=== PATIENT | male | born 1955 | race Caucasian/White ===

== ENCOUNTER 2017-07-12 10:39 | Day surgery (SDC) | payer MEDICARE, SELFPAY ==
[2015-09-13 11:13] VITALS: BMI 36.2
--- NOTE | 2017-07-12 | GASB_PTH ---
PATIENT: BUSTER CORDERO LOC: EN U#:[id number] AGE/SX: 61/M ROOM: RE07/12/[address]: Dr. Natalia Chin MD : 1955 BED: DIS: 07/12/2017 SPEC #: [id number] RECD: 07/12/17 13:44 STATUS: RAYMON RE #: [id number] YOLANDA: 07/12/17 00:[address]: Natalia Chin DEPT: SURGICAL PATHOLOGY RECD BY: Josue Sotomayor ENTERED: 07/12/17 13:44 SP TYPE: Gastric Bx OTHR DR: Dr. Tk Fofana MD Tissues: A - Gastric mucous membrane B - Gastric mucous membrane Procedures: Special Stain Group II Surgery Specimen Level IV Alcian Blue/PAS (control) HEADER OPERATION: EGD PRE-OP DIAGNOSIS: Heme-positive stools TISSUE SUBMITTED: A ? Antral biopsy, B ? GE junction biopsy 2 cm proximal MICROSCOPIC DIAGNOSIS A. Antral biopsy: Mild gastritis. See microscopic description and comment. B. 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 Mild chronic inflammation. See comment. SJ:mariya 07/13/17 COMMENT A. The results of immunohistochemistry for Helicobacter pylori will be reported separately ([id number]). B. Alcian blue/PAS stain with matched control is used in the evaluation of the specimen. No evidence of dysplasia. MICROSCOPIC DESCRIPTION Slides are reviewed. A. The specimen shows fragments of gastric mucosa with chronic inflammatory cell infiltrates in the lamina propria consisting of lymphocytes and plasma cells, consistent with mild chronic gastritis. GROSS DESCRIPTION A - Received in fixative is one container labeled with the patient's name and designated antral biopsy. The specimen consists of one irregular fragment of light kaminski soft tissue that measures 0.4 x 0.4 x 0.1 cm. The specimen is totally submitted in one cassette. B - Received in fixative is one container labeled with the patient's name and designated 2 cm proximal to GE junction. The specimen consists of one irregular fragment of light kaminski soft tissue that measures 0.3 x 0.3 x 0.1 cm. The specimen is totally submitted in one cassette. / RANJIT:mariya 07/12/17 TC:3 CPT: 22119 x2, 99083
--- NOTE | 2017-07-12 | IMM_PTH ---
PATIENT: BUSTER CORDERO LOC: EN U#:[id number] AGE/SX: 61/M ROOM: RE07/12/[address]: Dr. Natalia Chin MD : 1955 BED: DIS: 07/12/2017 SPEC #: [id number] RECD: 07/13/17 13:34 STATUS: RAYMON REQ #: [id number] YOLANDA: 07/12/17 00:[address]: Natalia Chin DEPT: IMMUNOHISTOCHEMISTRY RECD BY: Kana Gamez ENTERED: 07/13/17 13:35 SP TYPE: IMMUNO OTHR DR: Dr. Tk Fofana MD Tissues: Gastric mucous membrane Procedures: H Pylori (initial) PHYSICIAN & INSTITUTION [place] [id number] SPECIMEN INFORMATION: Tissue Source: A. Antral biopsy Clinical Info: Heme-positive stools Specimen Number: [id number] CPT code: 08093 METHODOLOGY: Deparaffinized sections of prefer/formalin-fixed tissue or PAP/DQ stained slides are incubated with monoclonal/polyclonal antibodies/oligonucleotide probes. Localization is made via biotin free immunoperoxidase method. Appropriate controls are performed and reacted as expected. Results on target cell population are indicated in the following table: RESULTS: ANTIBODY / CLONE RESULT H Pylori (polyclonal) negative These tests were developed and their performance characteristics determined by [facility]. They may not have been cleared or approved by the U.S. Food and Drug Administration. The FDA has determined that such clearance or approval is not necessary. INTERPRETATION: A. Antral biopsy: Negative for Helicobacter pylori organisms. SJ:magan 07/13/17
[2017-07-12 11:13] VITALS: BP 131/93; PULSE 101; RESP 18; TEMP 37; O2SAT 97; BMI 36.3
[2017-07-12 11:40] LABS: Bedside Glucose 235 mg/dL (70-110)
[2017-07-12 12:38] VITALS: BP 131/93; BP 94/68; PULSE 115; RESP 16; TEMP 36.2; O2SAT 94
[2017-07-12 12:45] VITALS: BP 131/93; BP 96/72; PULSE 120; RESP 16; O2SAT 96
[2017-07-12 12:50] VITALS: BP 107/73; BP 131/93; PULSE 105; RESP 16; O2SAT 96
[2017-07-12 12:55] VITALS: BP 111/88; BP 131/93; PULSE 108; RESP 16; TEMP 36.3; O2SAT 96
[2017-07-12 13:18] VITALS: BP 131/93
--- NOTE | 2017-07-12 16:37 | PCM.OPRPT ---
Report of Operation Date of Procedure: 07/12/17 Pre-Operative Diagnosis: heme positive stools Post-Operative Diagnosis: mild antritis, mild esophagitis, normal colon but incomplete colon cleansing preparation Surgery/Procedure Performed:: esophagogastroduodenoscopies with biopsies, colonoscopy Description of Surgical Findings:: mild antritis - no ulcers or masses seen, salmon mucosal creeping at GE junction to 2 cm proximally, no lesions seen in colon - however polyps < 2 cm may be missed due to poor colon cleansing preparation Type of Anesthesia:: MAC Anesthesiologist: Nannette Jorge Specimen's removed: mucosal biopsies of antrum and GE juction 2 cm proximally Estimated Blood Loss (mL): minimal Fluids Replaced: 400 ml RL Description of Procedure: After informed consent was given, the patient was brought to the endoscopy suite and placed in the upright sitting position. Appropriate time out protocol was followed. Appropriate cardiac, blood pressure, and pulse oximetry monitoring was placed. After stable vital signs were noted, the patient was given intravenous conscious sedation. The posterior pharynx was sprayed with lidocaine spray times two and a bite block was placed. The patient was then placed in the left lateral decubitis position. The upper endoscope was lubricated and inserted into the patients mouth and then carefully placed into the patients throat. The patient was asked to swallow and the endoscope was then easily advanced into the patients esophagus. The endoscope was further advanced down into the patients stomach, then past the pylorus, then past the duodenal bulb and then to the second portion of the duodenum. There were no lesions noted in the duodenum. The endoscope was then retracted back into the stomach. A retroflex view of the stomach revealed no evidence of any masses. No ulcers, no strictures, no suspicious lesions were noted. The endoscope was retracted into the esophagus, where any insufflated gas in the stomach was aspirated out. The gastroesophageal junction appeared to have salmon colored mucosa creeping at least 2 cm proximal to GE junction, biopsies using cold grasper forceps were taken at this location to rule out Barretts. The remainder of the esophagus was normal. The upper endoscope was removed intact. The next procedure, the colonoscopy was done next. The colonoscope was lubricated and carefully inserted into the patients anus. It was then advanced into the rectum, then into the sigmoid colon, then into the left descending colon, past the splenic flexure, into the transverse colon, past the hepatic flexure, then down into the right descending colon and into the cecum. The cecum was identified by: transillumination, confluence of the tenae coli, identification of the ileocecal valve and appendiceal orifice, and external pressure with indentation. At this point, the colonoscope was slowly retracted back and the entire colonic mucosa was examined. There was no evidence of extrinsic compression and no inflammatory changes were noted. Of note, polyps < 2 cm may be missed due to poor colon cleansing preparation. No intraluminal obstructing lesions, no strictures, and no ulcers were noted. Retroflex view in the rectum revealed no lesions in the rectal vault. The colonoscope was removed intact. Patient tolerated procedure well. - Complications none noted
--- NOTE | 2017-07-12 16:40 | OP.PCM_ITS ---
Report of Operation Date of Procedure: 07/12/17 Pre-Operative Diagnosis: heme positive stools Post-Operative Diagnosis: mild antritis, mild esophagitis, normal colon but incomplete colon cleansing preparation Surgery/Procedure Performed:: esophagogastroduodenoscopies with biopsies, colonoscopy Description of Surgical Findings:: mild antritis - no ulcers or masses seen, salmon mucosal creeping at GE junction to 2 cm proximally, no lesions seen in colon - however polyps < 2 cm may be missed due to poor colon cleansing preparation Type of Anesthesia:: MAC Anesthesiologist: Nannette Jorge Specimen's removed: mucosal biopsies of antrum and GE juction 2 cm proximally Estimated Blood Loss (mL): minimal Fluids Replaced: 400 ml RL Description of Procedure: After informed consent was given, the patient was brought to the endoscopy suite and placed in the upright sitting position. Appropriate time out protocol was followed. Appropriate cardiac, blood pressure, and pulse oximetry monitoring was placed. After stable vital signs were noted, the patient was given intravenous conscious sedation. The posterior pharynx was sprayed with lidocaine spray times two and a bite block was placed. The patient was then placed in the left lateral decubitis position. The upper endoscope was lubricated and inserted into the patient?s mouth and then carefully placed into the patient?s throat. The patient was asked to swallow and the endoscope was then easily advanced into the patient?s esophagus. The endoscope was further advanced down into the patient?s stomach, then past the pylorus, then past the duodenal bulb and then to the second portion of the duodenum. There were no lesions noted in the duodenum. The endoscope was then retracted back into the stomach. A retroflex view of the stomach revealed no evidence of any masses. No ulcers, no strictures, no suspicious lesions were noted. The endoscope was retracted into the esophagus, where any insufflated gas in the stomach was aspirated out. The gastroesophageal junction appeared to have salmon colored mucosa creeping at least 2 cm proximal to GE junction, biopsies using cold grasper forceps were taken at this location to rule out Barretts. The remainder of the esophagus was normal. The upper endoscope was removed intact. The next procedure, the colonoscopy was done next. The colonoscope was lubricated and carefully inserted into the patient?s anus. It was then advanced into the rectum, then into the sigmoid colon, then into the left descending colon, past the splenic flexure, into the transverse colon, past the hepatic flexure, then down into the right descending colon and into the cecum. The cecum was identified by: transillumination, confluence of the tenae coli, identification of the ileocecal valve and appendiceal orifice, and external pressure with indentation. At this point, the colonoscope was slowly retracted back and the entire colonic mucosa was examined. There was no evidence of extrinsic compression and no inflammatory changes were noted. Of note, polyps < 2 cm may be missed due to poor colon cleansing preparation. No intraluminal obstructing lesions, no strictures, and no ulcers were noted. Retroflex view in the rectum revealed no lesions in the rectal vault. The colonoscope was removed intact. Patient tolerated procedure well. - Complications none noted
== END 2017-07-12 13:19 | disposition home or self-care (01) ==
LOC: EN 10:40 → AC 10:42
PROVIDERS: Family Provider Family Medicine; PCP Family Medicine; Visit Provider Surgery
PROC: 0DJD8ZZ Inspection of Lower Intestinal Tract, Via Natural or Artificial Opening Endoscopic (ICD-10-PCS; CPT 45378; principal; 2017-07-12 11:55)
DX: Z12.11 Encounter for screening for malignant neoplasm of colon (principal); K29.70 Gastritis, unspecified, without bleeding; K22.70 Barrett's esophagus without dysplasia; K20.9 Esophagitis, unspecified; I11.0 Hypertensive heart disease with heart failure; I50.32 Chronic diastolic (congestive) heart failure; I48.91 Unspecified atrial fibrillation; D50.9 Iron deficiency anemia, unspecified; E11.21 Type 2 diabetes mellitus with diabetic nephropathy; E11.65 Type 2 diabetes mellitus with hyperglycemia; E78.2 Mixed hyperlipidemia; G47.10 Hypersomnia, unspecified; F32.9 Major depressive disorder, single episode, unspecified; F41.9 Anxiety disorder, unspecified; E66.01 Morbid (severe) obesity due to excess calories; Z68.36 Body mass index [BMI] 36.0-36.9, adult; F17.210 Nicotine dependence, cigarettes, uncomplicated; Z79.01 Long term (current) use of anticoagulants; Z79.891 Long term (current) use of opiate analgesic; Z79.899 Other long term (current) drug therapy
CPT/HCPCS: 43239; G0121; 82962; 88305; 88313; 88342; J7120

== ENCOUNTER 2017-09-30 12:06 | Emergency (ER) | payer MEDICARE, SELFPAY ==
[2015-09-13 11:13] VITALS: BMI 36.2
[2017-09-30 12:06] VITALS: BP 141/82; PULSE 95; RESP 16; TEMP 36.7; O2SAT 98; BMI 36.1
--- NOTE | 2017-09-30 12:38 | RAD_ITS ---
STUDY: X-RAY - LEFT HAND, ATTENTION INDEX FINGER REASON FOR EXAM: Male, 61 years old. Laceration overlying the tip of the index finger. TECHNIQUE: 3 view(s) of the finger were obtained. COMPARISON: None. FINDINGS: Normal metacarpal head. Normal metacarpophalangeal joint. Normal proximal phalanx. Normal middle phalanx. Normal distal phalanx. Normal proximal interphalangeal joint. Normal distal interphalangeal joint. Soft tissue laceration overlying the distal phalanx. RAD/Finger(s) Min 2 Views IMPRESSION: Soft tissue injury. No fracture is seen. Electronically Signed: Hakan Mendosa MD at 13:26 EDT Tel [phone], Service support ,
--- NOTE | 2017-09-30 12:41 | ED.DCSUM_ITS ---
- ER Visit Summary Date of Service: 09/30/17 Chief Complaint: Left index finger laceration History of Present Illness: The patient is a 61 M who cut his left index finger on a table saw around 830 last evening. Patient went to urgent care this morning and then was sent to the emergency room. Describes a throbbing and aching sensation. He is left-hand dominant. He is unsure of his last tetanus update. Past history is reviewed and does include history of atrial fibrillation for which he is on Xarelto. Physical Examination: Vital signs unremarkable. Patient sitting upright in bed no acute distress. Left upper extremity examination significant for a 2 x 3 cm irregular area of skin avulsion on the pad of the left index finger. He has full range of motion with good cap refill distally. Test Results: Left index finger x-rays reveal soft tissue injury with no evidence of fracture. Emergency Department Course and Treatment: Tetanus update is provided. He is given doses of Bactrim and Keflex. Digital block is performed with 2 cc of 1% lidocaine. Wound is soaked, cleansed, and dressed. He will be given Bactrim and Keflex at home. Treatment Plan: [] Disposition: Discharge Impression: Skin avulsion left index finger This note was generated with [employer] dictation software. It may contain incorrect words, spelling, and punctuation that were not noted in review of the chart prior to signing ED Disposition - Plan for ED Patient: Chief Complaint: Laceration Referrals: Tk Fofana MD [Primary Care Provider] -
[2017-09-30] MEDS: Cephalexin 250 MG Capsule 500 MG PO (13:16)
[2017-09-30] MEDS: Smz/Tmp Ds Tablet 1 TABLET PO (13:16)
[2017-09-30] MEDS: Diphth,Pertuss(Acell),Tet Vac 0.5 ML Vial IM (13:17)
--- NOTE | 2017-09-30 14:10 | ED.DEP ---
ED Disposition - Plan for ED Patient: Disposition: Home or Assisted Living Chief Complaint: Laceration Instructions: ED Avulsion Dermal, ED Wound Care Prescriptions: Cephalexin [Keflex] 500 mg PO Q6 #40 capsule Smz/Tmp Ds [Bactrim Ds] 1 tablet PO BID #20 tablet Referrals: Tk Fofana MD [Primary Care Provider] - 1-2 Weeks
[2017-09-30 14:32] VITALS: RESP 16
--- NOTE | 2017-09-30 14:32 | ED.RN ---
REVIEWED D/C INSTRUCTIONS, FOLLOW UP CARE, PRESCRIPTIONS, AND S/S THAT WOULD WARRANT A RETURN TO THE ED WITH PT. PT VERBALIZED AN UNDERSTANDING AND DENIES FURTHER QUESTIONS FOR THIS RN. PT SKIN P/W/D, RESP EVEN AND UNLABORED, PT A&O X 3, NO DISTRESS NOTED. PT AMBULATED OUT OF ED, GAIT STEADY.
== END 2017-09-30 14:33 | disposition home or self-care (01) ==
PROVIDERS: Emergency Provider Emergency Medicine; Family Provider Family Medicine; PCP Family Medicine
DX: S61.201A Unspecified open wound of left index finger without damage to nail, initial encounter (principal); W29.8XXA Contact with other powered hand tools and household machinery, initial encounter; Y93.9 Activity, unspecified; Y92.9 Unspecified place or not applicable; Y99.9 Unspecified external cause status; Z23 Encounter for immunization; I48.91 Unspecified atrial fibrillation; E11.9 Type 2 diabetes mellitus without complications; I10 Essential (primary) hypertension; Z72.0 Tobacco use; Z79.01 Long term (current) use of anticoagulants; Z79.84 Long term (current) use of oral hypoglycemic drugs; Z79.899 Other long term (current) drug therapy
CPT/HCPCS: 73140; 90715; 99284

== ENCOUNTER 2018-08-18 13:52 | Inpatient (IN) | payer MEDICARE, SELFPAY ==
[2015-09-13 11:13] VITALS: BMI 36.2
[2018-08-18] VITALS (32 sets, daily range): BP systolic 120–148; BP diastolic 79–107; PULSE 33–169; RESP 13–184; TEMP 37.6–40.9; O2SAT 90–100; BMI 34.6; BMI 34.3
--- NOTE | 2018-08-18 14:03 | CT_ITS ---
STUDY: CT BRAIN WITHOUT CONTRAST REASON FOR EXAM: Male, 62 years old. Weakness. Confusion. RADIATION DOSAGE (If Supplied By Facility): CTDIvol = ( 60.81 ) mGy, DLP = ( 1044.28 ) mGycm TECHNIQUE: Transaxial CT imaging of the brain was performed without administration of intravenous contrast material. Individualized dose optimization techniques were used for this CT. COMPARISON: No relevant priors. FINDINGS: Normal soft tissue structures. Normal calvarium. Normal size ventricles and extra-axial spaces for the patient's age. Focal area of decreased attenuation in the carney radiata of the left frontoparietal lobe suggestive of old ischemic insult. Normal basal ganglia and thalami. Normal brainstem. Normal cerebellum. There is no intracranial hemorrhage. There are no findings of an acute ischemic infarction. Callosal thickening of the left maxillary sinus. 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 Electronically Signed: Hakan Mendosa, at 15:00 EDT , Service support ,
--- NOTE | 2018-08-18 14:03 | EKG12_ITS ---
Test Reason : NEURO STROKE SYMPT Blood Pressure : / mmHG Vent. Rate : 126 BPM Atrial Rate : 300 BPM P-R Int : 000 ms QRS Dur : 106 ms QT Int : 334 ms P-R-T Axes : 000 064 058 degrees QTc Int : 483 ms Atrial fibrillation with rapid ventricular response Abnormal ECG Confirmed by JORGE HANEY, MARGARITA ([id number]), editorial assistant SIXTO LICEA ([id number]) on 08/22/2018 11:30:56 AM Referred By: Coco Saini Confirmed By:GARRETT PATEL MD
--- NOTE | 2018-08-18 14:03 | RAD_ITS ---
STUDY: X-RAY CHEST REASON FOR EXAM: Male, 62 years old. Chest pain. TECHNIQUE: Single AP portable view of the chest. COMPARISON: Comparison is made with prior study October 19, 2016. FINDINGS: EKG electrodes are seen. Stable diffuse interstitial increased markings suggestive of mild CHF. This most likely is superimposed on chronic interstitial scarring. Blunting of the left costophrenic angle. There is moderate cardiac enlargement. Normal mediastinum and cathy. Normal visualized pulmonary arteries. There is atherosclerotic calcification of the aortic arch with tortuosity. There are degenerative changes of the visualized thoracic spine. Normal visualized ribs, clavicles, and shoulders. There is no demonstrated abnormality of the visualized soft tissue structures of the upper abdomen. RAD/Chest 1 View (Portable) IMPRESSION: Stable increased interstitial markings bilaterally suggestive of mild CHF superimposed on scarring. Electronically Signed: Hakan Mendosa, at 14:42 EDT , Service support ,
--- NOTE | 2018-08-18 14:20 | EKG12_ITS ---
Test Reason : RAPID RESPONSE Blood Pressure : / mmHG Vent. Rate : 151 BPM Atrial Rate : 187 BPM P-R Int : 000 ms QRS Dur : 108 ms QT Int : 292 ms P-R-T Axes : 000 076 063 degrees QTc Int : 462 ms Atrial fibrillation Low voltage QRS Septal infarct , age undetermined Abnormal ECG When compared with ECG of 19-OCT-2016 14:38, Septal infarct is now Present Confirmed by RAFIQ HANEY, NANCY ([id number]), web content editor SIXTO LICEA ([id number]) on 08/23/2018 8:18:57 AM Referred By: Coco Saini Confirmed By:NANCY CONROY MD
--- NOTE | 2018-08-18 14:20 | CT_ITS ---
STUDY: CT ABDOMEN AND PELVIS WITHOUT CONTRAST REASON FOR EXAM: Male, 62 years old. Weakness. Abdominal pain. Confusion. RADIATION DOSAGE (If Supplied By Facility): CTDIvol = ( 14.80 ) mGy, DLP = ( 766.75 ) mGycm TECHNIQUE: Transaxial images were obtained from the dome of the diaphragm to the symphysis pubis without oral contrast, and without intravenous contrast. Sagittal and coronal images were reconstructed. Individualized dose optimization techniques were used for this CT. COMPARISON: None. FINDINGS: Consolidation in the posterior medial segment of the left lower lobe. Mild increased markings at the left lung base. Coronary artery calcification. Moderate ascites. Normal liver. I suspect small gallstones and sludge within the gallbladder lumen. There is moderate splenomegaly. Normal pancreas. Normal bilateral adrenal glands. Normal right kidney. Normal left kidney. Normal visualized stomach. Normal small intestine. Normal colon. The appendix is visualized and appears normal. There is diffuse atherosclerotic calcification of the abdominal aorta, without a demonstrated aneurysm. Normal inferior vena cava. Normal retroperitoneum. Normal urinary bladder. Normal abdominal wall. There are degenerative changes of the visualized lumbar spine. CT/Abdomen/Pelvis without Cont IMPRESSION: Ascites. Moderate splenomegaly. Consolidation in the posterior medial segment of the left lower lobe with mild increased markings in the right lower lobe. Electronically Signed: Hakan Mendosa, at 14:59 EDT , Service support ,
--- NOTE | 2018-08-18 14:24 | ED.DCSUM_ITS ---
History of Present Illness Chief Complaint: Neuro S/Sx Informant: Patient, Family Onset: Days Current Severity: Moderate Narrative: Patient can presents with weakness abdominal pain confusion incontinence since Wednesday, per the family who he lives with he developed with generalized weakness could not really move about that incontinence and complained of shortness of breath and has generalized weakness and confusion he was brought to the hosp [facility]. The patient really cannot provide any history he is noted to have a temperature about 100 his blood pressure is 130/70 his heart rates 148. Sinus tach on the monitor he is complaining of generalized fatigue tiredness and some very mild shortness of breath Past Medical History - Allergies and Home Meds Allergies/Adverse Reactions: Allergies No Known Allergies Allergy (Verified 08/18/18 14:17) Primary Care Physician: Tk Fofana MD [Primary Care Provider] - Past Medical History: - - See the full chart Smoking Status: Current every day smoker - Family History Sibling Family History: Reports: Cancer - his sister, - - Brother with a comp occasions of multiple sclerosis Review of Systems General: Reports: Chills, Fever. Denies: Sweats Eyes: Denies: Visual changes - bilaterally, Diplopia ENT: Denies: Rhinorrhea, Sore throat Cardiovascular: Denies: Chest pain, Palpitations Respiratory: Reports: Dyspnea. Denies: Cough, Dyspnea on exertion Gastrointestinal: Denies: Abdominal pain, Nausea, Vomiting, Diarrhea, Melena, Hematochezia Genitourinary: Denies: Dysuria, Hematuria, Frequency Musculoskeletal: Denies: Back pain, Extremity Pain Skin: Denies: Rash, Wounds Neurological: Reports: - - Planes of generalized whole body weakness. Denies: Headache, Weakness, Numbness Physical Exam Vital Signs/Narrative: Vital Signs Temp Pulse Resp BP Pulse Ox 08/18/18 14:01 99.7 F H 145 H 32 H 135/79 H 99 General: Well nourished, Well developed, No Acute Distress Head: Normocephalic, Atraumatic Eyes: Perrl, EOMI ENT: Moist mucous membranes, No rhinorrhea Neck: Supple, Nontender Cardiovascular: Regular rate, Regular rhythm, No murmurs Respiratory: No distress, CTA bilaterally, Chest nontender Abdomen: Soft, Nondistended, Normal bowel sounds, Tender, - - His abdomen appears distended, he may have some bladder fullness in the suprapubic area there is no rebound or guarding Back: Nontender, Normal Inspection Extremities: Nontender, No edema Skin: Normal color, No rash Neurological: Alert, Cranial nerves II-XII grossly intact, Normal Strength, Normal Sensation, - - He is awake he is answering questions to his name he knows [facility] he just complains of generalized weakness he is moving all 4 extremities his HEENT is grossly normal he is uncooperative for formal exam there is no obvious gross motor or sensory abnormality Psychological: Normal affect, Normal Mood Diagnostic/Tx/Re-eval - Medical Decision Making The patient has been having apparent weakness vomiting he was incontinent of stool and urine abdominal distention shortness of breath his differentials rather wide there is no obvious signs of primary stroke but some events in the differential as well this all started Wednesday screening labs Patient's head CT shows nothing acute see the report, the abdominal CT shows appear to be bilobar infiltrates see that report, the screening labs show multiple abnormalities , white count , lactate is negative, he is received IV fluids sepsis protocol antibiotics he remains hemodynamically stable at this time given all the above the fact that he presents with shortness of breath and fever and generalized weakness we last hospital seen for the management admission Admit stable Final impression Bi lobar pneumonia, generalized weakness, ED Disposition - Plan for ED Patient: Referrals: Tk Fofana MD [Primary Care Provider] -
[2018-08-18 14:42] LABS: International Normalized Ratio 1.9; Prothrombin Time (Protime)PT. 21.4 SECONDS (11.7-14.9)
[2018-08-18 14:53] LABS: ALB/GLOB Ratio 0.5 RATIO (0.9-2.4); AST(SGOT) 46 U/L (15-37); Alanine Aminotransfer ALT/SGPT 20 U/L (16-61); Albumin, Serum 2.9 g/dL (3.2-5.0); Alkaline Phosphatase 150 U/L (45-117); Anion Gap 11 (5-15); BUN 11 mg/dL (7-18); BUN/Creat Ratio 12.4 RATIO (10-20); Calcium,Total 8.1 mg/dL (8.5-10.1); Chloride 95 mmol/L (98-107); Creatinine, Serum 0.89 mg/dL (0.70-1.30); EST Glomerular Filtration Rate 92 mL/min (>60); Est Glom Filt Rate - Afr Amer 112 mL/min (>60); Globulin 5.4 g/dL (2.2-4.2); Glucose 126 mg/dL (74-106); Potassium 3.7 mmol/L (3.5-5.1); Protein, Total 8.3 g/dL (6.4-8.2); Sodium Level 127 mmol/L (136-145)
[2018-08-18 15:00] LABS: Lactic Acid 1.9 mmol/L (0.4-2.0)
[2018-08-18 15:17] LABS: Mucous, Urine 0 SEEN /hpf (<or=2+); Squamous Epithelial Cells - UA 0 SEEN /hpf (0-5)
[2018-08-18 15:18] LABS: Color, Urine Yellow (Yellow); Glucose, Dipstick Normal (Normal); Ketone-Dipstick 5 mg/dl (Negative); Leukocyte Esterase-Dipstick 25 /ul (Negative); Nitrite-Dipstick Negative (Negative); Occult Blood-Urine 50 /ul (Negative); Protein-Dipstick 100 mg/dl (Negative); Specific Gravity, Urine 1.015 (1.002-1.030); Urine Bilirubin Dipstick 1 mg/dL (Negative); Urine Clarity Clear (Clear); Urine Urobilinogen 8 mg/dl (Normal)
[2018-08-18 15:23] LABS: Bacteria RARE /hpf (None Seen); Red Blood Cells-Urine 0-5 SEEN /hpf (0-5); White Blood Cells 0-5 SEEN /hpf (0-5)
[2018-08-18] MEDS: 0.9% Normal Saline 1,000 ML 150 ML IV (15:30)
[2018-08-18] MEDS: Acetaminophen 325 MG Tablet 650 MG PO ×2 (15:32→20:26)
[2018-08-18 15:36] LABS: Absolute Lymphocyte Count 0.65 X10^3/ul (0.83-4.51); Basophil# 0.01 X10^3/uL; Basophil% 0.2 % (0-1); Hematocrit 32.9 % (40-54); Hemoglobin 11.5 g/dl (13.0-16.5); Lymphocyte # 0.65 X10^3/ul (4.0); Lymphocyte % 10.4 % (19-41); Mean Corpuscular Hgb 31.9 pg (27.0-32.0); Mean Corpuscular Volume 91.1 fL (80-94); Mean Platelet Vol. 9.1 fl (6.2-12.0); Monocyte# 0.57 X10^3/uL; Monocyte% 9.1 % (0-10); Neutrophil # 4.98 X10^3/uL (2.7-7.7); Neutrophil % 79.7 % (47-70); Platelet Count 72 K/mm3 (150-450); RBC Distribution Width SD 53.9 fl (35.1-43.9); Red Blood Count 3.61 M/mm3 (4.6-6.2); White Blood Count 6.3 K/mm3 (4.4-11.0)
[2018-08-18 15:38] LABS: POSITIVE COUNT NO; POSITIVE DIFFERENTIAL NO; POSITIVE MORPHOLOGY NO
--- NOTE | 2018-08-18 15:38 | PCM.HP.STD ---
Problem List (1) Sepsis Status: Acute (2) CAP (community acquired pneumonia) Status: Acute Qualifiers: Laterality: unspecified laterality Qualified Code(s): J18.9 - Pneumonia, unspecified organism (3) Atrial fibrillation Status: Acute Qualifiers: Atrial fibrillation type: paroxysmal Qualified Code(s): I48.0 - Paroxysmal atrial fibrillation (4) Decompensated hepatic cirrhosis Status: Acute (5) Heart failure with preserved ejection fraction, borderline, class II Status: Acute (6) Thrombocytopenia Status: Chronic (7) Anemia Status: Chronic Qualifiers: Anemia type: unspecified type Qualified Code(s): D64.9 - Anemia, unspecified (8) Hyponatremia Status: Acute (9) Alcohol abuse Status: Chronic (10) Diabetes type 2, controlled Status: Chronic Qualifiers: Diabetes mellitus senior care insulin use: without senior care use Diabetes mellitus complication status: with unspecified complications Qualified Code(s): E11.8 - Type 2 diabetes mellitus with unspecified complications (11) Hypertension Status: Chronic Qualifiers: Hypertension type: essential hypertension Qualified Code(s): I10 - Essential (primary) hypertension (12) HLD (hyperlipidemia) Status: Chronic Qualifiers: Hyperlipidemia type: unspecified Qualified Code(s): E78.5 - Hyperlipidemia, unspecified History of Present Illness Date of Admission: 08/18/18 Chief Complaint: Confusion, abd distention, fever The patient is a 62 y/o M w/ PMHx: PAF, CHF, HTN, HLD, Chronic back pain, Diabetes mellitus type II, Obesity, Depression and Anxiety, EtOH ABuse, Chronic daily cannabis use, Tobacco use who presents to the [facility] ED on 08/18/18 with history of several days with progressively worsening dyspnea, decreased interaction, incontinent of urine and stool with nonspecific abdominal discomfort and worsened abdominal distention as well as lower extremity edema as well as onset fever, productive cough. Work-up in the ED included T103.3, heart rate initially 145, BP 135/79, respiratory rate 32, 99% on room air, CBC with WBC 6.3, hemoglobin 11.5, platelets 72 with mild left shift, PT 21.4, INR 1.9, CMP with sodium 127, chloride 95, glucose 126, lactic acid 1.9, total bilirubin 2.6, AST 46, ALT 20, alk phos 150, troponin less than 0.01, urinalysis with no acute evidence of infection, culture x2 and urine culture obtained per ED and pending, CT brain with findings suggestive of an old ischemic insult involving the carney radiata of the left frontoparietal lobe, chest x-ray with stable increased interstitial markings bilaterally suggestive of possible mild CHF superimposed on scarring, CT abdomen and pelvis with evidence of ascites, moderate splenomegaly, consolidation in the posterior medial segment of the left lower lobe with mild increased markings in the right lower lobe. In the ED patient administered aggressive normal saline resuscitation, Zosyn, vancomycin as well as Tylenol. Past Medical History Past Medical History (Chronic Problems): Chronic Problems HLD (hyperlipidemia) (Chronic) Thrombocytopenia (Chronic) Anemia (Chronic) Pancytopenia (Chronic) Alcohol abuse (Chronic) Diabetes type 2, controlled (Chronic) Hypertension (Chronic) Allergies No Known Allergies Allergy (Verified 08/18/18 14:17) Home Medications: Ambulatory Orders Medication Instructions Recorded Irbesartan [Avapro] 150 mg PO DAILY 10/15/15 Diltiazem CD [Cardizem CD] 120 mg PO DAILY 10/19/16 Furosemide [Lasix] 20 mg PO DAILY 10/19/16 Docusate Sodium [Dok] 100 mg PO BID 07/07/17 Rivaroxaban [Xarelto] 20 mg PO DAILY 07/07/17 Citalopram [Celexa] 40 mg PO DAILY 08/18/18 Ferrous Sulfate 325 mg PO DAILY 08/18/18 Garlic 1,500 mg PO DAILY 08/18/18 Lidocaine [Lidoderm Patch] 1 patch TOPICAL Q12H PRN PRN 08/18/18 Multivitamin with Minerals 1 ea PO DAILY 08/18/18 [Multiple Vitamin] Bedford-3 Fatty Acids/Fish Oil 3,000 mg PO DAILY 08/18/18 [[place] 3 1,000 mg Softgel] Oxycodone HCl/Acetaminophen 1 tab PO BID PRN PRN 08/18/18 [Oxycodon-Acetaminophen 7.5-325] Potassium Chloride [Klor-Con M20] 20 meq PO DAILY 08/18/18 Ubidecarenone [Co Q-10] 100 mg PO DAILY 08/18/18 busPIRone [Buspar] 15 mg PO BID 08/18/18 metFORMIN (XR) [Glucophage Xr] 1,000 mg PO DAILY 06/20/19 Surgical History: - - Chest tube placement from prior trauma, tonsillectomy, right shoulder surgery. Psychiatric History: No pertinent psych hx Lives: Spouse/ Significant Other Smoking Status: Current every day smoker - Patient smokes 1/2 pack/day cigarette tobacco usage. Tobacco Use: Cigarettes Alcohol: Heavy - Patient drinks 3 to 12, 12 ounce beers daily. Drugs: None - *Family History Sibling History Items: Cancer - Sister with a history of cancer, unclear type., - - Brother with a history of multiple sclerosis. Maternal History Items: - - Patient notes his mother was healthy, no history of heart disease, diabetes or cancer. Paternal History Items: - - Patient does not know any of his father's history, left when he was young. Review of Systems Constitutional: Reports: Anorexia, Chills, Fever, Malaise, Weakness, Fatigue. Denies: Weight Change HEENT: Denies: Head Aches, Sinus Congestion, Sinus Drainage Cardiovascular: Reports: Edema, Orthopnea. Denies: Chest Pain, Palpitations Respiratory: Reports: Cough, Shortness of Breath, Shortness of breath at rest, Shortness of breath upon exertion, Sputum production Gastrointestinal: Reports: Abdominal Pain. Denies: Nausea, Vomiting Genitourinary: Denies: Dysuria Musculoskeletal: Reports: Joint Pain. Denies: Joint Tenderness Skin: Denies: Rash, Wounds Neurological: Reports: Confusion. Denies: Focal weakness, Numbness, Tingling Psychiatric: Denies: Anxiety, Depression, Homicidal Ideations, Suicidal Ideations Hematologic/ Lymphatic: Reports: Anemia, Easy Bruising, Easy Bleeding VTE Information - Inpt Only VTE Present on Admission: No VTE Mechan Device Prophylaxis: SCD's VTE Pharm Prophylaxis ordered?: No Reason prophylaxis not ordered:: Treatment Not Indicated - Holding patient Xarelto as possible need for paracentesis. Patient Problems: Active and Suspected Problems Hyponatremia (Acute) Decompensated hepatic cirrhosis (Acute) CAP (community acquired pneumonia) (Acute) Sepsis (Acute) Subjective: Seated upright in the ED bed, fatigued and ill-appearing, increased work of breathing, some accessory muscle usage still although improved from initial presentation, orientation has notably improved and is able to give place, year, recent events but had been very confused upon initial presentation. Objective: Physical Examination: General: awake, now alert, oriented to self, place, year and president now but had been very confused initially upon presentation to the ED, remains cooperative, seated upright in the ED bed, fatigued appearing, still ongoing mildly increased work of breathing and some accessory muscle usage but improved since initial presentation. Skin: normal color, turgor, no icterus, cyanosis, bilateral lower extremity chronic venous stasis skin changes and occasional ecchymoses to the extremities of various staged. HEENT: AT/NC, EOMI, PERRLA, dry MM, no carotid bruits, difficult to assess JVD secondary to thickened neck. Lungs: Diminished BS BL, > BL bases, rales and rhonchi noted, > BL bases to mid posterior, increased work of breathing, some accessory muscle usage still, improved from initial ED presentation. Heart: Irregular irregular; no gallop, rub audible. Abdomen: soft, NTTP distended, distant hyperactive bowel sounds, difficult to assess HSM secondary to distended habitus with ascites evident. Extremities: no cyanosis, clubbing, bilateral lower extremity pedal to lower abdominal 3-4+ pitting edema Neurological: patient awake, alert, oriented as noted, improving since initial ED presentation; cognitive function notably improved since initial ED presentation, nearing baseline intact; pupils equally reactive to light and accomodation; cranial nerves II-XII grossly normal, moving all 4 extremities, no focal deficits, strength severely global decrease secondary to acute presentation. Psychiatric: affect appears fatigued, no acute evidence of depressive or anxiety feelings. - Physical Exam Vital Signs Temp Pulse Resp BP Pulse Ox 103.3 F H 118 H 28 H 147/79 H 97 08/18/18 15:33 08/18/18 15:33 08/18/18 15:33 08/18/18 15:33 08/18/18 15:33 Oxygen Flow Rate (L/min) 2 Oxygen Delivery Method Nasal Cannula Weight: 262 lb 5.601 oz Body Mass Index (BMI) 34.6 Laboratory Tests Past 24 Hrs 08/18/18 08/18/18 08/18/18 13:11 14:22 14:22 WBC RBC Hgb Hct MCV MCH MCHC RDW RDW Differential Plt Count Neut % (Auto) Absolute Neuts (auto) Total Counted PT 21.4 H INR 1.9 Sodium 127 L Potassium 3.7 Chloride 95 L Carbon Dioxide 21.0 Anion Gap 11 BUN 11 Creatinine 0.89 Estim Creat Clear Calc 98.50 Est GFR (MDRD) Af Amer 112 Est GFR (MDRD) Non-Af 92 BUN/Creatinine Ratio 12.4 Glucose 126 H Lactic Acid Calcium 8.1 L Total Bilirubin 2.60 H AST 46 H ALT 20 Alkaline Phosphatase 150 H Troponin I < 0.015 Total Protein 8.3 H Albumin 2.9 L Globulin 5.4 H Albumin/Globulin Ratio 0.5 L Urine Color Yellow Urine Clarity Clear Urine pH 6.0 Ur Specific Startex 1.015 Urine Protein 100 H Urine Glucose (UA) Normal Urine Ketones 5 H Urine Occult Blood 50 H Urine Nitrite Negative Urine Bilirubin 1 H Urine Urobilinogen 8 H Ur Leukocyte Esterase 25 H Urine RBC 0-5 SEEN Urine WBC 0-5 SEEN Ur Squamous Epith Cells 0 SEEN Urine Bacteria RARE Urine Mucus 0 SEEN 08/18/18 08/18/18 14:22 14:22 WBC Pending RBC Pending Hgb Pending Hct Pending MCV Pending MCH Pending MCHC Pending RDW Pending RDW Differential Pending Plt Count Pending Neut % (Auto) Pending Absolute Neuts (auto) Pending Total Counted Pending PT INR Sodium Potassium Chloride Carbon Dioxide Anion Gap BUN Creatinine Estim Creat Clear Calc Est GFR (MDRD) Af Amer Est GFR (MDRD) Non-Af BUN/Creatinine Ratio Glucose Lactic Acid 1.9 Calcium Total Bilirubin AST ALT Alkaline Phosphatase Troponin I Total Protein Albumin Globulin Albumin/Globulin Ratio Urine Color Urine Clarity Urine pH Ur Specific Startex Urine Protein Urine Glucose (UA) Urine Ketones Urine Occult Blood Urine Nitrite Urine Bilirubin Urine Urobilinogen Ur Leukocyte Esterase Urine RBC Urine WBC Ur Squamous Epith Cells Urine Bacteria Urine Mucus Assessment/Plan All Active Problems Hyponatremia (Acute) Decompensated hepatic cirrhosis (Acute) CAP (community acquired pneumonia) (Acute) Sepsis (Acute) Leukocytoclastic vasculitis (Acute) Atrial fibrillation with RVR (Acute) Heart failure with preserved ejection fraction, borderline, class II (Acute) Atrial fibrillation (Acute) The patient is a 62 y/o M w/ PMHx: PAF, CHF, HTN, HLD, Chronic back pain, Diabetes mellitus type II, Obesity, Depression and Anxiety, EtOH ABuse, Chronic daily cannabis use, Tobacco use who presents to the [facility] ED on 08/18/18 with history of several days with progressively worsening dyspnea, decreased interaction, incontinent of urine and stool with nonspecific abdominal discomfort and worsened abdominal distention as well as lower extremity edema as well as onset fever, productive cough. (1) Acute Hypoxic Respiratory Failure secondary to Acute Decompensated CHF, Unclear Type and Suspected New Decompensated Cirrhosis w/ EtOH Ongoing and CAP w/ Acute Sepsis secondary: Work-up in the ED included T103.3, heart rate initially 145, BP 135/79, respiratory rate 32, 99% on room air, CBC with WBC 6.3, hemoglobin 11.5, platelets 72 with mild left shift, PT 21.4, INR 1.9, CMP with sodium 127, chloride 95, glucose 126, lactic acid 1.9, total bilirubin 2.6, AST 46, ALT 20, alk phos 150, troponin less than 0.01, urinalysis with no acute evidence of infection, culture x2 and urine culture obtained per ED and pending, CT brain with findings suggestive of an old ischemic insult involving the carney radiata of the left frontoparietal lobe, chest x-ray with stable increased interstitial markings bilaterally suggestive of possible mild CHF superimposed on scarring, CT abdomen and pelvis with evidence of ascites, moderate splenomegaly, consolidation in the posterior medial segment of the left lower lobe with mild increased markings in the right lower lobe. Will admit to the ICU, notified the ICU physician Dr. Nichols of admission, maintain on cardiac telemetry, obtain cardiac enzyme series, obtain serial EKGs, continue IV lasix diuresis, allow only ADA, low-sodium diet, monitor I/Os, maintain on intake restriction, continue medical therapy IV diruesis primarily, initiating lactulose regimen, holding xarelto, administered IV cardizem given PAF with RVR and continued oral regimen, defer statin addition given this presentation w/ FLP in AM, obtain TSH and magnesium level. Requested ECHO. Given ongoing Xarelto regimen, held now upon admission once allowable per IR would plan diagnostic and therapeutic paracentesis. Given unclear timeline and with recent anticoagulation will hold on initiating n.p.o. status or ordering paracentesis labs, continue ATC duonebs, PRN albuterol, maintain on IV Zosyn and Vancomycin pending MRSA screen with de-escalation as able, HOB, IS parameters w/ pending sputum cultures and urine antigens. Bld cx x 2 obtained in the ED. Cardiology consulted, pending. PRN morphine to decrease afterload, continue oxygen supplementation, if necessary will position w/ upright position with legs off bed to decrease preload. (2) Acute encephalopathy, infectious and metabolic, multifactorial: Secondary to as noted acute hypoxic respiratory failure secondary to pneumonia, CHF exacerbation as well as decompensated cirrhosis, sepsis, will continue treatment as noted above, already starting to improve, continue to evaluate. (3) Paroxsymal atrial fibrillation w/ RVR: EKG in ED w/ atrial fibrillation w/ RVR. Will maintain on telemetry, obtain cardiac enzyme serial set, obtain magnesium level, obtain ECHO, obtain TSH level. Holding patient Xarelto regimen given acute presentation with need for paracentesis. Administered IV Cardizem bolus x2 with some improvement, if needed may initiate on drip, but in interim we will continue also patient oral home Cardizem regimen. Cardiology consulted, pending. (4) EtOH Abuse: Patient notes routine consumption of 3-12, 12 ounce beers per day. Will maintain on CIWA protocol, MVI, thiamine and folic acid. UDS and alcohol level requested. Patient presentation may also be comp gated by alcohol withdrawal given recent bedridden status with acute presentation. Mag and phos levels pending. (5) Hyponatremia, mildly acute on chronic: Admission sodium 127, likely be reported flower contributing, as well as acute presentation #1, continue treatment as noted #1 and trend BMP. (6) Diabetes mellitus type II: Hold oral home regimen, ADA diet, accu checks w/ ISS. (7) Chronic normocytic anemia, Fe Deficiency Anemia: Admission hemoglobin 11.5, stable, will obtain iron panel, vitamin B12 and folic acid levels, continue iron supplementation. (8) Hypertension: Continue home regimen including Cardizem IV as noted with transition to oral, IV Lasix diuresis as noted, Avapro, PRN hydralazine. (9) Hyperlipidemia: Not on regimen, FLP in a.m., defer statin addition given acute presentation as noted #1 compensated cirrhosis. (10) Tobacco Abuse: Encouraged cessation, inpatient consultation per RT, NR if desired. (11) Anxiety and Depression: We will continue home BuSpar and Celexa regimen. (12) Chronic Thrombocytopenia: Admission platelets 72, likely secondary to acute presentation #1 suspected comes into cirrhosis as well as chronic alcohol abuse, trend. (13) DVT prophylaxis: SCDs, holding Xarelto for possible paracentesis. (14) CODE status: Patient significant other present in the room, she is his healthcare power of commonwealth attorney, living will is in place. Discussed CODE status at length including difference between FULL code, DNR-CCA and DNR-CC status. Following discussions about the differences in these status, requested Full Code status despite discussion of notable comorbidities and likely poor outcome with aggressive intervention attempts. Advanced Care Planning Face to Face Time: 17 minutes. Code Visit Inpatient E&M: 99283 Init Hosp L3 Procedures: 96054 Advncd Care Plan 30 Min
[2018-08-18 17:14] LABS: BNP,B-Type NATRIURETIC PEPTIDE 689.4 pg/mL (0-100)
--- NOTE | 2018-08-18 17:28 | ECHOCS_ITS ---
Reason For Study: Afib, Aflutter Procedure This was a 2D Doppler, Color Flow transthoracic echocardiogram. The study was technically difficult. Contrast injection was performed. Exam performed portable in ICU/CCU. Left Ventricle Mild eccentric left ventricular hypertrophy. Moderately dilated left ventricle. D shaped septum in diastole. The estimated ejection fraction is 40-45 %. Unable to assess diastolic dysfunction due to arrhythmia. There is moderate global hypokinesis of the left ventricle. Right Ventricle Severely dilated right ventricle. Moderate global right ventricular systolic dysfunction. Atria Normal left atrium. The right atrium is severely enlarged. Normal atrial septum. Mitral Valve The mitral valve is structurally normal. No prolapse or stenosis seen. Trivial mitral valve insufficiency. Tricuspid Valve Normal tricuspid valve. Moderate (2+) tricuspid valve insufficiency. Right ventricular systolic pressure estimated to be 30 mmHg. Aortic Valve Moderate focal aortic valve thickening. Mild restriction of the aortic valve. Peak aortic valve gradient 9 mmHg. Mean aortic valve gradient 5 mmHg. Mild aortic stenosis. Pulmonic Valve The pulmonic valve is not well visualized. Great Vessels Normal aortic root. Normal arch. The inferior vena cava is dilated. No collapse of the inferior vena cava. Pericardium/Pleural No pericardial effusion. Small right pleural effusion. MMode/2D Measurements & Calculations LVIDd: 5.2 cm IVSd: 1.4 cm Ao root diam: 3.3 cm LVIDs: 4.3 cm LVPWd: 1.4 cm RVDd: 5.3 cm FS: 17.1 % LAV(MOD-bp): 40.0 ml LVAd ap4: 28.7 cm2 SV(MOD-sp4): 42.4 ml LAV(MOD-bp) Indexed: 16.6 ml/m2 EDV(MOD-sp4): 90.4 ml LAV(MOD-sp2): 72.8 ml EDV(sp4-el): 92.7 ml LAV(MOD-sp4): 21.7 ml LVAs ap4: 19.1 cm2 ESV(MOD-sp4): 47.9 ml ESV(sp4-el): 48.7 ml EF(MOD-sp4): 47.0 % EF(sp4-el): 47.5 % SV(sp4-el): 44.0 ml LA A4 area: 12.2 cm2 LA dimension(2D): 5.1 cm RA A4 area: 29.5 cm2 Doppler Measurements & Calculations MV E max basil: 91.0 cm/sec Ao V2 max: 153.0 cm/sec LV V1 max: 112.8 cm/sec Ao max P.4 mmHg LV V1 max P.1 mmHg Ao V2 mean: 111.0 cm/sec Ao mean P.4 mmHg Ao V2 VTI: 26.7 cm PA V2 max: 79.0 cm/sec TR max basil: 190.6 cm/sec TR max P.5 mmHg Interpretation Summary Moderately dilated left ventricle. The estimated ejection fraction is 40-45 %. Unable to assess diastolic dysfunction due to arrhythmia. Severely dilated right ventricle. D shaped septum in diastole. The right atrium is severely enlarged. Trivial mitral valve insufficiency. Moderate (2+) tricuspid valve insufficiency. Right ventricular systolic pressure estimated to be 30 mmHg. Mild aortic stenosis. Small right pleural effusion. Compared to echo report datede 10/21/2016, LV function has gone from 60% to 45%; RVSP has remained the same. Pt appears to be in atrial fbrillation. The study was technically difficult. Contrast injection was performed. Ordering Physician: Coco Saini Referring Physician: Tk Fofana Performed By: Nahed Augustin, NATHANAEL, RVT
[2018-08-18] MEDS: dilTIAZem 25 MG/5 ML Vial 10 MG IV BOLUS ×2 (18:10→21:39)
[2018-08-18] MEDS: Furosemide 40 MG/4 ML Vial IV (18:11)
--- NOTE | 2018-08-18 18:31 | PCM.RX.CS ---
Consult Pharmacy has been consulted to manage selected antiobiotic: Vancomycin Type of Consult: New start Suspected Infection: Sepsis, Pneumonia Labs: Sodium 127 mmol/L (136-145) L 08/18/18 14:22 Potassium 3.7 mmol/L (3.5-5.1) 08/18/18 14:22 Chloride 95 mmol/L (98-107) L 08/18/18 14:22 Carbon Dioxide 21.0 mmol/L (21.0-32.0) 08/18/18 14:22 11 (5-15) 08/18/18 14:22 BUN 11 mg/dL (7-18) 08/18/18 14:22 0.89 mg/dL (0.70-1.30) 08/18/18 14:22 Est GFR (MDRD) Af Amer 112 mL/min (>60) 08/18/18 14:22 Est GFR (MDRD) Non-Af 92 mL/min (>60) 08/18/18 14:22 12.4 RATIO (10-20) 08/18/18 14:22 Glucose 126 mg/dL (74-106) H 08/18/18 14:22 Weight used for dosin lb Estimated Creatinine Clearance: 117 Goal Trough: 15-20 mcg/mL Pharmacy Plan for Drug Dosing: Pharmacy Service will continue to monitor and adjust dosing as required. 2000MG loading dose given in ED Calculated dose 1500 mg q8h based on pt weight of 119kg with CrCl of 117 for goal trough of 15-20 Follow-Up Labs: Trough Vancomycin Labs to be done on [date and time ordered]: 08/19 15:30
[2018-08-18 18:46] LABS: Amphetamine Urine VISTA NEGATIVE (<1000 ng/mL); Barbiturate Urine VISTA NEGATIVE (< 200 ng/mL); Benzodiazepine Urine VISTA POSITIVE (< 200 ng/mL); Cocaine Urine VISTA NEGATIVE (< 300 ng/mL); Ecstacy Urine VISTA NEGATIVE (< 500 ng/mL); Methadone Urine VISTA NEGATIVE (< 300 ng/mL); PCP Urine VISTA NEGATIVE (< 25 ng/mL); THC Urine VISTA POSITIVE (< 50 ng/mL); Vista UDS pH Range 6
[2018-08-18] MEDS: dilTIAZem 25 MG/5 ML Vial 20 MG IV BOLUS (18:52)
[2018-08-18 19:07] LABS: Magnesium 1.9 mg/dL (1.6-2.6); Thyroid Stim Hormone (TSH) 2.54 uIU/mL (0.358-3.74)
[2018-08-18] MEDS: levoFLOXacin IV 750 MG/150 ML BAG 100 MG IV (20:19)
[2018-08-18 20:42] LABS: Ferritin 242 ng/mL (26-388); Iron 16 ug/dL (65-175); Iron Binding Capacity,Total 209 ug/dL (250-450); PERCENT IRON SATURATION 7.7 % (15.0-55.0)
[2018-08-18] MEDS: LORazepam 2 MG/ML Syringe IV (20:51)
[2018-08-18 21:05] LABS: M R Staph aureus DNA By PCR Negative (Negative); Probe Check PASS; Specimen Processing Control PASS
[2018-08-18] MEDS: Haloperidol Lactate 5 MG/ML Vial 2 MG IV ×2 (21:12→21:40)
--- NOTE | 2018-08-18 21:32 | PCM.PN.BLA ---
Progress Note Rapid response note: Rapid response was called because patient was agitated and was moving his whole body in bed. Previously nurse had called because of severe agitation. Haldol 2 mg was ordered. Per nurse patient had already received Ativan. Patient is being treated for Legionella pneumonia. Patient was restrained because of severe agitation interrupting care and at risk of hurting himself. Patient was examined at bedside. Patient moving all extremities. Tachycardia and tachypnea. Patient is on CIWA protocol. Reportedly last year was 18. We will give additional 2 mg of Haldol. We will put patient on Precedex. Reportedly patient had received boluses of Cardizem IV for A. fib. When patient is less agitated will evaluate rhythm. Critical time spent at bedside; assessing patient's; reviewing patient records; and talking to respiratory therapist and nursing staff was from 2124 to 2254 Code Visit Procedures: 96117 Critial Care Addl 30 Min
[2018-08-18] MEDS: Succinylcholine Chloride 200 MG/10 ML Vial 120 MG IV (21:50)
[2018-08-18] MEDS: Etomidate 20 MG/10 ML Vial IV (21:50)
--- NOTE | 2018-08-18 21:58 | RAD_ITS ---
HISTORY: ett tube placement ADDITIONAL HISTORY: None provided. COMPARISON: 08/18/2018 1413 hours and 10/19/2016 TECHNIQUE: Frontal chest radiograph. Number of images including paperwork: 2 FINDINGS: LUNGS AND PLEURA: Bilateral infiltrates are without gross change. CARDIAC SILHOUETTE: Stable. MEDIASTINUM AND MILANA: Stable. UPPER ABDOMEN: Unremarkable. SKELETON AND SOFT TISSUES: No acute findings. OTHER DEVICES AND HARDWARE: Endotracheal tube tip in the mid thoracic trachea. Gastric tube not seen beyond the distal esophagus. RAD/Chest 1 View (Portable) IMPRESSION: 1. No gross change in bilateral infiltrates. 2. Endotracheal tube in place. 3. Gastric tube tip likely in the distal esophagus. at 2232 Reported and signed by: Judith Campbell MD Electronically Signed: Judith Campbell MD at 22:32 EDT Tel , Service support ,
--- NOTE | 2018-08-18 22:19 | PCM.PN.BLA ---
Progress Note ET tube placement. Endotracheal Intubation Note Indication: Impending respiratory Failure Performed by: Dr. Kar Miramontes Patient was initially on BIPAP. Bipap was taken off. The patient was then placed in sniffing position. The patient was easily ventilated using an ambu bag. RSI was done using Etomidate 0.3mg/kg and succinylcholine 120mg. Glidescope was used and inserted into the oropharynx at which time there was a Grade 1 view of the vocal cords. A 7.5-nicaraguan endotracheal tube was inserted and visualized going through the vocal cords. The stylette was removed and cuff was inflated. Colorimetric change was visualized on the CO2 detector. Breath sounds were heard equally in both lung norman. The endotracheal tube was placed at 25 cm, measured at the lips. A STAT chest x-ray was ordered to verify endotracheal tube placement. The patient tolerated the procedure well and there were no immediate complications. Chest x-ray showed endotracheal tube in appropriate position. Code Visit Procedures: [id number] Insert Emergency Airway
[2018-08-18 22:40] LABS: Allen Test POS; Base Excess -8 mmol/L (-2 to +2); Bicarbonate 19.9 mmol/L (22-26); Blood Gas Specimen Type ART; FI02 60; Mode A-C; O2 Delivery Device Vent; PEEP 5; PO2 80 mmHG (75-100); RR 14; SITE L Radial; SO2 93 % (95-99); Time Given 2230; Total Carbon Dioxide 21 mmol/L; Vt 500; pCO2 47.9 mmHg (35-45); pH 7.23 (7.35-7.45)
--- NOTE | 2018-08-18 22:50 | RAD_ITS ---
HISTORY: OG placement ADDITIONAL HISTORY: None. COMPARISON: CT abdomen and pelvis 08/18/2018 Technique: Supine abdominal radiograph Number of images including paperwork: 1 FINDINGS: FREE AIR: None detected. BOWEL GAS PATTERN: Gaseous distention of upper abdominal small bowel loop and stomach. CALCIFICATIONS: No definite urinary tract calculi. ORGANS: No evidence of organomegaly. SOFT TISSUES: Unremarkable. BONES: No acute skeletal findings. RAD/Abdomen Single View (Portable) IMPRESSION: Gaseous bowel distention. Gastric tube tip in the upper stomach, suggest advancement by about 6 cm. at 0008 Reported and signed by: Judith Campbell MD Electronically Signed: Judith Campbell MD at 0:08 EDT Tel , Service support ,
[2018-08-18] MEDS: Propofol 10MG/Ml 1,000 MG/100 ML Bottle 14.1 MG CONT INF (23:16)
[2018-08-18] MEDS: Enoxaparin 80 MG/0.8 ML Syringe SC (23:17)
[2018-08-18] MEDS: Insulin Lispro 100 UNIT/ML INSULN.PEN SQ (23:22)
[2018-08-18 23:41] LABS: Bedside Glucose 199 mg/dL (70-110)
[2018-08-18] MEDS: fentaNYL drip 100 ML 5 MCG CONT INF (23:44)
[2018-08-18] MEDS: MethylPREDNISolone 125 MG/2 ML Vial IV (23:49)
[2018-08-19] VITALS (76 sets, daily range): BP systolic 66–133; BP diastolic 37–104; PULSE 81–146; RESP 16–28; TEMP 35.7–39.2; O2SAT 88–100
[2018-08-19 00:34] LABS: CPK Total, Creatine Kinase 134 U/L (39-308); Triglycerides 94 mg/dL
[2018-08-19] MEDS: Propofol 10MG/Ml 1,000 MG/100 ML Bottle 14.1 MG CONT INF (00:49)
[2018-08-19 01:31] LABS: Allen Test POS; Base Excess -7 mmol/L (-2 to +2); Bicarbonate 20.7 mmol/L (22-26); Blood Gas Specimen Type ART; FI02 70; Mode A-C; O2 Delivery Device Vent; PEEP 5; PO2 71 mmHG (75-100); RR 14; SITE L Radial; SO2 91 % (95-99); Time Given 122; Total Carbon Dioxide 22 mmol/L; Vt 500; pCO2 48.2 mmHg (35-45); pH 7.24 (7.35-7.45)
[2018-08-19 02:08] LABS: Absolute Lymphocyte Count 0.36 X10^3/ul (0.83-4.51); Absolute Neutrophil Count 11.3 X10^3/uL (2.0-7.7); Basophil# 0.01 X10^3/uL; Basophil% 0.1 % (0-1); Eosinophil# 0.01 X10^3/uL; Eosinophils% 0.1 % (0-5); Hematocrit 34.4 % (40-54); Hemoglobin 11.9 g/dl (13.0-16.5); Lymphocyte # 0.36 X10^3/ul (4.0); Lymphocyte % 2.9 % (19-41); Mean Corp Hgb Conc 34.6 g/gl (32-36); Mean Corpuscular Hgb 31.6 pg (27.0-32.0); Mean Corpuscular Volume 91.5 fL (80-94); Mean Platelet Vol. 8.7 fl (6.2-12.0); Monocyte# 0.81 X10^3/uL; Monocyte% 6.4 % (0-10); Neutrophil # 11.28 X10^3/uL (2.7-7.7); Neutrophil % 89.7 % (47-70); Platelet Count 104 K/mm3 (150-450); RBC Distribution Width SD 54.6 fl (35.1-43.9); Red Blood Count 3.76 M/mm3 (4.6-6.2); White Blood Count 12.6 K/mm3 (4.4-11.0)
[2018-08-19 02:09] LABS: Differential Indicated SCAN CRITERIA MET; POSITIVE COUNT NO; POSITIVE DIFFERENTIAL YES; POSITIVE MORPHOLOGY NO
[2018-08-19 02:21] LABS: ALB/GLOB Ratio 0.5 RATIO (0.9-2.4); AST(SGOT) 57 U/L (15-37); Alanine Aminotransfer ALT/SGPT 20 U/L (16-61); Albumin, Serum 2.9 g/dL (3.2-5.0); Alkaline Phosphatase 143 U/L (45-117); Anion Gap 9 (5-15); BUN 18 mg/dL (7-18); BUN/Creat Ratio 13.1 RATIO (10-20); Calcium,Total 7.4 mg/dL (8.5-10.1); Chloride 96 mmol/L (98-107); Creatinine, Serum 1.37 mg/dL (0.70-1.30); EST Glomerular Filtration Rate 56 mL/min (>60); Est Glom Filt Rate - Afr Amer 68 mL/min (>60); Estimated Creatinine Clearance 62.15 ml/min; Globulin 5.3 g/dL (2.2-4.2); Glucose 216 mg/dL (74-106); Potassium 3.8 mmol/L (3.5-5.1); Protein, Total 8.2 g/dL (6.4-8.2); Sodium Level 126 mmol/L (136-145)
[2018-08-19] MEDS: Ipratropium/Albuterol Sulfate 3 ML AMPUL.NEB INHALATION ×6 (03:21→22:36)
--- NOTE | 2018-08-19 05:55 | RAD_ITS ---
STUDY: X-RAY CHEST REASON FOR EXAM: Male, 62 years old. Shortness of breath TECHNIQUE: Single AP portable view of the chest. COMPARISON: 08/18/2018 FINDINGS: Endotracheal tube and nasogastric tube both which are unchanged. Increase in alveolar opacity in the lower right lung consistent with worsening right lower lobe pneumonia. There is no demonstrated pleural abnormality. There is moderate cardiac enlargement. Normal mediastinum and cathy. Normal visualized pulmonary arteries. Normal visualized aortic arch and descending thoracic aorta. Normal visualized thoracic spine. Normal visualized ribs, clavicles, and shoulders. There is no demonstrated abnormality of the visualized soft tissue structures of the upper abdomen. RAD/Chest 1 View (Portable) IMPRESSION: Worsening right lower lobe pneumonia. Electronically Signed: Cory Ortiz MD at 12:33 EDT Tel , Service support ,
--- NOTE | 2018-08-19 06:26 | CON.PCM_ITS ---
Reason for Consult Date of Consultation: 08/19/18 Reason for Consultation: Respiratory failure History of Present Illness: The patient is a 62-year-old male, with a history as outlined below, who presented to the emergency department on August 18 with altered mentation, increasing abdominal distention, shortness of breath and fever. The patient has a history of paroxysmal atrial fibrillation, chronic low back pain, diabetes mellitus, alcohol dependency, chronic daily cannabis and tobacco use along with questionable heart failure. The patient also has a known history of obstructive sleep apnea based off polysomnogram completed in 2015, for which it was recommended that he be placed on bilevel with a pressure support of 24/16 centimeters of water. History pertinent to the patient's hospitalization was obtained primarily via chart review, as the patient is currently intubated and sedated, and there are no family members available at the bedside. On presentation to the emergency department, the patient was noted to be febrile, tachycardic and tachypneic. Initial laboratory evaluation revealed no evidence of a leukocytosis. There was evidence of normocytic anemia and thrombocytopenia, which is chronic in nature. INR was noted to be 1.9. Chemistry profile was notable for a sodium of 127, chloride of 95, and creatinine of 0.89. Lactate was within normal limits. Total bili was elevated to 2.6 with an AST of 46. Alkaline phosphatase was increased to 150. Ammonia was elevated at 51. Initial troponin was negative. BNP was elevated to 690. Toxicology screen was positive for benzodiazepines and cannabinoids. Alcohol level was noted to be 7.0. Head CT revealed findings suggestive of an old ischemic insult involving the carney radiata of the left frontoparietal lobe. CT abdomen/pelvis revealed moderate splenomegaly with consolidation in the left lower lobe. The patient received supplemental IV fluids and was placed on antibiotics. The patient was subsequently admitted to the medical intensive care unit for ongoing management. Overnight, the patient developed worsening respiratory distress and did eventually require emergent intubation. The patient's white count has increased and he was febrile overnight with a T-max of 105.6 ?F. Although the patient i nitially received supplemental IV fluids in the emergency department, IV Lasix was administered overnight. Cardizem was also given due to the patient's atrial fibrillation. The patient's hemodynamics are now quite tenuous. His ammonia level has increased to 80. His troponin has also increased and was last noted to be 1.9. Repeat plain film chest x-ray this morning reveals progressive bilateral infiltrates. His endotracheal tube appears to be high riding approximately 6 cm above the myrna. The patient was noted to have a positive urine Legionella antigen. MRSA screen was negative. Past Medical History Past Medical History (Chronic Problems): Chronic Problems HLD (hyperlipidemia) (Chronic) Thrombocytopenia (Chronic) Anemia (Chronic) Pancytopenia (Chronic) Alcohol abuse (Chronic) Diabetes type 2, controlled (Chronic) Hypertension (Chronic) Allergies No Known Allergies Allergy (Verified 08/18/18 14:17) Home Medications: Ambulatory Orders Medication Instructions Recorded Irbesartan [Avapro] 150 mg PO DAILY 10/15/15 Diltiazem CD [Cardizem CD] 120 mg PO DAILY 10/19/16 Furosemide [Lasix] 20 mg PO DAILY 10/19/16 Docusate Sodium [Dok] 100 mg PO BID 07/07/17 Rivaroxaban [Xarelto] 20 mg PO DAILY 07/07/17 Citalopram [Celexa] 40 mg PO DAILY 08/18/18 Ferrous Sulfate 325 mg PO DAILY 08/18/18 Garlic 1,500 mg PO DAILY 08/18/18 Lidocaine [Lidoderm Patch] 1 patch TOPICAL Q12H PRN PRN 08/18/18 Multivitamin with Minerals 1 ea PO DAILY 08/18/18 [Multiple Vitamin] [place]-3 Fatty Acids/Fish Oil 3,000 mg PO DAILY 08/18/18 [[place] 3 1,000 mg Softgel] Oxycodone HCl/Acetaminophen 1 tab PO BID PRN PRN 08/18/18 [Oxycodon-Acetaminophen 7.5-325] Potassium Chloride [Klor-Con M20] 20 meq PO DAILY 08/18/18 Ubidecarenone [Co Q-10] 100 mg PO DAILY 08/18/18 busPIRone [Buspar] 15 mg PO BID 08/18/18 metFORMIN (XR) [Glucophage Xr] 1,000 mg PO DAILY 08/18/18 Surgical History: - - Chest tube placement from prior trauma, tonsillectomy, right shoulder surgery. Psychiatric History: No pertinent psych hx Lives: Spouse/ Significant Other Smoking Status: Current every day smoker Tobacco Use: Cigarettes Alcohol: Heavy - Patient drinks 3 to 12, 12 ounce beers daily. Drugs: None - *Family History Sibling History Items: Cancer - Sister with a history of cancer, unclear type., - - Brother with a history of multiple sclerosis. Maternal History Items: - - Patient notes his mother was healthy, no history of heart disease, diabetes or cancer. Paternal History Items: - - Patient does not know any of his father's history, left when he was young. Review of Systems Unable to obtain accurate/complete ROS d/t: Due to current intubation and mechanical ventilation status Patient Problems: Active and Suspected Problems Hyponatremia (Acute) Decompensated hepatic cirrhosis (Acute) CAP (community acquired pneumonia) (Acute) Sepsis (Acute) Objective: The patient's most recent lab work, culture data and imaging studies have all been personally reviewed. - Physical Exam General: - - Intubated, sedated and mechanically ventilated. HEENT: Atraumatic, PERRLA, Normocephalic Oral: No Gingival or Mucosal Lesions/ Ulcerations, - - Endotracheal and OG tubes currently in place Neck: Supple, No Nodes, Trachea Midline Lungs: Diminished, Rhonchi Cardiovascular: Normal S1, Normal S2, Irregular Rate, Tachycardic Abdomen: Bowel Sounds Present, Soft, Distended, - - + Fluid wave Extremities: No clubbing, No cyanosis, Diminished Peripheral Pulses, Edema Skin: No breakdown Musculoskeletal: No Muscle Wasting Lymphatic: No Cervical, Supraclavicular, or Inguinal Adenopathy Neurological: - - No focal neurological deficits. Currently sedated. Vital Signs Temp Pulse Resp BP Pulse Ox 96.3 F L 87 18 95/71 93 08/19/18 05:00 08/19/18 06:00 08/19/18 06:00 08/19/18 06:00 08/19/18 06:00 Oxygen Flow Rate (L/min) 4 Oxygen Delivery Method Mechanical Ventilator Weight: 254 lb 6.615 oz Body Mass Index (BMI) 34.3 Finger Stick Blood Glucose 126 Intake and Output for Last 24 Hours 08/17/18 08/18/18 08/19/18 23:59 23:59 23:59 Intake Total 861 / 861 Output Total 1300 / 1300 Balance -439 / -439 Microbiology Past 72 Hours 08/18/18 18:10 Streptococcus pneumoniae Antigen (M - Final Urine Catheter - Bass 08/18/18 18:10 Legionella Antigen - Final Urine Catheter - Bass Legionella Antigen Laboratory Tests Past 24 Hrs 08/18/18 08/18/18 08/18/18 13:11 14:22 14:22 WBC RBC Hgb Hct MCV MCH MCHC RDW RDW Differential Plt Count MPV Immature Gran % (Auto) Neut % (Auto) Lymph % (Auto) [place] % (Auto) Eos % (Auto) Baso % (Auto) Absolute Neuts (auto) Absolute Lymphs (auto) Total Counted PT INR Specimen Type Sample Site pH Bicarbonate Actual POC Total CO2 Base Excess O2 Saturation O2 % ABG pCO2 ABG pO2 Jason Test Respiration Rate O2 Delivery Device Vent Mode Tidal Volume POC PEEP Blood Gas Notified Whom Blood Gas Notified Time Sodium 127 L Potassium 3.7 Chloride 95 L Carbon Dioxide 21.0 Anion Gap 11 BUN 11 Creatinine 0.89 Estim Creat Clear Calc 98.50 Est GFR (MDRD) Af Amer 112 Est GFR (MDRD) Non-Af 92 BUN/Creatinine Ratio 12.4 Glucose 126 H Lactic Acid Calcium 8.1 L Phosphorus Magnesium Iron TIBC Iron Saturation Ferritin Total Bilirubin 2.60 H AST 46 H ALT 20 Alkaline Phosphatase 150 H Ammonia Total Creatine Kinase Troponin I < 0.015 B-Natriuretic Peptide 689.4 H Total Protein 8.3 H Albumin 2.9 L Globulin 5.4 H Albumin/Globulin Ratio 0.5 L Triglycerides Folate TSH Urine Color Yellow Urine Clarity Clear Urine pH 6.0 Ur Specific [place] 1.015 Urine Protein 100 H Urine Glucose (UA) Normal Urine Ketones 5 H Urine Occult Blood 50 H Urine Nitrite Negative Urine Bilirubin 1 H Urine Urobilinogen 8 H Ur Leukocyte Esterase 25 H Urine RBC 0-5 SEEN Urine WBC 0-5 SEEN Ur Squamous Epith Cells 0 SEEN Urine Bacteria RARE Urine Mucus 0 SEEN Urine Opiates Screen Urine Methadone Screen Ur Barbiturates Screen Ur Phencyclidine Scrn Ur Amphetamines Screen U Methamphetamin-MDMA U Benzodiazepines Scrn Urine Cocaine Screen U Cannabinoids Screen Ur Drug Screen Comment Ethyl Alcohol MRSA (PCR) 08/18/18 08/18/18 08/18/18 14:22 14:22 14:22 WBC 6.3 RBC 3.61 L Hgb 11.5 L Hct 32.9 L MCV 91.1 MCH 31.9 MCHC 35.0 RDW 17.0 H RDW Differential 53.9 H Plt Count 72 L MPV 9.1 Immature Gran % (Auto) 0.600 Neut % (Auto) 79.7 H Lymph % (Auto) 10.4 L Cand[place] % (Auto) 9.1 Eos % (Auto) 0.0 Baso % (Auto) 0.2 Absolute Neuts (auto) 5.0 Absolute Lymphs (auto) 0.65 L Total Counted Not Reportable PT 21.4 H INR 1.9 Specimen Type Sample Site pH Bicarbonate Actual POC Total CO2 Base Excess O2 Saturation O2 % ABG pCO2 ABG pO2 Jason Test Respiration Rate O2 Delivery Device Vent Mode Tidal Volume POC PEEP Blood Gas Notified Whom Blood Gas Notified Time Sodium Potassium Chloride Carbon Dioxide Anion Gap BUN Creatinine Estim Creat Clear Calc Est GFR (MDRD) Af Amer Est GFR (MDRD) Non-Af BUN/Creatinine Ratio Glucose Lactic Acid 1.9 Calcium Phosphorus Magnesium Iron TIBC Iron Saturation Ferritin Total Bilirubin AST ALT Alkaline Phosphatase Ammonia Total Creatine Kinase Troponin I B-Natriuretic Peptide Total Protein Albumin Globulin Albumin/Globulin Ratio Triglycerides Folate TSH Urine Color Urine Clarity Urine pH Ur Specific [place] Urine Protein Urine Glucose (UA) Urine Ketones Urine Occult Blood Urine Nitrite Urine Bilirubin Urine Urobilinogen Ur Leukocyte Esterase Urine RBC Urine WBC Ur Squamous Epith Cells Urine Bacteria Urine Mucus Urine Opiates Screen Urine Methadone Screen Ur Barbiturates Screen Ur Phencyclidine Scrn Ur Amphetamines Screen U Methamphetamin-MDMA U Benzodiazepines Scrn Urine Cocaine Screen U Cannabinoids Screen Ur Drug Screen Comment Ethyl Alcohol MRSA (PCR) 08/18/18 08/18/18 08/18/18 14:22 16:04 17:30 WBC RBC Hgb Hct MCV MCH MCHC RDW RDW Differential Plt Count MPV Immature Gran % (Auto) Neut % (Auto) Lymph % (Auto) Cand[place] % (Auto) Eos % (Auto) Baso % (Auto) Absolute Neuts (auto) Absolute Lymphs (auto) Total Counted PT INR Specimen Type Sample Site pH Bicarbonate Actual POC Total CO2 Base Excess O2 Saturation O2 % ABG pCO2 ABG pO2 Jason Test Respiration Rate O2 Delivery Device Vent Mode Tidal Volume POC PEEP Blood Gas Notified Whom Blood Gas Notified Time Sodium Potassium Chloride Carbon Dioxide Anion Gap BUN Creatinine Estim Creat Clear Calc Est GFR (MDRD) Af Amer Est GFR (MDRD) Non-Af BUN/Creatinine Ratio Glucose Lactic Acid Calcium Phosphorus 3.0 Magnesium 1.9 Iron TIBC Iron Saturation Ferritin Total Bilirubin AST ALT Alkaline Phosphatase Ammonia 51.0 H Total Creatine Kinase Troponin I B-Natriuretic Peptide Total Protein Albumin Globulin Albumin/Globulin Ratio Triglycerides Folate TSH 2.54 Urine Color Urine Clarity Urine pH Ur Specific [place] Urine Protein Urine Glucose (UA) Urine Ketones Urine Occult Blood Urine Nitrite Urine Bilirubin Urine Urobilinogen Ur Leukocyte Esterase Urine RBC Urine WBC Ur Squamous Epith Cells Urine Bacteria Urine Mucus Urine Opiates Screen Urine Methadone Screen Ur Barbiturates Screen Ur Phencyclidine Scrn Ur Amphetamines Screen U Methamphetamin-MDMA U Benzodiazepines Scrn Urine Cocaine Screen U Cannabinoids Screen Ur Drug Screen Comment Ethyl Alcohol 7.0 MRSA (PCR) 08/18/18 08/18/18 08/18/18 18:10 18:10 18:10 WBC RBC Hgb Hct MCV MCH MCHC RDW RDW Differential Plt Count MPV Immature Gran % (Auto) Neut % (Auto) Lymph % (Auto) [place] % (Auto) Eos % (Auto) Baso % (Auto) Absolute Neuts (auto) Absolute Lymphs (auto) Total Counted PT INR Specimen Type Sample Site pH Bicarbonate Actual POC Total CO2 Base Excess O2 Saturation O2 % ABG pCO2 ABG pO2 Jason Test Respiration Rate O2 Delivery Device Vent Mode Tidal Volume POC PEEP Blood Gas Notified Whom Blood Gas Notified Time Sodium Potassium Chloride Carbon Dioxide Anion Gap BUN Creatinine Estim Creat Clear Calc Est GFR (MDRD) Af Amer Est GFR (MDRD) Non-Af BUN/Creatinine Ratio Glucose Lactic Acid Calcium Phosphorus Magnesium Iron TIBC Iron Saturation Ferritin Total Bilirubin AST ALT Alkaline Phosphatase Ammonia Total Creatine Kinase Troponin I < 0.015 B-Natriuretic Peptide Total Protein Albumin Globulin Albumin/Globulin Ratio Triglycerides Folate TSH Urine Color Urine Clarity Urine pH Ur Specific [place] Urine Protein Urine Glucose (UA) Urine Ketones Urine Occult Blood Urine Nitrite Urine Bilirubin Urine Urobilinogen Ur Leukocyte Esterase Urine RBC Urine WBC Ur Squamous Epith Cells Urine Bacteria Urine Mucus Urine Opiates Screen NEGATIVE Urine Methadone Screen NEGATIVE Ur Barbiturates Screen NEGATIVE Ur Phencyclidine Scrn NEGATIVE Ur Amphetamines Screen NEGATIVE U Methamphetamin-MDMA NEGATIVE U Benzodiazepines Scrn POSITIVE H Urine Cocaine Screen NEGATIVE U Cannabinoids Screen POSITIVE H Ur Drug Screen Comment Ethyl Alcohol MRSA (PCR) Negative 08/18/18 08/18/18 08/18/18 18:10 18:49 22:34 WBC RBC Hgb Hct MCV MCH MCHC RDW RDW Differential Plt Count MPV Immature Gran % (Auto) Neut % (Auto) Lymph % (Auto) [place] % (Auto) Eos % (Auto) Baso % (Auto) Absolute Neuts (auto) Absolute Lymphs (auto) Total Counted PT INR Specimen Type ART Sample Site L Radial pH 7.23 L Bicarbonate Actual 19.9 L POC Total CO2 21 Base Excess -8 L O2 Saturation 93 L O2 % 60 ABG pCO2 47.9 H ABG pO2 80 Jason Test POS Respiration Rate 14 O2 Delivery Device Vent Vent Mode A-C Tidal Volume 500 POC PEEP 5 Blood Gas Notified Whom [facility] Blood Gas Notified Time 2230 Sodium Potassium Chloride Carbon Dioxide Anion Gap BUN Creatinine Estim Creat Clear Calc Est GFR (MDRD) Af Amer Est GFR (MDRD) Non-Af BUN/Creatinine Ratio Glucose Lactic Acid Calcium Phosphorus Magnesium Iron 16 L TIBC 209 L Iron Saturation 7.7 L Ferritin 242 Total Bilirubin AST ALT Alkaline Phosphatase Ammonia Total Creatine Kinase 134 Troponin I B-Natriuretic Peptide Total Protein Albumin Globulin Albumin/Globulin Ratio Triglycerides 94 Folate 26.50 TSH Urine Color Urine Clarity Urine pH Ur Specific [place] Urine Protein Urine Glucose (UA) Urine Ketones Urine Occult Blood Urine Nitrite Urine Bilirubin Urine Urobilinogen Ur Leukocyte Esterase Urine RBC Urine WBC Ur Squamous Epith Cells Urine Bacteria Urine Mucus Urine Opiates Screen Urine Methadone Screen Ur Barbiturates Screen Ur Phencyclidine Scrn Ur Amphetamines Screen U Methamphetamin-MDMA U Benzodiazepines Scrn Urine Cocaine Screen U Cannabinoids Screen Ur Drug Screen Comment Ethyl Alcohol MRSA (PCR) 08/18/18 08/19/18 08/19/18 23:50 00:25 01:27 WBC RBC Hgb Hct MCV MCH MCHC RDW RDW Differential Plt Count MPV Immature Gran % (Auto) Neut % (Auto) Lymph % (Auto) [place] % (Auto) Eos % (Auto) Baso % (Auto) Absolute Neuts (auto) Absolute Lymphs (auto) Total Counted PT INR Specimen Type ART Sample Site L Radial pH 7.24 L Bicarbonate Actual 20.7 L POC Total CO2 22 Base Excess -7 L O2 Saturation 91 L O2 % 70 ABG pCO2 48.2 H ABG pO2 71 L Jason Test POS Respiration Rate 14 O2 Delivery Device Vent Vent Mode A-C Tidal Volume 500 POC PEEP 5 Blood Gas Notified Whom [facility] Blood Gas Notified Time 122 Sodium Potassium Chloride Carbon Dioxide Anion Gap BUN Creatinine Estim Creat Clear Calc Est GFR (MDRD) Af Amer Est GFR (MDRD) Non-Af BUN/Creatinine Ratio Glucose Lactic Acid Calcium Phosphorus Magnesium Iron TIBC Iron Saturation Ferritin Total Bilirubin AST ALT Alkaline Phosphatase Ammonia Total Creatine Kinase Troponin I 0.857 H* B-Natriuretic Peptide Total Protein Albumin Globulin Albumin/Globulin Ratio Triglycerides Folate TSH Urine Color Urine Clarity Urine pH Ur Specific [place] Urine Protein Urine Glucose (UA) Urine Ketones Urine Occult Blood Urine Nitrite Urine Bilirubin Urine Urobilinogen Ur Leukocyte Esterase Urine RBC Urine WBC Ur Squamous Epith Cells Urine Bacteria Urine Mucus Urine Opiates Screen Urine Methadone Screen Ur Barbiturates Screen Ur Phencyclidine Scrn Ur Amphetamines Screen U Methamphetamin-MDMA U Benzodiazepines Scrn Urine Cocaine Screen U Cannabinoids Screen Ur Drug Screen Comment Ethyl Alcohol MRSA (PCR) Cancelled 08/19/18 08/19/18 08/19/18 01:45 01:45 01:45 WBC 12.6 H RBC 3.76 L Hgb 11.9 L Hct 34.4 L MCV 91.5 MCH 31.6 MCHC 34.6 RDW 17.0 H RDW Differential 54.6 H Plt Count 104 L MPV 8.7 Immature Gran % (Auto) 0.800 Neut % (Auto) 89.7 H Lymph % (Auto) 2.9 L [place] % (Auto) 6.4 Eos % (Auto) 0.1 Baso % (Auto) 0.1 Absolute Neuts (auto) 11.3 H Absolute Lymphs (auto) 0.36 L Total Counted Not Reportable PT INR Specimen Type Sample Site pH Bicarbonate Actual POC Total CO2 Base Excess O2 Saturation O2 % ABG pCO2 ABG pO2 Jason Test Respiration Rate O2 Delivery Device Vent Mode Tidal Volume POC PEEP Blood Gas Notified Whom Blood Gas Notified Time Sodium 126 L Potassium 3.8 Chloride 96 L Carbon Dioxide 21.0 Anion Gap 9 BUN 18 Creatinine 1.37 H Estim Creat Clear Calc 62.15 Est GFR (MDRD) Af Amer 68 Est GFR (MDRD) Non-Af 56 L BUN/Creatinine Ratio 13.1 Glucose 216 H Lactic Acid Calcium 7.4 L Phosphorus Magnesium Iron TIBC Iron Saturation Ferritin Total Bilirubin 3.20 H AST 57 H ALT 20 Alkaline Phosphatase 143 H Ammonia 80.0 H Total Creatine Kinase Troponin I B-Natriuretic Peptide Total Protein 8.2 Albumin 2.9 L Globulin 5.3 H Albumin/Globulin Ratio 0.5 L Triglycerides Folate TSH Urine Color Urine Clarity Urine pH Ur Specific [place] Urine Protein Urine Glucose (UA) Urine Ketones Urine Occult Blood Urine Nitrite Urine Bilirubin Urine Urobilinogen Ur Leukocyte Esterase Urine RBC Urine WBC Ur Squamous Epith Cells Urine Bacteria Urine Mucus Urine Opiates Screen Urine Methadone Screen Ur Barbiturates Screen Ur Phencyclidine Scrn Ur Amphetamines Screen U Methamphetamin-MDMA U Benzodiazepines Scrn Urine Cocaine Screen U Cannabinoids Screen Ur Drug Screen Comment Ethyl Alcohol MRSA (PCR) 08/19/18 04:45 WBC RBC Hgb Hct MCV MCH MCHC RDW RDW Differential Plt Count MPV Immature Gran % (Auto) Neut % (Auto) Lymph % (Auto) [place] % (Auto) Eos % (Auto) Baso % (Auto) Absolute Neuts (auto) Absolute Lymphs (auto) Total Counted PT INR Specimen Type Sample Site pH Bicarbonate Actual POC Total CO2 Base Excess O2 Saturation O2 % ABG pCO2 ABG pO2 Jason Test Respiration Rate O2 Delivery Device Vent Mode Tidal Volume POC PEEP Blood Gas Notified Whom Blood Gas Notified Time Sodium Potassium Chloride Carbon Dioxide Anion Gap BUN Creatinine Estim Creat Clear Calc Est GFR (MDRD) Af Amer Est GFR (MDRD) Non-Af BUN/Creatinine Ratio Glucose Lactic Acid Calcium Phosphorus Magnesium Iron TIBC Iron Saturation Ferritin Total Bilirubin AST ALT Alkaline Phosphatase Ammonia Total Creatine Kinase Troponin I 1.900 H* B-Natriuretic Peptide Total Protein Albumin Globulin Albumin/Globulin Ratio Triglycerides Folate TSH Urine Color Urine Clarity Urine pH Ur Specific [place] Urine Protein Urine Glucose (UA) Urine Ketones Urine Occult Blood Urine Nitrite Urine Bilirubin Urine Urobilinogen Ur Leukocyte Esterase Urine RBC Urine WBC Ur Squamous Epith Cells Urine Bacteria Urine Mucus Urine Opiates Screen Urine Methadone Screen Ur Barbiturates Screen Ur Phencyclidine Scrn Ur Amphetamines Screen U Methamphetamin-MDMA U Benzodiazepines Scrn Urine Cocaine Screen U Cannabinoids Screen Ur Drug Screen Comment Ethyl Alcohol MRSA (PCR) POC Glucose 08/18/18 23:21 POC Glucose 199 H Clinical Impression(s) from Imaging Studies Brain CT 08/18/18 14:03 IMPRESSION: Findings suggestive of an old ischemic insult involving the carney radiata of the left frontoparietal lobe. Electronically Signed: Hakan Mendosa, at 15:00 EDT , Service support , Chest X-Ray 08/18/18 14:03 IMPRESSION: Stable increased interstitial markings bilaterally suggestive of mild CHF superimposed on scarring. Electronically Signed: Hakan Mendosa, at 14:42 EDT , Service support , Abdomen/Pelvis CT 08/18/18 14:20 IMPRESSION: Ascites. Moderate splenomegaly. Consolidation in the posterior medial segment of the left lower lobe with mild increased markings in the right lower lobe. Electronically Signed: Hakan Mendosa, at 14:59 EDT , Service support , Chest X-Ray 08/18/18 21:58 IMPRESSION: 1. No gross change in bilateral infiltrates. 2. Endotracheal tube in place. 3. Gastric tube tip likely in the distal esophagus. at 2232 Reported and signed by: Judith Campbell MD Electronically Signed: Judith Campbell MD at 22:32 EDT Tel , Service support , KUB X-Ray 08/18/18 22:50 IMPRESSION: Gaseous bowel distention. Gastric tube tip in the upper stomach, suggest advancement by about 6 cm. at [id number] Reported and signed by: Judith Campbell MD Electronically Signed: Judith Campbell MD at 0:08 EDT Tel , Service support , Assessment/Plan Active and Suspected Problems Hyponatremia (Acute) Decompensated hepatic cirrhosis (Acute) CAP (community acquired pneumonia) (Acute) Sepsis (Acute) RECOMMENDATIONS: 1. Continue broad-spectrum antimicrobial coverage, including IV Levaquin, given positive Legionella antigen. 2. Obtain infectious diseases consultation. 3. Continue to trend troponins. Await echocardiogram. Cardiology consultation is also pending. 4. Discontinue Precedex. Utilize propofol and fentanyl for sedation. 5. Continue lactulose and start rifaximin. 6. Obtain and send sputum for culture. 7. Place central venous catheter. 8. Discontinue IV steroids, antihypertensives, Ativan, BuSpar and Cardizem. Stop IV Lasix as well. 9. Start levophed with a goal to maintain a mean arterial pressure at or above 65 mmHg. 10. Consider ultrasound-guided paracentesis, if feasible. IMPRESSIONS: 1. Acute combined respiratory failure The patient developed progressive bilateral infiltrates on chest imaging throughout the course of the night, which culminated in the development of respiratory distress leading to emergent intubation. The patient was noted to have a positive Legionella antigen. Recommend continuing broad-spectrum antibiotics, pending evaluation by infectious diseases. I would recommend the conservative use of supplemental IV fluids, over concerns for potential heart failure. Continue to wean FiO2 and PEEP to maintain an oxygen saturation at or above 90%. Obtain repeat arterial blood gas. 2. Septic shock secondary to presumptive Legionella pneumonia/possible SBP The patient is currently on appropriate broad-spectrum antimicrobials, including Levaquin given his positive urine Legionella antigen. The patient did have to be started on vasopressor support to maintain hemodynamic stability. Consultation has been placed to infectious diseases to assist with management of antimicrobials. We will plan to place a central line to facilitate administration of vasopressors. If the patient stabilizes, consideration can be given to performing an ultrasound-guided paracentesis. 3. Metabolic encephalopathy Likely multifactorial in etiology and related to underlying infectious process and hyperammonemia. Propofol and fentanyl will be continued for sedation as needed. Goal to maintain a RASS of -1 to 1. Given the patient's elevated ammonia level, lactulose will be continued. Rifaximin will also be added to the patient's medication regimen. 4. Paroxysmal atrial fibrillation with RVR/troponin elevation Cardiology is following to assist with management. Continue amiodarone as ordered. Echocardiogram is currently pending. Suspect that the patient's troponin leak is secondary to demand ischemia in the setting of #2. 5. Acute kidney injury Likely prerenal in etiology and related to the development of ATN in the setting of #2. Will continue vasopressor support accordingly. Continue to monitor urine output. There is no current indication for renal replacement therapy. If the patient's renal function continues to worsen, will obtain nephrology consultation. 6. History of chronic alcohol, tobacco and cannabis dependency/anemia/thrombocytopenia/diabetes mellitus/chronic back pain Complicates care, management, recovery and prognosis. TIME: 50 minutes of critical care time, independent of procedures, was spent addressing the patient's acute combined respiratory failure, septic shock, metabolic encephalopathy, paroxysmal atrial fibrillation, troponin elevation, acute kidney injury, review of all data and collaboration with the care team. ([id number]) Code Visit 9xxxx: [id number] Critical care first hour
[2018-08-19 06:50] LABS: Bedside Glucose 215 mg/dL (70-110)
--- NOTE | 2018-08-19 06:52 | US_ITS ---
STUDY: ABDOMINAL ULTRASOUND - RIGHT UPPER QUADRANT REASON FOR VISIT: Male, 62 years old. TECHNIQUE: Ultrasound evaluation of the right upper quadrant was performed with real-time and static hodgson-scale imaging. TECHNICAL QUALITY: Adequate. COMPARISON: None. FINDINGS: There is significant ascites noted in the right lower quadrant. Electronically Signed: Maddi Martinez, at 15:34 EDT Tel , Service support , US/Abdomen Limited
[2018-08-19] MEDS: Lactulose 20 GM/30 ML UDC PO (06:59)
--- NOTE | 2018-08-19 08:00 | NURSING ---
unable to assess d/t pt condition/sedation
[2018-08-19 08:21] LABS: Allen Test POS; Base Excess -9 mmol/L (-2 to +2); Bicarbonate 17.2 mmol/L (22-26); Blood Gas Specimen Type ART; FI02 75; Mode A-C; O2 Delivery Device Vent; PEEP 5; PO2 105 mmHG (75-100); RR 16; SITE L Radial; SO2 97 % (95-99); Time Given 815; Total Carbon Dioxide 18 mmol/L; Vt 500; pCO2 36.5 mmHg (35-45); pH 7.28 (7.35-7.45)
[2018-08-19] MEDS: fentaNYL drip 100 ML 5 MCG CONT INF ×3 (08:30→19:45)
--- NOTE | 2018-08-19 08:45 | NURSING ---
0845 Shae Olson [employer] present pt room prep for TL placement 0950 pt extremely agitated, Dr. Soares present in pt room Succinylcholine 100mg IVP given after verifiy per Shae Olson CNP Propofol increased to 15mcg/kg/min, fentanyl increased to 175 mcq/hr, levo on hold 0855 begin line placement HR 113, R 17 SpO2 90 BP 133/91 0900 HR 101 R16 SpO2 92 BP 96/76 (85) 0905 RIJ TL placed, call for CXR HR 101 R 16, SpO2 96 BP 94/70 (79) 0920 CXR taken, Dr. Nichols present in pt room 0930 pt w/extreme agitation requiring 4 [facility] staff to keep in bed, per DR. Nichols, propofol increased to 30mcq/kg/min 0940 pt sedated, Kub complete, OG repositioned [address] Nichols remains present in pt room.
--- NOTE | 2018-08-19 08:46 | PCM.CONS.C ---
Problem List (1) HLD (hyperlipidemia) Status: Chronic Qualifiers: Hyperlipidemia type: unspecified Qualified Code(s): E78.5 - Hyperlipidemia, unspecified (2) Thrombocytopenia Status: Chronic (3) Atrial fibrillation with RVR Status: Acute (4) Heart failure with preserved ejection fraction, borderline, class II Status: Acute (5) Diabetes type 2, controlled Status: Chronic Qualifiers: Diabetes mellitus termite control technician insulin use: without termite control technician use Diabetes mellitus complication status: with unspecified complications Qualified Code(s): E11.8 - Type 2 diabetes mellitus with unspecified complications (6) Hypertension Status: Chronic Qualifiers: Hypertension type: essential hypertension Qualified Code(s): I10 - Essential (primary) hypertension Reason for Consult Date of Consultation: 08/19/18 Reason for Consultation: Atrial fibrillation with rapid ventricular response, non-STEMI, abnormal troponin, coagulopathy, History of Present Illness: The patient is a 62 year old M, currently intubated, unable to obtain history, who apparently was admitted with abdominal pain, hypotension, atrial fibrillation with rapid ventricular response, congestive heart failure, with respiratory distress followed by respiratory deterioration requiring urgent intubation. Patient has a history of atrial fibrillation chronically and is on Xarelto therapy. He also has a history of alcoholic cirrhosis, with auto anticoagulation and INR 1.9. Patient presented with confusional state with an elevated ammonia level as well. Overnight the patient was treated with IV Cardizem drip however his situation deteriorated and his blood pressure dropped coinciding with increasing heart rate. The patient was treated with IV amiodarone and Cardizem drip was discontinued. In addition the patient's troponins had a mild increase of 1.9. In addition the patient was found to be hyponatremic, chronic renal insufficiency, hypotensive, now requiring pressor agents. In addition he was found to have significant abdominal distention, probable ascites, and redness over his left lower abdominal area. An OG tube was attempted and had significant bleeding during insertion. His EKG shows atrial fibrillation with rapid ventricular response, no acute changes. Telemetry has remained atrial fibrillation. His heart rate has been better controlled with IV amiodarone therapy. Blood pressure this morning was in the 60s, and IV Levophed is being started. Echo is pending. Previous echocardiogram from showed intact LV function with an EF of 60%, moderate biatrial enlargement, RVSP of 31 mmHg. Moderate RV enlargement. Chest X-Ray Demonstrates Right-Sided Lung Fld., Fuhs infiltrate, possibly due to aspiration, no pleural effusions noted, no congestive heart failure pulmonary vascular redistribution appreciated. Past Medical History Allergies/Adverse Reactions: Allergies No Known Allergies Allergy (Verified 08/18/18 14:17) Home Medications: Ambulatory Orders Medication Instructions Recorded Irbesartan [Avapro] 150 mg PO DAILY 10/15/15 Diltiazem CD [Cardizem CD] 120 mg PO DAILY 10/19/16 Furosemide [Lasix] 20 mg PO DAILY 10/19/16 Docusate Sodium [Dok] 100 mg PO BID 07/07/17 Rivaroxaban [Xarelto] 20 mg PO DAILY 07/07/17 Citalopram [Celexa] 40 mg PO DAILY 08/18/18 Ferrous Sulfate 325 mg PO DAILY 08/18/18 Garlic 1,500 mg PO DAILY 08/18/18 Lidocaine [Lidoderm Patch] 1 patch TOPICAL Q12H PRN PRN 08/18/18 Multivitamin with Minerals 1 ea PO DAILY 08/18/18 [Multiple Vitamin] [place]-3 Fatty Acids/Fish Oil 3,000 mg PO DAILY 08/18/18 [[place] 3 1,000 mg Softgel] Oxycodone HCl/Acetaminophen 1 tab PO BID PRN PRN 08/18/18 [Oxycodon-Acetaminophen 7.5-325] Potassium Chloride [Klor-Con M20] 20 meq PO DAILY 08/18/18 Ubidecarenone [Co Q-10] 100 mg PO DAILY 08/18/18 busPIRone [Buspar] 15 mg PO BID 08/18/18 metFORMIN (XR) [Glucophage Xr] 1,000 mg PO DAILY 08/18/18 Past Medical History (Chronic Problems): Chronic Problems HLD (hyperlipidemia) (Chronic) Thrombocytopenia (Chronic) Anemia (Chronic) Pancytopenia (Chronic) Alcohol abuse (Chronic) Diabetes type 2, controlled (Chronic) Hypertension (Chronic) Surgical History: - - Chest tube placement from prior trauma, tonsillectomy, right shoulder surgery. Psychiatric History: No pertinent psych hx - *Family History Sibling History Items: Cancer - Sister with a history of cancer, unclear type., - - Brother with a history of multiple sclerosis. Maternal History Items: - - Patient notes his mother was healthy, no history of heart disease, diabetes or cancer. Paternal History Items: - - Patient does not know any of his father's history, left when he was young. Lives: Spouse/ Significant Other Smoking Status: Current every day smoker Tobacco Use: Cigarettes Alcohol: Heavy - Patient drinks 3 to 12, 12 ounce beers daily. Drugs: None Review of Systems - Review of Systems General: Reports: Malaise. Denies: Fever, Fatigue, Night Sweats Cardiovascular: Reports: Shortness of Breath, Shortness of Breath at Rest. Denies: Chest Discomfort, Orthopnea, PND, Peripheral Edema, Palpitations, Lightheadedness, Dizziness, Near Syncope, Syncope Respiratory: Denies: Cough, Sputum Production, Hemoptysis Gastrointestinal: Denies: Hematemesis, Hematochezia, Melena Genitourinary: Denies: Dysuria, Hematuria Skin: Denies: Rash Subjectve: Patient currently intubated, sedated on propofol drip, amiodarone drip, hypotensive awaiting Levophed drip. Objective: Vital Signs Temp Pulse Resp BP Pulse Ox 96.3 F L 84 20 H 84/60 L 94 08/19/18 07:00 08/19/18 07:00 08/19/18 07:00 08/19/18 07:00 08/19/18 06:45 Oxygen Flow Rate (L/min) 4 Oxygen Delivery Method Mechanical Ventilator Weight: 254 lb 6.615 oz Body Mass Index (BMI) 34.3 Finger Stick Blood Glucose 126 Intake and Output for Last 24 Hours 08/17/18 08/18/18 08/19/18 23:59 23:59 23:59 Intake Total 1128.4 / 1128.4 Output Total 1400 / 1400 Balance -271.6 / -271.6 General: Awake, Alert, Oriented x 3 HEENT: PERRL, EOMI, Sclera Non Icteric Neck: Supple, Good ROM, No Lymph Node Enlargement Lungs: Diminished Right Base Cardiovascular: Irregular Rhythm, Normal S1, Normal S2, No Murmurs, No Rubs, No Gallops Vascular: No Carotid Bruits, Normal Femoral Pulses, Normal Radial Pulses, Normal Dorsalis Pedal Pulse, Normal Posterior Tibial Pulses Abdomen: Bowel Sounds Present, Soft, Non Tender, No HSM, No Organomegaly Extremities: No Cyanosis, No Clubbing, No edema Neurological: No Focal Motor or Sensory Deficit 08/18/18 13:11: Urine Color Yellow, Urine Clarity Clear, Urine pH 6.0, Ur Specific [place] 1.015, Urine Protein 100 H, Urine Glucose (UA) Normal, Urine Ketones 5 H, Urine Occult Blood 50 H, Urine Nitrite Negative, Urine Bilirubin 1 H, Urine Urobilinogen 8 H, Ur Leukocyte Esterase 25 H, Urine RBC 0-5 SEEN, Urine WBC 0-5 SEEN 08/18/18 14:22: Sodium 127 L, Potassium 3.7, Chloride 95 L, Carbon Dioxide 21.0, Anion Gap 11, BUN 11, Creatinine 0.89, Est GFR (MDRD) Af Amer 112, Est GFR (MDRD) Non-Af 92, BUN/Creatinine Ratio 12.4, Glucose 126 H, Calcium 8.1 L, Total Bilirubin 2.60 H, Troponin I < 0.015 08/18/18 14:22: B-Natriuretic Peptide 689.4 H 08/18/18 14:22: PT 21.4 H, INR 1.9 08/18/18 14:22: Lactic Acid 1.9 08/18/18 14:22: WBC 6.3, RBC 3.61 L, Hgb 11.5 L, Hct 32.9 L, MCV 91.1, MCH 31.9, MCHC 35.0, RDW 17.0 H, RDW Differential 53.9 H, Plt Count 72 L, MPV 9.1, Immature Gran % (Auto) 0.600, Neut % (Auto) 79.7 H, Lymph % (Auto) 10.4 L, [place] % (Auto) 9.1, Eos % (Auto) 0.0, Baso % (Auto) 0.2, Absolute Neuts (auto) 5.0, Total Counted Not Reportable 08/18/18 14:22: Phosphorus 3.0, Magnesium 1.9 08/18/18 18:10: Troponin I < 0.015 08/18/18 18:10: Triglycerides 94 08/18/18 18:49: Iron 16 L, TIBC 209 L, Iron Saturation 7.7 L, Ferritin 242 08/18/18 22:34: pH 7.23 L, Bicarbonate Actual 19.9 L, POC Total CO2 21, Base Excess -8 L, O2 Saturation 93 L, ABG pCO2 47.9 H, ABG pO2 80, Jason Test POS 08/19/18 00:25: Troponin I 0.857 H* 08/19/18 01:27: pH 7.24 L, Bicarbonate Actual 20.7 L, POC Total CO2 22, Base Excess -7 L, O2 Saturation 91 L, ABG pCO2 48.2 H, ABG pO2 71 L, Jason Test POS 08/19/18 01:45: WBC 12.6 H, RBC 3.76 L, Hgb 11.9 L, Hct 34.4 L, MCV 91.5, MCH 31.6, MCHC 34.6, RDW 17.0 H, RDW Differential 54.6 H, Plt Count 104 L, MPV 8.7, Immature Gran % (Auto) 0.800, Neut % (Auto) 89.7 H, Lymph % (Auto) 2.9 L, [place] % (Auto) 6.4, Eos % (Auto) 0.1, Baso % (Auto) 0.1, Absolute Neuts (auto) 11.3 H, Total Counted Not Reportable 08/19/18 01:45: Sodium 126 L, Potassium 3.8, Chloride 96 L, Carbon Dioxide 21.0, Anion Gap 9, BUN 18, Creatinine 1.37 H, Est GFR (MDRD) Af Amer 68, Est GFR (MDRD) Non-Af 56 L, BUN/Creatinine Ratio 13.1, Glucose 216 H, Calcium 7.4 L, Total Bilirubin 3.20 H 08/19/18 04:45: Troponin I 1.900 H* 08/19/18 08:17: pH 7.28 L, Bicarbonate Actual 17.2 L, POC Total CO2 18, Base Excess -9 L, O2 Saturation 97, ABG pCO2 36.5, ABG pO2 105 H, Jason Test POS Rhythm: EKG: ECHO: Pending Stress Test: Cardiac Cath: PCI: CT Surgery: Holter monitor: EPS: PPM: CXR: Chest CT Scan: Assessment/Plan 1. Atrial fibrillation: The patient presents with severe abdominal distention, possible peritonitis, superimposed on possible pneumonia, hypotension, elevated ammonia, acidosis. I believe the patient's atrial fibrillation has been chronic and he has been on Xarelto therapy going forward. In addition he is auto anticoagulated due to his alcoholic cirrhosis and an INR 1.9. Despite this, the patient has had elevated troponins of 1.9. As best I can tell he is never had a catheterization at least in our facility, and there are no family members to confirm this or deny this. At this point I would recommend holding his Xarelto therapy in anticipation for possible abdominal paracentesis for either diagnosis or treatment. In addition he may require a diagnostic coronary angiogram at some point in his care. Would recommend switching him over to either renally adjusted Lovenox or IV heparin drip to maintain his PTT between 50 and 70 seconds. Patient did have some evidence of GI bleeding with insertion of OG tube, and be would be cautious with anticoagulation or antiplatelet therapy. If there is no further bleeding would consider baby aspirin 81 mg p.o. daily for his non-STEMI. I would hold off on Plavix at this time given his lower GI bleeding and anticoagulation. 2. Non-STEMI: Patient had a mildly elevated troponin of 1.9 at its peak so far. Heart rate is being controlled with IV amiodarone drip, but his increased heart rate may be a response to his sepsis and abdominal infection. Recommend keeping his heart rate less than 100 if possible. Would also recommend judicious use of IV levo fed to keep his MAP greater than 60. I would leave if it can induce coronary vasoconstriction complicating his myocardial infarction. 3. Hyperlipidemia: The patient apparently has alcoholic cirrhosis with associated ascites. Would hold off on statin at this time. 4. Discussed with Dr. Nichols. Thank you very much for the opportunity to participate in the cardiac care of your patient. Consultation time took place between 730 and 8:15 AM. 45 minutes total time. Code Visit Inpatient E&M: 38547 Init Hosp L3
--- NOTE | 2018-08-19 09:00 | RAD_ITS ---
STUDY: X-RAY CHEST REASON FOR EXAM: Male, 62 years old. Line placement TECHNIQUE: Single AP portable view of the chest. COMPARISON: 08/19/2018 FINDINGS: The ET tube is at the level of the clavicles, 8 cm above the myrna. Enteric tube courses towards the diaphragm, its tip is not well visualized. Right IJ central venous catheter tip overlies the SVC. There is marked diffuse pulmonary interstitial thickening.. There is no demonstrated pleural abnormality. There is mild cardiac enlargement. Normal mediastinum and cathy. There is prominence of the pulmonary hilar arteries and peripheral pulmonary arteries, consistent with congestive heart failure (CHF). There is atherosclerotic tortuosity of the aortic arch and descending thoracic aorta. Normal visualized thoracic spine. Chronic, healed left clavicle fracture. There is no demonstrated abnormality of the visualized soft tissue structures of the upper abdomen. RAD/CXR for Line Placement IMPRESSION: There is mild diffuse pulmonary edema and/or infiltrate. Pulmonary vascular prominence. Electronically Signed: Amanda Bee, at 12:38 EDT Tel , Service support ,
[2018-08-19 09:16] LABS: Bedside Glucose 199 mg/dL (70-110)
--- NOTE | 2018-08-19 09:34 | RAD_ITS ---
STUDY: X-RAY - ABDOMEN/PELVIS REASON FOR EXAM: Male, 62 years old. NG to placement TECHNIQUE: Single AP view of the abdomen / pelvis. COMPARISON: 08/18/2018 FINDINGS: Normal visualized lung bases. There is an unremarkable bowel gas pattern. There is no demonstrated free abdominal air. NG tube overlies the distal stomach or proximal duodenum, the tip is excluded from view. Normal soft tissue structures. Normal visualized osseous structures. RAD/Abdomen Single View (Portable) IMPRESSION: NG tube overlies the distal stomach or proximal duodenum, tip is excluded from view. Electronically Signed: Amanda Bee, at 12:39 EDT Tel , Service support ,
--- NOTE | 2018-08-19 09:45 | CASEMGMT ---
RN CM Note: RN CM assessment deferred. Pt on vent, unable to participate and family not available. Only Brother is listed as Next of kin. Ese MAON RN ACM
--- NOTE | 2018-08-19 09:58 | PN_ITS ---
Patient Problems: Active and Suspected Problems Hyponatremia (Acute) Decompensated hepatic cirrhosis (Acute) CAP (community acquired pneumonia) (Acute) Sepsis (Acute) Subjective: All events of the past 24 hours have been reviewed. The patient is a 62-year-old male with a past medical history of PAF, CHF, hypertension, hyperlipidemia, chronic back pain, diabetes mellitus type 2, obesity, anxiety/depression, alcohol abuse, daily cannabis use, tobacco dependence and chronic anticoagulation with Xarelto [facility]2018 with confusion, abdominal distention and fever. Vital signs in the emergency department were temp 103.3, heart rate 145, blood pressure 135/79, respiratory rate 32 and he was 99% saturated on room air. White blood cell count was 6.3 with a left shift. Hemoglobin was low at 11.5 and platelets were low at 72,000. The sodium was low at 127. Lactic acid was 1.9. Total bilirubin was increased at 2.6 and the AST was 46 with an ALT of 20 and an alkaline phosphatase of 150. Troponin was within normal limits. UA was negative for infection. A noncontrasted CT brain showed findings suggestive of an old ischemic insult in the carney radiata of the left frontal parietal area. Chest x-ray showed stable increased interstitial markings bilaterally. A CT scan of the abdomen and pelvis showed ascites, moderate splenomegaly, consolidation in the posterior medial segment of the left lower lobe and mild increased markings in the right lower lobe. He was treated with Zosyn and vancomycin in the emergency department. He was admitted to the intensive care unit and Dr. Nichols was consulted to participate in management. Antibiotic Day #2 Levaquin Ventilator Day #2 TMAX: 104.7, current temperature is 96.3 Vital signs: Current blood pressure is 84/60 and the patient is being titrated on Levophed to maintain the MAP at greater than 65. He is 98% saturated on an FiO2 of 100%. Fluid balance: -271 since admission. Urine output: 1300 cc of urine overnight Weight: 254 pounds and 6.6 ounces All radiologic testing was reviewed: Chest x-ray at admission was reported as increased interstitial markings suggestive of mild CHF superimposed on scarring. CT scan of the abdomen and pelvis shows ascites with moderate splenomegaly and consolidation in the posterior medial segment of the left lower lobe with increased markings in the right lower lobe. A noncontrasted CT of the brain showed findings suggestive of an old ischemic insult involving the carney radiata of the left frontoparietal lobe. Chest x-ray obtained following intubation was described as bilateral infiltrates. All labs were personally reviewed: White blood cell count is 12.6 with a left shift. Hemoglobin is 11.9 and platelets are 104,000. The PT is 27.6 with an INR of 2.6 however the patient has been on Xarelto and this may not be reliable. ABG on a 75% FiO2 with 5 of PEEP and a tidal volume of 500 cc shows a pH of 7.28, PCO2 of 36 and a PO2 of 105. Sodium is low at 126 and the BUN is 18 with a creatinine of 1.37. Troponin is now 1.9. Microbiology: Urine is positive for Legionella antigen Telemetry: Atrial fibrillation with rapid ventricular response ECHO: The left ventricle is moderately dilated with an ejection fraction of 40 to 45%. The right ventricle is severely dilated and the right atrium is severely enlarged. There is 2+ TR and mild aortic stenosis. There is a small right pleural effusion. Secretions for ETT: Thick yellow/hodgson Objective: General: Intubated and sedated with propofol and fentanyl, very restless and moving all over the bed.....restraints applied HEENT: PERRLA, Atraumatic, normocephalic, no scleral icterus, trachea is midline Lungs: Diminished with rhonchi throughout, symmetric chest expansion Heart: Irregular irregular with telemetry showing atrial fibrillation with rapid ventricular response, no MM, no gallop, no rub however it is very hard to hear the heart sounds over the rhonchi Abdomen: Soft, distended, bowel sounds present, no guarding with palpation Extremities: Edema, no clubbing, no cyanosis, peripheral pulses are diminished in the feet are cool to touch bilaterally Neuro: No facial asymmetry, moving all extremities Skin: Warm and dry, no wounds, no rashes, no jaundice - Physical Exam Vital Signs Temp Pulse Resp BP Pulse Ox 96.3 F L 106 H 24 H 84/60 L 98 08/19/18 07:00 08/19/18 08:52 08/19/18 08:52 08/19/18 07:00 08/19/18 08:52 Oxygen Flow Rate (L/min) 4 Oxygen Delivery Method Mechanical Ventilator Weight: 254 lb 6.615 oz Body Mass Index (BMI) 34.3 Finger Stick Blood Glucose 126 Intake and Output for Last 24 Hours 08/17/18 08/18/18 08/19/18 23:59 23:59 23:59 Intake Total 1128.4 / 1128.4 Output Total 1400 / 1400 Balance -271.6 / -271.6 Microbiology Past 72 Hours 08/18/18 18:10 Streptococcus pneumoniae Antigen (M - Final Urine Catheter - Bass 08/18/18 18:10 Legionella Antigen - Final Urine Catheter - Bass Legionella Antigen Laboratory Tests Past 24 Hrs 08/18/18 08/18/18 08/18/18 13:11 14:22 14:22 WBC RBC Hgb Hct MCV MCH MCHC RDW RDW Differential Plt Count MPV Immature Gran % (Auto) Neut % (Auto) Lymph % (Auto) Harney % (Auto) Eos % (Auto) Baso % (Auto) Absolute Neuts (auto) Absolute Lymphs (auto) Total Counted PT INR Specimen Type Sample Site pH Bicarbonate Actual POC Total CO2 Base Excess O2 Saturation O2 % ABG pCO2 ABG pO2 Jason Test Respiration Rate O2 Delivery Device Vent Mode Tidal Volume POC PEEP Blood Gas Notified Whom Blood Gas Notified Time Sodium 127 L Potassium 3.7 Chloride 95 L Carbon Dioxide 21.0 Anion Gap 11 BUN 11 Creatinine 0.89 Estim Creat Clear Calc 98.50 Est GFR (MDRD) Af Amer 112 Est GFR (MDRD) Non-Af 92 BUN/Creatinine Ratio 12.4 Glucose 126 H Lactic Acid Calcium 8.1 L Phosphorus Magnesium Iron TIBC Iron Saturation Ferritin Total Bilirubin 2.60 H AST 46 H ALT 20 Alkaline Phosphatase 150 H Ammonia Total Creatine Kinase Troponin I < 0.015 B-Natriuretic Peptide 689.4 H Total Protein 8.3 H Albumin 2.9 L Globulin 5.4 H Albumin/Globulin Ratio 0.5 L Triglycerides Vitamin B12 Folate TSH Urine Color Yellow Urine Clarity Clear Urine pH 6.0 Ur Specific [place] 1.015 Urine Protein 100 H Urine Glucose (UA) Normal Urine Ketones 5 H Urine Occult Blood 50 H Urine Nitrite Negative Urine Bilirubin 1 H Urine Urobilinogen 8 H Ur Leukocyte Esterase 25 H Urine RBC 0-5 SEEN Urine WBC 0-5 SEEN Ur Squamous Epith Cells 0 SEEN Urine Bacteria RARE Urine Mucus 0 SEEN Urine Opiates Screen Urine Methadone Screen Ur Barbiturates Screen Ur Phencyclidine Scrn Ur Amphetamines Screen U Methamphetamin-MDMA U Benzodiazepines Scrn Urine Cocaine Screen U Cannabinoids Screen Ur Drug Screen Comment Ethyl Alcohol MRSA (PCR) 08/18/18 08/18/18 08/18/18 14:22 14:22 14:22 WBC 6.3 RBC 3.61 L Hgb 11.5 L Hct 32.9 L MCV 91.1 MCH 31.9 MCHC 35.0 RDW 17.0 H RDW Differential 53.9 H Plt Count 72 L MPV 9.1 Immature Gran % (Auto) 0.600 Neut % (Auto) 79.7 H Lymph % (Auto) 10.4 L Harney % (Auto) 9.1 Eos % (Auto) 0.0 Baso % (Auto) 0.2 Absolute Neuts (auto) 5.0 Absolute Lymphs (auto) 0.65 L Total Counted Not Reportable PT 21.4 H INR 1.9 Specimen Type Sample Site pH Bicarbonate Actual POC Total CO2 Base Excess O2 Saturation O2 % ABG pCO2 ABG pO2 Jason Test Respiration Rate O2 Delivery Device Vent Mode Tidal Volume POC PEEP Blood Gas Notified Whom Blood Gas Notified Time Sodium Potassium Chloride Carbon Dioxide Anion Gap BUN Creatinine Estim Creat Clear Calc Est GFR (MDRD) Af Amer Est GFR (MDRD) Non-Af BUN/Creatinine Ratio Glucose Lactic Acid 1.9 Calcium Phosphorus Magnesium Iron TIBC Iron Saturation Ferritin Total Bilirubin AST ALT Alkaline Phosphatase Ammonia Total Creatine Kinase Troponin I B-Natriuretic Peptide Total Protein Albumin Globulin Albumin/Globulin Ratio Triglycerides Vitamin B12 Folate TSH Urine Color Urine Clarity Urine pH Ur Specific [place] Urine Protein Urine Glucose (UA) Urine Ketones Urine Occult Blood Urine Nitrite Urine Bilirubin Urine Urobilinogen Ur Leukocyte Esterase Urine RBC Urine WBC Ur Squamous Epith Cells Urine Bacteria Urine Mucus Urine Opiates Screen Urine Methadone Screen Ur Barbiturates Screen Ur Phencyclidine Scrn Ur Amphetamines Screen U Methamphetamin-MDMA U Benzodiazepines Scrn Urine Cocaine Screen U Cannabinoids Screen Ur Drug Screen Comment Ethyl Alcohol MRSA (PCR) 08/18/18 08/18/18 08/18/18 14:22 16:04 17:30 WBC RBC Hgb Hct MCV MCH MCHC RDW RDW Differential Plt Count MPV Immature Gran % (Auto) Neut % (Auto) Lymph % (Auto) Harney % (Auto) Eos % (Auto) Baso % (Auto) Absolute Neuts (auto) Absolute Lymphs (auto) Total Counted PT INR Specimen Type Sample Site pH Bicarbonate Actual POC Total CO2 Base Excess O2 Saturation O2 % ABG pCO2 ABG pO2 Jason Test Respiration Rate O2 Delivery Device Vent Mode Tidal Volume POC PEEP Blood Gas Notified Whom Blood Gas Notified Time Sodium Potassium Chloride Carbon Dioxide Anion Gap BUN Creatinine Estim Creat Clear Calc Est GFR (MDRD) Af Amer Est GFR (MDRD) Non-Af BUN/Creatinine Ratio Glucose Lactic Acid Calcium Phosphorus 3.0 Magnesium 1.9 Iron TIBC Iron Saturation Ferritin Total Bilirubin AST ALT Alkaline Phosphatase Ammonia 51.0 H Total Creatine Kinase Troponin I B-Natriuretic Peptide Total Protein Albumin Globulin Albumin/Globulin Ratio Triglycerides Vitamin B12 Folate TSH 2.54 Urine Color Urine Clarity Urine pH Ur Specific [place] Urine Protein Urine Glucose (UA) Urine Ketones Urine Occult Blood Urine Nitrite Urine Bilirubin Urine Urobilinogen Ur Leukocyte Esterase Urine RBC Urine WBC Ur Squamous Epith Cells Urine Bacteria Urine Mucus Urine Opiates Screen Urine Methadone Screen Ur Barbiturates Screen Ur Phencyclidine Scrn Ur Amphetamines Screen U Methamphetamin-MDMA U Benzodiazepines Scrn Urine Cocaine Screen U Cannabinoids Screen Ur Drug Screen Comment Ethyl Alcohol 7.0 MRSA (PCR) 08/18/18 08/18/18 08/18/18 18:10 18:10 18:10 WBC RBC Hgb Hct MCV MCH MCHC RDW RDW Differential Plt Count MPV Immature Gran % (Auto) Neut % (Auto) Lymph % (Auto) Harney % (Auto) Eos % (Auto) Baso % (Auto) Absolute Neuts (auto) Absolute Lymphs (auto) Total Counted PT INR Specimen Type Sample Site pH Bicarbonate Actual POC Total CO2 Base Excess O2 Saturation O2 % ABG pCO2 ABG pO2 Jason Test Respiration Rate O2 Delivery Device Vent Mode Tidal Volume POC PEEP Blood Gas Notified Whom Blood Gas Notified Time Sodium Potassium Chloride Carbon Dioxide Anion Gap BUN Creatinine Estim Creat Clear Calc Est GFR (MDRD) Af Amer Est GFR (MDRD) Non-Af BUN/Creatinine Ratio Glucose Lactic Acid Calcium Phosphorus Magnesium Iron TIBC Iron Saturation Ferritin Total Bilirubin AST ALT Alkaline Phosphatase Ammonia Total Creatine Kinase Troponin I < 0.015 B-Natriuretic Peptide Total Protein Albumin Globulin Albumin/Globulin Ratio Triglycerides Vitamin B12 Folate TSH Urine Color Urine Clarity Urine pH Ur Specific [place] Urine Protein Urine Glucose (UA) Urine Ketones Urine Occult Blood Urine Nitrite Urine Bilirubin Urine Urobilinogen Ur Leukocyte Esterase Urine RBC Urine WBC Ur Squamous Epith Cells Urine Bacteria Urine Mucus Urine Opiates Screen NEGATIVE Urine Methadone Screen NEGATIVE Ur Barbiturates Screen NEGATIVE Ur Phencyclidine Scrn NEGATIVE Ur Amphetamines Screen NEGATIVE U Methamphetamin-MDMA NEGATIVE U Benzodiazepines Scrn POSITIVE H Urine Cocaine Screen NEGATIVE U Cannabinoids Screen POSITIVE H Ur Drug Screen Comment Ethyl Alcohol MRSA (PCR) Negative 08/18/18 08/18/18 08/18/18 18:10 18:49 22:34 WBC RBC Hgb Hct MCV MCH MCHC RDW RDW Differential Plt Count MPV Immature Gran % (Auto) Neut % (Auto) Lymph % (Auto) Harney % (Auto) Eos % (Auto) Baso % (Auto) Absolute Neuts (auto) Absolute Lymphs (auto) Total Counted PT INR Specimen Type ART Sample Site L Radial pH 7.23 L Bicarbonate Actual 19.9 L POC Total CO2 21 Base Excess -8 L O2 Saturation 93 L O2 % 60 ABG pCO2 47.9 H ABG pO2 80 Jason Test POS Respiration Rate 14 O2 Delivery Device Vent Vent Mode A-C Tidal Volume 500 POC PEEP 5 Blood Gas Notified Whom HOSP Blood Gas Notified Time 2230 Sodium Potassium Chloride Carbon Dioxide Anion Gap BUN Creatinine Estim Creat Clear Calc Est GFR (MDRD) Af Amer Est GFR (MDRD) Non-Af BUN/Creatinine Ratio Glucose Lactic Acid Calcium Phosphorus Magnesium Iron 16 L TIBC 209 L Iron Saturation 7.7 L Ferritin 242 Total Bilirubin AST ALT Alkaline Phosphatase Ammonia Total Creatine Kinase 134 Troponin I B-Natriuretic Peptide Total Protein Albumin Globulin Albumin/Globulin Ratio Triglycerides 94 Vitamin B12 Folate 26.50 TSH Urine Color Urine Clarity Urine pH Ur Specific [place] Urine Protein Urine Glucose (UA) Urine Ketones Urine Occult Blood Urine Nitrite Urine Bilirubin Urine Urobilinogen Ur Leukocyte Esterase Urine RBC Urine WBC Ur Squamous Epith Cells Urine Bacteria Urine Mucus Urine Opiates Screen Urine Methadone Screen Ur Barbiturates Screen Ur Phencyclidine Scrn Ur Amphetamines Screen U Methamphetamin-MDMA U Benzodiazepines Scrn Urine Cocaine Screen U Cannabinoids Screen Ur Drug Screen Comment Ethyl Alcohol MRSA (PCR) 08/18/18 08/19/18 08/19/18 23:50 00:25 01:27 WBC RBC Hgb Hct MCV MCH MCHC RDW RDW Differential Plt Count MPV Immature Gran % (Auto) Neut % (Auto) Lymph % (Auto) Harney % (Auto) Eos % (Auto) Baso % (Auto) Absolute Neuts (auto) Absolute Lymphs (auto) Total Counted PT INR Specimen Type ART Sample Site L Radial pH 7.24 L Bicarbonate Actual 20.7 L POC Total CO2 22 Base Excess -7 L O2 Saturation 91 L O2 % 70 ABG pCO2 48.2 H ABG pO2 71 L Jason Test POS Respiration Rate 14 O2 Delivery Device Vent Vent Mode A-C Tidal Volume 500 POC PEEP 5 Blood Gas Notified Whom [facility] Blood Gas Notified Time 122 Sodium Potassium Chloride Carbon Dioxide Anion Gap BUN Creatinine Estim Creat Clear Calc Est GFR (MDRD) Af Amer Est GFR (MDRD) Non-Af BUN/Creatinine Ratio Glucose Lactic Acid Calcium Phosphorus Magnesium Iron TIBC Iron Saturation Ferritin Total Bilirubin AST ALT Alkaline Phosphatase Ammonia Total Creatine Kinase Troponin I 0.857 H* B-Natriuretic Peptide Total Protein Albumin Globulin Albumin/Globulin Ratio Triglycerides Vitamin B12 Folate TSH Urine Color Urine Clarity Urine pH Ur Specific [place] Urine Protein Urine Glucose (UA) Urine Ketones Urine Occult Blood Urine Nitrite Urine Bilirubin Urine Urobilinogen Ur Leukocyte Esterase Urine RBC Urine WBC Ur Squamous Epith Cells Urine Bacteria Urine Mucus Urine Opiates Screen Urine Methadone Screen Ur Barbiturates Screen Ur Phencyclidine Scrn Ur Amphetamines Screen U Methamphetamin-MDMA U Benzodiazepines Scrn Urine Cocaine Screen U Cannabinoids Screen Ur Drug Screen Comment Ethyl Alcohol MRSA (PCR) Cancelled 08/19/18 08/19/18 08/19/18 01:45 01:45 01:45 WBC 12.6 H RBC 3.76 L Hgb 11.9 L Hct 34.4 L MCV 91.5 MCH 31.6 MCHC 34.6 RDW 17.0 H RDW Differential 54.6 H Plt Count 104 L MPV 8.7 Immature Gran % (Auto) 0.800 Neut % (Auto) 89.7 H Lymph % (Auto) 2.9 L [place] % (Auto) 6.4 Eos % (Auto) 0.1 Baso % (Auto) 0.1 Absolute Neuts (auto) 11.3 H Absolute Lymphs (auto) 0.36 L Total Counted Not Reportable PT INR Specimen Type Sample Site pH Bicarbonate Actual POC Total CO2 Base Excess O2 Saturation O2 % ABG pCO2 ABG pO2 Jason Test Respiration Rate O2 Delivery Device Vent Mode Tidal Volume POC PEEP Blood Gas Notified Whom Blood Gas Notified Time Sodium 126 L Potassium 3.8 Chloride 96 L Carbon Dioxide 21.0 Anion Gap 9 BUN 18 Creatinine 1.37 H Estim Creat Clear Calc 62.15 Est GFR (MDRD) Af Amer 68 Est GFR (MDRD) Non-Af 56 L BUN/Creatinine Ratio 13.1 Glucose 216 H Lactic Acid Calcium 7.4 L Phosphorus Magnesium Iron TIBC Iron Saturation Ferritin Total Bilirubin 3.20 H AST 57 H ALT 20 Alkaline Phosphatase 143 H Ammonia 80.0 H Total Creatine Kinase Troponin I B-Natriuretic Peptide Total Protein 8.2 Albumin 2.9 L Globulin 5.3 H Albumin/Globulin Ratio 0.5 L Triglycerides Vitamin B12 Folate TSH Urine Color Urine Clarity Urine pH Ur Specific [place] Urine Protein Urine Glucose (UA) Urine Ketones Urine Occult Blood Urine Nitrite Urine Bilirubin Urine Urobilinogen Ur Leukocyte Esterase Urine RBC Urine WBC Ur Squamous Epith Cells Urine Bacteria Urine Mucus Urine Opiates Screen Urine Methadone Screen Ur Barbiturates Screen Ur Phencyclidine Scrn Ur Amphetamines Screen U Methamphetamin-MDMA U Benzodiazepines Scrn Urine Cocaine Screen U Cannabinoids Screen Ur Drug Screen Comment Ethyl Alcohol MRSA (PCR) 08/19/18 08/19/18 08/19/18 04:44 04:45 08:17 WBC RBC Hgb Hct MCV MCH MCHC RDW RDW Differential Plt Count MPV Immature Gran % (Auto) Neut % (Auto) Lymph % (Auto) [place] % (Auto) Eos % (Auto) Baso % (Auto) Absolute Neuts (auto) Absolute Lymphs (auto) Total Counted PT INR Specimen Type ART Sample Site L Radial pH 7.28 L Bicarbonate Actual 17.2 L POC Total CO2 18 Base Excess -9 L O2 Saturation 97 O2 % 75 ABG pCO2 36.5 ABG pO2 105 H Jason Test POS Respiration Rate 16 O2 Delivery Device Vent Vent Mode A-C Tidal Volume 500 POC PEEP 5 Blood Gas Notified Whom ICU Blood Gas Notified Time 815 Sodium Potassium Chloride Carbon Dioxide Anion Gap BUN Creatinine Estim Creat Clear Calc Est GFR (MDRD) Af Amer Est GFR (MDRD) Non-Af BUN/Creatinine Ratio Glucose Lactic Acid Calcium Phosphorus Magnesium Iron TIBC Iron Saturation Ferritin Total Bilirubin AST ALT Alkaline Phosphatase Ammonia Total Creatine Kinase Troponin I 1.900 H* B-Natriuretic Peptide Total Protein Albumin Globulin Albumin/Globulin Ratio Triglycerides Vitamin B12 Pending Folate TSH Urine Color Urine Clarity Urine pH Ur Specific [place] Urine Protein Urine Glucose (UA) Urine Ketones Urine Occult Blood Urine Nitrite Urine Bilirubin Urine Urobilinogen Ur Leukocyte Esterase Urine RBC Urine WBC Ur Squamous Epith Cells Urine Bacteria Urine Mucus Urine Opiates Screen Urine Methadone Screen Ur Barbiturates Screen Ur Phencyclidine Scrn Ur Amphetamines Screen U Methamphetamin-MDMA U Benzodiazepines Scrn Urine Cocaine Screen U Cannabinoids Screen Ur Drug Screen Comment Ethyl Alcohol MRSA (PCR) POC Glucose 08/19/18 08/19/18 08/18/18 09:06 06:46 23:21 POC Glucose 199 H 215 H 199 H Medical Necessity - Tobacco Use Smoking Status: Current every day smoker Tobacco Use: Cigarettes Assessment/Plan All Active Problems Hyponatremia (Acute) Decompensated hepatic cirrhosis (Acute) CAP (community acquired pneumonia) (Acute) Sepsis (Acute) Leukocytoclastic vasculitis (Acute) Atrial fibrillation with RVR (Acute) Heart failure with preserved ejection fraction, borderline, class II (Acute) Atrial fibrillation (Acute) Impressions 1. Septic shock presumed secondary to Legionella pneumonia and possibly spontaneous bacterial peritonitis 2. Acute combined respiratory failure requiring intubation 3. Toxic/metabolic encephalopathy-likely multifactorial 4. Hyperammonemia 5. PAF with RVR 6. Troponin elevation-likely secondary to demand ischemia related to septic shock and acute respiratory failure with hypoxemia 7. Acute renal failure-suspect secondary to ATN 8. Chronic alcohol abuse 9. Tobacco dependence 11. Daily cannabis use 12. Diabetes mellitus type 2 13. Thrombocytopenia 14. Chronic back pain with possible narcotic dependence Started on amiodarone to control the heart rate Continue Levaquin for positive Legionella antigen in the urine Continue propofol and fentanyl for sedation Lactulose and rifaximin for hyperammonemia Continue pressors to maintain MAP at or above 65 Consider an ultrasound-guided diagnostic and therapeutic paracentesis at some point Recheck lab in the a.m. Consult Dr. Han Code Visit Inpatient E&M: 89457 Subs Hosp L3
--- NOTE | 2018-08-19 10:03 | PCM.OPRPT ---
Report of Operation Date of Procedure: 08/19/18 Surgery/Procedure Performed:: Triple-lumen insertion Description of Surgical Findings:: Central line placement procedure note Indication: IV access/hemodynamic instability/vasoactive medications Procedure: A time-out was completed to verify correct patient, indication, medication allergies, procedure, coagulation studies, informed consent signed, and equipment needed. The patient was placed in the supine position for a central line placement to the rt IJ vein. The patients rt neck was prepped using chlorhexidine and a full body sterile drape was applied. 1% lidocaine was used to anesthetize the surrounding skin. A 7fr 16 cm blue guard triple lumen catheter introduced into the internal jugular vein using the modified Seldinger technique with the assistance of ultrasound. The catheter was threaded smoothly over the guidewire, the guidewire was removed easily, nonpulsatile blood returned. All ports were aspirated of air and flushed with sterile saline. The catheter was sutured in place and covered with an occlusive dressing impregnated with chlorhexidine. Post-procedure: The patient tolerated the procedure well. Vital signs remained stable. EBL 5 cc. No complications. Chest X Ray ordered to confirm tip placement and the absence of pneumothorax. Code Visit Procedures: [id number] Insert Non-tunnel CV Cath
[2018-08-19 10:15] LABS: International Normalized Ratio 2.6; Prothrombin Time (Protime)PT. 27.6 SECONDS (11.7-14.9)
[2018-08-19 10:16] LABS: Partial Thromboplast Time 65.5 Seconds (24.1-36.2)
[2018-08-19 10:23] LABS: Bedside Glucose 75 mg/dL (70-110)
[2018-08-19] MEDS: Insulin Lispro 100 UNIT/ML INSULN.PEN SQ ×2 (10:30→13:36)
--- NOTE | 2018-08-19 10:56 | NURSING ---
abd US completed
[2018-08-19 11:11] LABS: Vitamin B12 749 pg/mL (211-911)
[2018-08-19] MEDS: Propofol 10MG/Ml 1,000 MG/100 ML Bottle 6.924 MG CONT INF ×4 (11:30→23:57)
--- NOTE | 2018-08-19 12:00 | NURSING ---
echo in progress
--- NOTE | 2018-08-19 13:00 | CON.PCM_ITS ---
Problem List (1) Sepsis Status: Acute Reason for Consult: legionella Consulted by: Dr. Nichols History of Present Illness: The patient is a 62 year old M with h/o htn, presented 08/18 with acute onset SOB, confusion, edema, abd pain, fever. Pt unable to provide history. Fever to 105.6, admitted to icu on vent, pressors, vanc/zosyn. Legionella (+), levaquin added. ROS unobtainable due to intubation/sedation. - Medical History Past Medical History (Chronic Problems): Chronic Problems HLD (hyperlipidemia) (Chronic) Thrombocytopenia (Chronic) Anemia (Chronic) Pancytopenia (Chronic) Alcohol abuse (Chronic) Diabetes type 2, controlled (Chronic) Hypertension (Chronic) Allergies/Adverse Reactions: Allergies No Known Allergies Allergy (Verified 08/18/18 14:17) Home Medications: Ambulatory Orders Medication Instructions Recorded Irbesartan [Avapro] 150 mg PO DAILY 10/15/15 Diltiazem CD [Cardizem CD] 120 mg PO DAILY 10/19/16 Furosemide [Lasix] 20 mg PO DAILY 10/19/16 Docusate Sodium [Dok] 100 mg PO BID 07/07/17 Rivaroxaban [Xarelto] 20 mg PO DAILY 07/07/17 Citalopram [Celexa] 40 mg PO DAILY 08/18/18 Ferrous Sulfate 325 mg PO DAILY 08/18/18 Garlic 1,500 mg PO DAILY 08/18/18 Lidocaine [Lidoderm Patch] 1 patch TOPICAL Q12H PRN PRN 08/18/18 Multivitamin with Minerals 1 ea PO DAILY 08/18/18 [Multiple Vitamin] [place]-3 Fatty Acids/Fish Oil 3,000 mg PO DAILY 08/18/18 [[place] 3 1,000 mg Softgel] Oxycodone HCl/Acetaminophen 1 tab PO BID PRN PRN 08/18/18 [Oxycodon-Acetaminophen 7.5-325] Potassium Chloride [Klor-Con M20] 20 meq PO DAILY 08/18/18 Ubidecarenone [Co Q-10] 100 mg PO DAILY 08/18/18 busPIRone [Buspar] 15 mg PO BID 08/18/18 metFORMIN (XR) [Glucophage Xr] 1,000 mg PO DAILY 08/18/18 - Social History Tobacco Use: cigarettes Vital Signs Temp Pulse Resp BP Pulse Ox 97.7 F L 87 24 H 78/65 L 100 08/19/18 10:00 08/19/18 11:18 08/19/18 11:18 08/19/18 10:00 08/19/18 11:18 Oxygen Flow Rate (L/min) 4 Oxygen Delivery Method Mechanical Ventilator Weight: 115.4 kg Body Mass Index (BMI) 34.3 Finger Stick Blood Glucose 126 Microbiology Past 72 Hours 08/19/18 06:15 Gram Stain - Final Sputum, Tracheal Aspirate 08/18/18 18:10 Streptococcus pneumoniae Antigen (M - Final Urine Catheter - Bass 08/18/18 18:10 Legionella Antigen - Final Urine Catheter - Bass Legionella Antigen Laboratory Tests Past 24 Hrs 08/18/18 08/18/18 08/18/18 13:11 14:22 14:22 WBC RBC Hgb Hct MCV MCH MCHC RDW RDW Differential Plt Count MPV Immature Gran % (Auto) Neut % (Auto) Lymph % (Auto) [place] % (Auto) Eos % (Auto) Baso % (Auto) Absolute Neuts (auto) Absolute Lymphs (auto) Total Counted PT INR APTT Specimen Type Sample Site pH Bicarbonate Actual POC Total CO2 Base Excess O2 Saturation O2 % ABG pCO2 ABG pO2 Jason Test Respiration Rate O2 Delivery Device Vent Mode Tidal Volume POC PEEP Blood Gas Notified Whom Blood Gas Notified Time Sodium 127 L Potassium 3.7 Chloride 95 L Carbon Dioxide 21.0 Anion Gap 11 BUN 11 Creatinine 0.89 Estim Creat Clear Calc 98.50 Est GFR (MDRD) Af Amer 112 Est GFR (MDRD) Non-Af 92 BUN/Creatinine Ratio 12.4 Glucose 126 H Lactic Acid Calcium 8.1 L Phosphorus Magnesium Iron TIBC Iron Saturation Ferritin Total Bilirubin 2.60 H AST 46 H ALT 20 Alkaline Phosphatase 150 H Ammonia Total Creatine Kinase Troponin I < 0.015 B-Natriuretic Peptide 689.4 H Total Protein 8.3 H Albumin 2.9 L Globulin 5.4 H Albumin/Globulin Ratio 0.5 L Triglycerides Vitamin B12 Folate TSH Urine Color Yellow Urine Clarity Clear Urine pH 6.0 Ur Specific [place] 1.015 Urine Protein 100 H Urine Glucose (UA) Normal Urine Ketones 5 H Urine Occult Blood 50 H Urine Nitrite Negative Urine Bilirubin 1 H Urine Urobilinogen 8 H Ur Leukocyte Esterase 25 H Urine RBC 0-5 SEEN Urine WBC 0-5 SEEN Ur Squamous Epith Cells 0 SEEN Urine Bacteria RARE Urine Mucus 0 SEEN Urine Opiates Screen Urine Methadone Screen Ur Barbiturates Screen Ur Phencyclidine Scrn Ur Amphetamines Screen U Methamphetamin-MDMA U Benzodiazepines Scrn Urine Cocaine Screen U Cannabinoids Screen Ur Drug Screen Comment Ethyl Alcohol MRSA (PCR) 08/18/18 08/18/18 08/18/18 14:22 14:22 14:22 WBC 6.3 RBC 3.61 L Hgb 11.5 L Hct 32.9 L MCV 91.1 MCH 31.9 MCHC 35.0 RDW 17.0 H RDW Differential 53.9 H Plt Count 72 L MPV 9.1 Immature Gran % (Auto) 0.600 Neut % (Auto) 79.7 H Lymph % (Auto) 10.4 L [place] % (Auto) 9.1 Eos % (Auto) 0.0 Baso % (Auto) 0.2 Absolute Neuts (auto) 5.0 Absolute Lymphs (auto) 0.65 L Total Counted Not Reportable PT 21.4 H INR 1.9 APTT Specimen Type Sample Site pH Bicarbonate Actual POC Total CO2 Base Excess O2 Saturation O2 % ABG pCO2 ABG pO2 Jason Test Respiration Rate O2 Delivery Device Vent Mode Tidal Volume POC PEEP Blood Gas Notified Whom Blood Gas Notified Time Sodium Potassium Chloride Carbon Dioxide Anion Gap BUN Creatinine Estim Creat Clear Calc Est GFR (MDRD) Af Amer Est GFR (MDRD) Non-Af BUN/Creatinine Ratio Glucose Lactic Acid 1.9 Calcium Phosphorus Magnesium Iron TIBC Iron Saturation Ferritin Total Bilirubin AST ALT Alkaline Phosphatase Ammonia Total Creatine Kinase Troponin I B-Natriuretic Peptide Total Protein Albumin Globulin Albumin/Globulin Ratio Triglycerides Vitamin B12 Folate TSH Urine Color Urine Clarity Urine pH Ur Specific [place] Urine Protein Urine Glucose (UA) Urine Ketones Urine Occult Blood Urine Nitrite Urine Bilirubin Urine Urobilinogen Ur Leukocyte Esterase Urine RBC Urine WBC Ur Squamous Epith Cells Urine Bacteria Urine Mucus Urine Opiates Screen Urine Methadone Screen Ur Barbiturates Screen Ur Phencyclidine Scrn Ur Amphetamines Screen U Methamphetamin-MDMA U Benzodiazepines Scrn Urine Cocaine Screen U Cannabinoids Screen Ur Drug Screen Comment Ethyl Alcohol MRSA (PCR) 08/18/18 08/18/18 08/18/18 14:22 16:04 17:30 WBC RBC Hgb Hct MCV MCH MCHC RDW RDW Differential Plt Count MPV Immature Gran % (Auto) Neut % (Auto) Lymph % (Auto) [place] % (Auto) Eos % (Auto) Baso % (Auto) Absolute Neuts (auto) Absolute Lymphs (auto) Total Counted PT INR APTT Specimen Type Sample Site pH Bicarbonate Actual POC Total CO2 Base Excess O2 Saturation O2 % ABG pCO2 ABG pO2 Jason Test Respiration Rate O2 Delivery Device Vent Mode Tidal Volume POC PEEP Blood Gas Notified Whom Blood Gas Notified Time Sodium Potassium Chloride Carbon Dioxide Anion Gap BUN Creatinine Estim Creat Clear Calc Est GFR (MDRD) Af Amer Est GFR (MDRD) Non-Af BUN/Creatinine Ratio Glucose Lactic Acid Calcium Phosphorus 3.0 Magnesium 1.9 Iron TIBC Iron Saturation Ferritin Total Bilirubin AST ALT Alkaline Phosphatase Ammonia 51.0 H Total Creatine Kinase Troponin I B-Natriuretic Peptide Total Protein Albumin Globulin Albumin/Globulin Ratio Triglycerides Vitamin B12 Folate TSH 2.54 Urine Color Urine Clarity Urine pH Ur Specific [place] Urine Protein Urine Glucose (UA) Urine Ketones Urine Occult Blood Urine Nitrite Urine Bilirubin Urine Urobilinogen Ur Leukocyte Esterase Urine RBC Urine WBC Ur Squamous Epith Cells Urine Bacteria Urine Mucus Urine Opiates Screen Urine Methadone Screen Ur Barbiturates Screen Ur Phencyclidine Scrn Ur Amphetamines Screen U Methamphetamin-MDMA U Benzodiazepines Scrn Urine Cocaine Screen U Cannabinoids Screen Ur Drug Screen Comment Ethyl Alcohol 7.0 MRSA (PCR) 08/18/18 08/18/18 08/18/18 18:10 18:10 18:10 WBC RBC Hgb Hct MCV MCH MCHC RDW RDW Differential Plt Count MPV Immature Gran % (Auto) Neut % (Auto) Lymph % (Auto) [place] % (Auto) Eos % (Auto) Baso % (Auto) Absolute Neuts (auto) Absolute Lymphs (auto) Total Counted PT INR APTT Specimen Type Sample Site pH Bicarbonate Actual POC Total CO2 Base Excess O2 Saturation O2 % ABG pCO2 ABG pO2 Jason Test Respiration Rate O2 Delivery Device Vent Mode Tidal Volume POC PEEP Blood Gas Notified Whom Blood Gas Notified Time Sodium Potassium Chloride Carbon Dioxide Anion Gap BUN Creatinine Estim Creat Clear Calc Est GFR (MDRD) Af Amer Est GFR (MDRD) Non-Af BUN/Creatinine Ratio Glucose Lactic Acid Calcium Phosphorus Magnesium Iron TIBC Iron Saturation Ferritin Total Bilirubin AST ALT Alkaline Phosphatase Ammonia Total Creatine Kinase Troponin I < 0.015 B-Natriuretic Peptide Total Protein Albumin Globulin Albumin/Globulin Ratio Triglycerides Vitamin B12 Folate TSH Urine Color Urine Clarity Urine pH Ur Specific [place] Urine Protein Urine Glucose (UA) Urine Ketones Urine Occult Blood Urine Nitrite Urine Bilirubin Urine Urobilinogen Ur Leukocyte Esterase Urine RBC Urine WBC Ur Squamous Epith Cells Urine Bacteria Urine Mucus Urine Opiates Screen NEGATIVE Urine Methadone Screen NEGATIVE Ur Barbiturates Screen NEGATIVE Ur Phencyclidine Scrn NEGATIVE Ur Amphetamines Screen NEGATIVE U Methamphetamin-MDMA NEGATIVE U Benzodiazepines Scrn POSITIVE H Urine Cocaine Screen NEGATIVE U Cannabinoids Screen POSITIVE H Ur Drug Screen Comment Ethyl Alcohol MRSA (PCR) Negative 08/18/18 08/18/18 08/18/18 18:10 18:49 22:34 WBC RBC Hgb Hct MCV MCH MCHC RDW RDW Differential Plt Count MPV Immature Gran % (Auto) Neut % (Auto) Lymph % (Auto) [place] % (Auto) Eos % (Auto) Baso % (Auto) Absolute Neuts (auto) Absolute Lymphs (auto) Total Counted PT INR APTT Specimen Type ART Sample Site L Radial pH 7.23 L Bicarbonate Actual 19.9 L POC Total CO2 21 Base Excess -8 L O2 Saturation 93 L O2 % 60 ABG pCO2 47.9 H ABG pO2 80 Jason Test POS Respiration Rate 14 O2 Delivery Device Vent Vent Mode A-C Tidal Volume 500 POC PEEP 5 Blood Gas Notified Whom HOSP Blood Gas Notified Time 2230 Sodium Potassium Chloride Carbon Dioxide Anion Gap BUN Creatinine Estim Creat Clear Calc Est GFR (MDRD) Af Amer Est GFR (MDRD) Non-Af BUN/Creatinine Ratio Glucose Lactic Acid Calcium Phosphorus Magnesium Iron 16 L TIBC 209 L Iron Saturation 7.7 L Ferritin 242 Total Bilirubin AST ALT Alkaline Phosphatase Ammonia Total Creatine Kinase 134 Troponin I B-Natriuretic Peptide Total Protein Albumin Globulin Albumin/Globulin Ratio Triglycerides 94 Vitamin B12 Folate 26.50 TSH Urine Color Urine Clarity Urine pH Ur Specific [place] Urine Protein Urine Glucose (UA) Urine Ketones Urine Occult Blood Urine Nitrite Urine Bilirubin Urine Urobilinogen Ur Leukocyte Esterase Urine RBC Urine WBC Ur Squamous Epith Cells Urine Bacteria Urine Mucus Urine Opiates Screen Urine Methadone Screen Ur Barbiturates Screen Ur Phencyclidine Scrn Ur Amphetamines Screen U Methamphetamin-MDMA U Benzodiazepines Scrn Urine Cocaine Screen U Cannabinoids Screen Ur Drug Screen Comment Ethyl Alcohol MRSA (PCR) 08/18/18 08/19/18 08/19/18 23:50 00:25 01:27 WBC RBC Hgb Hct MCV MCH MCHC RDW RDW Differential Plt Count MPV Immature Gran % (Auto) Neut % (Auto) Lymph % (Auto) [place] % (Auto) Eos % (Auto) Baso % (Auto) Absolute Neuts (auto) Absolute Lymphs (auto) Total Counted PT INR APTT Specimen Type ART Sample Site L Radial pH 7.24 L Bicarbonate Actual 20.7 L POC Total CO2 22 Base Excess -7 L O2 Saturation 91 L O2 % 70 ABG pCO2 48.2 H ABG pO2 71 L Jason Test POS Respiration Rate 14 O2 Delivery Device Vent Vent Mode A-C Tidal Volume 500 POC PEEP 5 Blood Gas Notified Whom [facility] Blood Gas Notified Time 122 Sodium Potassium Chloride Carbon Dioxide Anion Gap BUN Creatinine Estim Creat Clear Calc Est GFR (MDRD) Af Amer Est GFR (MDRD) Non-Af BUN/Creatinine Ratio Glucose Lactic Acid Calcium Phosphorus Magnesium Iron TIBC Iron Saturation Ferritin Total Bilirubin AST ALT Alkaline Phosphatase Ammonia Total Creatine Kinase Troponin I 0.857 H* B-Natriuretic Peptide Total Protein Albumin Globulin Albumin/Globulin Ratio Triglycerides Vitamin B12 Folate TSH Urine Color Urine Clarity Urine pH Ur Specific [place] Urine Protein Urine Glucose (UA) Urine Ketones Urine Occult Blood Urine Nitrite Urine Bilirubin Urine Urobilinogen Ur Leukocyte Esterase Urine RBC Urine WBC Ur Squamous Epith Cells Urine Bacteria Urine Mucus Urine Opiates Screen Urine Methadone Screen Ur Barbiturates Screen Ur Phencyclidine Scrn Ur Amphetamines Screen U Methamphetamin-MDMA U Benzodiazepines Scrn Urine Cocaine Screen U Cannabinoids Screen Ur Drug Screen Comment Ethyl Alcohol MRSA (PCR) Cancelled 08/19/18 08/19/18 08/19/18 01:45 01:45 01:45 WBC 12.6 H RBC 3.76 L Hgb 11.9 L Hct 34.4 L MCV 91.5 MCH 31.6 MCHC 34.6 RDW 17.0 H RDW Differential 54.6 H Plt Count 104 L MPV 8.7 Immature Gran % (Auto) 0.800 Neut % (Auto) 89.7 H Lymph % (Auto) 2.9 L [place] % (Auto) 6.4 Eos % (Auto) 0.1 Baso % (Auto) 0.1 Absolute Neuts (auto) 11.3 H Absolute Lymphs (auto) 0.36 L Total Counted Not Reportable PT INR APTT Specimen Type Sample Site pH Bicarbonate Actual POC Total CO2 Base Excess O2 Saturation O2 % ABG pCO2 ABG pO2 Jason Test Respiration Rate O2 Delivery Device Vent Mode Tidal Volume POC PEEP Blood Gas Notified Whom Blood Gas Notified Time Sodium 126 L Potassium 3.8 Chloride 96 L Carbon Dioxide 21.0 Anion Gap 9 BUN 18 Creatinine 1.37 H Estim Creat Clear Calc 62.15 Est GFR (MDRD) Af Amer 68 Est GFR (MDRD) Non-Af 56 L BUN/Creatinine Ratio 13.1 Glucose 216 H Lactic Acid Calcium 7.4 L Phosphorus Magnesium Iron TIBC Iron Saturation Ferritin Total Bilirubin 3.20 H AST 57 H ALT 20 Alkaline Phosphatase 143 H Ammonia 80.0 H Total Creatine Kinase Troponin I B-Natriuretic Peptide Total Protein 8.2 Albumin 2.9 L Globulin 5.3 H Albumin/Globulin Ratio 0.5 L Triglycerides Vitamin B12 Folate TSH Urine Color Urine Clarity Urine pH Ur Specific [place] Urine Protein Urine Glucose (UA) Urine Ketones Urine Occult Blood Urine Nitrite Urine Bilirubin Urine Urobilinogen Ur Leukocyte Esterase Urine RBC Urine WBC Ur Squamous Epith Cells Urine Bacteria Urine Mucus Urine Opiates Screen Urine Methadone Screen Ur Barbiturates Screen Ur Phencyclidine Scrn Ur Amphetamines Screen U Methamphetamin-MDMA U Benzodiazepines Scrn Urine Cocaine Screen U Cannabinoids Screen Ur Drug Screen Comment Ethyl Alcohol MRSA (PCR) 08/19/18 08/19/18 08/19/18 04:44 04:45 08:17 WBC RBC Hgb Hct MCV MCH MCHC RDW RDW Differential Plt Count MPV Immature Gran % (Auto) Neut % (Auto) Lymph % (Auto) [place] % (Auto) Eos % (Auto) Baso % (Auto) Absolute Neuts (auto) Absolute Lymphs (auto) Total Counted PT INR APTT Specimen Type ART Sample Site L Radial pH 7.28 L Bicarbonate Actual 17.2 L POC Total CO2 18 Base Excess -9 L O2 Saturation 97 O2 % 75 ABG pCO2 36.5 ABG pO2 105 H Jason Test POS Respiration Rate 16 O2 Delivery Device Vent Vent Mode A-C Tidal Volume 500 POC PEEP 5 Blood Gas Notified Whom ICU Blood Gas Notified Time 815 Sodium Potassium Chloride Carbon Dioxide Anion Gap BUN Creatinine Estim Creat Clear Calc Est GFR (MDRD) Af Amer Est GFR (MDRD) Non-Af BUN/Creatinine Ratio Glucose Lactic Acid Calcium Phosphorus Magnesium Iron TIBC Iron Saturation Ferritin Total Bilirubin AST ALT Alkaline Phosphatase Ammonia Total Creatine Kinase Troponin I 1.900 H* B-Natriuretic Peptide Total Protein Albumin Globulin Albumin/Globulin Ratio Triglycerides Vitamin B12 749 Folate TSH Urine Color Urine Clarity Urine pH Ur Specific [place] Urine Protein Urine Glucose (UA) Urine Ketones Urine Occult Blood Urine Nitrite Urine Bilirubin Urine Urobilinogen Ur Leukocyte Esterase Urine RBC Urine WBC Ur Squamous Epith Cells Urine Bacteria Urine Mucus Urine Opiates Screen Urine Methadone Screen Ur Barbiturates Screen Ur Phencyclidine Scrn Ur Amphetamines Screen U Methamphetamin-MDMA U Benzodiazepines Scrn Urine Cocaine Screen U Cannabinoids Screen Ur Drug Screen Comment Ethyl Alcohol MRSA (PCR) 08/19/18 09:59 WBC RBC Hgb Hct MCV MCH MCHC RDW RDW Differential Plt Count MPV Immature Gran % (Auto) Neut % (Auto) Lymph % (Auto) [place] % (Auto) Eos % (Auto) Baso % (Auto) Absolute Neuts (auto) Absolute Lymphs (auto) Total Counted PT 27.6 H INR 2.6 APTT 65.5 H Specimen Type Sample Site pH Bicarbonate Actual POC Total CO2 Base Excess O2 Saturation O2 % ABG pCO2 ABG pO2 Jason Test Respiration Rate O2 Delivery Device Vent Mode Tidal Volume POC PEEP Blood Gas Notified Whom Blood Gas Notified Time Sodium Potassium Chloride Carbon Dioxide Anion Gap BUN Creatinine Estim Creat Clear Calc Est GFR (MDRD) Af Amer Est GFR (MDRD) Non-Af BUN/Creatinine Ratio Glucose Lactic Acid Calcium Phosphorus Magnesium Iron TIBC Iron Saturation Ferritin Total Bilirubin AST ALT Alkaline Phosphatase Ammonia Total Creatine Kinase Troponin I B-Natriuretic Peptide Total Protein Albumin Globulin Albumin/Globulin Ratio Triglycerides Vitamin B12 Folate TSH Urine Color Urine Clarity Urine pH Ur Specific [place] Urine Protein Urine Glucose (UA) Urine Ketones Urine Occult Blood Urine Nitrite Urine Bilirubin Urine Urobilinogen Ur Leukocyte Esterase Urine RBC Urine WBC Ur Squamous Epith Cells Urine Bacteria Urine Mucus Urine Opiates Screen Urine Methadone Screen Ur Barbiturates Screen Ur Phencyclidine Scrn Ur Amphetamines Screen U Methamphetamin-MDMA U Benzodiazepines Scrn Urine Cocaine Screen U Cannabinoids Screen Ur Drug Screen Comment Ethyl Alcohol MRSA (PCR) - Other Studies Radiology: [] reviewed Other Studies: [] Route of nutrition/ use of supplements: [] Nutritional Intake: [] IV Site: [] Bass Catheter: [] - Physical Exam General: - - ill appearing HEENT: Atraumatic, PERRLA Neck: Supple, - - R neck line, bloody Lungs: Diminished Cardiovascular: Tachycardic Abdomen: Soft, Non Tender, Distended Extremities: Edema Skin: No rashes IV Site: Central Line - Assessment/Plan Antibiotics: [] Assessment/Plan: [] Active and Suspected Problems Hyponatremia (Acute) Decompensated hepatic cirrhosis (Acute) CAP (community acquired pneumonia) (Acute) Sepsis (Acute) septic shock with legionella, resp failure, ascites - cont zosyn and levaquin. May get paracentesis to eval for SBP. Checking hep panel and hiv. Will follow, thank you, d/w nursing.
[2018-08-19 13:21] LABS: Bedside Glucose 213 mg/dL (70-110)
[2018-08-19] MEDS: Thiamine Hydrochloride 100 MG Tablet 200 MG GT (13:27)
[2018-08-19] MEDS: Chlorhexidine 15 ML PO ×2 (13:27→22:27)
[2018-08-19] MEDS: Citalopram 40 MG TABLET GT (13:28)
[2018-08-19] MEDS: Folic Acid 1 MG Tablet GT (13:28)
[2018-08-19] MEDS: Lactulose 20 GM/30 ML UDC GT ×2 (13:34→22:25)
--- NOTE | 2018-08-19 13:48 | CASEMGMT ---
RN CM Note: Pt unable to participate in assessment. CM will continue to follow. Ese MAON RN ACM.
--- NOTE | 2018-08-19 15:36 | CHAPLAIN ---
Type of Pastoral Visit _x__ Initial Visit ___ Follow-up Visit ___ On-call Visit ___ General Patient Visit ___ Spiritual Assessment ___ Family Conference ___ Bereavement ___ Rapid Response ___ Code Blue ___ Other (describe below) Pastoral Care Referral From ___ Patient ___ Family ___ Nurse ___ Physician ___ Mortar Man ___ Produce Field Merchandiser _x__ Other (describe below) Sacrament/Intervention ___ Active listening ___ Anointing ___ Tenriism ___ Bereavement ___ Communion ___ Ana exploration ___ ___ Life review _x__ Prayer ___ Reconciliation ___ Sacrament of Sick _x__ Supportive presence ___ Wedding ___ Other (describe below) Pastoral Comments patient is sedated at this time and unable to interact; prayer offered for patient and calling card left to acknowledge support
[2018-08-19] MEDS: rifAXIMin 550 MG Tablet GT ×2 (15:44→22:25)
[2018-08-19] MEDS: levoFLOXacin IV 750 MG/150 ML BAG 100 MG IV (15:45)
[2018-08-19] MEDS: Insulin Lispro 100 UNIT/ML INSULN.PEN SC ×2 (20:02→23:56)
[2018-08-20] VITALS (46 sets, daily range): BP systolic 78–128; BP diastolic 48–99; PULSE 19–115; RESP 12–18; TEMP 36.2–36.7; O2SAT 92–97
[2018-08-20 00:01] LABS: Bedside Glucose 154 mg/dL (70-110)
[2018-08-20] MEDS: fentaNYL drip 100 ML 5 MCG CONT INF ×4 (01:56→20:53)
[2018-08-20] MEDS: Ipratropium/Albuterol Sulfate 3 ML AMPUL.NEB INHALATION ×6 (03:48→22:33)
[2018-08-20 04:39] LABS: Absolute Lymphocyte Count 0.58 X10^3/ul (0.83-4.51); Basophil# 0.01 X10^3/uL; Basophil% 0.1 % (0-1); Hemoglobin 12.6 g/dl (13.0-16.5); Lymphocyte # 0.58 X10^3/ul (4.0); Lymphocyte % 4.6 % (19-41); Mean Corpuscular Hgb 32.1 pg (27.0-32.0); Mean Corpuscular Volume 91.8 fL (80-94); Mean Platelet Vol. 8.8 fl (6.2-12.0); Monocyte# 0.98 X10^3/uL; Monocyte% 7.8 % (0-10); Neutrophil # 10.97 X10^3/uL (2.7-7.7); Neutrophil % 87.3 % (47-70); Platelet Count 116 K/mm3 (150-450); RBC Distribution Width CV 17.5 % (11.6-14.6); RBC Distribution Width SD 59.4 fl (35.1-43.9); Red Blood Count 3.92 M/mm3 (4.6-6.2); White Blood Count 12.6 K/mm3 (4.4-11.0)
[2018-08-20 04:43] LABS: Differential Indicated SCAN CRITERIA MET; POSITIVE COUNT NO; POSITIVE DIFFERENTIAL YES; POSITIVE MORPHOLOGY NO
[2018-08-20 04:49] LABS: Anion Gap 13 (5-15); BUN 48 mg/dL (7-18); BUN/Creat Ratio 19.8 RATIO (10-20); Calcium,Total 7.6 mg/dL (8.5-10.1); Chloride 97 mmol/L (98-107); Creatinine, Serum 2.42 mg/dL (0.70-1.30); EST Glomerular Filtration Rate 29 mL/min (>60); Est Glom Filt Rate - Afr Amer 35 mL/min (>60); Estimated Creatinine Clearance 35.18 ml/min; Glucose 155 mg/dL (74-106); Potassium 4.6 mmol/L (3.5-5.1); Sodium Level 131 mmol/L (136-145)
[2018-08-20] MEDS: Lactulose 20 GM/30 ML UDC GT (06:07)
[2018-08-20] MEDS: Propofol 10MG/Ml 1,000 MG/100 ML Bottle 6.924 MG CONT INF ×3 (06:08→19:36)
[2018-08-20 06:15] LABS: Bedside Glucose 143 mg/dL (70-110)
[2018-08-20 06:18] LABS: HIV - WCH Non-Reactive (Nonreactive)
--- NOTE | 2018-08-20 07:27 | PN_ITS ---
Subjective: The patient was seen and examined at the bedside this morning. Events from the last 24 hours have been reviewed. The patient is currently afebrile with an FiO2 requirement of 35%. The patient's Levophed has been weaned down to 5 mcg as of this morning. The patient failed his spontaneous awakening trial this morning due to significant agitation. He is currently sedated on both propofol and fentanyl. INR is stable this morning at 2.0. Creatinine has worsened to 2.42. Objective: The patient's most recent lab work, culture data and imaging studies have all been personally reviewed. Surface echocardiogram revealed evidence of a moderately dilated LV with an ejection fraction of 40 to 45%. There was evidence of a severely dilated RV with moderate global RV systolic dysfunction. Right ventricular systolic pressure was estimated to be 30 mmHg. Legionella antigen was positive. Blood, urine and sputum cultures are pending. General: - - Remains intubated, sedated and mechanically ventilated. No ventilator dyssynchrony noted. HEENT: Atraumatic, PERRLA, Normocephalic Oral: No Gingival or Mucosal Lesions/ Ulcerations, - - Endotracheal and OG tubes in place Neck: Supple, No Nodes, Trachea Midline, - - Right IJ central venous catheter in place Lungs: No rhonchi, No wheeze, No rales, Diminished Cardiovascular: Regular rate, Normal S1, Normal S2, No murmurs Abdomen: Soft, Hypoactive Bowel Sounds, Distended, - - + Fluid wave Extremities: No clubbing, No cyanosis, Edema Skin: - - No significant change from previous Musculoskeletal: No Muscle Wasting Lymphatic: No Cervical, Supraclavicular, or Inguinal Adenopathy Neurological: - - No focal neurological deficits. Currently sedated. Vital Signs Temp Pulse Resp BP Pulse Ox 97.4 F L 101 H 16 97/66 94 08/20/18 04:00 08/20/18 06:47 08/20/18 06:47 08/20/18 06:00 08/20/18 06:47 Oxygen Flow Rate (L/min) 4 Oxygen Delivery Method Mechanical Ventilator Weight: 255 lb 8.252 oz Body Mass Index (BMI) 34.3 Finger Stick Blood Glucose 126 Intake and Output for Last 24 Hours 08/18/18 08/19/18 08/20/18 23:59 23:59 23:59 Intake Total 2575.4 / 3048.7 997.8 / 997.8 Output Total 1999 575 / 575 Balance 575.4 / 923.7 422.8 / 422.8 Labs (Last 48 Hours) 08/18/18 08/18/18 08/18/18 13:11 14:22 14:22 WBC RBC Hgb Hct MCV MCH MCHC RDW RDW Differential Plt Count MPV Immature Gran % (Auto) Neut % (Auto) Lymph % (Auto) [place] % (Auto) Eos % (Auto) Baso % (Auto) Absolute Neuts (auto) Absolute Lymphs (auto) Total Counted PT INR APTT Specimen Type Sample Site pH Bicarbonate Actual POC Total CO2 Base Excess O2 Saturation O2 % ABG pCO2 ABG pO2 Jason Test Respiration Rate O2 Delivery Device Vent Mode Tidal Volume POC PEEP Blood Gas Notified Whom Blood Gas Notified Time Sodium 127 L Potassium 3.7 Chloride 95 L Carbon Dioxide 21.0 Anion Gap 11 BUN 11 Creatinine 0.89 Estim Creat Clear Calc 98.50 Est GFR (MDRD) Af Amer 112 Est GFR (MDRD) Non-Af 92 BUN/Creatinine Ratio 12.4 Glucose 126 H Lactic Acid Calcium 8.1 L Phosphorus Magnesium Iron TIBC Iron Saturation Ferritin Total Bilirubin 2.60 H AST 46 H ALT 20 Alkaline Phosphatase 150 H Ammonia Total Creatine Kinase Troponin I < 0.015 B-Natriuretic Peptide 689.4 H Total Protein 8.3 H Albumin 2.9 L Globulin 5.4 H Albumin/Globulin Ratio 0.5 L Triglycerides Vitamin B12 Folate TSH Urine Color Yellow Urine Clarity Clear Urine pH 6.0 Ur Specific [place] 1.015 Urine Protein 100 H Urine Glucose (UA) Normal Urine Ketones 5 H Urine Occult Blood 50 H Urine Nitrite Negative Urine Bilirubin 1 H Urine Urobilinogen 8 H Ur Leukocyte Esterase 25 H Urine RBC 0-5 SEEN Urine WBC 0-5 SEEN Ur Squamous Epith Cells 0 SEEN Urine Bacteria RARE Urine Mucus 0 SEEN Urine Opiates Screen Urine Methadone Screen Ur Barbiturates Screen Ur Phencyclidine Scrn Ur Amphetamines Screen U Methamphetamin-MDMA U Benzodiazepines Scrn Urine Cocaine Screen U Cannabinoids Screen Ur Drug Screen Comment Ethyl Alcohol Hepatitis A IgM Ab Hep Bs Antigen Hep B Core IgM Ab Hepatitis C Ab (EIA) HIV 1&2 Antibody MRSA (PCR) POC Glucose 08/18/18 08/18/18 08/18/18 14:22 14:22 14:22 WBC 6.3 RBC 3.61 L Hgb 11.5 L Hct 32.9 L MCV 91.1 MCH 31.9 MCHC 35.0 RDW 17.0 H RDW Differential 53.9 H Plt Count 72 L MPV 9.1 Immature Gran % (Auto) 0.600 Neut % (Auto) 79.7 H Lymph % (Auto) 10.[address] % (Auto) 9.1 Eos % (Auto) 0.0 Baso % (Auto) 0.2 Absolute Neuts (auto) 5.0 Absolute Lymphs (auto) 0.65 L Total Counted Not Reportable PT 21.4 H INR 1.9 APTT Specimen Type Sample Site pH Bicarbonate Actual POC Total CO2 Base Excess O2 Saturation O2 % ABG pCO2 ABG pO2 Jason Test Respiration Rate O2 Delivery Device Vent Mode Tidal Volume POC PEEP Blood Gas Notified Whom Blood Gas Notified Time Sodium Potassium Chloride Carbon Dioxide Anion Gap BUN Creatinine Estim Creat Clear Calc Est GFR (MDRD) Af Amer Est GFR (MDRD) Non-Af BUN/Creatinine Ratio Glucose Lactic Acid 1.9 Calcium Phosphorus Magnesium Iron TIBC Iron Saturation Ferritin Total Bilirubin AST ALT Alkaline Phosphatase Ammonia Total Creatine Kinase Troponin I B-Natriuretic Peptide Total Protein Albumin Globulin Albumin/Globulin Ratio Triglycerides Vitamin B12 Folate TSH Urine Color Urine Clarity Urine pH Ur Specific [place] Urine Protein Urine Glucose (UA) Urine Ketones Urine Occult Blood Urine Nitrite Urine Bilirubin Urine Urobilinogen Ur Leukocyte Esterase Urine RBC Urine WBC Ur Squamous Epith Cells Urine Bacteria Urine Mucus Urine Opiates Screen Urine Methadone Screen Ur Barbiturates Screen Ur Phencyclidine Scrn Ur Amphetamines Screen U Methamphetamin-MDMA U Benzodiazepines Scrn Urine Cocaine Screen U Cannabinoids Screen Ur Drug Screen Comment Ethyl Alcohol Hepatitis A IgM Ab Hep Bs Antigen Hep B Core IgM Ab Hepatitis C Ab (EIA) HIV 1&2 Antibody MRSA (PCR) POC Glucose 08/18/18 08/18/18 08/18/18 14:22 15:39 16:04 WBC RBC Hgb Hct MCV MCH MCHC RDW RDW Differential Plt Count MPV Immature Gran % (Auto) Neut % (Auto) Lymph % (Auto) [place] % (Auto) Eos % (Auto) Baso % (Auto) Absolute Neuts (auto) Absolute Lymphs (auto) Total Counted PT INR APTT Specimen Type Sample Site pH Bicarbonate Actual POC Total CO2 Base Excess O2 Saturation O2 % ABG pCO2 ABG pO2 Jason Test Respiration Rate O2 Delivery Device Vent Mode Tidal Volume POC PEEP Blood Gas Notified Whom Blood Gas Notified Time Sodium Potassium Chloride Carbon Dioxide Anion Gap BUN Creatinine Estim Creat Clear Calc Est GFR (MDRD) Af Amer Est GFR (MDRD) Non-Af BUN/Creatinine Ratio Glucose Lactic Acid Calcium Phosphorus 3.0 Magnesium 1.9 Iron TIBC Iron Saturation Ferritin Total Bilirubin AST ALT Alkaline Phosphatase Ammonia 51.0 H Total Creatine Kinase Troponin I B-Natriuretic Peptide Total Protein Albumin Globulin Albumin/Globulin Ratio Triglycerides Vitamin B12 Folate TSH 2.54 Urine Color Urine Clarity Urine pH Ur Specific [place] Urine Protein Urine Glucose (UA) Urine Ketones Urine Occult Blood Urine Nitrite Urine Bilirubin Urine Urobilinogen Ur Leukocyte Esterase Urine RBC Urine WBC Ur Squamous Epith Cells Urine Bacteria Urine Mucus Urine Opiates Screen Urine Methadone Screen Ur [place] Screen Ur Phencyclidine Scrn Ur Amphetamines Screen U Methamphetamin-MDMA U Benzodiazepines Scrn Urine Cocaine Screen U Cannabinoids Screen Ur Drug Screen Comment Ethyl Alcohol Hepatitis A IgM Ab Hep Bs Antigen Hep B Core IgM Ab Hepatitis C Ab (EIA) HIV 1&2 Antibody MRSA (PCR) POC Glucose 75 08/18/18 08/18/18 08/18/18 17:30 18:10 18:10 WBC RBC Hgb Hct MCV MCH MCHC RDW RDW Differential Plt Count MPV Immature Gran % (Auto) Neut % (Auto) Lymph % (Auto) [place] % (Auto) Eos % (Auto) Baso % (Auto) Absolute Neuts (auto) Absolute Lymphs (auto) Total Counted PT INR APTT Specimen Type Sample Site pH Bicarbonate Actual POC Total CO2 Base Excess O2 Saturation O2 % ABG pCO2 ABG pO2 Jason Test Respiration Rate O2 Delivery Device Vent Mode Tidal Volume POC PEEP Blood Gas Notified Whom Blood Gas Notified Time Sodium Potassium Chloride Carbon Dioxide Anion Gap BUN Creatinine Estim Creat Clear Calc Est GFR (MDRD) Af Amer Est GFR (MDRD) Non-Af BUN/Creatinine Ratio Glucose Lactic Acid Calcium Phosphorus Magnesium Iron TIBC Iron Saturation Ferritin Total Bilirubin AST ALT Alkaline Phosphatase Ammonia Total Creatine Kinase Troponin I B-Natriuretic Peptide Total Protein Albumin Globulin Albumin/Globulin Ratio Triglycerides Vitamin B12 Folate TSH Urine Color Urine Clarity Urine pH Ur Specific [place] Urine Protein Urine Glucose (UA) Urine Ketones Urine Occult Blood Urine Nitrite Urine Bilirubin Urine Urobilinogen Ur Leukocyte Esterase Urine RBC Urine WBC Ur Squamous Epith Cells Urine Bacteria Urine Mucus Urine Opiates Screen NEGATIVE Urine Methadone Screen NEGATIVE Ur Barbiturates Screen NEGATIVE Ur Phencyclidine Scrn NEGATIVE Ur Amphetamines Screen NEGATIVE U Methamphetamin-MDMA NEGATIVE U Benzodiazepines Scrn POSITIVE H Urine Cocaine Screen NEGATIVE U Cannabinoids Screen POSITIVE H Ur Drug Screen Comment Ethyl Alcohol 7.0 Hepatitis A IgM Ab Hep Bs Antigen Hep B Core IgM Ab Hepatitis C Ab (EIA) HIV 1&2 Antibody MRSA (PCR) Negative POC Glucose 08/18/18 08/18/18 08/18/18 18:10 18:10 18:49 WBC RBC Hgb Hct MCV MCH MCHC RDW RDW Differential Plt Count MPV Immature Gran % (Auto) Neut % (Auto) Lymph % (Auto) [place] % (Auto) Eos % (Auto) Baso % (Auto) Absolute Neuts (auto) Absolute Lymphs (auto) Total Counted PT INR APTT Specimen Type Sample Site pH Bicarbonate Actual POC Total CO2 Base Excess O2 Saturation O2 % ABG pCO2 ABG pO2 Jason Test Respiration Rate O2 Delivery Device Vent Mode Tidal Volume POC PEEP Blood Gas Notified Whom Blood Gas Notified Time Sodium Potassium Chloride Carbon Dioxide Anion Gap BUN Creatinine Estim Creat Clear Calc Est GFR (MDRD) Af Amer Est GFR (MDRD) Non-Af BUN/Creatinine Ratio Glucose Lactic Acid Calcium Phosphorus Magnesium Iron 16 L TIBC 209 L Iron Saturation 7.7 L Ferritin 242 Total Bilirubin AST ALT Alkaline Phosphatase Ammonia Total Creatine Kinase 134 Troponin I < 0.015 B-Natriuretic Peptide Total Protein Albumin Globulin Albumin/Globulin Ratio Triglycerides 94 Vitamin B12 Folate 26.50 TSH Urine Color Urine Clarity Urine pH Ur Specific [place] Urine Protein Urine Glucose (UA) Urine Ketones Urine Occult Blood Urine Nitrite Urine Bilirubin Urine Urobilinogen Ur Leukocyte Esterase Urine RBC Urine WBC Ur Squamous Epith Cells Urine Bacteria Urine Mucus Urine Opiates Screen Urine Methadone Screen Ur [place] Screen Ur Phencyclidine Scrn Ur Amphetamines Screen U Methamphetamin-MDMA U Benzodiazepines Scrn Urine Cocaine Screen U Cannabinoids Screen Ur Drug Screen Comment Ethyl Alcohol Hepatitis A IgM Ab Hep Bs Antigen Hep B Core IgM Ab Hepatitis C Ab (EIA) HIV 1&2 Antibody MRSA (PCR) POC Glucose 08/18/18 08/18/18 08/18/18 22:34 23:21 23:50 WBC RBC Hgb Hct MCV MCH MCHC RDW RDW Differential Plt Count MPV Immature Gran % (Auto) Neut % (Auto) Lymph % (Auto) [place] % (Auto) Eos % (Auto) Baso % (Auto) Absolute Neuts (auto) Absolute Lymphs (auto) Total Counted PT INR APTT Specimen Type ART Sample Site L Radial pH 7.23 L Bicarbonate Actual 19.9 L POC Total CO2 21 Base Excess -8 L O2 Saturation 93 L O2 % 60 ABG pCO2 47.9 H ABG pO2 80 Jason Test POS Respiration Rate 14 O2 Delivery Device Vent Vent Mode A-C Tidal Volume 500 POC PEEP 5 Blood Gas Notified Whom [facility] Blood Gas Notified Time 2230 Sodium Potassium Chloride Carbon Dioxide Anion Gap BUN Creatinine Estim Creat Clear Calc Est GFR (MDRD) Af Amer Est GFR (MDRD) Non-Af BUN/Creatinine Ratio Glucose Lactic Acid Calcium Phosphorus Magnesium Iron TIBC Iron Saturation Ferritin Total Bilirubin AST ALT Alkaline Phosphatase Ammonia Total Creatine Kinase Troponin I B-Natriuretic Peptide Total Protein Albumin Globulin Albumin/Globulin Ratio Triglycerides Vitamin B12 Folate TSH Urine Color Urine Clarity Urine pH Ur Specific [place] Urine Protein Urine Glucose (UA) Urine Ketones Urine Occult Blood Urine Nitrite Urine Bilirubin Urine Urobilinogen Ur Leukocyte Esterase Urine RBC Urine WBC Ur Squamous Epith Cells Urine Bacteria Urine Mucus Urine Opiates Screen Urine Methadone Screen Ur [place] Screen Ur Phencyclidine Scrn Ur Amphetamines Screen U Methamphetamin-MDMA U Benzodiazepines Scrn Urine Cocaine Screen U Cannabinoids Screen Ur Drug Screen Comment Ethyl Alcohol Hepatitis A IgM Ab Hep Bs Antigen Hep B Core IgM Ab Hepatitis C Ab (EIA) HIV 1&2 Antibody MRSA (PCR) Cancelled POC Glucose 199 H 08/19/18 08/19/18 08/19/18 00:25 01:27 01:45 WBC 12.6 H RBC 3.76 L Hgb 11.9 L Hct 34.4 L MCV 91.5 MCH 31.6 MCHC 34.6 RDW 17.0 H RDW Differential 54.6 H Plt Count 104 L MPV 8.7 Immature Gran % (Auto) 0.800 Neut % (Auto) 89.7 H Lymph % (Auto) 2.[address] [place] % (Auto) 6.4 Eos % (Auto) 0.1 Baso % (Auto) 0.1 Absolute Neuts (auto) 11.3 H Absolute Lymphs (auto) 0.36 L Total Counted Not Reportable PT INR APTT Specimen Type ART Sample Site L Radial pH 7.24 L Bicarbonate Actual 20.7 L POC Total CO2 22 Base Excess -7 L O2 Saturation 91 L O2 % 70 ABG pCO2 48.2 H ABG pO2 71 L Jason Test POS Respiration Rate 14 O2 Delivery Device Vent Vent Mode A-C Tidal Volume 500 POC PEEP [address] Gas Not[address] Whom [facility] Blood Gas Notified Time 122 Sodium Potassium Chloride Carbon Dioxide Anion Gap BUN Creatinine Estim Creat Clear Calc Est GFR (MDRD) Af Amer Est GFR (MDRD) Non-Af BUN/Creatinine Ratio Glucose Lactic Acid Calcium Phosphorus Magnesium Iron TIBC Iron Saturation Ferritin Total Bilirubin AST ALT Alkaline Phosphatase Ammonia Total Creatine Kinase Troponin I 0.857 H* B-Natriuretic Peptide Total Protein Albumin Globulin Albumin/Globulin Ratio Triglycerides Vitamin B12 Folate TSH Urine Color Urine Clarity Urine pH Ur Specific [place] Urine Protein Urine Glucose (UA) Urine Ketones Urine Occult Blood Urine Nitrite Urine Bilirubin Urine Urobilinogen Ur Leukocyte Esterase Urine RBC Urine WBC Ur Squamous Epith Cells Urine Bacteria Urine Mucus Urine Opiates Screen Urine Methadone Screen Ur Barbit[place] Screen Ur Phencyclidine Scrn Ur Amphetamines Screen U Methamphetamin-MDMA U Benzodiazepines Scrn Urine Cocaine Screen U Cannabinoids Screen Ur Drug Screen Comment Ethyl Alcohol Hepatitis A IgM Ab Hep Bs Antigen Hep B Core IgM Ab Hepatitis C Ab (EIA) HIV 1&2 Antibody MRSA (PCR) POC Glucose 08/19/18 08/19/18 08/19/18 01:45 01:45 04:44 WBC RBC Hgb Hct MCV MCH MCHC RDW RDW Differential Plt Count MPV Immature Gran % (Auto) Neut % (Auto) Lymph % (Auto) [place] % (Auto) Eos % (Auto) Baso % (Auto) Absolute Neuts (auto) Absolute Lymphs (auto) Total Counted PT INR APTT Specimen Type Sample Site pH Bicarbonate Actual POC Total CO2 Base Excess O2 Saturation O2 % ABG pCO2 ABG pO2 Jason Test Respiration Rate O2 Delivery Device Vent Mode Tidal Volume POC PEEP Blood Gas Notified Whom Blood Gas Notified Time Sodium 126 L Potassium 3.8 Chloride 96 L Carbon Dioxide 21.0 Anion Gap 9 BUN 18 Creatinine 1.37 H Estim Creat Clear Calc 62.15 Est GFR (MDRD) Af Amer 68 Est GFR (MDRD) Non-Af 56 L BUN/Creatinine Ratio 13.1 Glucose 216 H Lactic Acid Calcium 7.4 L Phosphorus Magnesium Iron TIBC Iron Saturation Ferritin Total Bilirubin 3.20 H AST 57 H ALT 20 Alkaline Phosphatase 143 H Ammonia 80.0 H Total Creatine Kinase Troponin I B-Natriuretic Peptide Total Protein 8.2 Albumin 2.9 L Globulin 5.3 H Albumin/Globulin Ratio 0.5 L Triglycerides Vitamin B12 749 Folate TSH Urine Color Urine Clarity Urine pH Ur Specific [place] Urine Protein Urine Glucose (UA) Urine Ketones Urine Occult Blood Urine Nitrite Urine Bilirubin Urine Urobilinogen Ur Leukocyte Esterase Urine RBC Urine WBC Ur Squamous Epith Cells Urine Bacteria Urine Mucus Urine Opiates Screen Urine Methadone Screen Ur [place] Screen Ur Phencyclidine Scrn Ur Amphetamines Screen U Methamphetamin-MDMA U Benzodiazepines Scrn Urine Cocaine Screen U Cannabinoids Screen Ur Drug Screen Comment Ethyl Alcohol Hepatitis A IgM Ab Hep Bs Antigen Hep B Core IgM Ab Hepatitis C Ab (EIA) HIV 1&2 Antibody MRSA (PCR) POC Glucose 08/19/18 08/19/18 08/19/18 04:45 06:46 08:17 WBC RBC Hgb Hct MCV MCH MCHC RDW RDW Differential Plt Count MPV Immature Gran % (Auto) Neut % (Auto) Lymph % (Auto) [place] % (Auto) Eos % (Auto) Baso % (Auto) Absolute Neuts (auto) Absolute Lymphs (auto) Total Counted PT INR APTT Specimen Type ART Sample Site L Radial pH 7.28 L Bicarbonate Actual 17.2 L POC Total CO2 18 Base Excess -9 L O2 Saturation 97 O2 % 75 ABG pCO2 36.5 ABG pO2 105 H Jason Test POS Respiration Rate 16 O2 Delivery Device Vent Vent Mode A-C Tidal Volume 500 POC PEEP 5 Blood Gas Notified Whom ICU Blood Gas Notified Time 815 Sodium Potassium Chloride Carbon Dioxide Anion Gap BUN Creatinine Estim Creat Clear Calc Est GFR (MDRD) Af Amer Est GFR (MDRD) Non-Af BUN/Creatinine Ratio Glucose Lactic Acid Calcium Phosphorus Magnesium Iron TIBC Iron Saturation Ferritin Total Bilirubin AST ALT Alkaline Phosphatase Ammonia Total Creatine Kinase Troponin I 1.900 H* B-Natriuretic Peptide Total Protein Albumin Globulin Albumin/Globulin Ratio Triglycerides Vitamin B12 Folate TSH Urine Color Urine Clarity Urine pH Ur Specific [place] Urine Protein Urine Glucose (UA) Urine Ketones Urine Occult Blood Urine Nitrite Urine Bilirubin Urine Urobilinogen Ur Leukocyte Esterase Urine RBC Urine WBC Ur Squamous Epith Cells Urine Bacteria Urine Mucus Urine Opiates Screen Urine Methadone Screen Ur [place] Screen Ur Phencyclidine Scrn Ur Amphetamines Screen U Methamphetamin-MDMA U Benzodiazepines Scrn Urine Cocaine Screen U Cannabinoids Screen Ur Drug Screen Comment Ethyl Alcohol Hepatitis A IgM Ab Hep Bs Antigen Hep B Core IgM Ab Hepatitis C Ab (EIA) HIV 1&2 Antibody MRSA (PCR) POC Glucose 215 H 08/19/18 08/19/18 08/19/18 09:06 09:59 13:16 WBC RBC Hgb Hct MCV MCH MCHC RDW RDW Differential Plt Count MPV Immature Gran % (Auto) Neut % (Auto) Lymph % (Auto) [place] % (Auto) Eos % (Auto) Baso % (Auto) Absolute Neuts (auto) Absolute Lymphs (auto) Total Counted PT 27.6 H INR 2.6 APTT 65.5 H Specimen Type Sample Site pH Bicarbonate Actual POC Total CO2 Base Excess O2 Saturation O2 % ABG pCO2 ABG pO2 Jason Test Respiration Rate O2 Delivery Device Vent Mode Tidal Volume POC PEEP Blood Gas Notified Whom Blood Gas Notified Time Sodium Potassium Chloride Carbon Dioxide Anion Gap BUN Creatinine Estim Creat Clear Calc Est GFR (MDRD) Af Amer Est GFR (MDRD) Non-Af BUN/Creatinine Ratio Glucose Lactic Acid Calcium Phosphorus Magnesium Iron TIBC Iron Saturation Ferritin Total Bilirubin AST ALT Alkaline Phosphatase Ammonia Total Creatine Kinase Troponin I B-Natriuretic Peptide Total Protein Albumin Globulin Albumin/Globulin Ratio Triglycerides Vitamin B12 Folate TSH Urine Color Urine Clarity Urine pH Ur Specific [place] Urine Protein Urine Glucose (UA) Urine Ketones Urine Occult Blood Urine Nitrite Urine Bilirubin Urine Urobilinogen Ur Leukocyte Esterase Urine RBC Urine WBC Ur Squamous Epith Cells Urine Bacteria Urine Mucus Urine Opiates Screen Urine Methadone Screen Ur [place] Screen Ur Phencyclidine Scrn Ur Amphetamines Screen U Methamphetamin-MDMA U Benzodiazepines Scrn Urine Cocaine Screen U Cannabinoids Screen Ur Drug Screen Comment Ethyl Alcohol Hepatitis A IgM Ab Hep Bs Antigen Hep B Core IgM Ab Hepatitis C Ab (EIA) HIV 1&2 Antibody MRSA (PCR) POC Glucose 199 H 213 H 08/19/18 08/20/18 08/20/18 23:53 04:20 04:20 WBC RBC Hgb Hct MCV MCH MCHC RDW RDW Differential Plt Count MPV Immature Gran % (Auto) Neut % (Auto) Lymph % (Auto) [place] % (Auto) Eos % (Auto) Baso % (Auto) Absolute Neuts (auto) Absolute Lymphs (auto) Total Counted PT INR APTT Specimen Type Sample Site pH Bicarbonate Actual POC Total CO2 Base Excess O2 Saturation O2 % ABG pCO2 ABG pO2 Jason Test Respiration Rate O2 Delivery Device Vent Mode Tidal Volume POC PEEP Blood Gas Notified Whom Blood Gas Notified Time Sodium Potassium Chloride Carbon Dioxide Anion Gap BUN Creatinine Estim Creat Clear Calc Est GFR (MDRD) Af Amer Est GFR (MDRD) Non-Af BUN/Creatinine Ratio Glucose Lactic Acid Calcium Phosphorus Magnesium Iron TIBC Iron Saturation Ferritin Total Bilirubin AST ALT Alkaline Phosphatase Ammonia Total Creatine Kinase Troponin I B-Natriuretic Peptide Total Protein Albumin Globulin Albumin/Globulin Ratio Triglycerides Vitamin B12 Folate TSH Urine Color Urine Clarity Urine pH Ur Specific [place] Urine Protein Urine Glucose (UA) Urine Ketones Urine Occult Blood Urine Nitrite Urine Bilirubin Urine Urobilinogen Ur Leukocyte Esterase Urine RBC Urine WBC Ur Squamous Epith Cells Urine Bacteria Urine Mucus Urine Opiates Screen Urine Methadone Screen Ur [place]bit[place] Screen Ur Phencyclidine Scrn Ur Amphetamines Screen U Methamphetamin-MDMA U Benzodiazepines Scrn Urine Cocaine Screen U Cannabinoids Screen Ur Drug Screen Comment Ethyl Alcohol Hepatitis A IgM Ab Pending Hep Bs Antigen Pending Hep B Core IgM Ab Pending Hepatitis C Ab (EIA) Pending HIV 1&2 Antibody Non-Reactive MRSA (PCR) POC Glucose 154 H 08/20/18 08/20/18 08/20/18 04:20 04:20 04:20 WBC 12.6 H RBC 3.92 L Hgb 12.6 L Hct 36.0 L MCV 91.8 MCH 32.1 H MCHC 35.0 RDW 17.5 H RDW Differential 59.4 H Plt Count 116 L MPV 8.8 Immature Gran % (Auto) 0.200 Neut % (Auto) 87.3 H Lymph % (Auto) 4.[address] % (Auto) 7.8 Eos % (Auto) 0.0 Baso % (Auto) 0.1 Absolute Neuts (auto) 11.0 H Absolute Lymphs (auto) 0.58 L Total Counted Not Reportable PT 23.0 H INR 2.0 APTT Specimen Type Sample Site pH Bicarbonate Actual POC Total CO2 Base Excess O2 Saturation O2 % ABG pCO2 ABG pO2 Jason Test Respiration Rate O2 Delivery Device Vent Mode Tidal Volume POC PEEP Blood Gas Notified Whom Blood Gas Notified Time Sodium 131 L Potassium 4.6 Chloride 97 L Carbon Dioxide 21.0 Anion Gap 13 BUN 48 H Creatinine 2.42 H Estim Creat Clear Calc 35.18 Est GFR (MDRD) Af Amer 35 L Est GFR (MDRD) Non-Af 29 L BUN/Creatinine Ratio 19.8 Glucose 155 H Lactic Acid Calcium 7.6 L Phosphorus Magnesium Iron TIBC Iron Saturation Ferritin Total Bilirubin AST ALT Alkaline Phosphatase Ammonia Total Creatine Kinase Troponin I B-Natriuretic Peptide Total Protein Albumin Globulin Albumin/Globulin Ratio Triglycerides Vitamin B12 Folate TSH Urine Color Urine Clarity Urine pH Ur Specific [place] Urine Protein Urine Glucose (UA) Urine Ketones Urine Occult Blood Urine Nitrite Urine Bilirubin Urine Urobilinogen Ur Leukocyte Esterase Urine RBC Urine WBC Ur Squamous Epith Cells Urine Bacteria Urine Mucus Urine Opiates Screen Urine Methadone Screen Ur Barbiturates Screen Ur Phencyclidine Scrn Ur Amphetamines Screen U Methamphetamin-MDMA U Benzodiazepines Scrn Urine Cocaine Screen U Cannabinoids Screen Ur Drug Screen Comment Ethyl Alcohol Hepatitis A IgM Ab Hep Bs Antigen Hep B Core IgM Ab Hepatitis C Ab (EIA) HIV 1&2 Antibody MRSA (PCR) POC Glucose 08/20/18 06:06 WBC RBC Hgb Hct MCV MCH MCHC RDW RDW Differential Plt Count MPV Immature Gran % (Auto) Neut % (Auto) Lymph % (Auto) [place] % (Auto) Eos % (Auto) Baso % (Auto) Absolute Neuts (auto) Absolute Lymphs (auto) Total Counted PT INR APTT Specimen Type Sample Site pH Bicarbonate Actual POC Total CO2 Base Excess O2 Saturation O2 % ABG pCO2 ABG pO2 Jason Test Respiration Rate O2 Delivery Device Vent Mode Tidal Volume POC PEEP Blood Gas Notified Whom Blood Gas Notified Time Sodium Potassium Chloride Carbon Dioxide Anion Gap BUN Creatinine Estim Creat Clear Calc Est GFR (MDRD) Af Amer Est GFR (MDRD) Non-Af BUN/Creatinine Ratio Glucose Lactic Acid Calcium Phosphorus Magnesium Iron TIBC Iron Saturation Ferritin Total Bilirubin AST ALT Alkaline Phosphatase Ammonia Total Creatine Kinase Troponin I B-Natriuretic Peptide Total Protein Albumin Globulin Albumin/Globulin Ratio Triglycerides Vitamin B12 Folate TSH Urine Color Urine Clarity Urine pH Ur Specific [place] Urine Protein Urine Glucose (UA) Urine Ketones Urine Occult Blood Urine Nitrite Urine Bilirubin Urine Urobilinogen Ur Leukocyte Esterase Urine RBC Urine WBC Ur Squamous Epith Cells Urine Bacteria Urine Mucus Urine Opiates Screen Urine Methadone Screen Ur Barbiturates Screen Ur Phencyclidine Scrn Ur Amphetamines Screen U Methamphetamin-MDMA U Benzodiazepines Scrn Urine Cocaine Screen U Cannabinoids Screen Ur Drug Screen Comment Ethyl Alcohol Hepatitis A IgM Ab Hep Bs Antigen Hep B Core IgM Ab Hepatitis C Ab (EIA) HIV 1&2 Antibody MRSA (PCR) POC Glucose 143 H Microbiology 08/18/18 18:10 Urine Catheter - Bass Legionella Antigen - Final Legionella Antigen 08/19/18 06:15 Sputum, Tracheal Aspirate Gram Stain - Final 08/18/18 18:10 Urine Catheter - Bass Streptococcus pneumoniae Antigen (M - Final Clinical Impression(s) from Imaging Studies Brain CT 08/18/18 14:03 IMPRESSION: Findings suggestive of an old ischemic insult involving the carney radiata of the left frontoparietal lobe. Electronically Signed: Hakan Mendosa, at 15:00 EDT , Service support , Chest X-Ray 08/18/18 14:03 IMPRESSION: Stable increased interstitial markings bilaterally suggestive of mild CHF superimposed on scarring. Electronically Signed: Hakan Mendosa, at 14:42 EDT , Service support , Abdomen/Pelvis CT 08/18/18 14:20 IMPRESSION: Ascites. Moderate splenomegaly. Consolidation in the posterior medial segment of the left lower lobe with mild increased markings in the right lower lobe. Electronically Signed: Hakan Mendosa, at 14:59 EDT , Service support , Chest X-Ray 08/18/18 21:58 IMPRESSION: 1. No gross change in bilateral infiltrates. 2. Endotracheal tube in place. 3. Gastric tube tip likely in the distal esophagus. at 2232 Reported and signed by: Judith Cambpell MD Electronically Signed: Judith Campbell MD at 22:32 EDT Tel , Service support , KUB X-Ray 08/18/18 22:50 IMPRESSION: Gaseous bowel distention. Gastric tube tip in the upper stomach, suggest advancement by about 6 cm. at 0008 Reported and signed by: Judith Campbell MD Electronically Signed: Judith aCmpbell MD at 0:08 EDT Tel , Service support , Chest X-Ray 08/19/18 05:55 IMPRESSION: Worsening right lower lobe pneumonia. Electronically Signed: Cory Ortiz MD at 12:33 EDT Tel , Service support , Abdomen Ultrasound 08/19/18 06:52 Chest X-Ray 08/19/18 09:00 IMPRESSION: There is mild diffuse pulmonary edema and/or infiltrate. Pulmonary vascular prominence. Electronically Signed: Amanda Bee, at 12:38 EDT Tel , Service support , KUB X-Ray 08/19/18 09:34 IMPRESSION: NG tube overlies the distal stomach or proximal duodenum, tip is excluded from view. Electronically Signed: Amanda Bee, at 12:39 EDT Tel , Service support , Medical Necessity - Tobacco Use Smoking Status: Current every day smoker Tobacco Use: Cigarettes Assessment/Plan All Active Problems Hyponatremia (Acute) Decompensated hepatic cirrhosis (Acute) CAP (community acquired pneumonia) (Acute) Sepsis (Acute) Leukocytoclastic vasculitis (Acute) Atrial fibrillation with RVR (Acute) Heart failure with preserved ejection fraction, borderline, class II (Acute) Atrial fibrillation (Acute) RECOMMENDATIONS: 1. Continue broad-spectrum antimicrobial coverage, including IV Levaquin, given positive Legionella antigen. 2. Continue propofol and fentanyl for sedation. 3. Continue lactulose and rifaximin as ordered. 4. Continue Levophed. Goal to maintain a mean arterial pressure at or above 65 mmHg. 5. Continue PPI for GI prophylaxis. IMPRESSIONS: 1. Acute combined respiratory failure The patient developed progressive bilateral infiltrates on chest imaging, which culminated in the development of respiratory distress leading to emergent intubation. The patient was noted to have a positive Legionella antigen. The patient will be continued on broad-spectrum antibiotics per infectious diseases recommendations. Continue to wean FiO2 and PEEP to maintain oxygen saturations at or above 90%. Plan for daily paired spontaneous awakening and breathing trials. 2. Septic shock secondary to presumptive Legionella pneumonia/possible SBP The patient is currently on appropriate broad-spectrum antimicrobials, including Levaquin given his positive urine Legionella antigen. Continue Levophed to maintain a mean arterial pressure at or above 65 mmHg. Although consideration was given to obtaining an ultrasound-guided paracentesis, the patient's coagulopathy would preclude such a procedure from being performed. 3. Metabolic encephalopathy Likely multifactorial in etiology and related to underlying infectious process and hyperammonemia. Propofol and fentanyl will be continued for sedation as needed. Goal to maintain a RASS of -1 to 1. Given the patient's elevated ammonia level, lactulose and rifaximin will be continued. 4. Paroxysmal atrial fibrillation with RVR/troponin elevation Cardiology is following to assist with management. Suspect that the patient's troponin leak is secondary to demand ischemia in the setting of #2. 5. Acute kidney injury Likely prerenal in etiology and related to the development of ATN in the setting of #2. Will continue vasopressor support accordingly. Continue to monitor urine output. There is no current indication for renal replacement therapy. If the patient's renal function continues to worsen, will obtain nephrology consultation. 6. History of chronic alcohol, tobacco and cannabis dependency/anemia/thrombocytopenia/diabetes mellitus/chronic back pain Complicates care, management, recovery and prognosis. TIME: 38 minutes of critical care time, independent of procedures, was spent addressing the patient's acute combined respiratory failure, septic shock, metabolic encephalopathy, paroxysmal atrial fibrillation, troponin elevation, acute kidney injury, review of all data and collaboration with the care team. ( [id number]) Code Visit [id number]: [id number] Critical care first hour
[2018-08-20] MEDS: Folic Acid 1 MG Tablet GT (08:06)
[2018-08-20] MEDS: Thiamine Hydrochloride 100 MG Tablet 200 MG GT (08:07)
--- NOTE | 2018-08-20 09:09 | PN.CARD_ITS ---
Subjectve: Remains sedated and intubated on IV vasopressors. FiO2 35%. Objective: Vital Signs Temp Pulse Resp BP Pulse Ox 97.4 F L 59 L 16 97/66 94 08/20/18 04:00 08/20/18 07:05 08/20/18 06:47 08/20/18 06:00 08/20/18 06:47 Oxygen Flow Rate (L/min) 4 Oxygen Delivery Method Mechanical Ventilator Weight: 255 lb 8.252 oz Body Mass Index (BMI) 34.3 Finger Stick Blood Glucose 126 Intake and Output for Last 24 Hours 08/18/18 08/19/18 08/20/18 23:59 23:59 23:59 Intake Total 2575.4 / 3048.7 997.8 / 997.8 Output Total 1999 575 / 575 Balance 575.4 / 923.7 422.8 / 422.8 Sedated and intubated. HEENT: Atraumatic Neck: Supple Lungs: Clear to auscultation Cardiovascular: Irregular Rhythm Abdomen: Soft Extremities: No Cyanosis 08/19/18 09:59: PT 27.6 H, INR 2.6, APTT 65.5 H 08/20/18 04:20: WBC 12.6 H, RBC 3.92 L, Hgb 12.6 L, Hct 36.0 L, MCV 91.8, MCH 32.1 H, MCHC 35.0, RDW 17.5 H, RDW Differential 59.4 H, Plt Count 116 L, MPV 8.8, Immature Gran % (Auto) 0.200, Neut % (Auto) 87.3 H, Lymph % (Auto) 4.6 L, M kam[place] % (Auto) 7.8, Eos % (Auto) 0.0, Baso % (Auto) 0.1, Absolute Neuts (auto) 11.0 H, Total Counted Not Reportable 08/20/18 04:20: PT 23.0 H, INR 2.0 08/20/18 04:20: Sodium 131 L, Potassium 4.6, Chloride 97 L, Carbon Dioxide 21.0, Anion Gap 13, BUN 48 H, Creatinine 2.42 H, Est GFR (MDRD) Af Amer 35 L, Est GFR (MDRD) Non-Af 29 L, BUN/Creatinine Ratio 19.8, Glucose 155 H, Calcium 7.6 L Rhythm: EKG: ECHO: Stress Test: Cardiac Cath: PCI: CT Surgery: Holter monitor: EPS: PPM: CXR: Chest CT Scan: Medical Necessity - Tobacco Use Smoking Status: Current every day smoker Tobacco Use: Cigarettes Assessment/Plan Impression: 1. Sepsis secondary to community acquired pneumonia. 2. Respiratory failure, necessitating mechanical ventilation 3. Paroxysmal atrial fibrillation 4. Mild to moderate LV systolic dysfunction. Dilated RV/RA. 5. History of alcohol abuse Plan: Continue supportive therapy as needed. Continue amiodarone drip for rate control.
--- NOTE | 2018-08-20 09:22 | RAD_ITS ---
STUDY: X-RAY - ABDOMEN/PELVIS REASON FOR EXAM: Male, 62 years old. TECHNIQUE: COMPARISON: None. FINDINGS: Normal visualized lung bases. There is an unremarkable bowel gas pattern. There is no demonstrated free abdominal air. There is NG tube with the tip in the gastric antrum The visualized liver, spleen and kidneys are grossly normal in size and morphology. Normal soft tissue structures. Normal visualized osseous structures. There are patchy changes involving the right lung , opacified left lower lung. A central line is seen with the tip in the superior vena cava. RAD/Abdomen Single View (Portable) IMPRESSION: Normal x-ray examination of the abdomen and pelvis. Electronically Signed: Maddi Martinez, at 10:13 EDT Tel , Service support ,
--- NOTE | 2018-08-20 09:28 | PN_ITS ---
Patient Problems: Active and Suspected Problems Hyponatremia (Acute) Decompensated hepatic cirrhosis (Acute) CAP (community acquired pneumonia) (Acute) Sepsis (Acute) Subjective: All events of the past 24 hours have been reviewed. Antibiotic Day #3 Zosyn and Levaquin Ventilator Day #3 TMAX: Afebrile Vital signs: Levophed was discontinued today but he became hypotensive with a systolic of 79 an it was restarted at a low dose. Heart rate is adequately controlled Fluid balance: +1 L since admission Urine output: Urine output on 08/19/2018 was 1450 cc. Overnight he had an additional 375 cc. Weight: 255 pounds and 8 ounces, up from 254 and 6-1/2 ounces on 08/19/2018. All radiologic testing was reviewed: KUB today is consistent with ileus. All labs were personally reviewed: White blood cell count is stable at 12.6 with left shift. Hemoglobin is stable at 12.6. Platelets are improving and are 116,000 today. PT is 23 with an INR of 2.0 today. Sodium is improving and is 131 today, up from 126 on 08/19/2018. The BUN is 48 with a creatinine of 2.42. Troponin was 1.9 at peak. Blood sugars are adequately controlled. HIV is nonreactive and hepatitis panel is pending. Microbiology: Urine was positive for Legionella antigen Telemetry: ECHO: 40 to 45% EF with no significant wall motion abnormality. Moderately dil ated left ventricle. Severely dilated right ventricle with severe enlargement of the right atrium. 2+ tricuspid insufficiency and mild aortic stenosis. Secretions for ETT: thick hodgson BM - none. Still with significant NG drainage and it is a light brown Tolerating TF without residuals - NG on LIS Subjective: Remains intubated and he is now appropriately sedated on Propofol and Fentanyl. Objective: General: Intubated and sedated with propofol and fentanyl HEENT: PERRLA, Atraumatic, normocephalic, no scleral icterus, trachea is midline Lungs: Diminished with rhonchi throughout, symmetric chest expansion, no wheezing Heart: Irregular irregular with telemetry showing atrial fibrillation Abdomen: Soft, distended, hypoactive bowel sounds present, no guarding with palpation Extremities: Edema, no clubbing, no cyanosis, peripheral pulses are diminished and the feet are cool to touch bilaterally Neuro: No focal neurologic deficits appreciated Skin: Warm and dry, no wounds, no rashes, no jaundice - Physical Exam Vital Signs Temp Pulse Resp BP Pulse Ox 97.1 F L 97 16 101/73 93 08/20/18 07:00 08/20/18 09:00 08/20/18 09:00 08/20/18 07:00 08/20/18 09:00 Oxygen Flow Rate (L/min) 4 Oxygen Delivery Method Mechanical Ventilator Weight: 255 lb 8.252 oz Body Mass Index (BMI) 34.3 Finger Stick Blood Glucose 126 Intake and Output for Last 24 Hours 08/18/18 08/19/18 08/20/18 23:59 23:59 23:59 Intake Total 2575.4 / 3048.7 997.8 / 997.8 Output Total 1999 / 2124 575 / 575 Balance 575.4 / 923.7 422.8 / 422.8 Microbiology Past 72 Hours 08/18/18 18:10 Legionella Antigen - Final Urine Catheter - Bass Legionella Antigen 08/19/18 06:15 Gram Stain - Final Sputum, Tracheal Aspirate 08/18/18 18:10 Streptococcus pneumoniae Antigen (M - Final Urine Catheter - Bass Laboratory Tests Past 24 Hrs 08/19/18 08/19/18 08/20/18 04:44 09:59 04:20 WBC RBC Hgb Hct MCV MCH MCHC RDW RDW Differential Plt Count MPV Immature Gran % (Auto) Neut % (Auto) Lymph % (Auto) [place] % (Auto) Eos % (Auto) Baso % (Auto) Absolute Neuts (auto) Absolute Lymphs (auto) Total Counted PT 27.6 H INR 2.6 APTT 65.5 H Sodium Potassium Chloride Carbon Dioxide Anion Gap BUN Creatinine Estim Creat Clear Calc Est GFR (MDRD) Af Amer Est GFR (MDRD) Non-Af BUN/Creatinine Ratio Glucose Calcium Vitamin B12 749 Hepatitis A IgM Ab Pending Hep Bs Antigen Pending Hep B Core IgM Ab Pending Hepatitis C Ab (EIA) Pending HIV 1&2 Antibody 08/20/18 08/20/18 08/20/18 04:20 04:20 04:20 WBC 12.6 H RBC 3.92 L Hgb 12.6 L Hct 36.0 L MCV 91.8 MCH 32.1 H MCHC 35.0 RDW 17.5 H RDW Differential 59.4 H Plt Count 116 L MPV 8.8 Immature Gran % (Auto) 0.200 Neut % (Auto) 87.3 H Lymph % (Auto) 4.6 L [place] % (Auto) 7.8 Eos % (Auto) 0.0 Baso % (Auto) 0.1 Absolute Neuts (auto) 11.0 H Absolute Lymphs (auto) 0.58 L Total Counted Not Reportable PT 23.0 H INR 2.0 APTT Sodium Potassium Chloride Carbon Dioxide Anion Gap BUN Creatinine Estim Creat Clear Calc Est GFR (MDRD) Af Amer Est GFR (MDRD) Non-Af BUN/Creatinine Ratio Glucose Calcium Vitamin B12 Hepatitis A IgM Ab Hep Bs Antigen Hep B Core IgM Ab Hepatitis C Ab (EIA) HIV 1&2 Antibody Non-Reactive 08/20/18 04:20 WBC RBC Hgb Hct MCV MCH MCHC RDW RDW Differential Plt Count MPV Immature Gran % (Auto) Neut % (Auto) Lymph % (Auto) [place] % (Auto) Eos % (Auto) Baso % (Auto) Absolute Neuts (auto) Absolute Lymphs (auto) Total Counted PT INR APTT Sodium 131 L Potassium 4.6 Chloride 97 L Carbon Dioxide 21.0 Anion Gap 13 BUN 48 H Creatinine 2.42 H Estim Creat Clear Calc 35.18 Est GFR (MDRD) Af Amer 35 L Est GFR (MDRD) Non-Af 29 L BUN/Creatinine Ratio 19.8 Glucose 155 H Calcium 7.6 L Vitamin B12 Hepatitis A IgM Ab Hep Bs Antigen Hep B Core IgM Ab Hepatitis C Ab (EIA) HIV 1&2 Antibody POC Glucose 08/20/18 08/19/18 08/19/18 06:06 23:53 13:16 POC Glucose 143 H 154 H 213 H 08/18/18 15:39 POC Glucose 75 Medical Necessity - Tobacco Use Smoking Status: Current every day smoker Tobacco Use: Cigarettes Assessment/Plan All Active Problems Hyponatremia (Acute) Decompensated hepatic cirrhosis (Acute) CAP (community acquired pneumonia) (Acute) Sepsis (Acute) Leukocytoclastic vasculitis (Acute) Atrial fibrillation with RVR (Acute) Heart failure with preserved ejection fraction, borderline, class II (Acute) Atrial fibrillation (Acute) Impressions 1. Septic shock presumed secondary to Legionella pneumonia and possibly spontaneous bacterial peritonitis 2. Acute combined respiratory failure requiring intubation 3. Toxic/metabolic encephalopathy-likely multifactorial 4. Hyperammonemia 5. PAF with RVR 6. Troponin elevation-likely secondary to demand ischemia related to septic shock and acute respiratory failure with hypoxemia 7. Acute nonoliguric renal failure-suspect secondary to ATN 8. Chronic alcohol abuse 9. Tobacco dependence 11. Daily cannabis use 12. Diabetes mellitus type 2 13. Thrombocytopenia 14. Chronic back pain with possible narcotic dependence 15. Suspected acute alcohol withdrawal Continue to hold tube feed until the NG drainage has decreased Discontinue all NG medications and start IV medications as the NG are likely not being absorbed Normal saline at 40 cc/h Continue amiodarone infusion until the patient is able to take NG medications Hold lactulose and rifaximin and give lactulose enema today Continue fentanyl and propofol for sedation Change thiamine and folic acid IV Continue DuoNeb aerosols Continue Levaquin but change the dosing interval to every 48 hours and in light of acute nonoliguric renal failure Continue Zosyn Recheck lab in the a.m. Diagnostic and therapeutic paracentesis on Wednesday Hepatitis panel is pending Discussed on rounds with Dr. Nichols Code Visit Inpatient E&M: [id number] Subs Hosp L3
[2018-08-20] MEDS: 0.9% Normal Saline 1,000 ML 40 ML IV (10:37)
[2018-08-20] MEDS: 0.9% NaCl Peripheral Flush Adult/Peds IV (11:20)
[2018-08-20 12:02] LABS: Magnesium 2.8 mg/dL (1.6-2.6)
[2018-08-20 12:04] LABS: BNP,B-Type NATRIURETIC PEPTIDE 531.8 pg/mL (0-100)
[2018-08-20] MEDS: Chlorhexidine 15 ML PO ×2 (12:06→21:45)
[2018-08-20 12:20] LABS: Bedside Glucose 132 mg/dL (70-110)
[2018-08-20] MEDS: Lactulose 20 GM/30 ML UDC 200 GM RECTAL (14:07)
[2018-08-20 18:06] LABS: Bedside Glucose 149 mg/dL (70-110)
[2018-08-21] VITALS (73 sets, daily range): BP systolic 71–110; BP diastolic 44–93; PULSE 90–120; RESP 13–18; TEMP 36.6–37.7; O2SAT 92–99
[2018-08-21 00:26] LABS: Bedside Glucose 136 mg/dL (70-110)
[2018-08-21] MEDS: fentaNYL drip 100 ML 5 MCG CONT INF ×4 (01:49→21:14)
[2018-08-21] MEDS: Propofol 10MG/Ml 1,000 MG/100 ML Bottle 6.924 MG CONT INF ×5 (01:51→21:13)
[2018-08-21] MEDS: CHLORHEXIDINE GLUC 2% CLOTH 1 EACH TOWELETTE TOPICAL (01:52)
[2018-08-21] MEDS: Ipratropium/Albuterol Sulfate 3 ML AMPUL.NEB INHALATION ×6 (02:16→22:40)
[2018-08-21 04:30] LABS: Absolute Lymphocyte Count 0.88 X10^3/ul (0.83-4.51); Absolute Neutrophil Count 7.5 X10^3/uL (2.0-7.7); Basophil# 0.01 X10^3/uL; Basophil% 0.1 % (0-1); Hematocrit 33.9 % (40-54); Hemoglobin 11.6 g/dl (13.0-16.5); Lymphocyte # 0.88 X10^3/ul (4.0); Lymphocyte % 9.6 % (19-41); Mean Corp Hgb Conc 34.2 g/gl (32-36); Mean Corpuscular Hgb 31.6 pg (27.0-32.0); Mean Corpuscular Volume 92.4 fL (80-94); Mean Platelet Vol. 8.8 fl (6.2-12.0); Monocyte% 8.7 % (0-10); Neutrophil # 7.46 X10^3/uL (2.7-7.7); Neutrophil % 81.3 % (47-70); Platelet Count 114 K/mm3 (150-450); RBC Distribution Width CV 17.6 % (11.6-14.6); RBC Distribution Width SD 57.1 fl (35.1-43.9); Red Blood Count 3.67 M/mm3 (4.6-6.2); White Blood Count 9.2 K/mm3 (4.4-11.0)
[2018-08-21 04:32] LABS: POSITIVE COUNT NO; POSITIVE DIFFERENTIAL NO; POSITIVE MORPHOLOGY NO
[2018-08-21 04:33] LABS: International Normalized Ratio 1.7
[2018-08-21 04:47] LABS: ALB/GLOB Ratio 0.5 RATIO (0.9-2.4); AST(SGOT) 231 U/L (15-37); Alanine Aminotransfer ALT/SGPT 68 U/L (16-61); Albumin, Serum 2.6 g/dL (3.2-5.0); Alkaline Phosphatase 83 U/L (45-117); Anion Gap 10 (5-15); BUN 51 mg/dL (7-18); BUN/Creat Ratio 27.6 RATIO (10-20); Calcium,Total 7.8 mg/dL (8.5-10.1); Chloride 102 mmol/L (98-107); Creatinine, Serum 1.85 mg/dL (0.70-1.30); EST Glomerular Filtration Rate 40 mL/min (>60); Est Glom Filt Rate - Afr Amer 48 mL/min (>60); Estimated Creatinine Clearance 46.02 ml/min; Globulin 4.8 g/dL (2.2-4.2); Glucose 134 mg/dL (74-106); Magnesium 3.1 mg/dL (1.6-2.6); Phosphorus 3.8 mg/dL (2.5-4.9); Potassium 3.8 mmol/L (3.5-5.1); Protein, Total 7.4 g/dL (6.4-8.2); Sodium Level 137 mmol/L (136-145)
[2018-08-21 05:26] LABS: Bedside Glucose 149 mg/dL (70-110)
--- NOTE | 2018-08-21 05:55 | RAD_ITS ---
STUDY: X-RAY CHEST REASON FOR EXAM: Male, 62 years old. TECHNIQUE: 1 view COMPARISON: August 19, 2018 FINDINGS: The opacity that was involving almost the entire right thorax is now getting better with better aeration of the right lung. There are still noted heavy markings at the bases with blunting of the left costophrenic angle. The heart is mildly enlarged. The central venous line is seen with the tip in the superior vena cava. NG tube is in place. There is mild central pulmonary congestion. RAD/Chest 1 View (Portable) IMPRESSION: Improvement in the opacity involving the right lung with still heavy markings at the bases as mentioned. Electronically Signed: Maddi Martinez, at 8:25 EDT Tel , Service support ,
--- NOTE | 2018-08-21 06:49 | PCM.PN.INT ---
Subjective: The patient was seen and examined at the bedside this morning. Events from the last 24 hours have been reviewed. The patient is currently afebrile, hemodynamically stable and maintaining appropriate oxygen saturations with an FiO2 requirement of 35%. The patient remains on levophed at 5 mcg. The patient once again failed his spontaneous awakening trial due to agitation. Objective: The patient's most recent lab work, culture data and imaging studies have all been personally reviewed. Surface echocardiogram revealed evidence of a moderately dilated LV with an ejection fraction of 40 to 45%. There was evidence of a severely dilated RV with moderate global RV systolic dysfunction. Right ventricular systolic pressure was estimated to be 30 mmHg. Legionella antigen was positive. Blood, urine and sputum cultures are pending. General: - - Remains intubated, sedated and mechanically ventilated. No ventilator dyssynchrony noted. HEENT: Atraumatic, PERRLA, Normocephalic Oral: Moist Mucosa, - - Endotracheal and OG tubes remain in place. Neck: Supple, No Nodes, Trachea Midline, - - Right IJ central venous catheter remains in place Lungs: Diminished - Coarse mechanical breath sounds. Cardiovascular: Normal S1, Normal S2, No murmurs, Irregular Rate Abdomen: Soft, Hypoactive Bowel Sounds, Distended, Obese Extremities: No clubbing, No cyanosis, Edema Skin: - - No significant change from previous Musculoskeletal: No Muscle Wasting Lymphatic: No Cervical, Supraclavicular, or Inguinal Adenopathy Neurological: - - No focal neurological deficits. Currently sedated. Vital Signs Temp Pulse Resp BP Pulse Ox 98.6 F 120 H 15 100/85 H 94 08/21/18 06:00 08/21/18 06:00 08/21/18 06:00 08/21/18 06:00 08/21/18 06:00 Oxygen Flow Rate (L/min) 4 Oxygen Delivery Method Mechanical Ventilator Weight: 255 lb 1.197 oz Body Mass Index (BMI) 34.3 Finger Stick Blood Glucose 126 Intake and Output for Last 24 Hours 08/19/18 08/20/18 08/21/18 23:59 23:59 23:59 Intake Total 2575.4 / 3048.7 2075.7 / 2688.0 1110.6 / 1110.6 Output Total 1999 / 2124 1800 / 2420 1290 / 1290 Balance 575.4 / 923.7 275.7 / 268.0 -179.4 / -179.4 Labs (Last 48 Hours) 08/18/18 08/19/18 08/19/18 15:39 04:44 06:46 WBC RBC Hgb Hct MCV MCH MCHC RDW RDW Differential Plt Count MPV Immature Gran % (Auto) Neut % (Auto) Lymph % (Auto) Hickman % (Auto) Eos % (Auto) Baso % (Auto) Absolute Neuts (auto) Absolute Lymphs (auto) Total Counted PT INR APTT Specimen Type Sample Site pH Bicarbonate Actual POC Total CO2 Base Excess O2 Saturation O2 % ABG pCO2 ABG pO2 Jason Test Respiration Rate O2 Delivery Device Vent Mode Tidal Volume POC PEEP Blood Gas Notified Whom Blood Gas Notified Time Sodium Potassium Chloride Carbon Dioxide Anion Gap BUN Creatinine Estim Creat Clear Calc Est GFR (MDRD) Af Amer Est GFR (MDRD) Non-Af BUN/Creatinine Ratio Glucose Calcium Phosphorus Magnesium Total Bilirubin AST ALT Alkaline Phosphatase Ammonia Troponin I B-Natriuretic Peptide Total Protein Albumin Globulin Albumin/Globulin Ratio Vitamin B12 749 Hepatitis A IgM Ab Hep Bs Antigen Hep B Core IgM Ab Hepatitis C Ab (EIA) HIV 1&2 Antibody POC Glucose 75 215 H 08/19/18 08/19/18 08/19/18 08:17 09:06 09:59 WBC RBC Hgb Hct MCV MCH MCHC RDW RDW Differential Plt Count MPV Immature Gran % (Auto) Neut % (Auto) Lymph % (Auto) Hickman % (Auto) Eos % (Auto) Baso % (Auto) Absolute Neuts (auto) Absolute Lymphs (auto) Total Counted PT 27.6 H INR 2.6 APTT 65.5 H Specimen Type ART Sample Site L Radial pH 7.28 L Bicarbonate Actual 17.2 L POC Total CO2 18 Base Excess -9 L O2 Saturation 97 O2 % 75 ABG pCO2 36.5 ABG pO2 105 H Jason Test POS Respiration Rate 16 O2 Delivery Device Vent Vent Mode A-C Tidal Volume 500 POC PEEP 5 Blood Gas Notified Whom ICU MD Blood Gas Notified Time 815 Sodium Potassium Chloride Carbon Dioxide Anion Gap BUN Creatinine Estim Creat Clear Calc Est GFR (MDRD) Af Amer Est GFR (MDRD) Non-Af BUN/Creatinine Ratio Glucose Calcium Phosphorus Magnesium Total Bilirubin AST ALT Alkaline Phosphatase Ammonia Troponin I B-Natriuretic Peptide Total Protein Albumin Globulin Albumin/Globulin Ratio Vitamin B12 Hepatitis A IgM Ab Hep Bs Antigen Hep B Core IgM Ab Hepatitis C Ab (EIA) HIV 1&2 Antibody POC Glucose 199 H 08/19/18 08/19/18 08/20/18 13:16 23:53 04:20 WBC RBC Hgb Hct MCV MCH MCHC RDW RDW Differential Plt Count MPV Immature Gran % (Auto) Neut % (Auto) Lymph % (Auto) Hickman % (Auto) Eos % (Auto) Baso % (Auto) Absolute Neuts (auto) Absolute Lymphs (auto) Total Counted PT INR APTT Specimen Type Sample Site pH Bicarbonate Actual POC Total CO2 Base Excess O2 Saturation O2 % ABG pCO2 ABG pO2 Jason Test Respiration Rate O2 Delivery Device Vent Mode Tidal Volume POC PEEP Blood Gas Notified Whom Blood Gas Notified Time Sodium Potassium Chloride Carbon Dioxide Anion Gap BUN Creatinine Estim Creat Clear Calc Est GFR (MDRD) Af Amer Est GFR (MDRD) Non-Af BUN/Creatinine Ratio Glucose Calcium Phosphorus Magnesium Total Bilirubin AST ALT Alkaline Phosphatase Ammonia Troponin I B-Natriuretic Peptide Total Protein Albumin Globulin Albumin/Globulin Ratio Vitamin B12 Hepatitis A IgM Ab Pending Hep Bs Antigen Pending Hep B Core IgM Ab Pending Hepatitis C Ab (EIA) Pending HIV 1&2 Antibody POC Glucose 213 H 154 H 08/20/18 08/20/18 08/20/18 04:20 04:20 04:20 WBC 12.6 H RBC 3.92 L Hgb 12.6 L Hct 36.0 L MCV 91.8 MCH 32.1 H MCHC 35.0 RDW 17.5 H RDW Differential 59.4 H Plt Count 116 L MPV 8.8 Immature Gran % (Auto) 0.200 Neut % (Auto) 87.3 H Lymph % (Auto) 4.6 L Hickman % (Auto) 7.8 Eos % (Auto) 0.0 Baso % (Auto) 0.1 Absolute Neuts (auto) 11.0 H Absolute Lymphs (auto) 0.58 L Total Counted Not Reportable PT 23.0 H INR 2.0 APTT Specimen Type Sample Site pH Bicarbonate Actual POC Total CO2 Base Excess O2 Saturation O2 % ABG pCO2 ABG pO2 Jason Test Respiration Rate O2 Delivery Device Vent Mode Tidal Volume POC PEEP Blood Gas Notified Whom Blood Gas Notified Time Sodium Potassium Chloride Carbon Dioxide Anion Gap BUN Creatinine Estim Creat Clear Calc Est GFR (MDRD) Af Amer Est GFR (MDRD) Non-Af BUN/Creatinine Ratio Glucose Calcium Phosphorus Magnesium Total Bilirubin AST ALT Alkaline Phosphatase Ammonia Troponin I B-Natriuretic Peptide Total Protein Albumin Globulin Albumin/Globulin Ratio Vitamin B12 Hepatitis A IgM Ab Hep Bs Antigen Hep B Core IgM Ab Hepatitis C Ab (EIA) HIV 1&2 Antibody Non-Reactive POC Glucose 08/20/18 08/20/18 08/20/18 04:20 06:06 11:15 WBC RBC Hgb Hct MCV MCH MCHC RDW RDW Differential Plt Count MPV Immature Gran % (Auto) Neut % (Auto) Lymph % (Auto) Hickman % (Auto) Eos % (Auto) Baso % (Auto) Absolute Neuts (auto) Absolute Lymphs (auto) Total Counted PT INR APTT Specimen Type Sample Site pH Bicarbonate Actual POC Total CO2 Base Excess O2 Saturation O2 % ABG pCO2 ABG pO2 Jason Test Respiration Rate O2 Delivery Device Vent Mode Tidal Volume POC PEEP Blood Gas Notified Whom Blood Gas Notified Time Sodium 131 L Potassium 4.6 Chloride 97 L Carbon Dioxide 21.0 Anion Gap 13 BUN 48 H Creatinine 2.42 H Estim Creat Clear Calc 35.18 Est GFR (MDRD) Af Amer 35 L Est GFR (MDRD) Non-Af 29 L BUN/Creatinine Ratio 19.8 Glucose 155 H Calcium 7.6 L Phosphorus Magnesium Total Bilirubin AST ALT Alkaline Phosphatase Ammonia 84.0 H Troponin I B-Natriuretic Peptide Total Protein Albumin Globulin Albumin/Globulin Ratio Vitamin B12 Hepatitis A IgM Ab Hep Bs Antigen Hep B Core IgM Ab Hepatitis C Ab (EIA) HIV 1&2 Antibody POC Glucose 143 H 08/20/18 08/20/18 08/20/18 11:15 11:15 12:12 WBC RBC Hgb Hct MCV MCH MCHC RDW RDW Differential Plt Count MPV Immature Gran % (Auto) Neut % (Auto) Lymph % (Auto) Hickman % (Auto) Eos % (Auto) Baso % (Auto) Absolute Neuts (auto) Absolute Lymphs (auto) Total Counted PT INR APTT Specimen Type Sample Site pH Bicarbonate Actual POC Total CO2 Base Excess O2 Saturation O2 % ABG pCO2 ABG pO2 Jason Test Respiration Rate O2 Delivery Device Vent Mode Tidal Volume POC PEEP Blood Gas Notified Whom Blood Gas Notified Time Sodium Potassium Chloride Carbon Dioxide Anion Gap BUN Creatinine Estim Creat Clear Calc Est GFR (MDRD) Af Amer Est GFR (MDRD) Non-Af BUN/Creatinine Ratio Glucose Calcium Phosphorus 8.0 H Magnesium 2.8 H Total Bilirubin AST ALT Alkaline Phosphatase Ammonia Troponin I 0.211 H B-Natriuretic Peptide 531.8 H Total Protein Albumin Globulin Albumin/Globulin Ratio Vitamin B12 Hepatitis A IgM Ab Hep Bs Antigen Hep B Core IgM Ab Hepatitis C Ab (EIA) HIV 1&2 Antibody POC Glucose 132 H 08/20/18 08/21/18 08/21/18 17:57 00:00 04:00 WBC 9.2 RBC 3.67 L Hgb 11.6 L Hct 33.9 L MCV 92.4 MCH 31.6 MCHC 34.2 RDW 17.6 H RDW Differential 57.1 H Plt Count 114 L MPV 8.8 Immature Gran % (Auto) 0.300 Neut % (Auto) 81.3 H Lymph % (Auto) 9.6 L Hickman % (Auto) 8.7 Eos % (Auto) 0.0 Baso % (Auto) 0.1 Absolute Neuts (auto) 7.5 Absolute Lymphs (auto) 0.88 Total Counted Not Reportable PT INR APTT Specimen Type Sample Site pH Bicarbonate Actual POC Total CO2 Base Excess O2 Saturation O2 % ABG pCO2 ABG pO2 Jason Test Respiration Rate O2 Delivery Device Vent Mode Tidal Volume POC PEEP Blood Gas Notified Whom Blood Gas Notified Time Sodium Potassium Chloride Carbon Dioxide Anion Gap BUN Creatinine Estim Creat Clear Calc Est GFR (MDRD) Af Amer Est GFR (MDRD) Non-Af BUN/Creatinine Ratio Glucose Calcium Phosphorus Magnesium Total Bilirubin AST ALT Alkaline Phosphatase Ammonia Troponin I B-Natriuretic Peptide Total Protein Albumin Globulin Albumin/Globulin Ratio Vitamin B12 Hepatitis A IgM Ab Hep Bs Antigen Hep B Core IgM Ab Hepatitis C Ab (EIA) HIV 1&2 Antibody POC Glucose 149 H 136 H 08/21/18 08/21/18 08/21/18 04:00 04:00 05:11 WBC RBC Hgb Hct MCV MCH MCHC RDW RDW Differential Plt Count MPV Immature Gran % (Auto) Neut % (Auto) Lymph % (Auto) Hickman % (Auto) Eos % (Auto) Baso % (Auto) Absolute Neuts (auto) Absolute Lymphs (auto) Total Counted PT 20.0 H INR 1.7 APTT Specimen Type Sample Site pH Bicarbonate Actual POC Total CO2 Base Excess O2 Saturation O2 % ABG pCO2 ABG pO2 Jason Test Respiration Rate O2 Delivery Device Vent Mode Tidal Volume POC PEEP Blood Gas Notified Whom Blood Gas Notified Time Sodium 137 Potassium 3.8 Chloride 102 Carbon Dioxide 25.0 Anion Gap 10 BUN 51 H Creatinine 1.85 H Estim Creat Clear Calc 46.02 Est GFR (MDRD) Af Amer 48 L Est GFR (MDRD) Non-Af 40 L BUN/Creatinine Ratio 27.6 H Glucose 134 H Calcium 7.8 L Phosphorus 3.8 Magnesium 3.1 H Total Bilirubin 2.40 H AST 231 H ALT 68 H Alkaline Phosphatase 83 Ammonia Troponin I B-Natriuretic Peptide Total Protein 7.4 Albumin 2.6 L Globulin 4.8 H Albumin/Globulin Ratio 0.5 L Vitamin B12 Hepatitis A IgM Ab Hep Bs Antigen Hep B Core IgM Ab Hepatitis C Ab (EIA) HIV 1&2 Antibody POC Glucose 149 H Microbiology 08/18/18 14:22 Blood Culture (Wb) - Anticubital Left Blood Culture - Preliminary No growth in 48 hours. 08/18/18 14:51 Blood Culture (Wb) - Anticubital Right Blood Culture - Preliminary No growth in 48 hours. 08/19/18 06:15 Sputum, Tracheal Aspirate Gram Stain - Final 08/19/18 06:15 Sputum, Tracheal Aspirate Respiratory Culture - Preliminary Culture exhibits no growth. 08/18/18 13:11 Urine Catheter - Catheter Urine Culture - Preliminary Culture exhibits no growth. 08/18/18 18:10 Urine Catheter - Bass Legionella Antigen - Final Legionella Antigen Clinical Impression(s) from Imaging Studies Brain CT 08/18/18 14:03 IMPRESSION: Findings suggestive of an old ischemic insult involving the carney radiata of the left frontoparietal lobe. Electronically Signed: Hakan Mendosa, at 15:00 EDT , Service support , Chest X-Ray 08/18/18 14:03 IMPRESSION: Stable increased interstitial markings bilaterally suggestive of mild CHF superimposed on scarring. Electronically Signed: Hakan Mendosa, at 14:42 EDT , Service support , Abdomen/Pelvis CT 08/18/18 14:20 IMPRESSION: Ascites. Moderate splenomegaly. Consolidation in the posterior medial segment of the left lower lobe with mild increased markings in the right lower lobe. Electronically Signed: Hakan Deondre, at 14:59 EDT , Service support , Chest X-Ray 08/18/18 21:58 IMPRESSION: 1. No gross change in bilateral infiltrates. 2. Endotracheal tube in place. 3. Gastric tube tip likely in the distal esophagus. at 2232 Reported and signed by: Judith Campbell MD Electronically Signed: Judith Campbell MD at 22:32 EDT Tel , Service support , KUB X-Ray 08/18/18 22:50 IMPRESSION: Gaseous bowel distention. Gastric tube tip in the upper stomach, suggest advancement by about 6 cm. at 0008 Reported and signed by: Judith Campbell MD Electronically Signed: Judith Campbell MD at 0:08 EDT Tel , Service support , Chest X-Ray 08/19/18 05:55 IMPRESSION: Worsening right lower lobe pneumonia. Electronically Signed: Cory Ortiz MD at 12:33 EDT Tel , Service support , Abdomen Ultrasound 08/19/18 06:52 Chest X-Ray 08/19/18 09:00 IMPRESSION: There is mild diffuse pulmonary edema and/or infiltrate. Pulmonary vascular prominence. Electronically Signed: Amanda Bee, at 12:38 EDT Tel , Service support , KUB X-Ray 08/19/18 09:34 IMPRESSION: NG tube overlies the distal stomach or proximal duodenum, tip is excluded from view. Electronically Signed: Amanda Bee, at 12:39 EDT Tel , Service support , KUB X-Ray 08/20/18 09:22 IMPRESSION: Normal x-ray examination of the abdomen and pelvis. Electronically Signed: Maddi Martinez, at 10:13 EDT Tel , Service support , Medical Necessity - Tobacco Use Smoking Status: Current every day smoker Tobacco Use: Cigarettes Assessment/Plan All Active Problems Hyponatremia (Acute) Decompensated hepatic cirrhosis (Acute) CAP (community acquired pneumonia) (Acute) Sepsis (Acute) Leukocytoclastic vasculitis (Acute) Atrial fibrillation with RVR (Acute) Heart failure with preserved ejection fraction, borderline, class II (Acute) Atrial fibrillation (Acute) RECOMMENDATIONS: 1. Continue broad-spectrum antimicrobial coverage, including IV Levaquin, given positive Legionella antigen. 2. Continue propofol and fentanyl for sedation. 3. Restart lactulose and rifaximin if meds are tolerated down the OG tube. 4. Continue Levophed. Goal to maintain a mean arterial pressure at or above 65 mmHg. 5. Continue PPI for GI prophylaxis. IMPRESSIONS: 1. Acute combined respiratory failure The patient developed progressive bilateral infiltrates on chest imaging, which culminated in the development of respiratory distress leading to emergent intubation. The patient was noted to have a positive Legionella antigen. The patient will be continued on broad-spectrum antibiotics per infectious diseases recommendations. Continue to wean FiO2 and PEEP to maintain oxygen saturations at or above 90%. Plan for daily paired spontaneous awakening and breathing trials. May need to consider transitioning the patient to Precedex to assist with weaning from mechanical ventilatory support. 2. Septic shock secondary to presumptive Legionella pneumonia/possible SBP The patient is currently on appropriate broad-spectrum antimicrobials, including Levaquin given his positive urine Legionella antigen. Continue Levophed to maintain a mean arterial pressure at or above 65 mmHg. Although consideration was given to obtaining an ultrasound-guided paracentesis, the patient's coagulopathy would preclude such a procedure from being performed. Infectious diseases is following. 3. Metabolic encephalopathy Likely multifactorial in etiology and related to underlying infectious process and hyperammonemia. Propofol and fentanyl will be continued for sedation as needed. Goal to maintain a RASS of -1 to 1. Given the patient's elevated ammonia level, lactulose and rifaximin will be continued. 4. Paroxysmal atrial fibrillation with RVR/troponin elevation Cardiology is following to assist with management. Suspect that the patient's troponin leak is secondary to demand ischemia in the setting of #2. 5. Acute kidney injury Likely prerenal in etiology and related to the development of ATN in the setting of #2. Will continue vasopressor support accordingly. Continue to monitor urine output. There is no current indication for renal replacement therapy. If the patient's renal function continues to worsen, will obtain nephrology consultation. 6. History of chronic alcohol, tobacco and cannabis dependency/anemia/thrombocytopenia/diabetes mellitus/chronic back pain Complicates care, management, recovery and prognosis. TIME: 40 minutes of critical care time, independent of procedures, was spent addressing the patient's acute combined respiratory failure, septic shock, metabolic encephalopathy, paroxysmal atrial fibrillation, troponin elevation, acute kidney injury, review of all data and collaboration with the care team. ([id number]) Code Visit [id number]: [id number] Critical care first hour
--- NOTE | 2018-08-21 07:36 | PN_ITS ---
Patient Problems: Active and Suspected Problems Hyponatremia (Acute) Decompensated hepatic cirrhosis (Acute) CAP (community acquired pneumonia) (Acute) Sepsis (Acute) Subjective: All events of the past 24 hours have been reviewed. Antibiotic Day #4 Levaquin and Zosyn Ventilator Day #4 TMAX: Afebrile since admission Vital signs: Maintaining an appropriate oxygen saturation on a 35% FiO2. Current blood pressure is 91/61 with a heart rate of 103. He remain on Levophed to maintain the MAP > 65 The heart rate since 3 AM has ranged from 100-120. Fluid balance: Fluid balance on 08/20/2018 was +276. Fluid balance since admission is +671. Gastric drainage on 08/20/2018 was 400 and he had an additional 340 overnight. Urine output: Urine output on 08/20/2018 was 1400 cc and he had an additional 950 cc overnight. Weight: Weight is stable. All radiologic testing was reviewed: Chest x-ray today shows some clearing in the right upper lobe with persistent infiltrates in the right lower lobe but less consolidated than previously. All labs were personally reviewed: White blood cell count today is 9.2 with 81% neutrophils. Hemoglobin is stable at 11.6 and platelets are stable at 114,000. Sodium is normal today, up from 131 on 08/20/2018. Potassium is 3.8. The BUN is 51 and the creatinine is down to 1.85 from 2.42 yesterday. Calcium corrected for hypoalbuminemia is within normal limits. Phosphorus and magnesium are normal. AST is 231 and ALT is 68 consistent with acute alcoholic hepatitis. Troponin yesterday was down to 0.21 from a peak of 1.9. Blood sugars are well controlled. Microbiology: Sputum culture had no growth. Blood cultures from 08/18/2018 had no growth. Blood culture from 08/19 is still pending. Telemetry: AF with controlled VR and no ventricular ectopy EKG: Secretions for ETT: less BM - small smear only Tolerating TF without residuals: TF's on hold due increased NG drainage Subjective: restless today. Not following commands. Objective: General: Intubated and sedated with propofol and fentanyl but still very restless HEENT: PERRLA, Atraumatic, normocephalic, no scleral icterus that I can perceive but the Bili is mildly elevated, trachea is midline Lungs: Diminished throughout, occasional rhonchi, symmetric chest expansion, no wheezing, no rales Heart: Irregular irregular with telemetry showing atrial fibrillation with mostly controlled ventricular response, no ventricular ectopy Abdomen: Soft, distended and tympanic, hypoactive bowel sounds present, no guarding with palpation Extremities: Edema, no clubbing, no cyanosis, peripheral pulses are diminished and the feet are cool to touch bilaterally Neuro: No focal neurologic deficits appreciated Skin: Warm and dry, no wounds, no rashes, no jaundice - Physical Exam Vital Signs Temp Pulse Resp BP Pulse Ox 98.2 F 103 H 16 91/61 94 08/21/18 07:15 08/21/18 07:15 08/21/18 07:15 08/21/18 07:15 08/21/18 07:15 Oxygen Flow Rate (L/min) 4 Oxygen Delivery Method Mechanical Ventilator Weight: 255 lb 1.197 oz Body Mass Index (BMI) 34.3 Finger Stick Blood Glucose 126 Intake and Output for Last 24 Hours 08/19/18 08/20/18 08/21/18 23:59 23:59 23:59 Intake Total 2575.4 / 3048.7 2075.7 / 2688.0 1110.6 / 1110.6 Output Total 1999 / 5 1800 / 2420 1290 / 1290 Balance 575.4 / 923.7 275.7 / 268.0 -179.4 / -179.4 Microbiology Past 72 Hours 08/18/18 14:22 Blood Culture - Preliminary Blood Culture (Wb) - Anticubital Left No growth in 48 hours. 08/18/18 14:51 Blood Culture - Preliminary Blood Culture (Wb) - Anticubital Right No growth in 48 hours. 08/19/18 06:15 Gram Stain - Final Sputum, Tracheal Aspirate Respiratory Culture - Preliminary Culture exhibits no growth. 08/18/18 13:11 Urine Culture - Preliminary Urine Catheter - Catheter Culture exhibits no growth. 08/18/18 18:10 Legionella Antigen - Final Urine Catheter - Bass Legionella Antigen 08/18/18 18:10 Streptococcus pneumoniae Antigen (M - Final Urine Catheter - Bass Laboratory Tests Past 24 Hrs 08/20/18 08/20/18 08/20/18 11:15 11:15 11:15 WBC RBC Hgb Hct MCV MCH MCHC RDW RDW Differential Plt Count MPV Immature Gran % (Auto) Neut % (Auto) Lymph % (Auto) [place] % (Auto) Eos % (Auto) Baso % (Auto) Absolute Neuts (auto) Absolute Lymphs (auto) Total Counted PT INR Sodium Potassium Chloride Carbon Dioxide Anion Gap BUN Creatinine Estim Creat Clear Calc Est GFR (MDRD) Af Amer Est GFR (MDRD) Non-Af BUN/Creatinine Ratio Glucose Calcium Phosphorus 8.0 H Magnesium 2.8 H Total Bilirubin AST ALT Alkaline Phosphatase Ammonia 84.0 H Troponin I 0.211 H B-Natriuretic Peptide 531.8 H Total Protein Albumin Globulin Albumin/Globulin Ratio 08/21/18 08/21/18 08/21/18 04:00 04:00 04:00 WBC 9.2 RBC 3.67 L Hgb 11.6 L Hct 33.9 L MCV 92.4 MCH 31.6 MCHC 34.2 RDW 17.6 H RDW Differential 57.1 H Plt Count 114 L MPV 8.8 Immature Gran % (Auto) 0.300 Neut % (Auto) 81.3 H Lymph % (Auto) 9.6 L [place] % (Auto) 8.7 Eos % (Auto) 0.0 Baso % (Auto) 0.1 Absolute Neuts (auto) 7.5 Absolute Lymphs (auto) 0.88 Total Counted Not Reportable PT 20.0 H INR 1.7 Sodium 137 Potassium 3.8 Chloride 102 Carbon Dioxide 25.0 Anion Gap 10 BUN 51 H Creatinine 1.85 H Estim Creat Clear Calc 46.02 Est GFR (MDRD) Af Amer 48 L Est GFR (MDRD) Non-Af 40 L BUN/Creatinine Ratio 27.6 H Glucose 134 H Calcium 7.8 L Phosphorus 3.8 Magnesium 3.1 H Total Bilirubin 2.40 H AST 231 H ALT 68 H Alkaline Phosphatase 83 Ammonia Troponin I B-Natriuretic Peptide Total Protein 7.4 Albumin 2.6 L Globulin 4.8 H Albumin/Globulin Ratio 0.5 L POC Glucose 08/21/18 08/21/18 08/20/18 05:11 00:00 17:57 POC Glucose 149 H 136 H 149 H 08/20/18 12:12 POC Glucose 132 H Medical Necessity - Tobacco Use Smoking Status: Current every day smoker Tobacco Use: Cigarettes Assessment/Plan All Active Problems Hyponatremia (Acute) Decompensated hepatic cirrhosis (Acute) CAP (community acquired pneumonia) (Acute) Sepsis (Acute) Leukocytoclastic vasculitis (Acute) Atrial fibrillation with RVR (Acute) Heart failure with preserved ejection fraction, borderline, class II (Acute) Atrial fibrillation (Acute) Impressions 1. Septic shock presumed secondary to Legionella pneumonia and possibly spontaneous bacterial peritonitis 2. Acute combined respiratory failure requiring intubation 3. Toxic/metabolic encephalopathy-likely multifactorial 4. Hyperammonemia - due to liver disease or to catabolic state related to septic shock? 5. PAF with RVR - currently rate controlled 6. Troponin elevation-likely secondary to demand ischemia related to septic shock and acute respiratory failure with hypoxemia 7. Acute nonoliguric renal failure-suspect secondary to ATN, creat is improvin g, CRAET clearance today is 46 8. Chronic alcohol abuse 9. Tobacco dependence 11. Daily cannabis use 12. Diabetes mellitus type 2 13. Thrombocytopenia - stable 14. Chronic back pain with possible narcotic dependence 15. Suspected acute alcohol withdrawal 16. PT prolongation- was on Xarelto at admission and this has been held. LFT's are abnormal and he is a drinker......but no evidence cirrhosis on CT of the abd. INR is 1.7 today and we will be able to proceed with a diagnostic and therapeutic paracentesis in the AM NG drainage has significantly decreased so will start tube feed at 20 cc/h. Start Seroquel 25 mg per NG every 12 hours for alcohol withdrawal EKG now and monitor the QT closing since he is on Levaquin Continue Levaquin 750 mg IV every 48 hours-we will likely be able to increase to daily as I suspect the creatinine will continue to improve Simethicone every 6 hours per NG for tympany/gas Recheck lab in the a.m. Continue Levaquin and Zosyn Restart meds down the NG when we are sure he is going to tolerate the TF Continue with TEDS and SCD for DVT prophylaxis....after the paracentesis tomorrow will discuss with Cardiology starting Lovenox for stroke prophylaxis Code Visit Inpatient E&M: [id number] [facility] L3
--- NOTE | 2018-08-21 08:00 | NURSING ---
pt condition prevents measurement
[2018-08-21] MEDS: Chlorhexidine 15 ML PO ×2 (09:56→21:15)
[2018-08-21] MEDS: levoFLOXacin IV 750 MG/150 ML BAG 100 MG IV (09:57)
[2018-08-21] MEDS: QUEtiapine 25 MG Tablet PO ×2 (10:07→21:23)
[2018-08-21] MEDS: Vital AF 1.2 Cal Liquid 1,000 ML 20 ML GT (10:23)
[2018-08-21 11:13] LABS: Hemoglobin A1c 4.9 % (4.2-6.3)
[2018-08-21] MEDS: Simethicone 40MG/0.6ML Bottle 80 MG NG ×3 (11:44→23:59)
[2018-08-21 14:00] LABS: Bedside Glucose 117 mg/dL (70-110)
[2018-08-21 14:07] LABS: HEPATITIS B SURFACE AG Negative (Negative); Hepatitis A IgM Antibody Negative (Negative); Hepatitis B Core AB IgM Negative (Negative)
[2018-08-21 18:31] LABS: Bedside Glucose 123 mg/dL (70-110)
[2018-08-21] MEDS: 0.9% Normal Saline 1,000 ML 40 ML IV (21:14)
[2018-08-22] VITALS (48 sets, daily range): BP systolic 70–118; BP diastolic 47–80; PULSE 75–108; RESP 14–25; TEMP 37–38.2; O2SAT 91–100
[2018-08-22 00:41] LABS: Bedside Glucose 140 mg/dL (70-110)
[2018-08-22] MEDS: CHLORHEXIDINE GLUC 2% CLOTH 1 EACH TOWELETTE TOPICAL (00:53)
[2018-08-22] MEDS: Propofol 10MG/Ml 1,000 MG/100 ML Bottle 6.924 MG CONT INF ×4 (00:53→13:46)
[2018-08-22] MEDS: Ipratropium/Albuterol Sulfate 3 ML AMPUL.NEB INHALATION ×5 (02:12→23:52)
[2018-08-22] MEDS: fentaNYL drip 100 ML 5 MCG CONT INF ×4 (02:36→19:48)
[2018-08-22 04:49] LABS: International Normalized Ratio 1.5
[2018-08-22 04:53] LABS: Anion Gap 8 (5-15); BUN 38 mg/dL (7-18); BUN/Creat Ratio 29.9 RATIO (10-20); Calcium,Total 7.7 mg/dL (8.5-10.1); Chloride 106 mmol/L (98-107); Creatinine, Serum 1.27 mg/dL (0.70-1.30); EST Glomerular Filtration Rate 61 mL/min (>60); Est Glom Filt Rate - Afr Amer 74 mL/min (>60); Estimated Creatinine Clearance 67.04 ml/min; Glucose 153 mg/dL (74-106); Potassium 3.5 mmol/L (3.5-5.1); Sodium Level 140 mmol/L (136-145)
[2018-08-22 04:57] LABS: Absolute Lymphocyte Count 1.16 X10^3/ul (0.83-4.51); Absolute Neutrophil Count 4.8 X10^3/uL (2.0-7.7); Basophil# 0.01 X10^3/uL; Basophil% 0.2 % (0-1); Eosinophil# 0.05 X10^3/uL; Eosinophils% 0.8 % (0-5); Hematocrit 33.7 % (40-54); Hemoglobin 11.3 g/dl (13.0-16.5); Lymphocyte # 1.16 X10^3/ul (4.0); Lymphocyte % 17.4 % (19-41); Mean Corp Hgb Conc 33.5 g/gl (32-36); Mean Corpuscular Hgb 31.3 pg (27.0-32.0); Mean Corpuscular Volume 93.4 fL (80-94); Mean Platelet Vol. 8.8 fl (6.2-12.0); Monocyte# 0.63 X10^3/uL; Monocyte% 9.5 % (0-10); Neutrophil # 4.78 X10^3/uL (2.7-7.7); Neutrophil % 71.6 % (47-70); Platelet Count 92 K/mm3 (150-450); RBC Distribution Width SD 61.9 fl (35.1-43.9); Red Blood Count 3.61 M/mm3 (4.6-6.2); White Blood Count 6.7 K/mm3 (4.4-11.0)
[2018-08-22 05:02] LABS: POSITIVE COUNT NO; POSITIVE DIFFERENTIAL NO; POSITIVE MORPHOLOGY NO
[2018-08-22] MEDS: Simethicone 40MG/0.6ML Bottle 80 MG NG ×3 (05:38→19:58)
[2018-08-22 06:05] LABS: Bedside Glucose 146 mg/dL (70-110)
--- NOTE | 2018-08-22 07:16 | PCM.PN.INT ---
Subjective: Patient did okay overnight. Patient does remain on minimal Levophed, but was unable to tolerate spontaneous awakening trial this morning. Patient was noted to have significant secretions with spontaneous awakening trial, but per nursing these were thinner than yesterday. Patient has tolerated tube feeds at 40 cc an hour with minimal residuals. General: - - Intubated and sedated. RASS -3. Appears older than stated age. Obese. Good ventilator synchrony. HEENT: Atraumatic, PERRLA, EOMI, Normocephalic, - - No scleral icterus or injection noted. Oral: Moist Mucosa, No Gingival or Mucosal Lesions/ Ulcerations Neck: Supple, No JVD, No Nodes, Trachea Midline Lungs: No wheeze, No rales, Diminished, Rhonchi Cardiovascular: Regular rate, Regular Rhythm, Normal S1, Normal S2, No murmurs, No rub noted, No Gallop Abdomen: Bowel Sounds Present, Soft, Non Tender, Non-Distended, Obese Extremities: No clubbing, No cyanosis, Capillary Refill Less than 3 Seconds, Edema Skin: No rashes, No breakdown Musculoskeletal: No Tenderness to Palpation of Joints or Extremities Lymphatic: No Cervical, Supraclavicular, or Inguinal Adenopathy Neurological: Cranial nerves II-XII grossly intact, Neuro grossly intact, Motor Exam 5/5 strength throughout Psych/Mental Status: Flat Affect Vital Signs Temp Pulse Resp BP Pulse Ox 37.3 C H 108 H 16 103/72 94 08/22/18 06:00 08/22/18 06:00 08/22/18 06:00 08/22/18 06:00 08/22/18 06:00 Oxygen Flow Rate (L/min) 4 Oxygen Delivery Method Mechanical Ventilator Weight: 116.8 kg Body Mass Index (BMI) 34.3 Finger Stick Blood Glucose 126 Intake and Output for Last 24 Hours 08/20/18 08/21/18 08/22/18 23:59 23:59 23:59 Intake Total 2075.7 / 2688.0 3363.6 / 4243.4 2151.9 / 2151.9 Output Total 1800 / 2420 2330 / 2780 1000 / 1000 Balance 275.7 / 268.0 1033.6 / 1463.4 1151.9 / 1151.9 Labs (Last 48 Hours) 08/20/18 08/20/18 08/20/18 11:15 11:15 11:15 WBC RBC Hgb Hct MCV MCH MCHC RDW RDW Differential Plt Count MPV Immature Gran % (Auto) Neut % (Auto) Lymph % (Auto) [place] % (Auto) Eos % (Auto) Baso % (Auto) Absolute Neuts (auto) Absolute Lymphs (auto) Total Counted PT INR Sodium Potassium Chloride Carbon Dioxide Anion Gap BUN Creatinine Estim Creat Clear Calc Est GFR (MDRD) Af Amer Est GFR (MDRD) Non-Af BUN/Creatinine Ratio Glucose Hemoglobin A1c Calcium Phosphorus 8.0 H Magnesium 2.8 H Total Bilirubin AST ALT Alkaline Phosphatase Ammonia 84.0 H Troponin I 0.211 H B-Natriuretic Peptide 531.8 H Total Protein Albumin Globulin Albumin/Globulin Ratio POC Glucose 08/20/18 08/20/18 08/21/18 12:12 17:57 00:00 WBC RBC Hgb Hct MCV MCH MCHC RDW RDW Differential Plt Count MPV Immature Gran % (Auto) Neut % (Auto) Lymph % (Auto) [place] % (Auto) Eos % (Auto) Baso % (Auto) Absolute Neuts (auto) Absolute Lymphs (auto) Total Counted PT INR Sodium Potassium Chloride Carbon Dioxide Anion Gap BUN Creatinine Estim Creat Clear Calc Est GFR (MDRD) Af Amer Est GFR (MDRD) Non-Af BUN/Creatinine Ratio Glucose Hemoglobin A1c Calcium Phosphorus Magnesium Total Bilirubin AST ALT Alkaline Phosphatase Ammonia Troponin I B-Natriuretic Peptide Total Protein Albumin Globulin Albumin/Globulin Ratio POC Glucose 132 H 149 H 136 H 08/21/18 08/21/18 08/21/18 04:00 04:00 04:00 WBC 9.2 RBC 3.67 L Hgb 11.6 L Hct 33.9 L MCV 92.4 MCH 31.6 MCHC 34.2 RDW 17.6 H RDW Differential 57.1 H Plt Count 114 L MPV 8.8 Immature Gran % (Auto) 0.300 Neut % (Auto) 81.3 H Lymph % (Auto) 9.6 L [place] % (Auto) 8.7 Eos % (Auto) 0.0 Baso % (Auto) 0.1 Absolute Neuts (auto) 7.5 Absolute Lymphs (auto) 0.88 Total Counted Not Reportable PT 20.0 H INR 1.7 Sodium 137 Potassium 3.8 Chloride 102 Carbon Dioxide 25.0 Anion Gap 10 BUN 51 H Creatinine 1.85 H Estim Creat Clear Calc 46.02 Est GFR (MDRD) Af Amer 48 L Est GFR (MDRD) Non-Af 40 L BUN/Creatinine Ratio 27.6 H Glucose 134 H Hemoglobin A1c Calcium 7.8 L Phosphorus 3.8 Magnesium 3.1 H Total Bilirubin 2.40 H AST 231 H ALT 68 H Alkaline Phosphatase 83 Ammonia Troponin I B-Natriuretic Peptide Total Protein 7.4 Albumin 2.6 L Globulin 4.8 H Albumin/Globulin Ratio 0.5 L POC Glucose 08/21/18 08/21/18 08/21/18 05:11 10:45 11:34 WBC RBC Hgb Hct MCV MCH MCHC RDW RDW Differential Plt Count MPV Immature Gran % (Auto) Neut % (Auto) Lymph % (Auto) [place] % (Auto) Eos % (Auto) Baso % (Auto) Absolute Neuts (auto) Absolute Lymphs (auto) Total Counted PT INR Sodium Potassium Chloride Carbon Dioxide Anion Gap BUN Creatinine Estim Creat Clear Calc Est GFR (MDRD) Af Amer Est GFR (MDRD) Non-Af BUN/Creatinine Ratio Glucose Hemoglobin A1c 4.9 Calcium Phosphorus Magnesium Total Bilirubin AST ALT Alkaline Phosphatase Ammonia Troponin I B-Natriuretic Peptide Total Protein Albumin Globulin Albumin/Globulin Ratio POC Glucose 149 H 117 H 08/21/18 08/21/18 08/22/18 18:24 23:56 04:30 WBC RBC Hgb Hct MCV MCH MCHC RDW RDW Differential Plt Count MPV Immature Gran % (Auto) Neut % (Auto) Lymph % (Auto) [place] % (Auto) Eos % (Auto) Baso % (Auto) Absolute Neuts (auto) Absolute Lymphs (auto) Total Counted PT 18.0 H INR 1.5 Sodium Potassium Chloride Carbon Dioxide Anion Gap BUN Creatinine Estim Creat Clear Calc Est GFR (MDRD) Af Amer Est GFR (MDRD) Non-Af BUN/Creatinine Ratio Glucose Hemoglobin A1c Calcium Phosphorus Magnesium Total Bilirubin AST ALT Alkaline Phosphatase Ammonia Troponin I B-Natriuretic Peptide Total Protein Albumin Globulin Albumin/Globulin Ratio POC Glucose 123 H 140 H 08/22/18 08/22/18 08/22/18 04:30 04:30 05:36 WBC 6.7 RBC 3.61 L Hgb 11.3 L Hct 33.7 L MCV 93.4 MCH 31.3 MCHC 33.5 RDW 18.0 H RDW Differential 61.9 H Plt Count 92 L MPV 8.8 Immature Gran % (Auto) 0.500 Neut % (Auto) 71.6 H Lymph % (Auto) 17.4 L [place] % (Auto) 9.5 Eos % (Auto) 0.8 Baso % (Auto) 0.2 Absolute Neuts (auto) 4.8 Absolute Lymphs (auto) 1.16 Total Counted Not Reportable PT INR Sodium 140 Potassium 3.5 Chloride 106 Carbon Dioxide 26.0 Anion Gap 8 BUN 38 H Creatinine 1.27 Estim Creat Clear Calc 67.04 Est GFR (MDRD) Af Amer 74 Est GFR (MDRD) Non-Af 61 BUN/Creatinine Ratio 29.9 H Glucose 153 H Hemoglobin A1c Calcium 7.7 L Phosphorus Magnesium Total Bilirubin AST ALT Alkaline Phosphatase Ammonia Troponin I B-Natriuretic Peptide Total Protein Albumin Globulin Albumin/Globulin Ratio POC Glucose 146 H Microbiology 08/19/18 06:15 Sputum, Tracheal Aspirate Gram Stain - Final 08/19/18 06:15 Sputum, Tracheal Aspirate Respiratory Culture - Final Culture exhibits no growth. 08/18/18 13:11 Urine Catheter - Catheter Urine Culture - Final Culture exhibits no growth. 08/19/18 09:00 Blood Culture (Wb) - Central Line Blood Culture - Preliminary No growth in 48 hours. 08/18/18 14:22 Blood Culture (Wb) - Anticubital Left Blood Culture - Preliminary No growth in 48 hours. 08/18/18 14:51 Blood Culture (Wb) - Anticubital Right Blood Culture - Preliminary No growth in 48 hours. Clinical Impression(s) from Imaging Studies Chest X-Ray 08/21/18 05:55 IMPRESSION: Improvement in the opacity involving the right lung with still heavy markings at the bases as mentioned. Electronically Signed: Maddi Martinez, at 8:25 EDT Tel , Service support , Medical Necessity - Tobacco Use Smoking Status: Current every day smoker Tobacco Use: Cigarettes Assessment/Plan All Active Problems Hyponatremia (Acute) Decompensated hepatic cirrhosis (Acute) CAP (community acquired pneumonia) (Acute) Sepsis (Acute) Leukocytoclastic vasculitis (Acute) Atrial fibrillation with RVR (Acute) Heart failure with preserved ejection fraction, borderline, class II (Acute) Atrial fibrillation (Acute) RECOMMENDATIONS: 1. Continue broad-spectrum antimicrobial coverage, including IV Levaquin, given positive Legionella antigen. 2. Continue propofol and fentanyl for sedation. Attempt transition to Precedex therapy from propofol 3. Restarting lactulose and rifaximin given meds are tolerated down the OG tube. 4. Continue Levophed. Goal to maintain a mean arterial pressure at or above 65 mmHg. 5. Continue PPI for GI prophylaxis. IMPRESSIONS: 1. Acute combined respiratory failure The patient developed progressive bilateral infiltrates on chest imaging, which culminated in the development of respiratory distress leading to emergent intubation. The patient was noted to have a positive Legionella antigen. The patient will be continued on broad-spectrum antibiotics per infectious diseases recommendations. Continue to wean FiO2 and PEEP to maintain oxygen saturations at or above 90%. Plan for daily paired spontaneous awakening and breathing trials. Patient will be attempted to transition to Precedex therapy to facilitate spontaneous awakening and breathing trials. 2. Septic shock secondary to presumptive Legionella pneumonia/possible SBP The patient is currently on appropriate broad-spectrum antimicrobials, including Levaquin given his positive urine Legionella antigen. Continue Levophed to maintain a mean arterial pressure at or above 65 mmHg. Await infectious disease recommendation and possible paracentesis, benefit greater than risk? Infectious diseases is following. 3. Metabolic encephalopathy Likely multifactorial in etiology and related to underlying infectious process and hyperammonemia. Fentanyl will be continued, but attempt transition to Precedex for sedation as needed. Goal to maintain a RASS of -1 to 1. Given the patient's elevated ammonia level, lactulose and rifaximin will be continued. 4. Paroxysmal atrial fibrillation with RVR/troponin elevation Cardiology is following to assist with management. Suspect that the patient's troponin leak is secondary to demand ischemia in the setting of #2. 5. Acute kidney injury Improving. Likely prerenal in etiology and related to the development of ATN in the setting of #2. Will continue vasopressor support accordingly. Continue to monitor urine output. There is no current indication for renal replacement therapy. If the patient's renal function continues to worsen, will obtain nephrology consultation. 6. History of chronic alcohol, tobacco and cannabis dependency/anemia/thrombocytopenia/diabetes mellitus/chronic back pain Complicates care, management, recovery and prognosis. TIME: 38 minutes of critical care time, independent of procedures, was spent addressing the patient's acute combined respiratory failure, septic shock, metabolic encephalopathy, acute kidney injury, review of all data and collaboration with the care team. (5:50 AM to 7 AM) Code Visit 9xxxx: [id number] Critical care first hour
--- NOTE | 2018-08-22 07:22 | PN_ITS ---
Patient Problems: Active and Suspected Problems Hyponatremia (Acute) Decompensated hepatic cirrhosis (Acute) CAP (community acquired pneumonia) (Acute) Sepsis (Acute) Subjective: All events of the past 24 hours have been reviewed. Antibiotic Day #5 Levaquin and Zosyn Ventilator Day #5 if TMAX: 99.8 Vital signs: Heart rate is in the low 100s. Blood pressure over the past 2 hours has ranged from 103/70 2-1 11/75. He is maintaining appropriate oxygen saturation on a 35% FiO2. Remains on Levophed at 5 mcg Fluid balance: Fluid balance for 08/21/2018 was +1034. Fluid balance since admission is +3036. Urine output: Urine output on 623 was 1800 cc. He had an additional 1000 overnight. Weight: His weight has increased approximately 3 pounds since admission. All radiologic testing was reviewed: All labs were personally reviewed: WBC is 6.7 today with 72% neutrophils. PT is 18. Potassium is borderline low at 3.5. Creatinine continues to improve and today is 1.27 with a BUN of 38. Blood sugars are mildly increased however the hemoglobin A1c is normal at 4.9. Microbiology: Blood cultures have had no growth. There was no growth on the tracheal aspirate. Telemetry: AF with no ventricular ectopy Secretions for ETT: thin yellow BM - not yet but, BS's are much improved Tolerating TF without residuals - currently at 40.....will hold and restart after paracentesis. The goal rate is 65 Subjective: Failed the weaning trial this AM. Dr. Gentile is transitioning to Precedex today to control agitation during the weaning trial - Physical Exam General: - - Sedated and on the ventilator. Does not respond to calling his name or verbal commands. Not agitated HEENT: Atraumatic, PERRLA Lungs: No rales, Rhonchi Cardiovascular: Normal S1, Normal S2, No murmurs - loud rhonchi makes it very difficult to hear the heart sounds, Irregular Rate Abdomen: Bowel Sounds Present, Soft, - - Pitting in the flanks, distended and somewhat tympanic, no guarding with palpation Extremities: - - edema, pedal pulses are normal, the feet are starting to warm up and are no longer cold to touch, + venous insufficiency Skin: No rashes, No breakdown Neurological: Cranial nerves II-XII grossly intact Vital Signs Temp Pulse Resp BP Pulse Ox 99.2 F H 108 H 16 103/72 94 08/22/18 06:00 08/22/18 06:00 08/22/18 06:00 08/22/18 06:00 08/22/18 06:00 Oxygen Flow Rate (L/min) 4 Oxygen Delivery Method Mechanical Ventilator Weight: 257 lb 7.999 oz Body Mass Index (BMI) 34.3 Finger Stick Blood Glucose 126 Intake and Output for Last 24 Hours 08/20/18 08/21/18 08/22/18 23:59 23:59 23:59 Intake Total 2075.7 / 2688.0 3363.6 / 4243.4 2151.9 / 2151.9 Output Total 1800 / 2420 2330 / 2780 1000 / 1000 Balance 275.7 / 268.0 1033.6 / 1463.4 1151.9 / 1151.9 Microbiology Past 72 Hours 08/19/18 06:15 Gram Stain - Final Sputum, Tracheal Aspirate Respiratory Culture - Final Culture exhibits no growth. 08/18/18 13:11 Urine Culture - Final Urine Catheter - Catheter Culture exhibits no growth. 08/19/18 09:00 Blood Culture - Preliminary Blood Culture (Wb) - Central Line No growth in 48 hours. 08/18/18 14:22 Blood Culture - Preliminary Blood Culture (Wb) - Anticubital Left No growth in 48 hours. 08/18/18 14:51 Blood Culture - Preliminary Blood Culture (Wb) - Anticubital Right No growth in 48 hours. 08/18/18 18:10 Legionella Antigen - Final Urine Catheter - Bass Legionella Antigen Laboratory Tests Past 24 Hrs 08/21/18 08/22/18 08/22/18 10:45 04:30 04:30 WBC RBC Hgb Hct MCV MCH MCHC RDW RDW Differential Plt Count MPV Immature Gran % (Auto) Neut % (Auto) Lymph % (Auto) Camp % (Auto) Eos % (Auto) Baso % (Auto) Absolute Neuts (auto) Absolute Lymphs (auto) Total Counted PT 18.0 H INR 1.5 Sodium 140 Potassium 3.5 Chloride 106 Carbon Dioxide 26.0 Anion Gap 8 BUN 38 H Creatinine 1.27 Estim Creat Clear Calc 67.04 Est GFR (MDRD) Af Amer 74 Est GFR (MDRD) Non-Af 61 BUN/Creatinine Ratio 29.9 H Glucose 153 H Hemoglobin A1c 4.9 Calcium 7.7 L 08/22/18 04:30 WBC 6.7 RBC 3.61 L Hgb 11.3 L Hct 33.7 L MCV 93.4 MCH 31.3 MCHC 33.5 RDW 18.0 H RDW Differential 61.9 H Plt Count 92 L MPV 8.8 Immature Gran % (Auto) 0.500 Neut % (Auto) 71.6 H Lymph % (Auto) 17.4 L Camp % (Auto) 9.5 Eos % (Auto) 0.8 Baso % (Auto) 0.2 Absolute Neuts (auto) 4.8 Absolute Lymphs (auto) 1.16 Total Counted Not Reportable PT INR Sodium Potassium Chloride Carbon Dioxide Anion Gap BUN Creatinine Estim Creat Clear Calc Est GFR (MDRD) Af Amer Est GFR (MDRD) Non-Af BUN/Creatinine Ratio Glucose Hemoglobin A1c Calcium POC Glucose 08/22/18 08/21/18 08/21/18 05:36 23:56 18:24 POC Glucose 146 H 140 H 123 H 08/21/18 11:34 POC Glucose 117 H Medical Necessity - Tobacco Use Smoking Status: Current every day smoker Tobacco Use: Cigarettes Assessment/Plan All Active Problems Hyponatremia (Acute) Decompensated hepatic cirrhosis (Acute) CAP (community acquired pneumonia) (Acute) Sepsis (Acute) Leukocytoclastic vasculitis (Acute) Atrial fibrillation with RVR (Acute) Heart failure with preserved ejection fraction, borderline, class II (Acute) Atrial fibrillation (Acute) Impressions 1. Septic shock presumed secondary to Legionella pneumonia and possibly spontaneous bacterial peritonitis 2. Acute combined respiratory failure requiring intubation 3. Toxic/metabolic encephalopathy-likely multifactorial 4. Hyperammonemia - due to liver disease? or to catabolic state related to septic shock? Liver appears normal on the CT 5. PAF with RVR - currently rate controlled 6. Troponin elevation-likely secondary to demand ischemia related to septic shock and acute respiratory failure with hypoxemia 7. Acute nonoliguric renal failure-suspect secondary to ATN, creat is improving, CREAT clearance today is 46 8. Chronic alcohol abuse 9. Tobacco dependence 11. Daily cannabis use 12. Diabetes mellitus type 2 13. Thrombocytopenia - stable 14. Chronic back pain with possible narcotic dependence 15. Suspected acute alcohol withdrawal 16. PT prolongation- was on Xarelto at admission and this has been held. LFT's are abnormal and he is a drinker......but no evidence cirrhosis on CT of the abd. But he has chronic thrombocytopenia INR is 1.7 today and we will be able to proceed with a diagnostic and therapeutic paracentesis in the AM 17. Mild left ventricular hypertrophy with a moderately dilated ventricle and an ejection fraction of 40 to 45% with moderate global hypokinesis. Severely dilated right ventricle and right atrium. Mild aortic stenosis. 18. Chronic thrombocytopenia-stable Diagnostic/therapeutic paracentesis today Dr. Gentile has restarted lactulose and rifaximin - will check an ammonia level now Consider transitioning to amiodarone down the NG tube since he will not be extubated today and he is tolerating tube feeds Supplement the potassium to keep it around 4 CXR and KUB this AM Recheck lab in the a.m. At some point will need to consider restarting anticoagulation.......with the alcoholism and thrombocytopenia he will be at increased risk for bleeding. Liver profile this AM [place] Zosyn? since the tracheal aspirate had no growth? Continue Levaquin for Legionella pneumonia When he is extubated and appropriate with discuss with him alcohol rehab. I suspect he will need SNF/Rehab at [place] D/W Dr. Gentile on rounds Code Visit Inpatient E&M: [id number] [facility] Hosp L3
--- NOTE | 2018-08-22 08:31 | RAD_ITS ---
STUDY: X-RAY - ABDOMEN/PELVIS REASON FOR EXAM: Male, 62 years old. TECHNIQUE: COMPARISON: None. FINDINGS: Normal visualized lung bases. Nonspecific gas pattern seen no obvious organomegaly or soft tissue masses and no abnormal calcification. There is an NG tube with the tip in the stomach there is haziness involving the left base. IMPRESSION: Negative study. Electronically Signed: Maddi Martinez, at 12:50 EDT Tel , Service support , RAD/Abdomen Single View (Portable)
--- NOTE | 2018-08-22 08:31 | RAD_ITS ---
STUDY: X-RAY CHEST REASON FOR EXAM: Male, 62 years old. TECHNIQUE: 1 view COMPARISON: August 21, 2018 FINDINGS: There is haziness involving both bases with pleural effusion and probably consolidation left lower lobe. Central line central venous line noted with the tip in the superior vena cava. Endotracheal tube is well above the myrna. NG tube is in the stomach the apices are clear. RAD/Chest 1 View (Portable) IMPRESSION: Left pleural effusion underlying infiltrate in the left lower lobe cannot be excluded. No significant change noted since the day before. Electronically Signed: Maddi Martinez, at 12:52 EDT Tel , Service support ,
[2018-08-22 08:59] LABS: AST(SGOT) 183 U/L (15-37); Alanine Aminotransfer ALT/SGPT 60 U/L (16-61); Albumin, Serum 2.4 g/dL (3.2-5.0); Alkaline Phosphatase 94 U/L (45-117); Bilirubin, Direct 1.47 mg/dL (0.00-0.30); Globulin 4.5 g/dL (2.2-4.2); Protein, Total 6.9 g/dL (6.4-8.2)
--- NOTE | 2018-08-22 09:00 | US_ITS ---
PROCEDURE: ULTRASOUND GUIDED PARACENTESIS CLINICAL HISTORY: Male, 62 years old. CONSENT: Time-Out Called: Yes. Consent form signed: Yes. PT-PTT Levels Checked: Yes. SEDATION: TECHNIQUE: FINDINGS: FLUID PRE-PROCEDURE Under ultrasound guidance and following appropriate antiseptic preparation and local anesthesia a 6 Uzbek drainage catheter was inserted in the right lower quadrant, 3420ml yelitza fluid aspirated, part of the fluid was sent to the laboratory for assessment. This examination was done in the ICU. Uneventful paracentesis done in the ICU. Electronically Signed: Maddi Martinez, at 12:19 EDT Tel , Service support , US/Paracentesis with US
--- NOTE | 2018-08-22 09:59 | PN.CARD_ITS ---
Subjectve: Patient seen and examined this morning. Patient currently intubated, sedated on propofol and fentanyl, on low-dose levo fed drip at 5 mcg/min, unable to extubate due to copious secretions. Telemetry showed atrial fibrillation with controlled ventricular response. Amiodarone drip infusing. Hemoglobin stable, platelets are improving, creatinine is improving. Chest x-ray from 08/21/2018 showed bilateral patchy infiltrates right greater than left. Repeat EKG pending to evaluate QT corrected interval. Objective: Vital Signs Temp Pulse Resp BP Pulse Ox 99.2 F H 101 H 16 103/72 96 08/22/18 06:00 08/22/18 09:21 08/22/18 09:21 08/22/18 06:00 08/22/18 09:21 Oxygen Flow Rate (L/min) 4 Oxygen Delivery Method Mechanical Ventilator Weight: 257 lb 7.999 oz Body Mass Index (BMI) 34.3 Finger Stick Blood Glucose 126 Intake and Output for Last 24 Hours 08/20/18 08/21/18 08/22/18 23:59 23:59 23:59 Intake Total 2075.7 / 2688.0 3363.6 / 4243.4 2151.9 / 2151.9 Output Total 1800 / 2420 2330 / 2780 1000 / 1000 Balance 275.7 / 268.0 1033.6 / 1463.4 1151.9 / 1151.9 General: Awake, Alert, Oriented x 3 HEENT: PERRL, EOMI, Sclera Non Icteric Neck: Supple, Good ROM, No Lymph Node Enlargement Lungs: Clear to auscultation Cardiovascular: Irregular Rhythm, Normal S1, Normal S2, No Murmurs, No Rubs, No Gallops Vascular: No Carotid Bruits, Normal Femoral Pulses, Normal Radial Pulses, Normal Dorsalis Pedal Pulse, Normal Posterior Tibial Pulses Abdomen: Bowel Sounds Present, Soft, Non Tender, No HSM, No Organomegaly Extremities: No Cyanosis, No Clubbing, No edema Neurological: No Focal Motor or Sensory Deficit 08/21/18 10:45: Hemoglobin A1c 4.9 08/22/18 04:30: PT 18.0 H, INR 1.5 08/22/18 04:30: Sodium 140, Potassium 3.5, Chloride 106, Carbon Dioxide 26.0, Anion Gap 8, BUN 38 H, Creatinine 1.27, Est GFR (MDRD) Af Amer 74, Est GFR (MDRD) Non-Af 61, BUN/Creatinine Ratio 29.9 H, Glucose 153 H, Calcium 7.7 L 08/22/18 04:30: WBC 6.7, RBC 3.61 L, Hgb 11.3 L, Hct 33.7 L, MCV 93.4, MCH 31.3, MCHC 33.5, RDW 18.0 H, RDW Differential 61.9 H, Plt Count 92 L, MPV 8.8, Immature Gran % (Auto) 0.500, Neut % (Auto) 71.6 H, Lymph % (Auto) 17.4 L, Ramsey % (Auto) 9.5, Eos % (Auto) 0.8, Baso % (Auto) 0.2, Absolute Neuts (auto) 4.8, Total Counted Not Reportable 08/22/18 04:30: Total Bilirubin 2.10 H, Direct Bilirubin 1.47 H Rhythm: EKG: ECHO: Stress Test: Cardiac Cath: PCI: CT Surgery: Holter monitor: EPS: PPM: CXR: Chest CT Scan: Medical Necessity - Tobacco Use Smoking Status: Current every day smoker Tobacco Use: Cigarettes Assessment/Plan 1. Atrial fibrillation: I believe the patient's atrial fibrillation has been chronic and he has been on Xarelto therapy going forward. In addition he was auto anticoagulated due to his alcoholic cirrhosis and an INR 1.9, which has normalized. Despite this, the patient has had elevated troponins of 1.9. As best I can tell he is never had a catheterization at least in our facility, and there are no family members to confirm this or deny this. At this point I would recommend holding his Xarelto therapy. His INR has normalized, in addition he may require a diagnostic coronary angiogram at some point in his care. He has been off his Xarelto since admission. He is not on heparin drip due to thrombocytopenia, which is actually improving now. In addition would recommend a repeat EKG to evaluate his QT corrected interval. His QT corrected should be less than 450 ms. 2. Non-STEMI: Patient had a mildly elevated troponin of 1.9 at its peak so far. Heart rate is being controlled with IV amiodarone drip, but his increased heart rate may be a response to his sepsis and abdominal infection. Recommend keeping his heart rate less than 100 if possible. Would also recommend judicious use of IV levo fed to keep his MAP greater than 60. I would leave if it can induce coronary vasoconstriction complicating his myocardial infarction. Patient is echocardiogram dated 08/19/2018 showed an EF around 45% with global hypokinesis, RVSP of 30 mmHg, and severe RV dilatation. If we continue to have difficulty extubating the patient due to failed weaning trials, assuming his pulmonary situation has improved, he may require a diagnostic coronary angiogram to define his coronary anatomy. Would recommend holding on Plavix at this time given his thrombocytopenia, bleeding issues on initial evaluation. Should he require intervention we can do so in a staged fashion in order to avoid unnecessary GI bleeding. 3. Hyperlipidemia: The patient apparently has alcoholic cirrhosis with associated ascites. Would hold off on statin at this time. 4. Thank you very much for the opportunity to participate in the cardiac care of your patient. 30-minute total time commitment. Code Visit Inpatient E&M: 52510 Subs Hosp L3
--- NOTE | 2018-08-22 10:13 | CASEMGMT ---
PRABHU GALE Note: participated in ICU interdisciplinary rounds. Pt failed weaning trial, will start Precedex. Continue Amiodarone IV gtt. For paracentesis today. Discussed Rifaxamin medication with physicians. Medication often is cost prohibitive. Lactulose will likely be used on dc. SW referred in rounds for possible SNF placement (to be determined once PT/OT is able to work with pt after extubation) and substance abuse. -Call to [facility] arndt to assist with RN CM assessment. Brothyris is willing to assist with assessment. RN CM discussed dc planning and possible recommendation by physician for SNF. Brothyris requested pt's name be put on TCU list as his mother had been there. RN BALJINDER Assessment. Presentation: Resp Failure, Acute Encephalopathy, Afib with RVR. Intubated PCP: Dr. Tk Fofana Specialists: Dr. Gentile, pulmonology, Dr. Tubbs, cardiology, Dr. Han, [place] Preferred Pharmacy: [facility], [place], [place] Insurance: [facility] Prescription Benefit: yes. Call to [facility] for pt's prescription coverage. Then call to [employer] for Rifaximin coverage: This medication is NOT covered by pt's insurance. If needed, would require physician documentation for need and prior authorization. This can take up to two weeks. [facility]- [employer] Rx Bin: [id number] ID: [id number] PCN: [id number] Group: [id number] LNOK: BrotherAnish Living Arrangements: Pt lives independently with significant other. Per brother, pt uses cane intermittently, but is independent in ADL. DME: cane (per brother who states he does not believe pt has any other DME) ADV DIR: Per Brother Anish, they had discussed completing LW and DPOA, however he does not believe they did. Anish states he will call his detail maker and fitter to verify and if they have completed, will call CM back to update. SW consult: possible SNF placement on dc and ETOH abuse. Alee called and updated on TCU list request and ADV DIR information above. DC PLAN: undetermined. CM will continue to follow and assist with dc planning. Ese JACOB RN ACM
--- NOTE | 2018-08-22 10:25 | FLU_PTH ---
PATIENT: BUSTER CORDERO LOC: [facility] U#:[id number] AGE/SX: 62/M ROOM: [facility] RE08/18/[address]: Dr. Ángel Gaviria MD : [id number] BED: 1 DIS: 08/27/2018 SPEC #: [id number] RECD: 08/22/18 13:26 STATUS: RAYOMN REQ #: [id number] YOLANDA: 08/22/18 10:[address]: Juliet Soares DEPT: CYTOLOGY RECD BY: Zander Kohler ENTERED: 08/22/18 13:27 SP TYPE: Fluid OTHR DR: MD Dr. Saeid Roberts DO Dr. Daniel Newton, MD Dr. Jeffrey Burkey, MD Dr. Robert Leininger, MD Tissues: PARACENTESIS FLUID Procedures: Special Stain Group II Surgery Specimen Level IV Cytospin Fluid HEADER OPERATION: Ultrasound-guided paracentesis PRE-OP DIAGNOSIS: Ascites TISSUE SUBMITTED: Paracentesis fluid for cytology DIAGNOSIS CYTOLOGY Ascites fluid, paracentesis, cytology monolayer and cell block: Negative for malignant cells. Mononuclear cells, mesothelial cells, lymphocytes, rare neutrophils and red blood cells present. CE:mariya 08/23/18 CYTOLOGY STUDY Slides are reviewed. CYTOLOGY GROSS Received is 100 ml of yellow cloudy fluid labeled with the patient's name and and designated per the requisition as paracentesis. Submitted for cytology preparation including cell block. / RB:magan 08/22/18 TC:3 CPT: 42413, 00149
[2018-08-22 11:22] LABS: Hep C Antibodies 0.1 s/co ratio (0.0-0.9)
--- NOTE | 2018-08-22 11:41 | CASEMGMT ---
REBECCA called Renata and left a message on her vm with patient's name for the TCU list. Tere SANTOYO MSW
[2018-08-22] MEDS: 0.9% NaCl Peripheral Flush Adult/Peds IV (12:12)
[2018-08-22] MEDS: Chlorhexidine 15 ML PO ×2 (12:13→21:45)
[2018-08-22] MEDS: Lactulose 20 GM/30 ML UDC 10 GM PO ×2 (12:14→21:44)
[2018-08-22] MEDS: QUEtiapine 25 MG Tablet PO ×2 (12:14→21:44)
[2018-08-22 12:36] LABS: Bedside Glucose 135 mg/dL (70-110)
[2018-08-22 12:51] LABS: Body Fluid Mononuclear WBC # 0.257 10^3/uL; Body Fluid Polynuclear WBC # 0.042 10^3/uL; Body Fluid Total Cells Counted 0.323 10^3/ul; White Blood Count/Body Fluid 0.299 10^3/uL
[2018-08-22 13:06] LABS: Glucose, Body Fluid 139 mg/dL (40-70); LDH,Body Fluid 113 Units/l (Not Establ.); Protein, Body Fluid 2.8 g/dL (Not Establ.)
[2018-08-22 13:50] LABS: Appearance/Body Fluid SL CLDY; Auto B Fluid Analyzer BKGD Ct COUNTS W/IN LIMITS (W/IN LIMITS); Color/Body Fluid YELLOW; Source- Body Fluid OTHER
[2018-08-22 13:53] LABS: Lymphocytes 57 %; Monocytes 10 %; Neutrophil (Segs) 15 %; Other Cell Type/BF 18 %
[2018-08-22 13:54] LABS: Body Fluid QC Type(s) BF1Q
--- NOTE | 2018-08-22 14:05 | PCM.PN.ID ---
Patient Problems: Active and Suspected Problems Hyponatremia (Acute) Decompensated hepatic cirrhosis (Acute) CAP (community acquired pneumonia) (Acute) Sepsis (Acute) Subjective: Remains on vent, levophed and amio gtts. No fever. Paracentesis done today. - Physical Exam General: No apparent distress Lungs: Diminished, Rhonchi Cardiovascular: Irregular Rate, Tachycardic Abdomen: Soft, Non Tender, Distended - mild Skin: No rashes Vital Signs Temp Pulse Resp BP Pulse Ox 98.7 F 95 16 96/61 93 08/22/18 12:00 08/22/18 13:11 08/22/18 13:11 08/22/18 13:00 08/22/18 13:11 Oxygen Flow Rate (L/min) 4 Oxygen Delivery Method Mechanical Ventilator Weight: 116.8 kg Body Mass Index (BMI) 34.3 Finger Stick Blood Glucose 126 Intake and Output for Last 24 Hours 08/20/18 08/21/18 08/22/18 23:59 23:59 23:59 Intake Total 2075.7 / 2688.0 3363.6 / 4243.4 3344.4 / 3344.4 Output Total 1800 / 2420 2330 / 2780 4820 / 4820 Balance 275.7 / 268.0 1033.6 / 1463.4 -1475.6 / -1475.6 Microbiology Past 72 Hours 08/19/18 06:15 Gram Stain - Final Sputum, Tracheal Aspirate Respiratory Culture - Final Culture exhibits no growth. 08/18/18 13:11 Urine Culture - Final Urine Catheter - Catheter Culture exhibits no growth. 08/19/18 09:00 Blood Culture - Preliminary Blood Culture (Wb) - Central Line No growth in 48 hours. 08/18/18 14:22 Blood Culture - Preliminary Blood Culture (Wb) - Anticubital Left No growth in 48 hours. 08/18/18 14:51 Blood Culture - Preliminary Blood Culture (Wb) - Anticubital Right No growth in 48 hours. 08/18/18 18:10 Legionella Antigen - Final Urine Catheter - Bass Legionella Antigen Laboratory Tests Past 24 Hrs 08/20/18 08/22/18 08/22/18 04:20 04:30 04:30 WBC RBC Hgb Hct MCV MCH MCHC RDW RDW Differential Plt Count MPV Immature Gran % (Auto) Neut % (Auto) Lymph % (Auto) [place] % (Auto) Eos % (Auto) Baso % (Auto) Absolute Neuts (auto) Absolute Lymphs (auto) Total Counted PT 18.0 H INR 1.5 Sodium 140 Potassium 3.5 Chloride 106 Carbon Dioxide 26.0 Anion Gap 8 BUN 38 H Creatinine 1.27 Estim Creat Clear Calc 67.04 Est GFR (MDRD) Af Amer 74 Est GFR (MDRD) Non-Af 61 BUN/Creatinine Ratio 29.9 H Glucose 153 H Calcium 7.7 L Total Bilirubin Direct Bilirubin AST ALT Alkaline Phosphatase Ammonia Total Protein Albumin Globulin Fluid Source Fluid Color Fluid Appearance Fluid WBC Fluid RBC Fluid Tot Cell Count Fld Polynuclear WBCs # Fld Polynuclear WBCs % Fluid Mononuclear WBCs Fld Mononuclear WBCs % Fluid Neutrophils Fluid Lymphocytes Fluid Monocytes Fluid Other Cells Fl Pathologist Comment Fluid Glucose Fluid Total Protein Fluid LDH Fluid Comment 2 Hepatitis A IgM Ab Negative Hep Bs Antigen Negative Hep B Core IgM Ab Negative Hepatitis C Ab (EIA) 0.1 08/22/18 08/22/18 08/22/18 04:30 04:30 10:25 WBC 6.7 RBC 3.61 L Hgb 11.3 L Hct 33.7 L MCV 93.4 MCH 31.3 MCHC 33.5 RDW 18.0 H RDW Differential 61.9 H Plt Count 92 L MPV 8.8 Immature Gran % (Auto) 0.500 Neut % (Auto) 71.6 H Lymph % (Auto) 17.4 L [place] % (Auto) 9.5 Eos % (Auto) 0.8 Baso % (Auto) 0.2 Absolute Neuts (auto) 4.8 Absolute Lymphs (auto) 1.16 Total Counted Not Reportable PT INR Sodium Potassium Chloride Carbon Dioxide Anion Gap BUN Creatinine Estim Creat Clear Calc Est GFR (MDRD) Af Amer Est GFR (MDRD) Non-Af BUN/Creatinine Ratio Glucose Calcium Total Bilirubin 2.10 H Direct Bilirubin 1.47 H AST 183 H ALT 60 Alkaline Phosphatase 94 Ammonia Total Protein 6.9 Albumin 2.4 L Globulin 4.5 H Fluid Source Fluid Color Fluid Appearance Fluid WBC Fluid RBC Fluid Tot Cell Count Fld Polynuclear WBCs # Fld Polynuclear WBCs % Fluid Mononuclear WBCs Fld Mononuclear WBCs % Fluid Neutrophils Fluid Lymphocytes Fluid Monocytes Fluid Other Cells Fl Pathologist Comment Fluid Glucose 139 H Fluid Total Protein 2.8 Fluid LDH 113 Fluid Comment 2 Hepatitis A IgM Ab Hep Bs Antigen Hep B Core IgM Ab Hepatitis C Ab (EIA) 08/22/18 08/22/18 10:25 10:45 WBC RBC Hgb Hct MCV MCH MCHC RDW RDW Differential Plt Count MPV Immature Gran % (Auto) Neut % (Auto) Lymph % (Auto) [place] % (Auto) Eos % (Auto) Baso % (Auto) Absolute Neuts (auto) Absolute Lymphs (auto) Total Counted PT INR Sodium Potassium Chloride Carbon Dioxide Anion Gap BUN Creatinine Estim Creat Clear Calc Est GFR (MDRD) Af Amer Est GFR (MDRD) Non-Af BUN/Creatinine Ratio Glucose Calcium Total Bilirubin Direct Bilirubin AST ALT Alkaline Phosphatase Ammonia 64.0 H Total Protein Albumin Globulin Fluid Source OTHER Fluid Color YELLOW Fluid Appearance SL CLDY Fluid WBC 0.299 Fluid RBC 0.26916 Fluid Tot Cell Count 0.323 Fld Polynuclear WBCs # 0.042 Fld Polynuclear WBCs % 14.0 Fluid Mononuclear WBCs 0.257 Fld Mononuclear WBCs % 86.0 Fluid Neutrophils 15 Fluid Lymphocytes 57 Fluid Monocytes 10 Fluid Other Cells 18 Fl Pathologist Comment May follow Fluid Glucose Fluid Total Protein Fluid LDH Fluid Comment 2 SEE COMMENT Hepatitis A IgM Ab Hep Bs Antigen Hep B Core IgM Ab Hepatitis C Ab (EIA) POC Glucose 08/22/18 08/22/18 08/21/18 12:21 05:36 23:56 POC Glucose 135 H 146 H 140 H 08/21/18 18:24 POC Glucose 123 H Medical Necessity - Tobacco Use Smoking Status: Current every day smoker Tobacco Use: Cigarettes Route of nutrition/ use of supplements: [] Nutritional Intake: [] IV Site: [] Bass Catheter: [] - Assessment/Plan Antibiotics: [] Assessment/Plan: [] Active and Suspected Problems Hyponatremia (Acute) Decompensated hepatic cirrhosis (Acute) CAP (community acquired pneumonia) (Acute) Sepsis (Acute) septic shock with legionella, resp failure, ascites - cont zosyn and levaquin. Paracentesis today neg for SBP based on wbc. Remains on low dose levophed. May be able to stop zosyn tomorrow. No fever, wbc normal. Will follow
[2018-08-22 16:41] LABS: Bedside Glucose 80 mg/dL (70-110)
[2018-08-22 16:41] LABS: Bedside Glucose 165 mg/dL (70-110)
[2018-08-22 18:10] LABS: Bedside Glucose 143 mg/dL (70-110)
[2018-08-22] MEDS: Albuterol 2.5 MG/3 ML VIAL.NEB. INHALATION (18:50)
[2018-08-22] MEDS: 0.9% Normal Saline 1,000 ML 40 ML IV (19:46)
[2018-08-23] VITALS (53 sets, daily range): BP systolic 82–156; BP diastolic 58–116; PULSE 79–129; RESP 13–29; TEMP 37.9–38.9; O2SAT 91–100
[2018-08-23] MEDS: Insulin Lispro 100 UNIT/ML INSULN.PEN SC ×5 (00:08→23:32)
[2018-08-23 00:21] LABS: Bedside Glucose 183 mg/dL (70-110)
[2018-08-23] MEDS: Simethicone 40MG/0.6ML Bottle 80 MG NG ×5 (01:14→23:34)
[2018-08-23] MEDS: Ipratropium/Albuterol Sulfate 3 ML AMPUL.NEB INHALATION ×6 (03:10→22:46)
[2018-08-23 04:36] LABS: Bedside Glucose 187 mg/dL (70-110)
[2018-08-23 04:42] LABS: Absolute Lymphocyte Count 1.28 X10^3/ul (0.83-4.51); Absolute Neutrophil Count 4.1 X10^3/uL (2.0-7.7); Basophil# 0.02 X10^3/uL; Basophil% 0.3 % (0-1); Eosinophil# 0.03 X10^3/uL; Eosinophils% 0.5 % (0-5); Hematocrit 36.3 % (40-54); Hemoglobin 12.2 g/dl (13.0-16.5); Lymphocyte # 1.28 X10^3/ul (4.0); Lymphocyte % 20.5 % (19-41); Mean Corp Hgb Conc 33.6 g/gl (32-36); Mean Corpuscular Hgb 31.4 pg (27.0-32.0); Mean Corpuscular Volume 93.6 fL (80-94); Mean Platelet Vol. 8.8 fl (6.2-12.0); Monocyte# 0.69 X10^3/uL; Neutrophil # 4.14 X10^3/uL (2.7-7.7); Neutrophil % 66.3 % (47-70); Platelet Count 118 K/mm3 (150-450); RBC Distribution Width CV 17.9 % (11.6-14.6); RBC Distribution Width SD 58.5 fl (35.1-43.9); Red Blood Count 3.88 M/mm3 (4.6-6.2); White Blood Count 6.3 K/mm3 (4.4-11.0)
[2018-08-23 04:44] LABS: POSITIVE COUNT NO; POSITIVE DIFFERENTIAL NO; POSITIVE MORPHOLOGY NO
[2018-08-23 05:04] LABS: Anion Gap 7 (5-15); BUN 30 mg/dL (7-18); BUN/Creat Ratio 29.1 RATIO (10-20); Chloride 110 mmol/L (98-107); Creatinine, Serum 1.03 mg/dL (0.70-1.30); EST Glomerular Filtration Rate 78 mL/min (>60); Est Glom Filt Rate - Afr Amer 94 mL/min (>60); Estimated Creatinine Clearance 82.66 ml/min; Glucose 211 mg/dL (74-106); Magnesium 2.8 mg/dL (1.6-2.6); Potassium 4.2 mmol/L (3.5-5.1); Sodium Level 142 mmol/L (136-145)
--- NOTE | 2018-08-23 05:06 | CPS ---
SBT not performed. Upon entrance to pt room pt RR 38, HR 137 and SPO2 84%. Pt increased to 100% fio2, suctioned and nursing made aware.
[2018-08-23 05:41] LABS: Bedside Glucose 159 mg/dL (70-110)
[2018-08-23] MEDS: CHLORHEXIDINE GLUC 2% CLOTH 1 EACH TOWELETTE TOPICAL (06:13)
[2018-08-23] MEDS: Lactulose 20 GM/30 ML UDC PO ×2 (06:23→21:16)
--- NOTE | 2018-08-23 06:58 | PCM.PN.INT ---
Subjective: Patient did okay overnight. Patient has been weaned off of Levophed. Patient did spike a significant fever overnight, but was stable on 30% FiO2 until spontaneous breathing trial. During spontaneous breathing trial, patient became very agitated, tachycardic and hypoxic. Patient has not had a bowel movement at this time. Patient has made it to full tube feeds and tolerating well. Objective: Patient did have a paracentesis yesterday with 3.5 L removed. General: - - RASS +1. Obese. Fair vent synchrony. HEENT: Atraumatic, PERRLA, EOMI, Normocephalic, - - No scleral icterus or injection noted. Oral: Moist Mucosa, No Gingival or Mucosal Lesions/ Ulcerations Neck: Supple, No JVD, No Nodes, Trachea Midline Lungs: No wheeze, No rales, Diminished, Rhonchi - Scattered, but improved with suctioning Cardiovascular: Normal S1, Normal S2, No murmurs, No rub noted, No Gallop, Tachycardic Abdomen: Bowel Sounds Present, Soft, Non Tender, Non-Distended, Obese Extremities: No cyanosis, Clubbing, Edema Skin: - - No significant change compared to previous Musculoskeletal: No Tenderness to Palpation of Joints or Extremities Lymphatic: No Cervical, Supraclavicular, or Inguinal Adenopathy Neurological: Cranial nerves II-XII grossly intact, Neuro grossly intact, - - Movements appear to be slightly more appropriate today compared to yesterday Psych/Mental Status: Impulsive, Restless Vital Signs Temp Pulse Resp BP Pulse Ox 38.5 C H 129 H 29 H 117/72 91 08/23/18 03:00 08/23/18 05:08 08/23/18 05:08 08/23/18 03:00 08/23/18 05:08 Oxygen Flow Rate (L/min) 4 Oxygen Delivery Method Mechanical Ventilator Weight: 115.3 kg Body Mass Index (BMI) 34.3 Finger Stick Blood Glucose 126 Intake and Output for Last 24 Hours 08/21/18 08/22/18 08/23/18 23:59 23:59 23:59 Intake Total 3363.6 / 4243.4 4843.9 / 5938.6 2584.8 / 2584.8 Output Total 2330 / 2780 5070 / 5570 1050 / 1050 Balance 1033.6 / 1463.4 -226.1 / 368.6 1534.8 / 1534.8 Labs (Last 48 Hours) 08/19/18 08/19/18 08/20/18 19:56 19:58 04:20 WBC RBC Hgb Hct MCV MCH MCHC RDW RDW Differential Plt Count MPV Immature Gran % (Auto) Neut % (Auto) Lymph % (Auto) [place] % (Auto) Eos % (Auto) Baso % (Auto) Absolute Neuts (auto) Absolute Lymphs (auto) Total Counted PT INR Sodium Potassium Chloride Carbon Dioxide Anion Gap BUN Creatinine Estim Creat Clear Calc Est GFR (MDRD) Af Amer Est GFR (MDRD) Non-Af BUN/Creatinine Ratio Glucose Hemoglobin A1c Calcium Magnesium Total Bilirubin Direct Bilirubin AST ALT Alkaline Phosphatase Ammonia Total Protein Albumin Globulin Fluid Source Fluid Color Fluid Appearance Fluid WBC Fluid RBC Fluid Tot Cell Count Fld Polynuclear WBCs # Fld Polynuclear WBCs % Fluid Mononuclear WBCs Fld Mononuclear WBCs % Fluid Neutrophils Fluid Lymphocytes Fluid Monocytes Fluid Other Cells Fl Pathologist Comment Fluid Glucose Fluid Total Protein Fluid LDH Fluid Comment 2 Hepatitis A IgM Ab Negative Hep Bs Antigen Negative Hep B Core IgM Ab Negative Hepatitis C Ab (EIA) 0.1 POC Glucose 80 165 H 08/21/18 08/21/18 08/21/18 10:45 11:34 18:24 WBC RBC Hgb Hct MCV MCH MCHC RDW RDW Differential Plt Count MPV Immature Gran % (Auto) Neut % (Auto) Lymph % (Auto) [place] % (Auto) Eos % (Auto) Baso % (Auto) Absolute Neuts (auto) Absolute Lymphs (auto) Total Counted PT INR Sodium Potassium Chloride Carbon Dioxide Anion Gap BUN Creatinine Estim Creat Clear Calc Est GFR (MDRD) Af Amer Est GFR (MDRD) Non-Af BUN/Creatinine Ratio Glucose Hemoglobin A1c 4.9 Calcium Magnesium Total Bilirubin Direct Bilirubin AST ALT Alkaline Phosphatase Ammonia Total Protein Albumin Globulin Fluid Source Fluid Color Fluid Appearance Fluid WBC Fluid RBC Fluid Tot Cell Count Fld Polynuclear WBCs # Fld Polynuclear WBCs % Fluid Mononuclear WBCs Fld Mononuclear WBCs % Fluid Neutrophils Fluid Lymphocytes Fluid Monocytes Fluid Other Cells Fl Pathologist Comment Fluid Glucose Fluid Total Protein Fluid LDH Fluid Comment 2 Hepatitis A IgM Ab Hep Bs Antigen Hep B Core IgM Ab Hepatitis C Ab (EIA) POC Glucose 117 H 123 H 08/21/18 08/22/18 08/22/18 23:56 04:30 04:30 WBC RBC Hgb Hct MCV MCH MCHC RDW RDW Differential Plt Count MPV Immature Gran % (Auto) Neut % (Auto) Lymph % (Auto) [place] % (Auto) Eos % (Auto) Baso % (Auto) Absolute Neuts (auto) Absolute Lymphs (auto) Total Counted PT 18.0 H INR 1.5 Sodium 140 Potassium 3.5 Chloride 106 Carbon Dioxide 26.0 Anion Gap 8 BUN 38 H Creatinine 1.27 Estim Creat Clear Calc 67.04 Est GFR (MDRD) Af Amer 74 Est GFR (MDRD) Non-Af 61 BUN/Creatinine Ratio 29.9 H Glucose 153 H Hemoglobin A1c Calcium 7.7 L Magnesium Total Bilirubin Direct Bilirubin AST ALT Alkaline Phosphatase Ammonia Total Protein Albumin Globulin Fluid Source Fluid Color Fluid Appearance Fluid WBC Fluid RBC Fluid Tot Cell Count Fld Polynuclear WBCs # Fld Polynuclear WBCs % Fluid Mononuclear WBCs Fld Mononuclear WBCs % Fluid Neutrophils Fluid Lymphocytes Fluid Monocytes Fluid Other Cells Fl Pathologist Comment Fluid Glucose Fluid Total Protein Fluid LDH Fluid Comment 2 Hepatitis A IgM Ab Hep Bs Antigen Hep B Core IgM Ab Hepatitis C Ab (EIA) POC Glucose 140 H 08/22/18 08/22/18 08/22/18 04:30 04:30 05:36 WBC 6.7 RBC 3.61 L Hgb 11.3 L Hct 33.7 L MCV 93.4 MCH 31.3 MCHC 33.5 RDW 18.0 H RDW Differential 61.9 H Plt Count 92 L MPV 8.8 Immature Gran % (Auto) 0.500 Neut % (Auto) 71.6 H Lymph % (Auto) 17.4 L [place] % (Auto) 9.5 Eos % (Auto) 0.8 Baso % (Auto) 0.2 Absolute Neuts (auto) 4.8 Absolute Lymphs (auto) 1.16 Total Counted Not Reportable PT INR Sodium Potassium Chloride Carbon Dioxide Anion Gap BUN Creatinine Estim Creat Clear Calc Est GFR (MDRD) Af Amer Est GFR (MDRD) Non-Af BUN/Creatinine Ratio Glucose Hemoglobin A1c Calcium Magnesium Total Bilirubin 2.10 H Direct Bilirubin 1.47 H AST 183 H ALT 60 Alkaline Phosphatase 94 Ammonia Total Protein 6.9 Albumin 2.4 L Globulin 4.5 H Fluid Source Fluid Color Fluid Appearance Fluid WBC Fluid RBC Fluid Tot Cell Count Fld Polynuclear WBCs # Fld Polynuclear WBCs % Fluid Mononuclear WBCs Fld Mononuclear WBCs % Fluid Neutrophils Fluid Lymphocytes Fluid Monocytes Fluid Other Cells Fl Pathologist Comment Fluid Glucose Fluid Total Protein Fluid LDH Fluid Comment 2 Hepatitis A IgM Ab Hep Bs Antigen Hep B Core IgM Ab Hepatitis C Ab (EIA) POC Glucose 146 H 08/22/18 08/22/18 08/22/18 10:25 10:25 10:45 WBC RBC Hgb Hct MCV MCH MCHC RDW RDW Differential Plt Count MPV Immature Gran % (Auto) Neut % (Auto) Lymph % (Auto) [place] % (Auto) Eos % (Auto) Baso % (Auto) Absolute Neuts (auto) Absolute Lymphs (auto) Total Counted PT INR Sodium Potassium Chloride Carbon Dioxide Anion Gap BUN Creatinine Estim Creat Clear Calc Est GFR (MDRD) Af Amer Est GFR (MDRD) Non-Af BUN/Creatinine Ratio Glucose Hemoglobin A1c Calcium Magnesium Total Bilirubin Direct Bilirubin AST ALT Alkaline Phosphatase Ammonia 64.0 H Total Protein Albumin Globulin Fluid Source OTHER Fluid Color YELLOW Fluid Appearance SL CLDY Fluid WBC 0.299 Fluid RBC 0.75723 Fluid Tot Cell Count 0.323 Fld Polynuclear WBCs # 0.042 Fld Polynuclear WBCs % 14.0 Fluid Mononuclear WBCs 0.257 Fld Mononuclear WBCs % 86.0 Fluid Neutrophils 15 Fluid Lymphocytes 57 Fluid Monocytes 10 Fluid Other Cells 18 Fl Pathologist Comment May follow Fluid Glucose 139 H Fluid Total Protein 2.8 Fluid LDH 113 Fluid Comment 2 SEE COMMENT Hepatitis A IgM Ab Hep Bs Antigen Hep B Core IgM Ab Hepatitis C Ab (EIA) POC Glucose 08/22/18 08/22/18 08/23/18 12:21 18:04 00:07 WBC RBC Hgb Hct MCV MCH MCHC RDW RDW Differential Plt Count MPV Immature Gran % (Auto) Neut % (Auto) Lymph % (Auto) [place] % (Auto) Eos % (Auto) Baso % (Auto) Absolute Neuts (auto) Absolute Lymphs (auto) Total Counted PT INR Sodium Potassium Chloride Carbon Dioxide Anion Gap BUN Creatinine Estim Creat Clear Calc Est GFR (MDRD) Af Amer Est GFR (MDRD) Non-Af BUN/Creatinine Ratio Glucose Hemoglobin A1c Calcium Magnesium Total Bilirubin Direct Bilirubin AST ALT Alkaline Phosphatase Ammonia Total Protein Albumin Globulin Fluid Source Fluid Color Fluid Appearance Fluid WBC Fluid RBC Fluid Tot Cell Count Fld Polynuclear WBCs # Fld Polynuclear WBCs % Fluid Mononuclear WBCs Fld Mononuclear WBCs % Fluid Neutrophils Fluid Lymphocytes Fluid Monocytes Fluid Other Cells Fl Pathologist Comment Fluid Glucose Fluid Total Protein Fluid LDH Fluid Comment 2 Hepatitis A IgM Ab Hep Bs Antigen Hep B Core IgM Ab Hepatitis C Ab (EIA) POC Glucose 135 H 143 H 183 H 08/23/18 08/23/18 08/23/18 04:05 04:20 04:20 WBC RBC Hgb Hct MCV MCH MCHC RDW RDW Differential Plt Count MPV Immature Gran % (Auto) Neut % (Auto) Lymph % (Auto) [place] % (Auto) Eos % (Auto) Baso % (Auto) Absolute Neuts (auto) Absolute Lymphs (auto) Total Counted PT INR Sodium 142 Potassium 4.2 Chloride 110 H Carbon Dioxide 25.0 Anion Gap 7 BUN 30 H Creatinine 1.03 Estim Creat Clear Calc 82.66 Est GFR (MDRD) Af Amer 94 Est GFR (MDRD) Non-Af 78 BUN/Creatinine Ratio 29.1 H Glucose 211 H Hemoglobin A1c Calcium 8.0 L Magnesium 2.8 H Total Bilirubin Direct Bilirubin AST ALT Alkaline Phosphatase Ammonia 80.0 H Total Protein Albumin Globulin Fluid Source Fluid Color Fluid Appearance Fluid WBC Fluid RBC Fluid Tot Cell Count Fld Polynuclear WBCs # Fld Polynuclear WBCs % Fluid Mononuclear WBCs Fld Mononuclear WBCs % Fluid Neutrophils Fluid Lymphocytes Fluid Monocytes Fluid Other Cells Fl Pathologist Comment Fluid Glucose Fluid Total Protein Fluid LDH Fluid Comment 2 Hepatitis A IgM Ab Hep Bs Antigen Hep B Core IgM Ab Hepatitis C Ab (EIA) POC Glucose 187 H 08/23/18 08/23/18 04:20 05:35 WBC 6.3 RBC 3.88 L Hgb 12.2 L Hct 36.3 L MCV 93.6 MCH 31.4 MCHC 33.6 RDW 17.9 H RDW Differential 58.5 H Plt Count 118 L MPV 8.8 Immature Gran % (Auto) 1.400 H Neut % (Auto) 66.3 Lymph % (Auto) 20.5 [place] % (Auto) 11.0 H Eos % (Auto) 0.5 Baso % (Auto) 0.3 Absolute Neuts (auto) 4.1 Absolute Lymphs (auto) 1.28 Total Counted Not Reportable PT INR Sodium Potassium Chloride Carbon Dioxide Anion Gap BUN Creatinine Estim Creat Clear Calc Est GFR (MDRD) Af Amer Est GFR (MDRD) Non-Af BUN/Creatinine Ratio Glucose Hemoglobin A1c Calcium Magnesium Total Bilirubin Direct Bilirubin AST ALT Alkaline Phosphatase Ammonia Total Protein Albumin Globulin Fluid Source Fluid Color Fluid Appearance Fluid WBC Fluid RBC Fluid Tot Cell Count Fld Polynuclear WBCs # Fld Polynuclear WBCs % Fluid Mononuclear WBCs Fld Mononuclear WBCs % Fluid Neutrophils Fluid Lymphocytes Fluid Monocytes Fluid Other Cells Fl Pathologist Comment Fluid Glucose Fluid Total Protein Fluid LDH Fluid Comment 2 Hepatitis A IgM Ab Hep Bs Antigen Hep B Core IgM Ab Hepatitis C Ab (EIA) POC Glucose 159 H Microbiology 08/22/18 10:25 Fluid - Paracentesis (Abd) Gram Stain - Final 08/19/18 06:15 Sputum, Tracheal Aspirate Gram Stain - Final 08/19/18 06:15 Sputum, Tracheal Aspirate Respiratory Culture - Final Culture exhibits no growth. 08/18/18 13:11 Urine Catheter - Catheter Urine Culture - Final Culture exhibits no growth. 08/19/18 09:00 Blood Culture (Wb) - Central Line Blood Culture - Preliminary No growth in 48 hours. Clinical Impression(s) from Imaging Studies Chest X-Ray 08/22/18 08:31 IMPRESSION: Left pleural effusion underlying infiltrate in the left lower lobe cannot be excluded. No significant change noted since the day before. Electronically Signed: Maddi Martinez, at 12:52 EDT Tel , Service support , KUB X-Ray 08/22/18 08:31 Paracentesis Ultrasound 08/22/18 09:00 Medical Necessity - Tobacco Use Smoking Status: Current every day smoker Tobacco Use: Cigarettes Assessment/Plan All Active Problems Hyponatremia (Acute) Decompensated hepatic cirrhosis (Acute) CAP (community acquired pneumonia) (Acute) Sepsis (Acute) Leukocytoclastic vasculitis (Acute) Atrial fibrillation with RVR (Acute) Heart failure with preserved ejection fraction, borderline, class II (Acute) Atrial fibrillation (Acute) RECOMMENDATIONS: 1. Antibiotics per infectious disease 2. Continue Precedex and fentanyl for vent synchrony 3. Increase lactulose and continue rifaximin 4. Reinitiate Levophed if needed. Goal to maintain a mean arterial pressure at or above 65 mmHg. 5. Continue PPI for GI prophylaxis. IMPRESSIONS: 1. Acute combined respiratory failure The patient developed progressive bilateral infiltrates on chest imaging, which culminated in the development of respiratory distress leading to emergent intubation. The patient was noted to have a positive Legionella antigen. The patient will be continued on broad-spectrum antibiotics per infectious diseases recommendations. Continue to wean FiO2 and PEEP to maintain oxygen saturations at or above 90%. Plan for daily paired spontaneous awakening and breathing trials. Patient does appear to be more appropriate on Precedex therapy compared to propofol. Patient still having significant agitation. This may be secondary to elevated ammonia levels, but lactulose will be increased. No bowel movements have been noted. 2. Septic shock secondary to presumptive Legionella pneumonia/possible SBP The patient is currently on appropriate broad-spectrum antimicrobials, including Levaquin given his positive urine Legionella antigen. Infectious diseases following. Patient did have significant fever overnight, but no leukocytosis and hemodynamics have improved. Clinical suspicion for drug fever secondary to Precedex, but will defer to infectious disease on whether Zosyn can be removed. 3. Metabolic encephalopathy Likely multifactorial in etiology and related to underlying infectious process and hyperammonemia. On fentanyl and Precedex therapy. Goal to maintain a RASS of -1 to 1. Given the patient's elevated ammonia level, lactulose and rifaximin will be continued. 4. Paroxysmal atrial fibrillation with RVR/troponin elevation Cardiology is following to assist with management. Suspect that the patient's troponin leak is secondary to demand ischemia in the setting of #2. 5. Acute kidney injury Improving. Likely prerenal in etiology and related to the development of ATN in the setting of #2. Continue to monitor urine output. There is no current indication for renal replacement therapy. 6. History of chronic alcohol, tobacco and cannabis dependency/anemia/thrombocytopenia/diabetes mellitus/chronic back pain Complicates care, management, recovery and prognosis. TIME: 35 minutes of critical care time, independent of procedures, was spent addressing the patient's acute combined respiratory failure, septic shock, metabolic encephalopathy, acute kidney injury, review of all data and collaboration with the care team. (6 AM to 7:05 AM) Code Visit 9xxxx: [id number] Critical care first hour
[2018-08-23] MEDS: Chlorhexidine 15 ML PO ×2 (08:57→21:16)
--- NOTE | 2018-08-23 09:13 | PN_ITS ---
Patient Problems: Active and Suspected Problems Hyponatremia (Acute) Decompensated hepatic cirrhosis (Acute) CAP (community acquired pneumonia) (Acute) Sepsis (Acute) Subjective: 62-year-old male alcoholic admitted to the hospital with acute respiratory failure secondary to Legionella pneumonia. Has gone through acute alcohol withdrawal. Atrial fibrillation with RVR has been controlled with amiodarone. Levophed discontinued on 08/23/2018 in the early a.m. Transition to Precedex on 08/22/2018 in preparation for weaning. Failed SBT today sp to agitation, tachycardia and hypoxic with increased RR. T-max over the past 24 hours is 101.3-possibly secondary to Precedex Has been maintaining and MAP greater than 65 off Levophed. Fluid balance on 08/22/2018 was -226. Overnight he is +1534. Urine output on 08/22/2018 was 1650 All lab and radiology was personally reviewed. White blood cell count is normal at 6.3 with an unremarkable differential. Hemoglobin is stable at 12.2. Platelets are stable at 118,000, up from 72,000 at admission. Creatinine today is 1.03 with a BUN of 30, creatinine is down from 2.4 to on 08/19/2018. Ammonia today is 80 Paracentesis was done on 08/22/2018 and approximately 3500 cc was removed. There is no growth on the ascitic fluid to date. There were 299 white blood cells in the ascitic fluid. the total protein is 2.8 Had 1 BM today Tolerating the TF without residual Objective: - Physical Exam General: - - Sedated and on the ventilator. Does not respond to calling his name or verbal commands. Not agitated at present, back on Fentanyl at 175 HEENT: Atraumatic, PERRLA Lungs: No rales, Rhonchi anteriorly Cardiovascular: Normal S1, Normal S2, No murmurs, irreg, AF on the monitor ABD: still with some pitting in the flanks, less distended, KUB yesterday with NS bowel gas pattern, no guarding with palpation, soft Extremities: - - edema, pedal pulses are normal, the feet are starting to warm up and are no longer cold to touch, + venous insufficiency Skin: No rashes, No breakdown Neurological: Cranial nerves II-XII grossly intact, moving all extremities when the sedation lightened for SBT - Physical Exam Vital Signs Temp Pulse Resp BP Pulse Ox 100.3 F H 89 16 106/70 98 08/23/18 08:00 08/23/18 08:30 08/23/18 08:00 08/23/18 08:30 08/23/18 08:00 Oxygen Flow Rate (L/min) 4 Oxygen Delivery Method Mechanical Ventilator Weight: 254 lb 3.088 oz Body Mass Index (BMI) 34.3 Finger Stick Blood Glucose 126 Intake and Output for Last 24 Hours 08/21/18 08/22/18 08/23/18 23:59 23:59 23:59 Intake Total 3363.6 / 4243.4 4843.9 / 5938.6 2584.8 / 2584.8 Output Total 2330 / 2780 5070 / 5570 1050 / 1050 Balance 1033.6 / 1463.4 -226.1 / 368.6 1534.8 / 1534.8 Microbiology Past 72 Hours 08/22/18 10:25 Gram Stain - Final Fluid - Paracentesis (Abd) Body Fluid Culture - Preliminary No growth-Final to follow 08/19/18 06:15 Gram Stain - Final Sputum, Tracheal Aspirate Respiratory Culture - Final Culture exhibits no growth. 08/18/18 13:11 Urine Culture - Final Urine Catheter - Catheter Culture exhibits no growth. 08/19/18 09:00 Blood Culture - Preliminary Blood Culture (Wb) - Central Line No growth in 48 hours. 08/18/18 14:22 Blood Culture - Preliminary Blood Culture (Wb) - Anticubital Left No growth in 48 hours. 08/18/18 14:51 Blood Culture - Preliminary Blood Culture (Wb) - Anticubital Right No growth in 48 hours. Laboratory Tests Past 24 Hrs 08/20/18 08/22/18 08/22/18 04:20 10:25 10:25 WBC RBC Hgb Hct MCV MCH MCHC RDW RDW Differential Plt Count MPV Immature Gran % (Auto) Neut % (Auto) Lymph % (Auto) [place] % (Auto) Eos % (Auto) Baso % (Auto) Absolute Neuts (auto) Absolute Lymphs (auto) Total Counted Sodium Potassium Chloride Carbon Dioxide Anion Gap BUN Creatinine Estim Creat Clear Calc Est GFR (MDRD) Af Amer Est GFR (MDRD) Non-Af BUN/Creatinine Ratio Glucose Calcium Magnesium Ammonia Fluid Source OTHER Fluid Color YELLOW Fluid Appearance SL CLDY Fluid WBC 0.299 Fluid RBC 0.01747 Fluid Tot Cell Count 0.323 Fld Polynuclear WBCs # 0.042 Fld Polynuclear WBCs % 14.0 Fluid Mononuclear WBCs 0.257 Fld Mononuclear WBCs % 86.0 Fluid Neutrophils 15 Fluid Lymphocytes 57 Fluid Monocytes 10 Fluid Other Cells 18 Fl Pathologist Comment May follow Fluid Glucose 139 H Fluid Total Protein 2.8 Fluid LDH 113 Fluid Comment 2 SEE COMMENT Hepatitis A IgM Ab Negative Hep Bs Antigen Negative Hep B Core IgM Ab Negative Hepatitis C Ab (EIA) 0.1 08/22/18 08/23/18 08/23/18 10:45 04:20 04:20 WBC RBC Hgb Hct MCV MCH MCHC RDW RDW Differential Plt Count MPV Immature Gran % (Auto) Neut % (Auto) Lymph % (Auto) [place] % (Auto) Eos % (Auto) Baso % (Auto) Absolute Neuts (auto) Absolute Lymphs (auto) Total Counted Sodium 142 Potassium 4.2 Chloride 110 H Carbon Dioxide 25.0 Anion Gap 7 BUN 30 H Creatinine 1.03 Estim Creat Clear Calc 82.66 Est GFR (MDRD) Af Amer 94 Est GFR (MDRD) Non-Af 78 BUN/Creatinine Ratio 29.1 H Glucose 211 H Calcium 8.0 L Magnesium 2.8 H Ammonia 64.0 H 80.0 H Fluid Source Fluid Color Fluid Appearance Fluid WBC Fluid RBC Fluid Tot Cell Count Fld Polynuclear WBCs # Fld Polynuclear WBCs % Fluid Mononuclear WBCs Fld Mononuclear WBCs % Fluid Neutrophils Fluid Lymphocytes Fluid Monocytes Fluid Other Cells Fl Pathologist Comment Fluid Glucose Fluid Total Protein Fluid LDH Fluid Comment 2 Hepatitis A IgM Ab Hep Bs Antigen Hep B Core IgM Ab Hepatitis C Ab (EIA) 08/23/18 04:20 WBC 6.3 RBC 3.88 L Hgb 12.2 L Hct 36.3 L MCV 93.6 MCH 31.4 MCHC 33.6 RDW 17.9 H RDW Differential 58.5 H Plt Count 118 L MPV 8.8 Immature Gran % (Auto) 1.400 H Neut % (Auto) 66.3 Lymph % (Auto) 20.5 [place] % (Auto) 11.0 H Eos % (Auto) 0.5 Baso % (Auto) 0.3 Absolute Neuts (auto) 4.1 Absolute Lymphs (auto) 1.28 Total Counted Not Reportable Sodium Potassium Chloride Carbon Dioxide Anion Gap BUN Creatinine Estim Creat Clear Calc Est GFR (MDRD) Af Amer Est GFR (MDRD) Non-Af BUN/Creatinine Ratio Glucose Calcium Magnesium Ammonia Fluid Source Fluid Color Fluid Appearance Fluid WBC Fluid RBC Fluid Tot Cell Count Fld Polynuclear WBCs # Fld Polynuclear WBCs % Fluid Mononuclear WBCs Fld Mononuclear WBCs % Fluid Neutrophils Fluid Lymphocytes Fluid Monocytes Fluid Other Cells Fl Pathologist Comment Fluid Glucose Fluid Total Protein Fluid LDH Fluid Comment 2 Hepatitis A IgM Ab Hep Bs Antigen Hep B Core IgM Ab Hepatitis C Ab (EIA) POC Glucose 08/23/18 08/23/18 08/23/18 05:35 04:05 00:07 POC Glucose 159 H 187 H 183 H 08/22/18 08/22/18 08/19/18 18:04 12:21 19:58 POC Glucose 143 H 135 H 165 H 08/19/18 19:56 POC Glucose 80 Medical Necessity - Tobacco Use Smoking Status: Current every day smoker Tobacco Use: Cigarettes Assessment/Plan All Active Problems Hyponatremia (Acute) Decompensated hepatic cirrhosis (Acute) CAP (community acquired pneumonia) (Acute) Sepsis (Acute) Leukocytoclastic vasculitis (Acute) Atrial fibrillation with RVR (Acute) Heart failure with preserved ejection fraction, borderline, class II (Acute) Atrial fibrillation (Acute) Impressions 1. Septic shock presumed secondary to Legionella pneumonia and possibly spontaneous bacterial peritonitis - paracentesis not done until he had been on antibiotics for 5 days 2. Acute combined respiratory failure requiring intubation 3. Toxic/metabolic encephalopathy-likely multifactorial, sepsis, alcohol withdrawal, elevated ammonia, skilled nursing cannabis and alcohol abuse 4. Hyperammonemia - due to liver disease? or to catabolic state related to septic shock? Liver appears normal on the CT 5. PAF with RVR - currently rate controlled 6. Troponin elevation-likely secondary to demand ischemia related to septic shock and acute respiratory failure with hypoxemia 7. Acute nonoliguric renal failure-suspect secondary to ATN, creat is improving 8. Chronic alcohol abuse 9. Tobacco dependence 11. Daily cannabis use 12. Diabetes mellitus type 2 - BS's are well controlled 13. Thrombocytopenia - stable 14. Chronic back pain with possible narcotic dependence 15. Suspected acute alcohol withdrawal 16. PT prolongation- was on Xarelto at admission and this has been held. LFT's are abnormal and he is a drinker......but no evidence cirrhosis on CT of the abd. But he has chronic thrombocytopenia INR is 1.7 today and we will be able to proceed with a diagnostic and therapeutic paracentesis in the AM 17. Mild left ventricular hypertrophy with a moderately dilated ventricle and an ejection fraction of 40 to 45% with moderate global hypokinesis. Severely dilated right ventricle and right atrium. Mild aortic stenosis. 18. Chronic thrombocytopenia-stable 19. ascites and peripheral edema - ascites is negative for SBP convert Amiodarone to NG DC the IV protonix and start Prevacid per the NG TF is now at goal Continue Levaquin......possibly DC the Zosyn today per Dr. Han's note yesterday retry SBT in the AM Will likely need SNF at DC Discuss alcohol rehab with him when he is off the vent and appropriate Cast on rounds with Dr. Gentile and the team. Lactulose increased. Will recheck lab in 48 hours. Code Visit Inpatient E&M: 30171 Subs Hosp L3
--- NOTE | 2018-08-23 10:17 | PN.ID_ITS ---
Patient Problems: Active and Suspected Problems Hyponatremia (Acute) Decompensated hepatic cirrhosis (Acute) CAP (community acquired pneumonia) (Acute) Sepsis (Acute) Subjective: Remains on vent, no fever - Physical Exam General: No apparent distress Lungs: Rhonchi Cardiovascular: Tachycardic Abdomen: Soft, Non Tender, Non-Distended Extremities: Edema Skin: No rashes Vital Signs Temp Pulse Resp BP Pulse Ox 100.8 F H 87 18 97/70 94 08/23/18 09:00 08/23/18 09:00 08/23/18 09:00 08/23/18 09:00 08/23/18 09:00 Oxygen Flow Rate (L/min) 4 Oxygen Delivery Method Mechanical Ventilator Weight: 115.3 kg Body Mass Index (BMI) 34.3 Finger Stick Blood Glucose 126 Intake and Output for Last 24 Hours 08/21/18 08/22/18 08/23/18 23:59 23:59 23:59 Intake Total 3363.6 / 4243.4 4843.9 / 5938.6 2584.8 / 2584.8 Output Total 2330 / 2780 5070 / 5570 1050 / 1050 Balance 1033.6 / 1463.4 -226.1 / 368.6 1534.8 / 1534.8 Microbiology Past 72 Hours 08/22/18 10:25 Gram Stain - Final Fluid - Paracentesis (Abd) Body Fluid Culture - Preliminary No growth-Final to follow 08/19/18 06:15 Gram Stain - Final Sputum, Tracheal Aspirate Respiratory Culture - Final Culture exhibits no growth. 08/18/18 13:11 Urine Culture - Final Urine Catheter - Catheter Culture exhibits no growth. 08/19/18 09:00 Blood Culture - Preliminary Blood Culture (Wb) - Central Line No growth in 48 hours. 08/18/18 14:22 Blood Culture - Preliminary Blood Culture (Wb) - Anticubital Left No growth in 48 hours. 08/18/18 14:51 Blood Culture - Preliminary Blood Culture (Wb) - Anticubital Right No growth in 48 hours. Laboratory Tests Past 24 Hrs 08/20/18 08/22/18 08/22/18 04:20 10:25 10:25 WBC RBC Hgb Hct MCV MCH MCHC RDW RDW Differential Plt Count MPV Immature Gran % (Auto) Neut % (Auto) Lymph % (Auto) [place] % (Auto) Eos % (Auto) Baso % (Auto) Absolute Neuts (auto) Absolute Lymphs (auto) Total Counted Sodium Potassium Chloride Carbon Dioxide Anion Gap BUN Creatinine Estim Creat Clear Calc Est GFR (MDRD) Af Amer Est GFR (MDRD) Non-Af BUN/Creatinine Ratio Glucose Calcium Magnesium Ammonia Fluid Source OTHER Fluid Color YELLOW Fluid Appearance SL CLDY Fluid WBC 0.299 Fluid RBC 0.31589 Fluid Tot Cell Count 0.323 Fld Polynuclear WBCs # 0.042 Fld Polynuclear WBCs % 14.0 Fluid Mononuclear WBCs 0.257 Fld Mononuclear WBCs % 86.0 Fluid Neutrophils 15 Fluid Lymphocytes 57 Fluid Monocytes 10 Fluid Other Cells 18 Fl Pathologist Comment May follow Fluid Glucose 139 H Fluid Total Protein 2.8 Fluid LDH 113 Fluid Comment 2 SEE COMMENT Hepatitis A IgM Ab Negative Hep Bs Antigen Negative Hep B Core IgM Ab Negative Hepatitis C Ab (EIA) 0.1 08/22/18 08/23/18 08/23/18 10:45 04:20 04:20 WBC RBC Hgb Hct MCV MCH MCHC RDW RDW Differential Plt Count MPV Immature Gran % (Auto) Neut % (Auto) Lymph % (Auto) [place] % (Auto) Eos % (Auto) Baso % (Auto) Absolute Neuts (auto) Absolute Lymphs (auto) Total Counted Sodium 142 Potassium 4.2 Chloride 110 H Carbon Dioxide 25.0 Anion Gap 7 BUN 30 H Creatinine 1.03 Estim Creat Clear Calc 82.66 Est GFR (MDRD) Af Amer 94 Est GFR (MDRD) Non-Af 78 BUN/Creatinine Ratio 29.1 H Glucose 211 H Calcium 8.0 L Magnesium 2.8 H Ammonia 64.0 H 80.0 H Fluid Source Fluid Color Fluid Appearance Fluid WBC Fluid RBC Fluid Tot Cell Count Fld Polynuclear WBCs # Fld Polynuclear WBCs % Fluid Mononuclear WBCs Fld Mononuclear WBCs % Fluid Neutrophils Fluid Lymphocytes Fluid Monocytes Fluid Other Cells Fl Pathologist Comment Fluid Glucose Fluid Total Protein Fluid LDH Fluid Comment 2 Hepatitis A IgM Ab Hep Bs Antigen Hep B Core IgM Ab Hepatitis C Ab (EIA) 08/23/18 04:20 WBC 6.3 RBC 3.88 L Hgb 12.2 L Hct 36.3 L MCV 93.6 MCH 31.4 MCHC 33.6 RDW 17.9 H RDW Differential 58.5 H Plt Count 118 L MPV 8.8 Immature Gran % (Auto) 1.400 H Neut % (Auto) 66.3 Lymph % (Auto) 20.5 [place] % (Auto) 11.0 H Eos % (Auto) 0.5 Baso % (Auto) 0.3 Absolute Neuts (auto) 4.1 Absolute Lymphs (auto) 1.28 Total Counted Not Reportable Sodium Potassium Chloride Carbon Dioxide Anion Gap BUN Creatinine Estim Creat Clear Calc Est GFR (MDRD) Af Amer Est GFR (MDRD) Non-Af BUN/Creatinine Ratio Glucose Calcium Magnesium Ammonia Fluid Source Fluid Color Fluid Appearance Fluid WBC Fluid RBC Fluid Tot Cell Count Fld Polynuclear WBCs # Fld Polynuclear WBCs % Fluid Mononuclear WBCs Fld Mononuclear WBCs % Fluid Neutrophils Fluid Lymphocytes Fluid Monocytes Fluid Other Cells Fl Pathologist Comment Fluid Glucose Fluid Total Protein Fluid LDH Fluid Comment 2 Hepatitis A IgM Ab Hep Bs Antigen Hep B Core IgM Ab Hepatitis C Ab (EIA) POC Glucose 08/23/18 08/23/18 08/23/18 05:35 04:05 00:07 POC Glucose 159 H 187 H 183 H 08/22/18 08/22/18 08/19/18 18:04 12:21 19:58 POC Glucose 143 H 135 H 165 H 08/19/18 19:56 POC Glucose 80 Medical Necessity - Tobacco Use Smoking Status: Current every day smoker Tobacco Use: Cigarettes Route of nutrition/ use of supplements: [] Nutritional Intake: [] IV Site: [] Bass Catheter: [] - Assessment/Plan Antibiotics: [] Assessment/Plan: [] Active and Suspected Problems Hyponatremia (Acute) Decompensated hepatic cirrhosis (Acute) CAP (community acquired pneumonia) (Acute) Sepsis (Acute) septic shock with legionella, resp failure, ascites - cont levaquin. Paracentesis 08/22 neg for SBP. BP improved. Will stop zosyn. Will follow
[2018-08-23] MEDS: fentaNYL drip 100 ML 5 MCG CONT INF ×3 (10:19→23:27)
[2018-08-23] MEDS: Amiodarone 200 MG Tablet GT (10:21)
[2018-08-23] MEDS: levoFLOXacin IV 750 MG/150 ML BAG 100 MG IV (10:22)
[2018-08-23] MEDS: QUEtiapine 25 MG Tablet 50 MG PO ×2 (11:18→21:18)
[2018-08-23 11:31] LABS: Bedside Glucose 188 mg/dL (70-110)
[2018-08-23] MEDS: Acetaminophen 650 MG Suppository RECTAL (13:37)
[2018-08-23] MEDS: 0.9% NaCl Peripheral Flush Adult/Peds IV ×2 (14:17→21:20)
[2018-08-23 18:11] LABS: Bedside Glucose 162 mg/dL (70-110)
[2018-08-23] MEDS: Acetaminophen 650 MG/20 ML UDC GT (18:37)
[2018-08-23] MEDS: Vital AF 1.2 Cal Liquid 1,000 ML 20 ML GT (21:15)
[2018-08-23] MEDS: Glycerin/Hypromellose/PEG400 15 ml Bottle 2 DRP EACH EYE (23:34)
[2018-08-23 23:41] LABS: Bedside Glucose 185 mg/dL (70-110)
[2018-08-24] VITALS (43 sets, daily range): BP systolic 107–155; BP diastolic 68–105; PULSE 86–128; RESP 12–24; TEMP 36.6–38.5; O2SAT 91–100
[2018-08-24] MEDS: CHLORHEXIDINE GLUC 2% CLOTH 1 EACH TOWELETTE TOPICAL (05:58)
[2018-08-24] MEDS: Glycerin/Hypromellose/PEG400 15 ml Bottle 2 DRP EACH EYE (05:59)
[2018-08-24] MEDS: Simethicone 40MG/0.6ML Bottle 80 MG NG (05:59)
[2018-08-24] MEDS: Insulin Lispro 100 UNIT/ML INSULN.PEN SC (06:15)
[2018-08-24 06:20] LABS: Bedside Glucose 156 mg/dL (70-110)
[2018-08-24 06:36] LABS: Absolute Lymphocyte Count 0.94 X10^3/ul (0.83-4.51); Absolute Neutrophil Count 1.9 X10^3/uL (2.0-7.7); Basophil# 0.01 X10^3/uL; Basophil% 0.3 % (0-1); Eosinophil# 0.03 X10^3/uL; Eosinophils% 0.9 % (0-5); Hematocrit 34.2 % (40-54); Hemoglobin 11.1 g/dl (13.0-16.5); Lymphocyte # 0.94 X10^3/ul (4.0); Lymphocyte % 27.5 % (19-41); Mean Corp Hgb Conc 32.5 g/gl (32-36); Mean Corpuscular Hgb 30.9 pg (27.0-32.0); Mean Corpuscular Volume 95.3 fL (80-94); Mean Platelet Vol. 8.3 fl (6.2-12.0); Monocyte# 0.48 X10^3/uL; Neutrophil # 1.88 X10^3/uL (2.7-7.7); Platelet Count 80 K/mm3 (150-450); RBC Distribution Width CV 18.1 % (11.6-14.6); RBC Distribution Width SD 62.9 fl (35.1-43.9); Red Blood Count 3.59 M/mm3 (4.6-6.2); White Blood Count 3.4 K/mm3 (4.4-11.0)
[2018-08-24 06:39] LABS: POSITIVE COUNT YES; POSITIVE DIFFERENTIAL NO; POSITIVE MORPHOLOGY YES
[2018-08-24 06:46] LABS: Anion Gap 8 (5-15); BUN 29 mg/dL (7-18); Calcium,Total 8.3 mg/dL (8.5-10.1); Chloride 112 mmol/L (98-107); Creatinine, Serum 0.94 mg/dL (0.70-1.30); EST Glomerular Filtration Rate 87 mL/min (>60); Est Glom Filt Rate - Afr Amer 105 mL/min (>60); Estimated Creatinine Clearance 90.58 ml/min; Glucose 163 mg/dL (74-106); Potassium 4.2 mmol/L (3.5-5.1); Sodium Level 147 mmol/L (136-145)
[2018-08-24 06:50] LABS: Base Excess 1 mmol/L (-2 to +2); Bicarbonate 24.1 mmol/L (22-26); Blood Gas Specimen Type ART; FI02 30; Mode CPAP PS; O2 Delivery Device Vent; PEEP 5; PO2 74 mmHG (75-100); PS 5; SITE L Brachial; SO2 96 % (95-99); Time Given 645; Total Carbon Dioxide 25 mmol/L; pCO2 31.7 mmHg (35-45); pH 7.49 (7.35-7.45)
[2018-08-24 06:51] LABS: International Normalized Ratio 1.5; Prothrombin Time (Protime)PT. 17.7 SECONDS (11.7-14.9)
[2018-08-24 06:52] LABS: Partial Thromboplast Time 43.8 Seconds (24.1-36.2)
--- NOTE | 2018-08-24 07:09 | PCM.PN.INT ---
Subjective: Patient did okay overnight. Patient did have significant fever and pain cultures have been sent. Patient was able to pass a spontaneous breathing trial this morning and was successfully extubated under my direct supervision. Patient was tolerating tube feeds prior to spontaneous breathing trial. General: Confused, Disoriented, Non-Cooperative, - - Appears older than stated age. HEENT: Atraumatic, PERRLA, EOMI, Normocephalic, - - Scleral injection. Oral: Moist Mucosa, No Gingival or Mucosal Lesions/ Ulcerations Neck: Supple, No JVD, No Nodes, Trachea Midline, - - IJ does have some dried blood around it, but no surrounding erythema. Lungs: No wheeze, No rales, Diminished, Rhonchi Cardiovascular: Regular rate, Regular Rhythm, Normal S1, Normal S2, No murmurs, No rub noted, No Gallop Abdomen: Bowel Sounds Present, Soft, Non Tender, Non-Distended, Obese, - - Slight fluid wave noted. Extremities: No cyanosis, Capillary Refill Less than 3 Seconds, Clubbing, Edema Skin: - - Some areas of ecchymosis, but otherwise unchanged Musculoskeletal: No Tenderness to Palpation of Joints or Extremities Lymphatic: No Cervical, Supraclavicular, or Inguinal Adenopathy Neurological: Cranial nerves II-XII grossly intact, Neuro grossly intact, Motor Exam 5/5 strength throughout Psych/Mental Status: Flat Affect Vital Signs Temp Pulse Resp BP Pulse Ox 38.3 C H 89 17 126/88 H 97 08/24/18 04:00 08/24/18 07:00 08/24/18 07:00 08/24/18 07:00 08/24/18 07:00 Oxygen Flow Rate (L/min) 3 Oxygen Delivery Method Nasal Cannula Weight: 115.6 kg Body Mass Index (BMI) 34.3 Finger Stick Blood Glucose 126 Intake and Output for Last 24 Hours 08/22/18 08/23/18 08/24/18 23:59 23:59 23:59 Intake Total 4843.9 / 5938.6 5454.6 / 5454.6 729.4 / 729.4 Output Total 5070 / 5570 1900 / 1900 650 / 650 Balance -226.1 / 368.6 3554.6 / 3554.6 79.4 / 79.4 Labs (Last 48 Hours) 08/19/18 08/19/1808/20/19 19:56 19:58 04:20 WBC RBC Hgb Hct MCV MCH MCHC RDW RDW Differential Plt Count MPV Immature Gran % (Auto) Neut % (Auto) Lymph % (Auto) [place] % (Auto) Eos % (Auto) Baso % (Auto) Absolute Neuts (auto) Absolute Lymphs (auto) Total Counted Diff Path Review PT INR APTT Specimen Type Sample Site pH Bicarbonate Actual POC Total CO2 Base Excess O2 Saturation O2 % ABG pCO2 ABG pO2 O2 Delivery Device Vent Mode POC PEEP POC Pressure Suppt Blood Gas Notified Whom Blood Gas Notified Time Sodium Potassium Chloride Carbon Dioxide Anion Gap BUN Creatinine Estim Creat Clear Calc Est GFR (MDRD) Af Amer Est GFR (MDRD) Non-Af BUN/Creatinine Ratio Glucose Calcium Magnesium Total Bilirubin Direct Bilirubin AST ALT Alkaline Phosphatase Ammonia Total Protein Albumin Globulin Fluid Source Fluid Color Fluid Appearance Fluid WBC Fluid RBC Fluid Tot Cell Count Fld Polynuclear WBCs # Fld Polynuclear WBCs % Fluid Mononuclear WBCs Fld Mononuclear WBCs % Fluid Neutrophils Fluid Lymphocytes Fluid Monocytes Fluid Other Cells Fl Pathologist Comment Fluid Glucose Fluid Total Protein Fluid LDH Fluid Comment 2 Hepatitis A IgM Ab Negative Hep Bs Antigen Negative Hep B Core IgM Ab Negative Hepatitis C Ab (EIA) 0.1 POC Glucose 80 165 H 08/22/18 08/22/18 08/22/18 04:30 10:25 10:25 WBC RBC Hgb Hct MCV MCH MCHC RDW RDW Differential Plt Count MPV Immature Gran % (Auto) Neut % (Auto) Lymph % (Auto) [place] % (Auto) Eos % (Auto) Baso % (Auto) Absolute Neuts (auto) Absolute Lymphs (auto) Total Counted Diff Path Review PT INR APTT Specimen Type Sample Site pH Bicarbonate Actual POC Total CO2 Base Excess O2 Saturation O2 % ABG pCO2 ABG pO2 O2 Delivery Device Vent Mode POC PEEP POC Pressure Suppt Blood Gas Notified Whom Blood Gas Notified Time Sodium Potassium Chloride Carbon Dioxide Anion Gap BUN Creatinine Estim Creat Clear Calc Est GFR (MDRD) Af Amer Est GFR (MDRD) Non-Af BUN/Creatinine Ratio Glucose Calcium Magnesium Total Bilirubin 2.10 H Direct Bilirubin 1.47 H AST 183 H ALT 60 Alkaline Phosphatase 94 Ammonia Total Protein 6.9 Albumin 2.4 L Globulin 4.5 H Fluid Source OTHER Fluid Color YELLOW Fluid Appearance SL CLDY Fluid WBC 0.299 Fluid RBC 0.01101 Fluid Tot Cell Count 0.323 Fld Polynuclear WBCs # 0.042 Fld Polynuclear WBCs % 14.0 Fluid Mononuclear WBCs 0.257 Fld Mononuclear WBCs % 86.0 Fluid Neutrophils 15 Fluid Lymphocytes 57 Fluid Monocytes 10 Fluid Other Cells 18 Fl Pathologist Comment May follow Fluid Glucose 139 H Fluid Total Protein 2.8 Fluid LDH 113 Fluid Comment 2 SEE COMMENT Hepatitis A IgM Ab Hep Bs Antigen Hep B Core IgM Ab Hepatitis C Ab (EIA) POC Glucose 08/22/18 08/22/18 08/22/18 10:45 12:21 18:04 WBC RBC Hgb Hct MCV MCH MCHC RDW RDW Differential Plt Count MPV Immature Gran % (Auto) Neut % (Auto) Lymph % (Auto) [place] % (Auto) Eos % (Auto) Baso % (Auto) Absolute Neuts (auto) Absolute Lymphs (auto) Total Counted Diff Path Review PT INR APTT Specimen Type Sample Site pH Bicarbonate Actual POC Total CO2 Base Excess O2 Saturation O2 % ABG pCO2 ABG pO2 O2 Delivery Device Vent Mode POC PEEP POC Pressure Suppt Blood Gas Notified Whom Blood Gas Notified Time Sodium Potassium Chloride Carbon Dioxide Anion Gap BUN Creatinine Estim Creat Clear Calc Est GFR (MDRD) Af Amer Est GFR (MDRD) Non-Af BUN/Creatinine Ratio Glucose Calcium Magnesium Total Bilirubin Direct Bilirubin AST ALT Alkaline Phosphatase Ammonia 64.0 H Total Protein Albumin Globulin Fluid Source Fluid Color Fluid Appearance Fluid WBC Fluid RBC Fluid Tot Cell Count Fld Polynuclear WBCs # Fld Polynuclear WBCs % Fluid Mononuclear WBCs Fld Mononuclear WBCs % Fluid Neutrophils Fluid Lymphocytes Fluid Monocytes Fluid Other Cells Fl Pathologist Comment Fluid Glucose Fluid Total Protein Fluid LDH Fluid Comment 2 Hepatitis A IgM Ab Hep Bs Antigen Hep B Core IgM Ab Hepatitis C Ab (EIA) POC Glucose 135 H 143 H 08/23/18 08/23/18 08/23/18 00:07 04:05 04:20 WBC RBC Hgb Hct MCV MCH MCHC RDW RDW Differential Plt Count MPV Immature Gran % (Auto) Neut % (Auto) Lymph % (Auto) [place] % (Auto) Eos % (Auto) Baso % (Auto) Absolute Neuts (auto) Absolute Lymphs (auto) Total Counted Diff Path Review PT INR APTT Specimen Type Sample Site pH Bicarbonate Actual POC Total CO2 Base Excess O2 Saturation O2 % ABG pCO2 ABG pO2 O2 Delivery Device Vent Mode POC PEEP POC Pressure Suppt Blood Gas Notified Whom Blood Gas Notified Time Sodium 142 Potassium 4.2 Chloride 110 H Carbon Dioxide 25.0 Anion Gap 7 BUN 30 H Creatinine 1.03 Estim Creat Clear Calc 82.66 Est GFR (MDRD) Af Amer 94 Est GFR (MDRD) Non-Af 78 BUN/Creatinine Ratio 29.1 H Glucose 211 H Calcium 8.0 L Magnesium 2.8 H Total Bilirubin Direct Bilirubin AST ALT Alkaline Phosphatase Ammonia Total Protein Albumin Globulin Fluid Source Fluid Color Fluid Appearance Fluid WBC Fluid RBC Fluid Tot Cell Count Fld Polynuclear WBCs # Fld Polynuclear WBCs % Fluid Mononuclear WBCs Fld Mononuclear WBCs % Fluid Neutrophils Fluid Lymphocytes Fluid Monocytes Fluid Other Cells Fl Pathologist Comment Fluid Glucose Fluid Total Protein Fluid LDH Fluid Comment 2 Hepatitis A IgM Ab Hep Bs Antigen Hep B Core IgM Ab Hepatitis C Ab (EIA) POC Glucose 183 H 187 H 08/23/18 08/23/18 08/23/18 04:20 04:20 05:35 WBC 6.3 RBC 3.88 L Hgb 12.2 L Hct 36.3 L MCV 93.6 MCH 31.4 MCHC 33.6 RDW 17.9 H RDW Differential 58.5 H Plt Count 118 L MPV 8.8 Immature Gran % (Auto) 1.400 H Neut % (Auto) 66.3 Lymph % (Auto) 20.5 [place] % (Auto) 11.0 H Eos % (Auto) 0.5 Baso % (Auto) 0.3 Absolute Neuts (auto) 4.1 Absolute Lymphs (auto) 1.28 Total Counted Not Reportable Diff Path Review PT INR APTT Specimen Type Sample Site pH Bicarbonate Actual POC Total CO2 Base Excess O2 Saturation O2 % ABG pCO2 ABG pO2 O2 Delivery Device Vent Mode POC PEEP POC Pressure Suppt Blood Gas Notified Whom Blood Gas Notified Time Sodium Potassium Chloride Carbon Dioxide Anion Gap BUN Creatinine Estim Creat Clear Calc Est GFR (MDRD) Af Amer Est GFR (MDRD) Non-Af BUN/Creatinine Ratio Glucose Calcium Magnesium Total Bilirubin Direct Bilirubin AST ALT Alkaline Phosphatase Ammonia 80.0 H Total Protein Albumin Globulin Fluid Source Fluid Color Fluid Appearance Fluid WBC Fluid RBC Fluid Tot Cell Count Fld Polynuclear WBCs # Fld Polynuclear WBCs % Fluid Mononuclear WBCs Fld Mononuclear WBCs % Fluid Neutrophils Fluid Lymphocytes Fluid Monocytes Fluid Other Cells Fl Pathologist Comment Fluid Glucose Fluid Total Protein Fluid LDH Fluid Comment 2 Hepatitis A IgM Ab Hep Bs Antigen Hep B Core IgM Ab Hepatitis C Ab (EIA) POC Glucose 159 H 08/23/18 08/23/18 08/23/18 11:22 18:02 23:31 WBC RBC Hgb Hct MCV MCH MCHC RDW RDW Differential Plt Count MPV Immature Gran % (Auto) Neut % (Auto) Lymph % (Auto) [place] % (Auto) Eos % (Auto) Baso % (Auto) Absolute Neuts (auto) Absolute Lymphs (auto) Total Counted Diff Path Review PT INR APTT Specimen Type Sample Site pH Bicarbonate Actual POC Total CO2 Base Excess O2 Saturation O2 % ABG pCO2 ABG pO2 O2 Delivery Device Vent Mode POC PEEP POC Pressure Suppt Blood Gas Notified Whom Blood Gas Notified Time Sodium Potassium Chloride Carbon Dioxide Anion Gap BUN Creatinine Estim Creat Clear Calc Est GFR (MDRD) Af Amer Est GFR (MDRD) Non-Af BUN/Creatinine Ratio Glucose Calcium Magnesium Total Bilirubin Direct Bilirubin AST ALT Alkaline Phosphatase Ammonia Total Protein Albumin Globulin Fluid Source Fluid Color Fluid Appearance Fluid WBC Fluid RBC Fluid Tot Cell Count Fld Polynuclear WBCs # Fld Polynuclear WBCs % Fluid Mononuclear WBCs Fld Mononuclear WBCs % Fluid Neutrophils Fluid Lymphocytes Fluid Monocytes Fluid Other Cells Fl Pathologist Comment Fluid Glucose Fluid Total Protein Fluid LDH Fluid Comment 2 Hepatitis A IgM Ab Hep Bs Antigen Hep B Core IgM Ab Hepatitis C Ab (EIA) POC Glucose 188 H 162 H 185 H 08/24/18 08/24/18 08/24/18 06:05 06:05 06:05 WBC 3.4 L RBC 3.59 L Hgb 11.1 L Hct 34.2 L MCV 95.3 H MCH 30.9 MCHC 32.5 RDW 18.1 H RDW Differential 62.9 H Plt Count 80 L MPV 8.3 Immature Gran % (Auto) 2.300 H Neut % (Auto) 55.0 Lymph % (Auto) 27.5 [place] % (Auto) 14.0 H Eos % (Auto) 0.9 Baso % (Auto) 0.3 Absolute Neuts (auto) 1.9 L Absolute Lymphs (auto) 0.94 Total Counted Not Reportable Diff Path Review May foll PT INR APTT Specimen Type Sample Site pH Bicarbonate Actual POC Total CO2 Base Excess O2 Saturation O2 % ABG pCO2 ABG pO2 O2 Delivery Device Vent Mode POC PEEP POC Pressure Suppt Blood Gas Notified Whom Blood Gas Notified Time Sodium 147 H Potassium 4.2 Chloride 112 H Carbon Dioxide 27.0 Anion Gap 8 BUN 29 H Creatinine 0.94 Estim Creat Clear Calc 90.58 Est GFR (MDRD) Af Amer 105 Est GFR (MDRD) Non-Af 87 BUN/Creatinine Ratio 31.0 H Glucose 163 H Calcium 8.3 L Magnesium Total Bilirubin Direct Bilirubin AST ALT Alkaline Phosphatase Ammonia 51.0 H Total Protein Albumin Globulin Fluid Source Fluid Color Fluid Appearance Fluid WBC Fluid RBC Fluid Tot Cell Count Fld Polynuclear WBCs # Fld Polynuclear WBCs % Fluid Mononuclear WBCs Fld Mononuclear WBCs % Fluid Neutrophils Fluid Lymphocytes Fluid Monocytes Fluid Other Cells Fl Pathologist Comment Fluid Glucose Fluid Total Protein Fluid LDH Fluid Comment 2 Hepatitis A IgM Ab Hep Bs Antigen Hep B Core IgM Ab Hepatitis C Ab (EIA) POC Glucose 08/24/18 08/24/18 08/24/18 06:05 06:11 06:47 WBC RBC Hgb Hct MCV MCH MCHC RDW RDW Differential Plt Count MPV Immature Gran % (Auto) Neut % (Auto) Lymph % (Auto) [place] % (Auto) Eos % (Auto) Baso % (Auto) Absolute Neuts (auto) Absolute Lymphs (auto) Total Counted Diff Path Review PT 17.7 H INR 1.5 APTT 43.8 H Specimen Type ART Sample Site L Brachial pH 7.49 H Bicarbonate Actual 24.1 POC Total CO2 25 Base Excess 1 O2 Saturation 96 O2 % 30 ABG pCO2 31.7 L ABG pO2 74 L O2 Delivery Device Vent Vent Mode CPAP PS POC PEEP 5 POC Pressure Suppt 5 Blood Gas Notified Whom ICU MD Blood Gas Notified Time 645 Sodium Potassium Chloride Carbon Dioxide Anion Gap BUN Creatinine Estim Creat Clear Calc Est GFR (MDRD) Af Amer Est GFR (MDRD) Non-Af BUN/Creatinine Ratio Glucose Calcium Magnesium Total Bilirubin Direct Bilirubin AST ALT Alkaline Phosphatase Ammonia Total Protein Albumin Globulin Fluid Source Fluid Color Fluid Appearance Fluid WBC Fluid RBC Fluid Tot Cell Count Fld Polynuclear WBCs # Fld Polynuclear WBCs % Fluid Mononuclear WBCs Fld Mononuclear WBCs % Fluid Neutrophils Fluid Lymphocytes Fluid Monocytes Fluid Other Cells Fl Pathologist Comment Fluid Glucose Fluid Total Protein Fluid LDH Fluid Comment 2 Hepatitis A IgM Ab Hep Bs Antigen Hep B Core IgM Ab Hepatitis C Ab (EIA) POC Glucose 156 H Microbiology 08/18/18 14:51 Blood Culture (Wb) - Anticubital Right Blood Culture - Final No growth in 5 days. 08/18/18 14:22 Blood Culture (Wb) - Anticubital Left Blood Culture - Final No growth in 5 days. 08/22/18 10:25 Fluid - Paracentesis (Abd) Gram Stain - Final 08/22/18 10:25 Fluid - Paracentesis (Abd) Body Fluid Culture - Preliminary No growth-Final to follow Medical Necessity - Tobacco Use Smoking Status: Current every day smoker Tobacco Use: Cigarettes Assessment/Plan All Active Problems Hyponatremia (Acute) Decompensated hepatic cirrhosis (Acute) CAP (community acquired pneumonia) (Acute) Sepsis (Acute) Leukocytoclastic vasculitis (Acute) Atrial fibrillation with RVR (Acute) Heart failure with preserved ejection fraction, borderline, class II (Acute) Atrial fibrillation (Acute) RECOMMENDATIONS: 1. Antibiotics per infectious disease 2. Discontinue fentanyl and wean off Precedex 3. Increase lactulose and continue rifaximin 4. Bedside swallow evaluation 5. Continue PPI for GI prophylaxis. IMPRESSIONS: 1. Acute combined respiratory failure The patient developed progressive bilateral infiltrates on chest imaging, which culminated in the development of respiratory distress leading to emergent intubation. The patient was noted to have a positive Legionella antigen. Patient was able to pass a spontaneous breathing trial this morning. Patient is unable to follow commands at this time, but is on Precedex therapy. We will wean this off over the course of the day. Fentanyl will be discontinued. Patient will need a bedside swallow evaluation/possible speech therapy evaluation. 2. Septic shock secondary to presumptive Legionella pneumonia/possible SBP The patient is currently on Levaquin given his positive urine Legionella antigen. Infectious diseases following. Patient did have significant fever overnight, but no leukocytosis and hemodynamics have improved. Clinical suspicion for drug fever secondary to Precedex, but will defer to infectious disease on whether Zosyn can be removed. Repeat cultures are currently pending. 3. Metabolic encephalopathy Likely multifactorial in etiology and related to underlying infectious process and hyperammonemia. On fentanyl and Precedex therapy. Goal to maintain a RASS of -1 to 1. Given the patient's elevated ammonia level, lactulose and rifaximin will be continued. 4. Paroxysmal atrial fibrillation with RVR/troponin elevation Cardiology is following to assist with management. Suspect that the patient's troponin leak is secondary to demand ischemia in the setting of #2. 5. Acute kidney injury Resolved. Likely prerenal in etiology and related to the development of ATN in the setting of #2. Continue to monitor urine output. There is no current indication for renal replacement therapy. Likely discontinue Bass catheter tomorrow. 6. History of chronic alcohol, tobacco and cannabis dependency/anemia/thrombocytopenia/diabetes mellitus/chronic back pain Complicates care, management, recovery and prognosis. TIME: 37 minutes of critical care time, independent of procedures, was spent addressing the patient's acute combined respiratory failure, septic shock, metabolic encephalopathy, acute kidney injury, review of all data and collaboration with the care team. (5:50 AM to 7:12 AM) Code Visit [id number]: [id number] Critical care first hour
[2018-08-24] MEDS: Ipratropium/Albuterol Sulfate 3 ML AMPUL.NEB INHALATION ×4 (07:21→18:53)
--- NOTE | 2018-08-24 07:34 | PCM.PN.HOSP ---
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 Patient has fever, T-max 102.1 Fahrenheit. Blood pressure 126/88. Her heartbeat. Right IJ triple-lumen central line. Currently on Precedex drip. Patient is unconscious/mildly sedated on Precedex drip, not responding to verbal command. Vitals/I&O's: Vital Signs Temp Pulse Resp BP Pulse Ox 100.9 F H 128 H 23 H 126/88 H 96 08/24/18 04:00 08/24/18 07:21 08/24/18 07:21 08/24/18 07:00 08/24/18 07:21 Oxygen Flow Rate (L/min) 3 Oxygen Delivery Method Nasal Cannula Weight: 254 lb 13.67 oz Body Mass Index (BMI) 34.3 Finger Stick Blood Glucose 126 Intake and Output for Last 24 Hours 08/22/18 08/23/18 08/24/18 23:59 23:59 23:59 Intake Total 4843.9 / 5938.6 5454.6 / 5454.6 729.4 / 729.4 Output Total 5070 / 5570 1900 / 1900 650 / 650 Balance -226.1 / 368.6 3554.6 / 3554.6 79.4 / 79.4 General: - - Drowsy, lethargic, not responding to simple verbal command. HEENT: Atraumatic, PERRLA, EOMI, Normocephalic Neck: Supple, No JVD, Negative Carotid Bruits Lungs: Diminished - Air entry is diminished, - - On 3 L of oxygen teething. Cardiovascular: Normal S1, Normal S2, No murmurs, Irregular Rate Abdomen: Soft, Non Tender, Hypoactive Bowel Sounds, - - Ascites present Extremities: Capillary Refill Less than 3 Seconds, Edema Skin: No rashes, No breakdown Musculoskeletal: Arthritic Changes Neurological: Deep Tendon Reflexes 2+/4 and Symmetrical, - - GCS 10 Microbiology Past 72 Hours 08/18/18 14:51 Blood Culture (Wb) - Anticubital Right Blood Culture - Final No growth in 5 days. 08/18/18 14:22 Blood Culture (Wb) - Anticubital Left Blood Culture - Final No growth in 5 days. 08/22/18 10:25 Fluid - Paracentesis (Abd) Gram Stain - Final 08/22/18 10:25 Fluid - Paracentesis (Abd) Body Fluid Culture - Preliminary No growth-Final to follow 08/19/18 06:15 Sputum, Tracheal Aspirate Gram Stain - Final 08/19/18 06:15 Sputum, Tracheal Aspirate Respiratory Culture - Final Culture exhibits no growth. 08/18/18 13:11 Urine Catheter - Catheter Urine Culture - Final Culture exhibits no growth. 08/19/18 09:00 Blood Culture (Wb) - Central Line Blood Culture - Preliminary No growth in 48 hours. Laboratory Results 08/23/18 11:22: POC Glucose 188 H 08/23/18 18:02: POC Glucose 162 H 08/23/18 23:31: POC Glucose 185 H 08/24/18 06:05: WBC 3.4 L, RBC 3.59 L, Hgb 11.1 L, Hct 34.2 L, MCV 95.3 H, MCH 30.9, MCHC 32.5, RDW 18.1 H, RDW Differential 62.9 H, Plt Count 80 L, MPV 8.3, Immature Gran % (Auto) 2.300 H, Neut % (Auto) 55.0, Lymph % (Auto) 27.5, [place] % (Auto) 14.0 H, Eos % (Auto) 0.9, Baso % (Auto) 0.3, Absolute Neuts (auto) 1.9 L, Absolute Lymphs (auto) 0.94, Total Counted Not Reportable, Diff Path Review June08/24/18 06:05: Sodium 147 H, Potassium 4.2, Chloride 112 H, Carbon Dioxide 27.0, Anion Gap 8, BUN 29 H, Creatinine 0.94, Estim Creat Clear Calc 90.58, Est GFR (MDRD) Af Amer 105, Est GFR (MDRD) Non-Af 87, BUN/Creatinine Ratio 31.0 H, Glucose 163 H, Calcium 8.3 L 08/24/18 06:05: Ammonia 51.0 H 08/24/18 06:05: PT 17.7 H, INR 1.5, APTT 43.8 H 08/24/18 06:11: POC Glucose 156 H 08/24/18 06:47: Specimen Type ART, Sample Site L Brachial, pH 7.49 H, Bicarbonate Actual 24.1, POC Total CO2 25, Base Excess 1, O2 Saturation 96, O2 % 30, ABG pCO2 31.7 L, ABG pO2 74 L, O2 Delivery Device Vent, Vent Mode CPAP PS, POC PEEP 5, POC Pressure Suppt 5, Blood Gas Notified Whom ICU MD, Blood Gas Notified Time 645 Current Medications Acetaminophen (Tylenol Liquid) 650 mg GT Q4H PRN PRN PRN Reason: temp > 100.9 Last Admin: 08/23/18 18:37 Dose: 650 mg Documented by: Albuterol Sulfate (Ventolin Aerosols) 2.5 mg INHALATION Q2H PRN PRN PRN Reason: dyspnea, wheezing Last Admin: 08/22/18 18:50 Dose: 2.5 mg Documented by: Albuterol/Ipratropium (Duoneb) 3 ml INHALATION Q4H.RT [facility] Last Admin: 08/24/18 07:21 Dose: 3 ml Documented by: Amiodarone HCl (Cordarone) 200 mg GT DAILY [facility] Last Admin: 08/23/18 10:21 Dose: 200 mg Documented by: Chlorhexidine Gluconate () 15 ml PO BID [facility] Last Admin: 08/23/18 21:16 Dose: 15 ml Documented by: Chlorhexidine Gluconate () 1 each TOPICAL DAILY [facility] Last Admin: 08/24/18 05:58 Dose: 1 each Documented by: Dextrose (D50w Syringe) 0 gm IV X1 PRN; Protocol PRN Reason: Hypoglycemia Glucagon () 1 mg IM .X1 PRN PRN Reason: Hypoglycemia Hydralazine HCl (Apresoline Iv) 10 mg IV Q4H PRN PRN PRN Reason: SBP > 160 Fentanyl () 100 mls @ 5 mls/hr CONT INF .Q20H [facility] Last Admin: 08/23/18 23:27 Dose: 5 mls/hr Documented by: Enteral Nutritional Formula (Vital Af 1.2 Elder Liquid) 1,000 mls @ 20 mls/hr GT .Q48H [facility] Last Admin: 08/23/18 21:15 Dose: 20 mls/hr Documented by: Norepinephrine Bitartrate 8 mg (/ Sodium Chloride) 250 mls @ 9.375 mls/hr CONT INF .[id number] [facility] Last Admin: 08/23/18 09:52 Dose: Not Given Documented by: Dexmedetomidine HCl 1,000 mcg/ (Sodium Chloride) 250 mls @ 14.6 mls/hr CONT INF .Q17H8M [facility]; Protocol Last Admin: 08/23/18 23:28 Dose: 14.6 mls/hr Documented by: Levofloxacin (Levaquin Iv) 750 mg in 150 mls @ 100 mls/hr IV DAILY [facility] Last Admin: 08/23/18 10:22 Dose: 100 mls/hr Documented by: Insulin Human Lispro (Humalog Kwikpen (Bkc)) 0 unit SC Q6H [facility]; Protocol Last Admin: 08/24/18 06:15 Dose: 1 units Documented by: Lactulose (Chronulac, Cephulac) 10 gm PO BID [facility] Lansoprazole (Prevacid) 30 mg GT BID [facility] Last Admin: 08/23/18 21:19 Dose: 30 mg Documented by: Ondansetron HCl (Zofran) 4 mg IV Q8H PRN PRN PRN Reason: NAUSEA/VOMITING Quetiapine Fumarate (Seroquel) 50 mg PO BID [facility] Last Admin: 08/23/18 21:18 Dose: 50 mg Documented by: Rifaximin (Xifaxan) 200 mg PO TID [facility] Last Admin: 08/24/18 06:00 Dose: 200 mg Documented by: Simethicone (Mylicon) 80 mg NG Q6H [facility] Last Admin: 08/24/18 05:59 Dose: 80 mg Documented by: Sodium Chloride () 5 - 15 ml IV UD PRN PRN Reason: SALINE FLUSH Last Admin: 08/23/18 21:20 Dose: 10 ml Documented by: Medical Necessity - Tobacco Use Smoking Status: Current every day smoker Tobacco Use: Cigarettes Assessment/Plan All Active Problems Hyponatremia (Acute) Decompensated hepatic cirrhosis (Acute) CAP (community acquired pneumonia) (Acute) Sepsis (Acute) Leukocytoclastic vasculitis (Acute) Atrial fibrillation with RVR (Acute) Heart failure with preserved ejection fraction, borderline, class II (Acute) Atrial fibrillation (Acute) This is a 62-year-old male alcoholic admitted to the hospital with acute respiratory failure secondary to Legionella pneumonia. He Has gone through acute alcohol withdrawal. Atrial fibrillation with RVR has been controlled with amiodarone. Levophed discontinued on 08/23/2018 in the early a.m. Transition to Precedex on 08/22/2018 in preparation for weaning. Failed SBT today sp to agitation, tachycardia and hypoxic with increased RR. 1 Septic shock presumed secondary to Legionella pneumonia and possibly spontaneous bacterial peritonitis: ID on board. Patient still has. On IV Zosyn. Chest x-ray shows bilateral infiltrates- paracentesis not done until he had been on antibiotics for 5 days. On IV Levaquin Paracentesis fluid analysis shows total WBC 299, polymorphs 14%, mononuclear 86%. Fluid total protein 2.8, glucose 139. It seems less likely SBP. 2. Acute combined respiratory failure and required intubation: Patient extubated on 08/24. Currently on weaning trial of Precedex drip. Fentanyl was discontinued. 3. Acute encephalopathy probably metabolic/toxic/infectious suggestive of multifactorial: Patient has history of alcohol withdrawal, sepsis, elevated ammonia and cannabis use. 4. Chronic alcohol use, moderate ascites, hypoalbuminemia splenomegaly and thrombocytopenia suggestive of decompensated cirrhosis: CT scan liver reported normal normal but it has moderate ascites, moderate to splenomegaly but normal pancreas. 5. PAF with RVR - currently rate controlled 6. Troponin elevation-likely secondary to demand ischemia related to septic shock and acute respiratory failure with hypoxemia 7. Acute nonoliguric renal failure-suspect secondary to ATN, creat is improving 8. Diabetes mellitus type 2 - glucose are well controlled 9. Biventricular systolic heart failure: Echo 08/19 moderately dilated LV, EF 40 to 45% moderate global hypokinesis. Severely dilated RV. Right atrium severely enlarged. Moderate 2+ TR, RVSP 30 mmHg mild aortic stenosis a small right pleural effusion. 10. Multiple comorbidities including chronic alcohol abuse, cannabis use, chronic thrombocytopenia most probably secondary to alcoholic cirrhosis, chronic back pain with narcotic dependence, Will likely need SNF at [place] Discuss alcohol rehab with him when he is off the vent and appropriate Active Medications Acetaminophen (Tylenol Liquid) 650 mg GT Q4H PRN PRN PRN Reason: temp > 100.9 Last Admin: 08/23/18 18:37 Dose: 650 mg Documented by: Albuterol Sulfate (Ventolin Aerosols) 2.5 mg INHALATION Q2H PRN PRN PRN Reason: dyspnea, wheezing Last Admin: 08/22/18 18:50 Dose: 2.5 mg Documented by: Albuterol/Ipratropium (Duoneb) 3 ml INHALATION Q4H.RT [facility] Last Admin: 08/24/18 07:21 Dose: 3 ml Documented by: Amiodarone HCl (Cordarone) 200 mg GT DAILY [facility] Last Admin: 08/23/18 10:21 Dose: 200 mg Documented by: Chlorhexidine Gluconate () 15 ml PO BID [facility] Last Admin: 08/23/18 21:16 Dose: 15 ml Documented by: Chlorhexidine Gluconate () 1 each TOPICAL DAILY [facility] Last Admin: 08/24/18 05:58 Dose: 1 each Documented by: Dextrose (D50w Syringe) 0 gm IV X1 PRN; Protocol PRN Reason: Hypoglycemia Glucagon () 1 mg IM .X1 PRN PRN Reason: Hypoglycemia Hydralazine HCl (Apresoline Iv) 10 mg IV Q4H PRN PRN PRN Reason: SBP > 160 Fentanyl () 100 mls @ 5 mls/hr CONT INF .Q20H [facility] Last Admin: 08/23/18 23:27 Dose: 5 mls/hr Documented by: Enteral Nutritional Formula (Vital Af 1.2 Elder Liquid) 1,000 mls @ 20 mls/hr GT .Q48H [facility] Last Admin: 08/23/18 21:15 Dose: 20 mls/hr Documented by: Dexmedetomidine HCl 1,000 mcg/ (Sodium Chloride) 250 mls @ 14.6 mls/hr CONT INF .Q17H8M [facility]; Protocol Last Admin: 08/23/18 23:28 Dose: 14.6 mls/hr Documented by: Levofloxacin (Levaquin Iv) 750 mg in 150 mls @ 100 mls/hr IV DAILY [facility] Last Admin: 08/23/18 10:22 Dose: 100 mls/hr Documented by: Insulin Human Lispro (Humalog Kwikpen (Bkc)) 0 unit SC Q6H [facility]; Protocol Last Admin: 08/24/18 06:15 Dose: 1 units Documented by: Lactulose (Chronulac, Cephulac) 10 gm PO BID [facility] Lansoprazole (Prevacid) 30 mg GT BID [facility] Last Admin: 08/23/18 21:19 Dose: 30 mg Documented by: Ondansetron HCl (Zofran) 4 mg IV Q8H PRN PRN PRN Reason: NAUSEA/VOMITING Quetiapine Fumarate (Seroquel) 50 mg PO BID [facility] Last Admin: 08/23/18 21:18 Dose: 50 mg Documented by: Rifaximin (Xifaxan) 200 mg PO TID [facility] Last Admin: 08/24/18 06:00 Dose: 200 mg Documented by: Simethicone (Mylicon) 80 mg NG Q6H [facility] Last Admin: 08/24/18 05:59 Dose: 80 mg Documented by: Sodium Chloride () 5 - 15 ml IV UD PRN PRN Reason: SALINE FLUSH Last Admin: 08/23/18 21:20 Dose: 10 ml Documented by: Code Visit Inpatient E&M: 52755 Subs Hosp L3
--- NOTE | 2018-08-24 08:34 | PCM.PN.CARD ---
Subjectve: Patient seen and examined this morning. Patient extubated this morning. Patient minimally responsive to questions, mostly with grunts. I cannot be certain patient understands commands. Amiodarone drip stopped yesterday and switched to p.o. Patient unable to take p.o. until cleared by swallow study at this time. Heart rate increased in the 130s while extubation but currently in the 100s. QT corrected by EKG on 08/22/2018 was 470 ms. Objective: Vital Signs Temp Pulse Resp BP Pulse Ox 100.6 F H 94 20 H 140/82 H 93 08/24/18 08:00 08/24/18 08:00 08/24/18 08:00 08/24/18 08:00 08/24/18 08:00 Oxygen Flow Rate (L/min) 3 Oxygen Delivery Method Nasal Cannula Weight: 254 lb 13.67 oz Body Mass Index (BMI) 34.3 Finger Stick Blood Glucose 126 Intake and Output for Last 24 Hours 08/22/18 08/23/18 08/24/18 23:59 23:59 23:59 Intake Total 4843.9 / 5938.6 5454.6 / 5454.6 729.4 / 729.4 Output Total 5070 / 5570 1900 / 1900 650 / 650 Balance -226.1 / 368.6 3554.6 / 3554.6 79.4 / 79.4 General: Awake, Alert, Oriented x 3 HEENT: PERRL, EOMI, Sclera Non Icteric Neck: Supple, Good ROM, No Lymph Node Enlargement Lungs: Clear to auscultation Cardiovascular: Irregular Rhythm, Normal S1, Normal S2, No Murmurs, No Rubs, No Gallops Vascular: No Carotid Bruits, Normal Femoral Pulses, Normal Radial Pulses, Normal Dorsalis Pedal Pulse, Normal Posterior Tibial Pulses Abdomen: Bowel Sounds Present, Soft, Non Tender, No HSM, No Organomegaly Extremities: No Cyanosis, No Clubbing, No edema Neurological: No Focal Motor or Sensory Deficit 08/24/18 06:05: WBC 3.4 L, RBC 3.59 L, Hgb 11.1 L, Hct 34.2 L, MCV 95.3 H, MCH 30.9, MCHC 32.5, RDW 18.1 H, RDW Differential 62.9 H, Plt Count 80 L, MPV 8.3, Immature Gran % (Auto) 2.300 H, Neut % (Auto) 55.0, Lymph % (Auto) 27.5, [place] % (Auto) 14.0 H, Eos % (Auto) 0.9, Baso % (Auto) 0.3, Absolute Neuts (auto) 1.9 L, Total Counted Not Reportable 08/24/18 06:05: Sodium 147 H, Potassium 4.2, Chloride 112 H, Carbon Dioxide 27.0, Anion Gap 8, BUN 29 H, Creatinine 0.94, Est GFR (MDRD) Af Amer 105, Est GFR (MDRD) Non-Af 87, BUN/Creatinine Ratio 31.0 H, Glucose 163 H, Calcium 8.3 L 08/24/18 06:05: PT 17.7 H, INR 1.5, APTT 43.8 H 08/24/18 06:47: pH 7.49 H, Bicarbonate Actual 24.1, POC Total CO2 25, Base Excess 1, O2 Saturation 96, ABG pCO2 31.7 L, ABG pO2 74 L Rhythm: EKG: ECHO: Stress Test: Cardiac Cath: PCI: CT Surgery: Holter monitor: EPS: PPM: CXR: Chest CT Scan: Medical Necessity - Tobacco Use Smoking Status: Current every day smoker Tobacco Use: Cigarettes Assessment/Plan 1. Atrial fibrillation: I believe the patient's atrial fibrillation has been chronic and he has been on Xarelto therapy going forward. In addition he was auto anticoagulated due to his alcoholic cirrhosis and an INR 1.9, which has normalized. Despite this, the patient has had elevated troponins of 1.9. Currently INR is 1.5. As best I can tell he is never had a catheterization at least in our facility, and there are no family members to confirm this or deny this. At this point I would recommend holding his Xarelto therapy. His INR has normalized, in addition he may require a diagnostic coronary angiogram at some point in his care. He has been off his Xarelto since admission. He is not on heparin drip due to thrombocytopenia, which is actually improving now. We consider using bivalirudin in the short-term to bridge him until he can restart his Xarelto. Would recommend holding on restarting IV amiodarone at this time given his mildly prolonged QT corrected interval, as well as affect his heart rate is somewhat well controlled after extubation. If however his heart rate increases above 100, or he develops respiratory distress and have a low threshold to restart his IV amiodarone. If he is able to pass a swallow study, would recommend amiodarone 200 mg p.o. twice daily for 5 days followed by 200 mg a day. If the patient's respiratory status deteriorates to the point where he requires repeat intubation, I would have a low threshold for left heart catheterization to evaluate his coronary arteries given his troponin of 1.9 and deterioration of his respiratory status. 2. Non-STEMI: Patient had a mildly elevated troponin of 1.9 at its peak so far. Recommend keeping his heart rate less than 100 if possible. Patient has been successfully weaned off Levophed and blood pressure is maintaining MAP greater than 60. Patient is echocardiogram dated 08/19/2018 showed an EF around 45% with global hypokinesis, RVSP of 30 mmHg, and severe RV dilatation. Would recommend holding on Plavix at this time given his thrombocytopenia, bleeding issues on initial evaluation. Should he require intervention we can do so in a staged fashion in order to avoid unnecessary GI bleeding. 3. Hyperlipidemia: The patient apparently has alcoholic cirrhosis with associated ascites. Would hold off on statin at this time. 4. Thank you very much for the opportunity to participate in the cardiac care of your patient. Code Visit Inpatient E&M: 71184 Subs Hosp L2
[2018-08-24] MEDS: levoFLOXacin IV 750 MG/150 ML BAG 100 MG IV (11:29)
[2018-08-24] MEDS: 0.9% NaCl Peripheral Flush Adult/Peds IV ×2 (12:01→16:36)
--- NOTE | 2018-08-24 12:37 | PN.ID_ITS ---
Patient Problems: Active and Suspected Problems Hyponatremia (Acute) Decompensated hepatic cirrhosis (Acute) CAP (community acquired pneumonia) (Acute) Sepsis (Acute) Subjective: Extubated this AM. Still with fever. Unable to answer questions. - Physical Exam General: Non-Cooperative Lungs: Rhonchi Cardiovascular: Tachycardic Abdomen: Soft, Non Tender, Non-Distended Skin: No rashes Vital Signs Temp Pulse Resp BP Pulse Ox 100.1 F H 112 H 20 H 123/73 H 94 08/24/18 09:00 08/24/18 10:00 08/24/18 10:00 08/24/18 10:00 08/24/18 10:00 Oxygen Flow Rate (L/min) 3 Oxygen Delivery Method Nasal Cannula Weight: 115.6 kg Body Mass Index (BMI) 34.3 Finger Stick Blood Glucose 126 Intake and Output for Last 24 Hours 08/22/18 08/23/18 08/24/18 23:59 23:59 23:59 Intake Total 4843.9 / 5938.6 5454.6 / 5454.6 729.4 / 729.4 Output Total 5070 / 5570 1900 / 1900 650 / 650 Balance -226.1 / 368.6 3554.6 / 3554.6 79.4 / 79.4 Microbiology Past 72 Hours 08/23/18 13:54 Urine Culture - Preliminary Urine Catheter - Bass Culture exhibits no growth. 08/23/18 15:00 Gram Stain - Final Sputum, Induced/[place] 08/19/18 09:00 Blood Culture - Final Blood Culture (Wb) - Central Line No growth in 5 days. 08/22/18 10:25 Gram Stain - Final Fluid - Paracentesis (Abd) Body Fluid Culture - Preliminary No growth-Final to follow 08/18/18 14:51 Blood Culture - Final Blood Culture (Wb) - Anticubital Right No growth in 5 days. 08/18/18 14:22 Blood Culture - Final Blood Culture (Wb) - Anticubital Left No growth in 5 days. 08/19/18 06:15 Gram Stain - Final Sputum, Tracheal Aspirate Respiratory Culture - Final Culture exhibits no growth. 08/18/18 13:11 Urine Culture - Final Urine Catheter - Catheter Culture exhibits no growth. Laboratory Tests Past 24 Hrs 08/24/18 08/24/18 08/24/18 06:05 06:05 06:05 WBC 3.4 L RBC 3.59 L Hgb 11.1 L Hct 34.2 L MCV 95.3 H MCH 30.9 MCHC 32.5 RDW 18.1 H RDW Differential 62.9 H Plt Count 80 L MPV 8.3 Immature Gran % (Auto) 2.300 H Neut % (Auto) 55.0 Lymph % (Auto) 27.5 [place] % (Auto) 14.0 H Eos % (Auto) 0.9 Baso % (Auto) 0.3 Absolute Neuts (auto) 1.9 L Absolute Lymphs (auto) 0.94 Total Counted Not Reportable Diff Path Review May foll PT INR APTT Specimen Type Sample Site pH Bicarbonate Actual POC Total CO2 Base Excess O2 Saturation O2 % ABG pCO2 ABG pO2 O2 Delivery Device Vent Mode POC PEEP POC Pressure Suppt Blood Gas Notified Whom Blood Gas Notified Time Sodium 147 H Potassium 4.2 Chloride 112 H Carbon Dioxide 27.0 Anion Gap 8 BUN 29 H Creatinine 0.94 Estim Creat Clear Calc 90.58 Est GFR (MDRD) Af Amer 105 Est GFR (MDRD) Non-Af 87 BUN/Creatinine Ratio 31.0 H Glucose 163 H Calcium 8.3 L Ammonia 51.0 H 08/24/18 08/24/18 06:05 06:47 WBC RBC Hgb Hct MCV MCH MCHC RDW RDW Differential Plt Count MPV Immature Gran % (Auto) Neut % (Auto) Lymph % (Auto) [place] % (Auto) Eos % (Auto) Baso % (Auto) Absolute Neuts (auto) Absolute Lymphs (auto) Total Counted Diff Path Review PT 17.7 H INR 1.5 APTT 43.8 H Specimen Type ART Sample Site L Brachial pH 7.49 H Bicarbonate Actual 24.1 POC Total CO2 25 Base Excess 1 O2 Saturation 96 O2 % 30 ABG pCO2 31.7 L ABG pO2 74 L O2 Delivery Device Vent Vent Mode CPAP PS POC PEEP 5 POC Pressure Suppt 5 Blood Gas Notified Whom ICU MD Blood Gas Notified Time 645 Sodium Potassium Chloride Carbon Dioxide Anion Gap BUN Creatinine Estim Creat Clear Calc Est GFR (MDRD) Af Amer Est GFR (MDRD) Non-Af BUN/Creatinine Ratio Glucose Calcium Ammonia POC Glucose 08/24/18 08/23/18 08/23/18 06:11 23:31 18:02 POC Glucose 156 H 185 H 162 H Medical Necessity - Tobacco Use Smoking Status: Current every day smoker Tobacco Use: Cigarettes Route of nutrition/ use of supplements: [] Nutritional Intake: [] IV Site: [] Bass Catheter: [] - Assessment/Plan Antibiotics: [] Assessment/Plan: [] Active and Suspected Problems Hyponatremia (Acute) Decompensated hepatic cirrhosis (Acute) CAP (community acquired pneumonia) (Acute) Sepsis (Acute) septic shock with legionella, resp failure, ascites - cont levaquin. Paracentesis 08/22 neg for SBP. BP improved. Stopped zosyn 08/23, still with fever. Now off vent. Repeat cxs pending. Will follow
--- NOTE | 2018-08-24 13:06 | CHAPLAIN ---
Type of Pastoral Visit ___ Initial Visit _x__ Follow-up Visit ___ On-call Visit ___ General Patient Visit ___ Spiritual Assessment ___ Family Conference ___ Bereavement ___ Rapid Response ___ Code Blue ___ Other (describe below) Pastoral Care Referral From ___ Patient ___ Family _x__ Nurse ___ Physician ___ Laminating Machine Feeder ___ Product Lister ___ Other (describe below) Sacrament/Intervention ___ Active listening ___ Anointing ___ Baptist ___ Bereavement ___ Communion ___ Ana exploration ___ ___ Life review _x__ Prayer ___ Reconciliation ___ Sacrament of Sick _x__ Supportive presence ___ Wedding ___ Other (describe below) Pastoral Comments patient is unfocused but active with movement in bed; spoke softly and directly to patient; prayer offered; presence given
[2018-08-24 14:15] LABS: Pathologist Comment/Body Fluid Reviewed
--- NOTE | 2018-08-24 19:38 | CPS ---
tried to set up pt own cpap machine -mask is broken and no plug to wall.
--- NOTE | 2018-08-24 22:09 | CPS ---
pt placed on auto pap with 2 l/m bleed-[place] [facility]
[2018-08-25] VITALS (24 sets, daily range): BP systolic 112–152; BP diastolic 67–103; PULSE 94–118; RESP 12–22; TEMP 36.4–37.1; O2SAT 91–100
--- NOTE | 2018-08-25 01:24 | CPS ---
PT PLACED ON AUTO PAP WITH 2 L/M BLEED-[place] [facility]
[2018-08-25] MEDS: CHLORHEXIDINE GLUC 2% CLOTH 1 EACH TOWELETTE TOPICAL (03:53)
[2018-08-25 04:28] LABS: Hematocrit 33.8 % (40-54); Hemoglobin 11.2 g/dl (13.0-16.5); Mean Corp Hgb Conc 33.1 g/gl (32-36); Mean Corpuscular Hgb 31.3 pg (27.0-32.0); Mean Corpuscular Volume 94.4 fL (80-94); Mean Platelet Vol. 7.8 fl (6.2-12.0); Platelet Count 98 K/mm3 (150-450); RBC Distribution Width CV 18.1 % (11.6-14.6); Red Blood Count 3.58 M/mm3 (4.6-6.2); White Blood Count 3.3 K/mm3 (4.4-11.0)
[2018-08-25 04:36] LABS: Anion Gap 7 (5-15); BUN 23 mg/dL (7-18); BUN/Creat Ratio 29.9 RATIO (10-20); Calcium,Total 8.4 mg/dL (8.5-10.1); Chloride 114 mmol/L (98-107); Creatinine, Serum 0.77 mg/dL (0.70-1.30); EST Glomerular Filtration Rate 109 mL/min (>60); Est Glom Filt Rate - Afr Amer 132 mL/min (>60); Estimated Creatinine Clearance 110.58 ml/min; Glucose 137 mg/dL (74-106); Magnesium 2.4 mg/dL (1.6-2.6); Phosphorus 2.7 mg/dL (2.5-4.9); Potassium 3.6 mmol/L (3.5-5.1); Sodium Level 149 mmol/L (136-145)
[2018-08-25 04:44] LABS: Differential Indicated MANUAL DIFF; POSITIVE COUNT YES; POSITIVE DIFFERENTIAL NO; POSITIVE MORPHOLOGY YES
[2018-08-25 05:07] LABS: Eosinophil 1 % (0-5); Lymphocyte 19 % (19-41); Monocyte 8 % (0-10); Neutrophil-Segmented 71 % (47-70); Plasma Cell 1 %; Platelet Estimate SLT DEC (ADEQ); Red Cell Morphology NORM C+C NORMAL (NORM C&C); Total Cells Counted 100 (MANUAL DIFF)
[2018-08-25 05:08] LABS: Absolute Lymphocyte Count 0.63 X10^3/ul (0.83-4.51); Absolute Neutrophil Count 2.4 X10^3/uL (2.0-7.7); Lymphocyte # 0.63 X10^3/ul (4.0); Neutrophil # 2.36 X10^3/uL (2.7-7.7)
[2018-08-25] MEDS: Ipratropium/Albuterol Sulfate 3 ML AMPUL.NEB INHALATION ×3 (06:42→19:23)
--- NOTE | 2018-08-25 07:20 | PN_ITS ---
Subjective: Patient did well overnight. Patient has been more vocal and appropriate since extubation. Patient was actually able to tolerate sips and chips overnight. Patient does remain confused to everything but himself. Patient is on amiodarone drip with improved heart rates overnight. No fever has been reported. Patient reports thirst, but is denying pain on my evaluation. No bleeding has been reported. General: Alert, No apparent distress, Confused, Disoriented, - - Obese. No conversational dyspnea. HEENT: Atraumatic, PERRLA, EOMI, Normocephalic, - - Scleral injection without icterus Oral: Moist Mucosa, - - Poor dentition Neck: Supple, No JVD, No Nodes, Trachea Midline Lungs: Diminished, Rhonchi, Wheezes - Sporadic, but improved with coughing Cardiovascular: Normal S1, Normal S2, No murmurs, Irregular Rate, No rub noted, No Gallop, Tachycardic Abdomen: Bowel Sounds Present, Soft, Non Tender, Non-Distended, Obese Extremities: No cyanosis, Clubbing, Edema Skin: - - No significant change compared to previous Musculoskeletal: No Tenderness to Palpation of Joints or Extremities, No Muscle Wasting Lymphatic: No Cervical, Supraclavicular, or Inguinal Adenopathy Neurological: Cranial nerves II-XII grossly intact, Neuro grossly intact, Motor Exam 5/5 strength throughout Psych/Mental Status: Anxious, Impulsive, Restless Vital Signs Temp Pulse Resp BP Pulse Ox 36.7 C 105 H 12 141/94 H 98 08/25/18 06:00 08/25/18 06:00 08/25/18 06:00 08/25/18 06:00 08/25/18 06:00 Oxygen Flow Rate (L/min) 2 Oxygen Delivery Method Nasal Cannula Weight: 111 kg Body Mass Index (BMI) 34.3 Finger Stick Blood Glucose 126 Intake and Output for Last 24 Hours 08/23/18 08/24/18 08/25/18 23:59 23:59 23:59 Intake Total 5454.6 / 5454.6 1167.4 / 1287.4 421.4 / 421.4 Output Total 1900 / 1900 1750 / 2100 575 / 575 Balance 3554.6 / 3554.6 -582.6 / -812.6 -153.6 / -153.6 Labs (Last 48 Hours) 08/22/18 08/23/18 08/23/18 10:25 11:22 18:02 WBC RBC Hgb Hct MCV MCH MCHC RDW RDW Differential Plt Count MPV Immature Gran % (Auto) Neut % (Auto) Lymph % (Auto) [place] % (Auto) Eos % (Auto) Baso % (Auto) Absolute Neuts (auto) Absolute Lymphs (auto) Total Counted Neutrophils % (Manual) Lymphocytes % (Manual) Monocytes % (Manual) Eosinophils % (Manual) Plasma Cell % (Manual) Diff Path Review Platelet Estimate RBC Morphology PT INR APTT Specimen Type Sample Site pH Bicarbonate Actual POC Total CO2 Base Excess O2 Saturation O2 % ABG pCO2 ABG pO2 O2 Delivery Device Vent Mode POC PEEP POC Pressure Suppt Blood Gas Notified Whom Blood Gas Notified Time Sodium Potassium Chloride Carbon Dioxide Anion Gap BUN Creatinine Estim Creat Clear Calc Est GFR (MDRD) Af Amer Est GFR (MDRD) Non-Af BUN/Creatinine Ratio Glucose Calcium Phosphorus Magnesium Ammonia Fl Pathologist Comment Reviewed POC Glucose 188 H 162 H 08/23/18 08/24/18 08/24/18 23:31 06:05 06:05 WBC 3.4 L RBC 3.59 L Hgb 11.1 L Hct 34.2 L MCV 95.3 H MCH 30.9 MCHC 32.5 RDW 18.1 H RDW Differential 62.9 H Plt Count 80 L MPV 8.3 Immature Gran % (Auto) 2.300 H Neut % (Auto) 55.0 Lymph % (Auto) 27.5 [place] % (Auto) 14.0 H Eos % (Auto) 0.9 Baso % (Auto) 0.3 Absolute Neuts (auto) 1.9 L Absolute Lymphs (auto) 0.94 Total Counted Not Reportable Neutrophils % (Manual) Lymphocytes % (Manual) Monocytes % (Manual) Eosinophils % (Manual) Plasma Cell % (Manual) Diff Path Review May foll Platelet Estimate RBC Morphology PT INR APTT Specimen Type Sample Site pH Bicarbonate Actual POC Total CO2 Base Excess O2 Saturation O2 % ABG pCO2 ABG pO2 O2 Delivery Device Vent Mode POC PEEP POC Pressure Suppt Blood Gas Notified Whom Blood Gas Notified Time Sodium 147 H Potassium 4.2 Chloride 112 H Carbon Dioxide 27.0 Anion Gap 8 BUN 29 H Creatinine 0.94 Estim Creat Clear Calc 90.58 Est GFR (MDRD) Af Amer 105 Est GFR (MDRD) Non-Af 87 BUN/Creatinine Ratio 31.0 H Glucose 163 H Calcium 8.3 L Phosphorus Magnesium Ammonia Fl Pathologist Comment POC Glucose 185 H 08/24/18 08/24/18 08/24/18 06:05 06:05 06:11 WBC RBC Hgb Hct MCV MCH MCHC RDW RDW Differential Plt Count MPV Immature Gran % (Auto) Neut % (Auto) Lymph % (Auto) [place] % (Auto) Eos % (Auto) Baso % (Auto) Absolute Neuts (auto) Absolute Lymphs (auto) Total Counted Neutrophils % (Manual) Lymphocytes % (Manual) Monocytes % (Manual) Eosinophils % (Manual) Plasma Cell % (Manual) Diff Path Review Platelet Estimate RBC Morphology PT 17.7 H INR 1.5 APTT 43.8 H Specimen Type Sample Site pH Bicarbonate Actual POC Total CO2 Base Excess O2 Saturation O2 % ABG pCO2 ABG pO2 O2 Delivery Device Vent Mode POC PEEP POC Pressure Suppt Blood Gas Notified Whom Blood Gas Notified Time Sodium Potassium Chloride Carbon Dioxide Anion Gap BUN Creatinine Estim Creat Clear Calc Est GFR (MDRD) Af Amer Est GFR (MDRD) Non-Af BUN/Creatinine Ratio Glucose Calcium Phosphorus Magnesium Ammonia 51.0 H Fl Pathologist Comment POC Glucose 156 H 08/24/18 08/25/18 08/25/18 06:47 04:10 04:10 WBC 3.3 L RBC 3.58 L Hgb 11.2 L Hct 33.8 L MCV 94.4 H MCH 31.3 MCHC 33.1 RDW 18.1 H RDW Differential 59.0 H Plt Count 98 L MPV 7.8 Immature Gran % (Auto) DENTAL SURGERY DOCTOR Neut % (Auto) DENTAL SURGERY DOCTOR Lymph % (Auto) DENTAL SURGERY DOCTOR [place] % (Auto) DENTAL SURGERY DOCTOR Eos % (Auto) DENTAL SURGERY DOCTOR Baso % (Auto) DENTAL SURGERY DOCTOR Absolute Neuts (auto) 2.4 Absolute Lymphs (auto) 0.63 L Total Counted 100 Neutrophils % (Manual) 71 H Lymphocytes % (Manual) 19 Monocytes % (Manual) 8 Eosinophils % (Manual) 1 Plasma Cell % (Manual) 1 Diff Path Review May foll Platelet Estimate SLT DEC RBC Morphology NORM C+C PT INR APTT Specimen Type ART Sample Site L Brachial pH 7.49 H Bicarbonate Actual 24.1 POC Total CO2 25 Base Excess 1 O2 Saturation 96 O2 % 30 ABG pCO2 31.7 L ABG pO2 74 L O2 Delivery Device Vent Vent Mode CPAP PS POC PEEP 5 POC Pressure Suppt 5 Blood Gas Notified Whom ICU MD Blood Gas Notified Time 645 Sodium 149 H Potassium 3.6 Chloride 114 H Carbon Dioxide 28.0 Anion Gap 7 BUN 23 H Creatinine 0.77 Estim Creat Clear Calc 110.58 Est GFR (MDRD) Af Amer 132 Est GFR (MDRD) Non-Af 109 BUN/Creatinine Ratio 29.9 H Glucose 137 H Calcium 8.4 L Phosphorus 2.7 Magnesium 2.4 Ammonia Fl Pathologist Comment POC Glucose Microbiology 08/23/18 13:54 Urine Catheter - Bass Urine Culture - Preliminary Culture exhibits no growth. 08/23/18 15:00 Sputum, Induced/Lukens Gram Stain - Final 08/19/18 09:00 Blood Culture (Wb) - Central Line Blood Culture - Final No growth in 5 days. 08/22/18 10:25 Fluid - Paracentesis (Abd) Gram Stain - Final 08/22/18 10:25 Fluid - Paracentesis (Abd) Body Fluid Culture - Preliminary No growth-Final to follow 08/18/18 14:51 Blood Culture (Wb) - Anticubital Right Blood Culture - Final No growth in 5 days. 08/18/18 14:22 Blood Culture (Wb) - Anticubital Left Blood Culture - Final No growth in 5 days. Medical Necessity - Tobacco Use Smoking Status: Current every day smoker Tobacco Use: Cigarettes Assessment/Plan All Active Problems Hyponatremia (Acute) Decompensated hepatic cirrhosis (Acute) CAP (community acquired pneumonia) (Acute) Sepsis (Acute) Leukocytoclastic vasculitis (Acute) Atrial fibrillation with RVR (Acute) Heart failure with preserved ejection fraction, borderline, class II (Acute) Atrial fibrillation (Acute) RECOMMENDATIONS: 1. Antibiotics per infectious disease 2. Perform bedside swallow evaluation 3. Increase lactulose and continue rifaximin 4. Increase activity as tolerated 5. Continue PPI for GI prophylaxis. IMPRESSIONS: 1. Acute combined respiratory failure The patient developed progressive bilateral infiltrates on chest imaging, which culminated in the development of respiratory distress leading to emergent intubation. The patient was noted to have a positive Legionella antigen. Patient has been doing well since liberation from the ventilator. Continue to wean oxygen as tolerated. Aggressive pulmonary toileting. Antibiotics cessation per infectious disease. 2. Septic shock secondary to presumptive Legionella pneumonia/possible SBP The patient is currently on Levaquin given his positive urine Legionella antigen. Infectious diseases following. Patient had no significant fever overnight, indicating probable drug fever from Precedex. Repeat cultures are currently pending. 3. Metabolic encephalopathy Likely multifactorial in etiology and related to underlying infectious process and hyperammonemia. Patient is still on Seroquel therapy. Given the patient's elevated ammonia level, lactulose and rifaximin will be continued as soon as patient passes swallow eval. 4. Paroxysmal atrial fibrillation with RVR/troponin elevation Cardiology is following to assist with management. Suspect that the patient's troponin leak is secondary to demand ischemia in the setting of #2. Patient's rate control is improved on amiodarone. Potential transition to p.o. medications later today 5. Acute kidney injury Resolved. Likely prerenal in etiology and related to the development of ATN in the setting of #2. Continue to monitor urine output. There is no curr ent indication for renal replacement therapy. 6. History of chronic alcohol, tobacco and cannabis dependency/anemia/thrombocytopenia/diabetes mellitus/chronic back pain Complicates care, management, recovery and prognosis. Blood sugars have been relatively controlled on BMP. No bleeding has been reported, so platelet transfusion is not indicated. Code Visit Inpatient E&M: 45398 Subs Hosp L3
[2018-08-25] MEDS: Amiodarone 200 MG Tablet PO ×2 (08:24→22:50)
--- NOTE | 2018-08-25 08:34 | PCM.PN.HOSP ---
Patient Problems: Active and Suspected Problems Hyponatremia (Acute) Decompensated hepatic cirrhosis (Acute) CAP (community acquired pneumonia) (Acute) Sepsis (Acute) Subjective: Patient is confused and more verbal although not comprehensive, seems in delirium. Currently on amiodarone drip plan is to change to oral. Heart rate is improved. No fever since yesterday evening Vitals/I&O's: Vital Signs Temp Pulse Resp BP Pulse Ox 98.1 F 105 H 12 141/94 H 98 08/25/18 06:00 08/25/18 06:00 08/25/18 06:00 08/25/18 06:00 08/25/18 06:00 Oxygen Flow Rate (L/min) 2 Oxygen Delivery Method Nasal Cannula Weight: 244 lb 11.41 oz Body Mass Index (BMI) 34.3 Finger Stick Blood Glucose 126 Intake and Output for Last 24 Hours 08/23/18 08/24/18 08/25/18 23:59 23:59 23:59 Intake Total 5454.6 / 5454.6 1167.4 / 1287.4 421.4 / 421.4 Output Total 1900 / 1900 1750 / 2100 575 / 575 Balance 3554.6 / 3554.6 -582.6 / -812.6 -153.6 / -153.6 General: Confused, Disoriented, Lethargic HEENT: Atraumatic, PERRLA, EOMI, Normocephalic Oral: Dry Mucosa Neck: Supple, No JVD, Negative Carotid Bruits, - - Right IJ central line Lungs: No rhonchi, No wheeze, No rales, Diminished - Air entry is diminished Cardiovascular: Normal S1, Normal S2, No murmurs, Irregular Rate, Tachycardic Abdomen: Bowel Sounds Present, Soft, Non Tender, Non-Distended Extremities: No edema, Capillary Refill Less than 3 Seconds Skin: No rashes, No breakdown Musculoskeletal: Arthritic Changes Lymphatic: No Cervical, Supraclavicular, or Inguinal Adenopathy Neurological: Cranial nerves II-XII grossly intact, Deep Tendon Reflexes 2+/4 and Symmetrical, Neuro grossly intact Psych/Mental Status: Agitated, Anxious Microbiology Past 72 Hours 08/23/18 13:54 Urine Catheter - Bass Urine Culture - Preliminary Culture exhibits no growth. 08/23/18 15:00 Sputum, Induced/Lukens Gram Stain - Final 08/19/18 09:00 Blood Culture (Wb) - Central Line Blood Culture - Final No growth in 5 days. 08/22/18 10:25 Fluid - Paracentesis (Abd) Gram Stain - Final 08/22/18 10:25 Fluid - Paracentesis (Abd) Body Fluid Culture - Preliminary No growth-Final to follow 08/18/18 14:51 Blood Culture (Wb) - Anticubital Right Blood Culture - Final No growth in 5 days. 08/18/18 14:22 Blood Culture (Wb) - Anticubital Left Blood Culture - Final No growth in 5 days. Laboratory Results 08/22/18 10:25: Fl Pathologist Comment Reviewed 08/25/18 04:10: WBC 3.3 L, RBC 3.58 L, Hgb 11.2 L, Hct 33.8 L, MCV 94.4 H, MCH 31.3, MCHC 33.1, RDW 18.1 H, RDW Differential 59.0 H, Plt Count 98 L, MPV 7.8, Immature Gran % (Auto) FLATBED STITCHER, Neut % (Auto) FLATBED STITCHER, Lymph % (Auto) FLATBED STITCHER, [place] % (Auto) FLATBED STITCHER, Eos % (Auto) FLATBED STITCHER, Baso % (Auto) FLATBED STITCHER, Absolute Neuts (auto) 2.4, Absolute Lymphs (auto) 0.63 L, Total Counted 100, Neutrophils % (Manual) 71 H, Lymphocytes % (Manual) 19, Monocytes % (Manual) 8, Eosinophils % (Manual) 1, Plasma Cell % (Manual) 1, Diff Path Review June, Platelet Estimate SLT DEC, RBC Morphology NORM C+C 08/25/18 04:10: Sodium 149 H, Potassium 3.6, Chloride 114 H, Carbon Dioxide 28.0, Anion Gap 7, BUN 23 H, Creatinine 0.77, Estim Creat Clear Calc 110.58, Est GFR (MDRD) Af Amer 132, Est GFR (MDRD) Non-Af 109, BUN/Creatinine Ratio 29.9 H, Glucose 137 H, Calcium 8.4 L, Phosphorus 2.7, Magnesium 2.4 Current Medications Albuterol Sulfate (Ventolin Aerosols) 2.5 mg INHALATION Q2H PRN PRN PRN Reason: dyspnea, wheezing Last Admin: 08/22/18 18:50 Dose: 2.5 mg Documented by: Albuterol/Ipratropium (Duoneb) 3 ml INHALATION Q6HWA.RT RONAN Amiodarone HCl (Cordarone) 200 mg PO BID [facility] Last Admin: 08/25/18 08:24 Dose: 200 mg Documented by: Chlorhexidine Gluconate () 1 each TOPICAL DAILY [facility] Last Admin: 08/25/18 03:53 Dose: 1 each Documented by: Dextrose (D50w Syringe) 0 gm IV X1 PRN; Protocol PRN Reason: Hypoglycemia Glucagon () 1 mg IM .X1 PRN PRN Reason: Hypoglycemia Hydralazine HCl (Apresoline Iv) 10 mg IV Q4H PRN PRN PRN Reason: SBP > 160 Levofloxacin (Levaquin Iv) 750 mg in 150 mls @ 100 mls/hr IV DAILY [facility] [place] Last Admin: 08/24/18 11:29 Dose: 100 mls/hr Documented by: Lactulose (Chronulac, Cephulac) 10 gm PO BID [facility] Ondansetron HCl (Zofran) 4 mg IV Q8H PRN PRN PRN Reason: NAUSEA/VOMITING Quetiapine Fumarate (Seroquel) 50 mg PO BID [facility] Rifaximin (Xifaxan) 200 mg PO TID [facility] [place] Last Admin: 08/25/18 07:06 Dose: 200 mg Documented by: Sodium Chloride () 5 - 15 ml IV UD PRN PRN Reason: SALINE FLUSH Last Admin: 08/24/18 16:36 Dose: 10 ml Documented by: Medical Necessity - Tobacco Use Smoking Status: Current every day smoker Tobacco Use: Cigarettes Assessment/Plan All Active Problems Hyponatremia (Acute) Decompensated hepatic cirrhosis (Acute) CAP (community acquired pneumonia) (Acute) Sepsis (Acute) Leukocytoclastic vasculitis (Acute) Atrial fibrillation with RVR (Acute) Heart failure with preserved ejection fraction, borderline, class II (Acute) Atrial fibrillation (Acute) This is a 62-year-old male alcoholic admitted to the hospital with acute respiratory failure secondary to Legionella pneumonia. He Has gone through acute alcohol withdrawal. Atrial fibrillation with RVR has been controlled with amiodarone. Levophed discontinued on 08/23/2018 in the early a.m. Transition to Precedex on 08/22/2018 in preparation for weaning. Failed SBT today sp to agitation, tachycardia and hypoxic with increased RR. Patient was admitted in ICU and is being transferred to PCU on 08/25 1 Septic shock presumed secondary to Legionella pneumonia and possibly spontaneous bacterial peritonitis: ID on board. Patient still has. On IV Zosyn. Chest x-ray shows bilateral infiltrates- On IV Levaquin Paracentesis fluid analysis shows total WBC 299, polymorphs 14%, mononuclear 86%. Fluid total protein 2.8, glucose 139. Peritoneal fluid analysis including total protein does not support SBP. 2. Acute combined respiratory failure and required intubation: Patient extubated on 08/24. Currently on weaning trial of Precedex drip. Fentanyl was discontinued. 3. Acute encephalopathy probably metabolic/toxic/infectious suggestive of multifactorial: Patient has history of alcohol withdrawal, sepsis, elevated ammonia and cannabis use. Patient is confused and disoriented. Needs more orientation cues 4. Chronic alcohol use, moderate ascites, hypoalbuminemia splenomegaly and thrombocytopenia suggestive of decompensated cirrhosis: CT scan liver reported normal normal but it has moderate ascites, moderate to splenomegaly but normal pancreas. 5. PAF with RVR - currently rate controlled. On Coreg 3.125 mg twice daily, amiodarone 200 mg twice daily and Eliquis 2.5 mg twice daily. Amiodarone drip is being discontinued. 6. Troponin elevation-likely secondary to demand ischemia related to septic shock and acute respiratory failure with hypoxemia 7. Acute nonoliguric renal failure-suspect secondary to ATN, creat is improving 8. Diabetes mellitus type 2 - glucose are well controlled 9. Biventricular systolic heart failure: Echo 08/19 moderately dilated LV, EF 40 to 45% moderate global hypokinesis. Severely dilated RV. Right atrium severely enlarged. Moderate 2+ TR, RVSP 30 mmHg mild aortic stenosis a small right pleural effusion. 10. Multiple comorbidities including chronic alcohol abuse, cannabis use, chronic thrombocytopenia most probably secondary to alcoholic cirrhosis, chronic back pain with narcotic dependence, Will likely need SNF at [place]. 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 Microbiology Past 72 Hours 08/23/18 14:08 Blood Culture (Wb) - Anticubital Right Blood Culture - Preliminary No growth in 48 hours. 08/23/18 14:00 Blood Culture (Wb) - No Site/Description Given Blood Culture - Preliminary No growth in 48 hours. 08/23/18 15:00 Sputum, Induced/Lukens Gram Stain - Final 08/23/18 15:00 Sputum, Induced/Lukens Respiratory Culture - Final Presumptive C albicans 08/22/18 10:25 Fluid - Paracentesis (Abd) Gram Stain - Final 08/22/18 10:25 Fluid - Paracentesis (Abd) Body Fluid Culture - Final Culture exhibits no growth. 08/23/18 13:54 Urine Catheter - Bass Urine Culture - Preliminary Culture exhibits no growth. 08/19/18 09:00 Blood Culture (Wb) - Central Line Blood Culture - Final No growth in 5 days. 08/18/18 14:51 Blood Culture (Wb) - Anticubital Right Blood Culture - Final No growth in 5 days. 08/18/18 14:22 Blood Culture (Wb) - Anticubital Left Blood Culture - Final No growth in 5 days. Laboratory Results 08/24/18 06:05: Diff Path Review Reviewed 08/25/18 04:10: WBC 3.3 L, RBC 3.58 L, Hgb 11.2 L, Hct 33.8 L, MCV 94.4 H, MCH 31.3, MCHC 33.1, RDW 18.1 H, RDW Differential 59.0 H, Plt Count 98 L, MPV 7.8, Immature Gran % (Auto) FLATBED STITCHER, Neut % (Auto) FLATBED STITCHER, Lymph % (Auto) FLATBED STITCHER, [place] % (Auto) FLATBED STITCHER, Eos % (Auto) FLATBED STITCHER, Baso % (Auto) FLATBED STITCHER, Absolute Neuts (auto) 2.4, Absolute Lymphs (auto) 0.63 L, Total Counted 100, Neutrophils % (Manual) 71 H, Lymphocytes % (Manual) 19, Monocytes % (Manual) 8, Eosinophils % (Manual) 1, Plasma Cell % (Manual) 1, Diff Path Review Reviewed, Platelet Estimate SLT DEC, RBC Morphology NORM C+C 08/25/18 04:10: Sodium 149 H, Potassium 3.6, Chloride 114 H, Carbon Dioxide 28.0, Anion Gap 7, BUN 23 H, Creatinine 0.77, Estim Creat Clear Calc 110.58, Est GFR (MDRD) Af Amer 132, Est GFR (MDRD) Non-Af 109, BUN/Creatinine Ratio 29.9 H, Glucose 137 H, Calcium 8.4 L, Phosphorus 2.7, Magnesium 2.4 Active Medications Albuterol Sulfate (Ventolin Aerosols) 2.5 mg INHALATION Q2H PRN PRN PRN Reason: dyspnea, wheezing Last Admin: 08/22/18 18:50 Dose: 2.5 mg Documented by: Albuterol/Ipratropium (Duoneb) 3 ml INHALATION Q6HWA.RT [facility] Last Admin: 08/25/18 13:16 Dose: 3 ml Documented by: Amiodarone HCl (Cordarone) 200 mg PO BID [facility] Last Admin: 08/25/18 08:24 Dose: 200 mg Documented by: Apixaban (Eliquis) 2.5 mg PO BID [facility] Last Admin: 08/25/18 10:38 Dose: 2.5 mg Documented by: Carvedilol (Coreg) 3.125 mg PO BID [facility] Last Admin: 08/25/18 09:51 Dose: 3.125 mg Documented by: Chlorhexidine Gluconate () 1 each TOPICAL DAILY [facility] Last Admin: 08/25/18 03:53 Dose: 1 each Documented by: Dextrose (D50w Syringe) 0 gm IV X1 PRN; Protocol PRN Reason: Hypoglycemia Glucagon () 1 mg IM .X1 PRN PRN Reason: Hypoglycemia Hydralazine HCl (Apresoline Iv) 10 mg IV Q4H PRN PRN PRN Reason: SBP > 160 Lactulose (Chronulac, Cephulac) 10 gm PO BID [facility] Last Admin: 08/25/18 09:51 Dose: 10 gm Documented by: Levofloxacin (Levaquin Tablet) 750 mg PO DAILY@0600 [facility] Ondansetron HCl (Zofran) 4 mg IV Q8H PRN PRN PRN Reason: NAUSEA/VOMITING Quetiapine Fumarate (Seroquel) 50 mg PO BID [facility] Last Admin: 08/25/18 09:51 Dose: 50 mg Documented by: Rifaximin (Xifaxan) 200 mg PO TID [facility] Last Admin: 08/25/18 14:33 Dose: 200 mg Documented by: Sodium Chloride () 5 - 15 ml IV UD PRN PRN Reason: SALINE FLUSH Last Admin: 08/25/18 09:53 Dose: 15 ml Documented by: Code Visit Inpatient E&M: [id number] [facility] Hosp L3
--- NOTE | 2018-08-25 08:41 | PCM.PN.CARD ---
Subjectve: Patient is slowly improving, much more lucid today, answers questions appropriately. Apparently passed a swallow study. Telemetry showed atrial fibrillation with oscillation between controlled and rapid ventricular response. No chest pain. Patient status post paracentesis several days ago. IV amiodarone running. Objective: Vital Signs Temp Pulse Resp BP Pulse Ox 98.1 F 105 H 12 141/94 H 98 08/25/18 06:00 08/25/18 06:00 08/25/18 06:00 08/25/18 06:00 08/25/18 06:00 Oxygen Flow Rate (L/min) 2 Oxygen Delivery Method Nasal Cannula Weight: 244 lb 11.41 oz Body Mass Index (BMI) 34.3 Finger Stick Blood Glucose 126 Intake and Output for Last 24 Hours 08/23/18 08/24/18 08/25/18 23:59 23:59 23:59 Intake Total 5454.6 / 5454.6 1167.4 / 1287.4 421.4 / 421.4 Output Total 1900 / 1900 1750 / 2100 575 / 575 Balance 3554.6 / 3554.6 -582.6 / -812.6 -153.6 / -153.6 General: Awake, Alert, Oriented x 3 HEENT: PERRL, EOMI, Sclera Non Icteric Neck: Supple, Good ROM, No Lymph Node Enlargement Lungs: Clear to auscultation Cardiovascular: Irregular Rhythm, Normal S1, Normal S2, No Murmurs, No Rubs, No Gallops Vascular: No Carotid Bruits, Normal Femoral Pulses, Normal Radial Pulses, Normal Dorsalis Pedal Pulse, Normal Posterior Tibial Pulses Abdomen: Bowel Sounds Present, Soft, Non Tender, No HSM, No Organomegaly Extremities: No Cyanosis, No Clubbing, No edema Neurological: No Focal Motor or Sensory Deficit 08/25/18 04:10: WBC 3.3 L, RBC 3.58 L, Hgb 11.2 L, Hct 33.8 L, MCV 94.4 H, MCH 31.3, MCHC 33.1, RDW 18.1 H, RDW Differential 59.0 H, Plt Count 98 L, MPV 7.8, Immature Gran % (Auto) APPLICATION DEVELOPMENT DIRECTOR, Neut % (Auto) APPLICATION DEVELOPMENT DIRECTOR, Lymph % (Auto) APPLICATION DEVELOPMENT DIRECTOR, [place] % (Auto) APPLICATION DEVELOPMENT DIRECTOR, Eos % (Auto) APPLICATION DEVELOPMENT DIRECTOR, Baso % (Auto) APPLICATION DEVELOPMENT DIRECTOR, Absolute Neuts (auto) 2.4, Total Counted 100, Neutrophils % (Manual) 71 H, Lymphocytes % (Manual) 19, Monocytes % (Manual) 8, Eosinophils % (Manual) 1, Plasma Cell % (Manual) 1 08/25/18 04:10: Sodium 149 H, Potassium 3.6, Chloride 114 H, Carbon Dioxide 28.0, Anion Gap 7, BUN 23 H, Creatinine 0.77, Est GFR (MDRD) Af Amer 132, Est GFR (MDRD) Non-Af 109, BUN/Creatinine Ratio 29.9 H, Glucose 137 H, Calcium 8.4 L, Phosphorus 2.7, Magnesium 2.4 Rhythm: EKG: ECHO: Stress Test: Cardiac Cath: PCI: CT Surgery: Holter monitor: EPS: PPM: CXR: Chest CT Scan: Medical Necessity - Tobacco Use Smoking Status: Current every day smoker Tobacco Use: Cigarettes Assessment/Plan 1. Atrial fibrillation: I believe the patient's atrial fibrillation has been chronic and he has been on Xarelto therapy going forward. In addition he was auto anticoagulated due to his alcoholic cirrhosis and an INR 1.9, which has normalized. Despite this, the patient has had elevated troponins of 1.9. Currently INR is 1.5. As best I can tell he is never had a catheterization at least in our facility, and there are no family members to confirm this or deny this. Patient apparently passed a swallow study, and is able to take p.o. pills. Recommend starting him on amiodarone 200 mg p.o. twice daily and discontinuing his IV amiodarone drip about 4 hours after his first dose. In addition we will start him on Coreg 3.125 mg p.o. twice daily for his atrial fibrillation, LV dysfunction, and hypertension. In addition I recommend starting him on Eliquis in place of Xarelto in case he requires additional paracenteses. Recommend starting Eliquis 5 mg p.o. twice daily. If the patient's respiratory status deteriorates to the point where he requires repeat intubation, I would have a low threshold for left heart catheterization to evaluate his coronary arteries given his troponin of 1.9 and deterioration of his respiratory status. 2. Non-STEMI: Patient had a mildly elevated troponin of 1.9 at its peak so far. Recommend keeping his heart rate less than 100 if possible. Patient has been successfully weaned off Levophed and blood pressure is maintaining MAP greater than 60. Would recommend that he undergo a noninvasive stress test once he is able to walk safely on a treadmill. I would however recommend starting him on baby aspirin 81 mg p.o. daily. Should the patient have any exertional angina, I would low threshold for diagnostic coronary angina gram. Patient is echocardiogram dated 08/19/2018 showed an EF around 45% with global hypokinesis, RVSP of 30 mmHg, and severe RV dilatation. Would recommend holding on Plavix at this time given his thrombocytopenia, bleeding issues on initial evaluation. Should he require intervention we can do so in a staged fashion in order to avoid unnecessary GI bleeding. 3. Hyperlipidemia: The patient apparently has alcoholic cirrhosis with associated ascites. Would hold off on statin at this time. 4. Thank you very much for the opportunity to participate in the cardiac care of your patient. Discussed with Dr. Gentile. Code Visit Inpatient E&M: 80384 Subs Hosp L2
[2018-08-25] MEDS: Lactulose 20 GM/30 ML UDC 10 GM PO (09:51)
[2018-08-25] MEDS: Carvedilol 3.125 MG TABLET PO ×2 (09:51→22:50)
[2018-08-25] MEDS: QUEtiapine 25 MG Tablet 50 MG PO ×2 (09:51→22:50)
[2018-08-25] MEDS: levoFLOXacin IV 750 MG/150 ML BAG 100 MG IV (09:52)
[2018-08-25] MEDS: 0.9% NaCl Peripheral Flush Adult/Peds IV (09:53)
--- NOTE | 2018-08-25 10:23 | PN.ID_ITS ---
Patient Problems: Active and Suspected Problems Hyponatremia (Acute) Decompensated hepatic cirrhosis (Acute) CAP (community acquired pneumonia) (Acute) Sepsis (Acute) Subjective: Feeling better, no fever overnight - Physical Exam General: No apparent distress, - - oriented x1 Lungs: Diminished Cardiovascular: Regular rate, Regular Rhythm Abdomen: Soft, Non Tender, Non-Distended Skin: No rashes Vital Signs Temp Pulse Resp BP Pulse Ox 98.1 F 118 H 18 141/94 H 97 08/25/18 06:00 08/25/18 08:51 08/25/18 08:51 08/25/18 06:00 08/25/18 08:51 Oxygen Flow Rate (L/min) 2 Oxygen Delivery Method Nasal Cannula Weight: 111 kg Body Mass Index (BMI) 34.3 Finger Stick Blood Glucose 126 Intake and Output for Last 24 Hours 08/23/18 08/24/18 08/25/18 23:59 23:59 23:59 Intake Total 5454.6 / 5454.6 1167.4 / 1287.4 421.4 / 421.4 Output Total 1900 / 1900 1750 / 2100 575 / 575 Balance 3554.6 / 3554.6 -582.6 / -812.6 -153.6 / -153.6 Microbiology Past 72 Hours 08/22/18 10:25 Gram Stain - Final Fluid - Paracentesis (Abd) Body Fluid Culture - Final Culture exhibits no growth. 08/23/18 13:54 Urine Culture - Preliminary Urine Catheter - Bass Culture exhibits no growth. 08/23/18 15:00 Gram Stain - Final Sputum, Induced/Lukens 08/19/18 09:00 Blood Culture - Final Blood Culture (Wb) - Central Line No growth in 5 days. 08/18/18 14:51 Blood Culture - Final Blood Culture (Wb) - Anticubital Right No growth in 5 days. 08/18/18 14:22 Blood Culture - Final Blood Culture (Wb) - Anticubital Left No growth in 5 days. Laboratory Tests Past 24 Hrs 08/22/18 08/25/18 08/25/18 10:25 04:10 04:10 WBC 3.3 L RBC 3.58 L Hgb 11.2 L Hct 33.8 L MCV 94.4 H MCH 31.3 MCHC 33.1 RDW 18.1 H RDW Differential 59.0 H Plt Count 98 L MPV 7.8 Immature Gran % (Auto) POWER LINE LINEMAN Neut % (Auto) POWER LINE LINEMAN Lymph % (Auto) POWER LINE LINEMAN [place] % (Auto) POWER LINE LINEMAN Eos % (Auto) POWER LINE LINEMAN Baso % (Auto) POWER LINE LINEMAN Absolute Neuts (auto) 2.4 Absolute Lymphs (auto) 0.63 L Total Counted 100 Neutrophils % (Manual) 71 H Lymphocytes % (Manual) 19 Monocytes % (Manual) 8 Eosinophils % (Manual) 1 Plasma Cell % (Manual) 1 Diff Path Review May foll Platelet Estimate SLT DEC RBC Morphology NORM C+C Sodium 149 H Potassium 3.6 Chloride 114 H Carbon Dioxide 28.0 Anion Gap 7 BUN 23 H Creatinine 0.77 Estim Creat Clear Calc 110.58 Est GFR (MDRD) Af Amer 132 Est GFR (MDRD) Non-Af 109 BUN/Creatinine Ratio 29.9 H Glucose 137 H Calcium 8.4 L Phosphorus 2.7 Magnesium 2.4 Fl Pathologist Comment Reviewed Medical Necessity - Tobacco Use Smoking Status: Current every day smoker Tobacco Use: Cigarettes Route of nutrition/ use of supplements: [] Nutritional Intake: [] IV Site: [] Bass Catheter: [] - Assessment/Plan Antibiotics: [] Assessment/Plan: [] Active and Suspected Problems Hyponatremia (Acute) Decompensated hepatic cirrhosis (Acute) CAP (community acquired pneumonia) (Acute) Sepsis (Acute) septic shock with legionella, resp failure, ascites - cont levaquin. Parac entesis 08/22 neg for SBP. BP improved. Stopped zosyn 08/23, fever now resolved. Remains off vent. Change levaquin to po. Remove temp cvc after peripheral iv obtained. Will follow, d/w nursing.
[2018-08-25 10:29] LABS: Pathologist Review Reviewed
[2018-08-25] MEDS: APIXABAN 2.5 MG TABLET PO ×2 (10:38→22:50)
[2018-08-25 10:44] LABS: Pathologist Review Reviewed
[2018-08-25] MEDS: Tamsulosin HCl 0.4 MG Capsule PO (18:42)
--- NOTE | 2018-08-25 23:36 | CPS ---
home machine was examined for pt home settings, auto pap changed to bipap 24/16, pt homes setting, with a ramp of 30 minutes.
[2018-08-26] VITALS (12 sets, daily range): BP systolic 114–128; BP diastolic 63–79; PULSE 81–109; RESP 14–24; TEMP 36.6–37.1; O2SAT 90–97
[2018-08-26] MEDS: LORazepam 1 MG Tablet PO (03:44)
[2018-08-26 06:09] LABS: ALB/GLOB Ratio 0.6 RATIO (0.9-2.4); AST(SGOT) 110 U/L (15-37); Alanine Aminotransfer ALT/SGPT 47 U/L (16-61); Albumin, Serum 2.4 g/dL (3.2-5.0); Alkaline Phosphatase 102 U/L (45-117); Anion Gap 7 (5-15); BUN 22 mg/dL (7-18); BUN/Creat Ratio 31.9 RATIO (10-20); Calcium,Total 8.6 mg/dL (8.5-10.1); Chloride 114 mmol/L (98-107); Creatinine, Serum 0.69 mg/dL (0.70-1.30); EST Glomerular Filtration Rate 124 mL/min (>60); Est Glom Filt Rate - Afr Amer 150 mL/min (>60); Globulin 4.3 g/dL (2.2-4.2); Glucose 115 mg/dL (74-106); Potassium 3.6 mmol/L (3.5-5.1); Protein, Total 6.7 g/dL (6.4-8.2); Sodium Level 148 mmol/L (136-145)
[2018-08-26] MEDS: levoFLOXacin 750 MG Tablet PO (06:13)
[2018-08-26 06:28] LABS: Absolute Neutrophil Count 1.5 X10^3/uL (2.0-7.7); Basophil# 0.01 X10^3/uL; Basophil% 0.4 % (0-1); Eosinophil# 0.07 X10^3/uL; Eosinophils% 2.7 % (0-5); Hematocrit 34.8 % (40-54); Hemoglobin 11.5 g/dl (13.0-16.5); Lymphocyte % 27.2 % (19-41); Mean Corpuscular Hgb 31.6 pg (27.0-32.0); Mean Corpuscular Volume 95.6 fL (80-94); Mean Platelet Vol. 8.8 fl (6.2-12.0); Monocyte# 0.25 X10^3/uL; Monocyte% 9.7 % (0-10); Neutrophil # 1.51 X10^3/uL (2.7-7.7); Neutrophil % 58.8 % (47-70); Platelet Count 85 K/mm3 (150-450); RBC Distribution Width CV 17.7 % (11.6-14.6); RBC Distribution Width SD 61.5 fl (35.1-43.9); Red Blood Count 3.64 M/mm3 (4.6-6.2); White Blood Count 2.6 K/mm3 (4.4-11.0)
[2018-08-26 06:36] LABS: POSITIVE COUNT NO; POSITIVE DIFFERENTIAL NO; POSITIVE MORPHOLOGY NO
--- NOTE | 2018-08-26 06:43 | PN_ITS ---
Subjective: Patient transferred out of the intensive care unit yesterday. Patient continues to be impulsive and confused, but no hemodynamic instability has been reported overnight. Patient reportedly has been tolerating ice chips well and has received his p.o. medications. Patient is not cooperative with my exam today. General: Alert, No apparent distress, Confused, Disoriented, Non-Cooperative, - - Obese. No conversational dyspnea. HEENT: Atraumatic, PERRLA, EOMI, Normocephalic, - Oral: Moist Mucosa - No scleral icterus or injection noted., No Gingival or Mucosal Lesions/ Ulcerations Neck: Supple, No JVD, No Nodes, Trachea Midline Lungs: No rhonchi, No wheeze, No rales, Diminished, - - Symmetric expansion. No dullness to percussion. Cardiovascular: Normal S1, Normal S2, No murmurs, No rub noted, No Gallop, Tachycardic Abdomen: Bowel Sounds Present, Soft, Non Tender, Non-Distended, Obese Extremities: No clubbing, No cyanosis, Capillary Refill Less than 3 Seconds, Edema Skin: - - No significant change compared to previous Musculoskeletal: No Tenderness to Palpation of Joints or Extremities Lymphatic: No Cervical, Supraclavicular, or Inguinal Adenopathy Neurological: Cranial nerves II-XII grossly intact, Neuro grossly intact Psych/Mental Status: Flat Affect, Impulsive Vital Signs Temp Pulse Resp BP Pulse Ox 36.6 C 101 H 16 115/63 93 08/26/18 03:46 08/26/18 03:46 08/26/18 03:46 08/26/18 03:46 08/26/18 03:46 Oxygen Flow Rate (L/min) 2 Oxygen Delivery Method Room Air Weight: 111 kg Body Mass Index (BMI) 34.3 Finger Stick Blood Glucose 126 Intake and Output for Last 24 Hours 08/24/18 08/25/18 08/26/18 23:59 23:59 23:59 Intake Total 1167.4 / 1287.4 961.4 / 1021.4 60 Output Total 1750 / 2100 1325 / 1325 Balance -582.6 / -812.6 -363.6 / -303.6 60 Labs (Last 48 Hours) 08/22/18 08/24/18 08/24/18 10:25 06:05 06:05 WBC RBC Hgb Hct MCV MCH MCHC RDW RDW Differential Plt Count MPV Immature Gran % (Auto) Neut % (Auto) Lymph % (Auto) [place] % (Auto) Eos % (Auto) Baso % (Auto) Absolute Neuts (auto) Absolute Lymphs (auto) Total Counted Neutrophils % (Manual) Lymphocytes % (Manual) Monocytes % (Manual) Eosinophils % (Manual) Plasma Cell % (Manual) Diff Path Review Reviewed Platelet Estimate RBC Morphology PT INR APTT Specimen Type Sample Site pH Bicarbonate Actual POC Total CO2 Base Excess O2 Saturation O2 % ABG pCO2 ABG pO2 O2 Delivery Device Vent Mode POC PEEP POC Pressure Suppt Blood Gas Notified Whom Blood Gas Notified Time Sodium 147 H Potassium 4.2 Chloride 112 H Carbon Dioxide 27.0 Anion Gap 8 BUN 29 H Creatinine 0.94 Estim Creat Clear Calc 90.58 Est GFR (MDRD) Af Amer 105 Est GFR (MDRD) Non-Af 87 BUN/Creatinine Ratio 31.0 H Glucose 163 H Calcium 8.3 L Phosphorus Magnesium Total Bilirubin AST ALT Alkaline Phosphatase Ammonia Total Protein Albumin Globulin Albumin/Globulin Ratio Fl Pathologist Comment Reviewed 08/24/18 08/24/18 08/24/18 06:05 06:05 06:47 WBC RBC Hgb Hct MCV MCH MCHC RDW RDW Differential Plt Count MPV Immature Gran % (Auto) Neut % (Auto) Lymph % (Auto) [place] % (Auto) Eos % (Auto) Baso % (Auto) Absolute Neuts (auto) Absolute Lymphs (auto) Total Counted Neutrophils % (Manual) Lymphocytes % (Manual) Monocytes % (Manual) Eosinophils % (Manual) Plasma Cell % (Manual) Diff Path Review Platelet Estimate RBC Morphology PT 17.7 H INR 1.5 APTT 43.8 H Specimen Type ART Sample Site L Brachial pH 7.49 H Bicarbonate Actual 24.1 POC Total CO2 25 Base Excess 1 O2 Saturation 96 O2 % 30 ABG pCO2 31.7 L ABG pO2 74 L O2 Delivery Device Vent Vent Mode CPAP PS POC PEEP 5 POC Pressure Suppt 5 Blood Gas Notified Whom ICU MD Blood Gas Notified Time 645 Sodium Potassium Chloride Carbon Dioxide Anion Gap BUN Creatinine Estim Creat Clear Calc Est GFR (MDRD) Af Amer Est GFR (MDRD) Non-Af BUN/Creatinine Ratio Glucose Calcium Phosphorus Magnesium Total Bilirubin AST ALT Alkaline Phosphatase Ammonia 51.0 H Total Protein Albumin Globulin Albumin/Globulin Ratio Fl Pathologist Comment 08/25/18 08/25/18 08/26/18 04:10 04:10 05:37 WBC 3.3 L 2.6 L RBC 3.58 L 3.64 L Hgb 11.2 L 11.5 L Hct 33.8 L 34.8 L MCV 94.4 H 95.6 H MCH 31.3 31.6 MCHC 33.1 33.0 RDW 18.1 H 17.7 H RDW Differential 59.0 H 61.5 H Plt Count 98 L 85 L MPV 7.8 8.8 Immature Gran % (Auto) SECURITY INSPECTOR 1.200 H Neut % (Auto) SECURITY INSPECTOR 58.8 Lymph % (Auto) SECURITY INSPECTOR 27.2 [place] % (Auto) SECURITY INSPECTOR 9.7 Eos % (Auto) SECURITY INSPECTOR 2.7 Baso % (Auto) SECURITY INSPECTOR 0.4 Absolute Neuts (auto) 2.4 1.5 L Absolute Lymphs (auto) 0.63 L 0.70 L Total Counted 100 Not Reportable Neutrophils % (Manual) 71 H Lymphocytes % (Manual) 19 Monocytes % (Manual) 8 Eosinophils % (Manual) 1 Plasma Cell % (Manual) 1 Diff Path Review Reviewed Platelet Estimate SLT DEC RBC Morphology NORM C+C PT INR APTT Specimen Type Sample Site pH Bicarbonate Actual POC Total CO2 Base Excess O2 Saturation O2 % ABG pCO2 ABG pO2 O2 Delivery Device Vent Mode POC PEEP POC Pressure Suppt Blood Gas Notified Whom Blood Gas Notified Time Sodium 149 H Potassium 3.6 Chloride 114 H Carbon Dioxide 28.0 Anion Gap 7 BUN 23 H Creatinine 0.77 Estim Creat Clear Calc 110.58 Est GFR (MDRD) Af Amer 132 Est GFR (MDRD) Non-Af 109 BUN/Creatinine Ratio 29.9 H Glucose 137 H Calcium 8.4 L Phosphorus 2.7 Magnesium 2.4 Total Bilirubin AST ALT Alkaline Phosphatase Ammonia Total Protein Albumin Globulin Albumin/Globulin Ratio Fl Pathologist Comment 08/26/18 05:37 WBC RBC Hgb Hct MCV MCH MCHC RDW RDW Differential Plt Count MPV Immature Gran % (Auto) Neut % (Auto) Lymph % (Auto) [place] % (Auto) Eos % (Auto) Baso % (Auto) Absolute Neuts (auto) Absolute Lymphs (auto) Total Counted Neutrophils % (Manual) Lymphocytes % (Manual) Monocytes % (Manual) Eosinophils % (Manual) Plasma Cell % (Manual) Diff Path Review Platelet Estimate RBC Morphology PT INR APTT Specimen Type Sample Site pH Bicarbonate Actual POC Total CO2 Base Excess O2 Saturation O2 % ABG pCO2 ABG pO2 O2 Delivery Device Vent Mode POC PEEP POC Pressure Suppt Blood Gas Notified Whom Blood Gas Notified Time Sodium 148 H Potassium 3.6 Chloride 114 H Carbon Dioxide 27.0 Anion Gap 7 BUN 22 H Creatinine 0.69 L Estim Creat Clear Calc 123.40 Est GFR (MDRD) Af Amer 150 Est GFR (MDRD) Non-Af 124 BUN/Creatinine Ratio 31.9 H Glucose 115 H Calcium 8.6 Phosphorus Magnesium Total Bilirubin 1.70 H AST 110 H ALT 47 Alkaline Phosphatase 102 Ammonia Total Protein 6.7 Albumin 2.4 L Globulin 4.3 H Albumin/Globulin Ratio 0.6 L Fl Pathologist Comment Microbiology 08/23/18 14:08 Blood Culture (Wb) - Anticubital Right Blood Culture - Preliminary No growth in 48 hours. 08/23/18 14:00 Blood Culture (Wb) - No Site/Description Given Blood Culture - Preliminary No growth in 48 hours. 08/23/18 15:00 Sputum, Induced/Lukens Gram Stain - Final 08/23/18 15:00 Sputum, Induced/Lukens Respiratory Culture - Final Presumptive C albicans 08/22/18 10:25 Fluid - Paracentesis (Abd) Gram Stain - Final 08/22/18 10:25 Fluid - Paracentesis (Abd) Body Fluid Culture - Final Culture exhibits no growth. 08/23/18 13:54 Urine Catheter - Bass Urine Culture - Preliminary Culture exhibits no growth. 08/19/18 09:00 Blood Culture (Wb) - Central Line Blood Culture - Final No growth in 5 days. Medical Necessity - Tobacco Use Smoking Status: Current every day smoker Tobacco Use: Cigarettes Assessment/Plan All Active Problems Hyponatremia (Acute) Decompensated hepatic cirrhosis (Acute) CAP (community acquired pneumonia) (Acute) Sepsis (Acute) Leukocytoclastic vasculitis (Acute) Atrial fibrillation with RVR (Acute) Heart failure with preserved ejection fraction, borderline, class II (Acute) Atrial fibrillation (Acute) RECOMMENDATIONS: 1. Antibiotics per infectious disease 2. Attempt to increase free water intake 3. Continue lactulose and rifaximin 4. Increase activity as tolerated 5. Continue PPI for GI prophylaxis 6. Hemodynamically stable on room air. Will sign off from a critical care perspective IMPRESSIONS: 1. Acute combined respiratory failure The patient developed progressive bilateral infiltrates on chest imaging, which culminated in the development of respiratory distress leading to emergent intubation. The patient was noted to have a positive Legionella antigen. Patient has been doing well since liberation from the ventilator. Patient currently on room air. Aggressive pulmonary toileting. Antibiotics cessation per infectious disease. 2. Septic shock secondary to presumptive Legionella pneumonia/possible SBP The patient is currently on Levaquin given his positive urine Legionella antigen. Infectious diseases following. Patient had no significant fever overnight, indicating probable drug fever from Precedex. Repeat cultures remain negative/no growth to date. 3. Metabolic encephalopathy Likely multifactorial in etiology and related to underlying infectious process and hyperammonemia. Patient is still on Seroquel therapy. Given the patient's elevated ammonia level, lactulose and rifaximin will be continued. 4. Paroxysmal atrial fibrillation with RVR/troponin elevation Cardiology is following to assist with management. Suspect that the patient's troponin leak is secondary to demand ischemia in the setting of #2. Patient's rate control is improved on amiodarone. Potential transition to p.o. medications later today 5. Acute kidney injury Resolved. Likely prerenal in etiology and related to the development of ATN in the setting of #2. Continue to monitor urine output. There is no current indication for renal replacement therapy. Bass has been removed 6. History of chronic alcohol, tobacco and cannabis dependency/anemia/thrombocytopenia/diabetes mellitus/chronic back pain Complicates care, management, recovery and prognosis. Blood sugars have been relatively controlled on BMP. No bleeding has been reported, so platelet transfusion is not indicated. Code Visit Inpatient E&M: 30660 Subs Hosp L2
[2018-08-26] MEDS: Ipratropium/Albuterol Sulfate 3 ML AMPUL.NEB INHALATION ×3 (07:11→19:06)
[2018-08-26] MEDS: APIXABAN 2.5 MG TABLET PO ×2 (09:25→21:56)
[2018-08-26] MEDS: Carvedilol 3.125 MG TABLET PO ×2 (09:25→21:56)
[2018-08-26] MEDS: QUEtiapine 25 MG Tablet 50 MG PO ×2 (09:25→21:56)
[2018-08-26] MEDS: Amiodarone 200 MG Tablet PO ×2 (09:26→21:56)
--- NOTE | 2018-08-26 09:47 | CASEMGMT ---
Social Work Phone call to [facility] in TCU and confirmed that they are able to accept pt when medically stable. SW to continue to follow. Plan: TCU, when medically ready KRISH Uriarte
--- NOTE | 2018-08-26 11:27 | PN.CARD_ITS ---
Subjectve: Patient continues to improve. Was up in the chair yesterday. Talking lucidly today. Amiodarone drip switched to p.o. amiodarone and beta-verna started. In addition low-dose Eliquis was started as well for his atrial fibrillation. No bleeding issues so far. Telemetry showed atrial fibrillation with controlled ventricular response. Objective: Vital Signs Temp Pulse Resp BP Pulse Ox 98.8 F 98 16 126/68 H 92 08/26/18 09:24 08/26/18 09:24 08/26/18 09:24 08/26/18 09:24 08/26/18 09:24 Oxygen Flow Rate (L/min) 2 Oxygen Delivery Method Room Air Weight: 246 lb 0.574 oz Body Mass Index (BMI) 34.3 Finger Stick Blood Glucose 126 Intake and Output for Last 24 Hours 08/24/18 08/25/18 08/26/18 23:59 23:59 23:59 Intake Total 1167.4 / 1287.4 961.4 / 1021.4 60 / 60 Output Total 1750 / 2100 1325 / 1325 Balance -582.6 / -812.6 -363.6 / -303.6 60 / General: Awake, Alert, Oriented x 3 HEENT: PERRL, EOMI, Sclera Non Icteric Neck: Supple, Good ROM, No Lymph Node Enlargement Lungs: Clear to auscultation Cardiovascular: Irregular Rhythm, Normal S1, Normal S2, No Murmurs, No Rubs, No Gallops Vascular: No Carotid Bruits, Normal Femoral Pulses, Normal Radial Pulses, Normal Dorsalis Pedal Pulse, Normal Posterior Tibial Pulses Abdomen: Bowel Sounds Present, Soft, Non Tender, No HSM, No Organomegaly Extremities: No Cyanosis, No Clubbing, No edema Neurological: No Focal Motor or Sensory Deficit 08/26/18 05:37: WBC 2.6 L, RBC 3.64 L, Hgb 11.5 L, Hct 34.8 L, MCV 95.6 H, MCH 3 1.6, MCHC 33.0, RDW 17.7 H, RDW Differential 61.5 H, Plt Count 85 L, MPV 8.8, Immature Gran % (Auto) 1.200 H, Neut % (Auto) 58.8, Lymph % (Auto) 27.2, [place] % (Auto) 9.7, Eos % (Auto) 2.7, Baso % (Auto) 0.4, Absolute Neuts (auto) 1.5 L, Total Counted Not Reportable 08/26/18 05:37: Sodium 148 H, Potassium 3.6, Chloride 114 H, Carbon Dioxide 27.0, Anion Gap 7, BUN 22 H, Creatinine 0.69 L, Est GFR (MDRD) Af Amer 150, Est GFR (MDRD) Non-Af 124, BUN/Creatinine Ratio 31.9 H, Glucose 115 H, Calcium 8.6, Total Bilirubin 1.70 H Rhythm: EKG: ECHO: Stress Test: Cardiac Cath: PCI: CT Surgery: Holter monitor: EPS: PPM: CXR: Chest CT Scan: Medical Necessity - Tobacco Use Smoking Status: Current every day smoker Tobacco Use: Cigarettes Assessment/Plan 1. Atrial fibrillation: I believe the patient's atrial fibrillation has been chronic and he has been on Xarelto therapy going forward. In addition he was auto anticoagulated due to his alcoholic cirrhosis and an INR 1.9, which has normalized. Despite this, the patient has had elevated troponins of 1.9. Currently INR is 1.5. As best I can tell he is never had a catheterization at least in our facility, and there are no family members to confirm this or deny this. Patient apparently passed a swallow study, and is able to take p.o. pills. Recommend starting him on amiodarone 200 mg p.o. twice daily for a total of 5 days, and discontinuing his IV amiodarone drip about 4 hours after his first dose. In addition we we have started him on Coreg 3.125 mg p.o. twice daily for his atrial fibrillation, LV dysfunction, and hypertension. In addition I recommend starting him on Eliquis in place of Xarelto in case he requires additional paracenteses. Recommend starting Eliquis 2.5 mg p.o. twice daily. If the patient's respiratory status deteriorates to the point where he requires repeat intubation, I would have a low threshold for left heart catheterization to evaluate his coronary arteries given his troponin of 1.9 and deterioration of his respiratory status. 2. Non-STEMI: Patient had a mildly elevated troponin of 1.9 at its peak so far. Recommend keeping his heart rate less than 100 if possible. Patient has been successfully weaned off Levophed and blood pressure is maintaining MAP greater than 60. Would recommend that he undergo a noninvasive stress test once he is able to walk safely on a treadmill. I would however recommend starting him on baby aspirin 81 mg p.o. daily. Should the patient have any exertional angina, I would low threshold for diagnostic coronary angina gram. Patient is echocardiogram dated 08/19/2018 showed an EF around 45% with global hypokinesis, RVSP of 30 mmHg, and severe RV dilatation. Would recommend holding on Plavix at this time given his thrombocytopenia, bleeding issues on initial evaluation. Should he require intervention we can do so in a staged fashion in order to avoid unnecessary GI bleeding. 3. Hyperlipidemia: The patient apparently has alcoholic cirrhosis with associated ascites. Would hold off on statin at this time. 4. Thank you very much for the opportunity to participate in the cardiac care of your patient. Code Visit Inpatient E&M: 20068 Subs Hosp L2
[2018-08-26] MEDS: Lactulose 20 GM/30 ML UDC 10 GM PO ×2 (12:46→21:55)
--- NOTE | 2018-08-26 15:03 | PCM.PN.ID ---
Patient Problems: Active and Suspected Problems Hyponatremia (Acute) Decompensated hepatic cirrhosis (Acute) CAP (community acquired pneumonia) (Acute) Sepsis (Acute) Subjective: Feeling better, some dry cough, no fever - Physical Exam General: Alert, Cooperative, No apparent distress Lungs: Clear to auscultation, Normal air movement Cardiovascular: Irregular Rate Abdomen: Soft, Non Tender, Non-Distended Skin: No rashes Vital Signs Temp Pulse Resp BP Pulse Ox 98.8 F 85 18 126/68 H 92 08/26/18 09:24 08/26/18 13:43 08/26/18 13:43 08/26/18 09:24 08/26/18 09:24 Oxygen Flow Rate (L/min) 2 Oxygen Delivery Method Room Air Weight: 111.6 kg Body Mass Index (BMI) 34.3 Finger Stick Blood Glucose 126 Intake and Output for Last 24 Hours 08/24/18 08/25/18 08/26/18 23:59 23:59 23:59 Intake Total 1167.4 / 1287.4 961.4 / 1021.4 60 / 60 Output Total 1750 / 2100 1325 / 1325 Balance -582.6 / -812.6 -363.6 / -303.6 60 / 60 Microbiology Past 72 Hours 08/23/18 13:54 Urine Culture - Final Urine Catheter - Bass Culture exhibits no growth. 08/23/18 14:08 Blood Culture - Preliminary Blood Culture (Wb) - Anticubital Right No growth in 48 hours. 08/23/18 14:00 Blood Culture - Preliminary Blood Culture (Wb) - No Site/Description Given No growth in 48 hours. 08/23/18 15:00 Gram Stain - Final Sputum, Induced/Lukens Respiratory Culture - Final Presumptive C albicans 08/22/18 10:25 Gram Stain - Final Fluid - Paracentesis (Abd) Body Fluid Culture - Final Culture exhibits no growth. 08/19/18 09:00 Blood Culture - Final Blood Culture (Wb) - Central Line No growth in 5 days. 08/18/18 14:51 Blood Culture - Final Blood Culture (Wb) - Anticubital Right No growth in 5 days. 08/18/18 14:22 Blood Culture - Final Blood Culture (Wb) - Anticubital Left No growth in 5 days. Laboratory Tests Past 24 Hrs 08/26/18 08/26/18 05:37 05:37 WBC 2.6 L RBC 3.64 L Hgb 11.5 L Hct 34.8 L MCV 95.6 H MCH 31.6 MCHC 33.0 RDW 17.7 H RDW Differential 61.5 H Plt Count 85 L MPV 8.8 Immature Gran % (Auto) 1.200 H Neut % (Auto) 58.8 Lymph % (Auto) 27.2 [place] % (Auto) 9.7 Eos % (Auto) 2.7 Baso % (Auto) 0.4 Absolute Neuts (auto) 1.5 L Absolute Lymphs (auto) 0.70 L Total Counted Not Reportable Sodium 148 H Potassium 3.6 Chloride 114 H Carbon Dioxide 27.0 Anion Gap 7 BUN 22 H Creatinine 0.69 L Estim Creat Clear Calc 123.40 Est GFR (MDRD) Af Amer 150 Est GFR (MDRD) Non-Af 124 BUN/Creatinine Ratio 31.9 H Glucose 115 H Calcium 8.6 Total Bilirubin 1.70 H AST 110 H ALT 47 Alkaline Phosphatase 102 Total Protein 6.7 Albumin 2.4 L Globulin 4.3 H Albumin/Globulin Ratio 0.6 L Medical Necessity - Tobacco Use Smoking Status: Current every day smoker Tobacco Use: Cigarettes Route of nutrition/ use of supplements: [] Nutritional Intake: [] IV Site: [] Bass Catheter: [] - Assessment/Plan Antibiotics: [] Assessment/Plan: [] Active and Suspected Problems Hyponatremia (Acute) Decompensated hepatic cirrhosis (Acute) CAP (community acquired pneumonia) (Acute) Sepsis (Acute) septic shock with legionella, resp failure, ascites - cont levaquin. Paracentesis 08/22 neg for SBP. BP improved. Stopped zosyn 08/23, fever now resolved. Remains off vent. Changed levaquin to po. Stopping abx tomorrow to complete 10 days total. Will follow, d/w nursing.
[2018-08-26] MEDS: Tamsulosin HCl 0.4 MG Capsule PO (15:43)
--- NOTE | 2018-08-26 16:28 | PN_ITS ---
Patient Problems: Active and Suspected Problems Hyponatremia (Acute) Decompensated hepatic cirrhosis (Acute) CAP (community acquired pneumonia) (Acute) Sepsis (Acute) Subjective: The patient was seen and examined. Patient is still confused and disoriented although more common quite than yesterday Patient is still A. fib heart rate in the 90s. Blood pressure is controlled. The patient was seen by PT/OT and speech/swallow therapist. Speech therapist recommended pur?ed texture thin liquid diet with supervision. Vitals/I&O's: Vital Signs Temp Pulse Resp BP Pulse Ox 98.5 F 98 14 114/79 92 08/26/18 15:30 08/26/18 15:30 08/26/18 15:30 08/26/18 15:30 08/26/18 15:30 Oxygen Flow Rate (L/min) 2 Oxygen Delivery Method Room Air Weight: 246 lb 0.574 oz Body Mass Index (BMI) 34.3 Finger Stick Blood Glucose 126 Intake and Output for Last 24 Hours 08/24/18 08/25/18 08/26/18 23:59 23:59 23:59 Intake Total 1167.4 / 1287.4 961.4 / 1021.4 Output Total 1750 / 2100 1325 / 1325 Balance -582.6 / -812.6 -363.6 / -303.6 60 General: Confused, Disoriented, Lethargic HEENT: Atraumatic, PERRLA, EOMI, Normocephalic Neck: Supple, No JVD, Negative Carotid Bruits Lungs: Diminished, Rhonchi Cardiovascular: Normal S1, Normal S2, No murmurs, Irregular Rate Abdomen: Bowel Sounds Present, Soft, Non Tender, Non-Distended Skin: No rashes, No breakdown Musculoskeletal: Arthritic Changes Lymphatic: No Cervical, Supraclavicular, or Inguinal Adenopathy Neurological: Cranial nerves II-XII grossly intact, Deep Tendon Reflexes 2+/4 and Symmetrical, Neuro grossly intact, - Psych/Mental Status: Agitated, Anxious Microbiology Past 72 Hours 08/23/18 13:54 Urine Catheter - Bass Urine Culture - Final Culture exhibits no growth. 08/23/18 14:08 Blood Culture (Wb) - Anticubital Right Blood Culture - Preliminary No growth in 48 hours. 08/23/18 14:00 Blood Culture (Wb) - No Site/Description Given Blood Culture - Preliminary No growth in 48 hours. 08/23/18 15:00 Sputum, Induced/Lukens Gram Stain - Final 08/23/18 15:00 Sputum, Induced/Lukens Respiratory Culture - Final Presumptive C albicans 08/22/18 10:25 Fluid - Paracentesis (Abd) Gram Stain - Final 08/22/18 10:25 Fluid - Paracentesis (Abd) Body Fluid Culture - Final Culture exhibits no growth. 08/19/18 09:00 Blood Culture (Wb) - Central Line Blood Culture - Final No growth in 5 days. 08/18/18 14:51 Blood Culture (Wb) - Anticubital Right Blood Culture - Final No growth in 5 days. 08/18/18 14:22 Blood Culture (Wb) - Anticubital Left Blood Culture - Final No growth in 5 days. Laboratory Results 08/26/18 05:37: WBC 2.6 L, RBC 3.64 L, Hgb 11.5 L, Hct 34.8 L, MCV 95.6 H, MCH 31.6, MCHC 33.0, RDW 17.7 H, RDW Differential 61.5 H, Plt Count 85 L, MPV 8.8, Immature Gran % (Auto) 1.200 H, Neut % (Auto) 58.8, Lymph % (Auto) 27.2, [place] % (Auto) 9.7, Eos % (Auto) 2.7, Baso % (Auto) 0.4, Absolute Neuts (auto) 1.5 L, Absolute Lymphs (auto) 0.70 L, Total Counted Not Reportable 08/26/18 05:37: Sodium 148 H, Potassium 3.6, Chloride 114 H, Carbon Dioxide 27.0, Anion Gap 7, BUN 22 H, Creatinine 0.69 L, Estim Creat Clear Calc 123.40, Est GFR (MDRD) Af Amer 150, Est GFR (MDRD) Non-Af 124, BUN/Creatinine Ratio 31.9 H, Glucose 115 H, Calcium 8.6, Total Bilirubin 1.70 H, AST 110 H, ALT 47, Alkaline Phosphatase 102, Total Protein 6.7, Albumin 2.4 L, Globulin 4.3 H, Albumin/Globulin Ratio 0.6 L Current Medications Albuterol Sulfate (Ventolin Aerosols) 2.5 mg INHALATION Q2H PRN PRN PRN Reason: dyspnea, wheezing Last Admin: 08/22/18 18:50 Dose: 2.5 mg Documented by: Albuterol/Ipratropium (Duoneb) 3 ml INHALATION Q6HWA.RT [facility] Last Admin: 08/26/18 13:43 Dose: 3 ml Documented by: Amiodarone HCl (Cordarone) 200 mg PO BID [facility] Last Admin: 08/26/18 09:26 Dose: 200 mg Documented by: Apixaban (Eliquis) 2.5 mg PO BID [facility] Last Admin: 08/26/18 09:25 Dose: 2.5 mg Documented by: Aspirin (Aspirin, Baby) 81 mg PO DAILY@0800 [facility] Carvedilol (Coreg) 3.125 mg PO BID [facility] Last Admin: 08/26/18 09:25 Dose: 3.125 mg Documented by: Chlorhexidine Gluconate () 1 each TOPICAL DAILY [facility] Last Admin: 08/26/18 09:20 Dose: Not Given Documented by: Dextrose (D50w Syringe) 0 gm IV X1 PRN; Protocol PRN Reason: Hypoglycemia Glucagon () 1 mg IM .X1 PRN PRN Reason: Hypoglycemia Hydralazine HCl (Apresoline Iv) 10 mg IV Q4H PRN PRN PRN Reason: SBP > 160 Lactulose (Chronulac, Cephulac) 10 gm PO BID [facility] Last Admin: 08/26/18 12:46 Dose: 10 gm Documented by: Levofloxacin (Levaquin Tablet) 750 mg PO DAILY@0600 [facility] Stop: 08/27/18 08:00 Last Admin: 08/26/18 06:13 Dose: 750 mg Documented by: Ondansetron HCl (Zofran) 4 mg IV Q8H PRN PRN PRN Reason: NAUSEA/VOMITING Quetiapine Fumarate (Seroquel) 50 mg PO BID [facility] Last Admin: 08/26/18 09:25 Dose: 50 mg Documented by: Rifaximin (Xifaxan) 200 mg PO TID [facility] Last Admin: 08/26/18 15:43 Dose: 200 mg Documented by: Sodium Chloride () 5 - 15 ml IV UD PRN PRN Reason: SALINE FLUSH Last Admin: 08/25/18 09:53 Dose: 15 ml Documented by: Tamsulosin HCl (Flomax) 0.4 mg PO DAILY@1730 [facility] Last Admin: 08/26/18 15:43 Dose: 0.4 mg Documented by: Medical Necessity - Tobacco Use Smoking Status: Current every day smoker Tobacco Use: Cigarettes Assessment/Plan All Active Problems Hyponatremia (Acute) Decompensated hepatic cirrhosis (Acute) CAP (community acquired pneumonia) (Acute) Sepsis (Acute) Leukocytoclastic vasculitis (Acute) Atrial fibrillation with RVR (Acute) Heart failure with preserved ejection fraction, borderline, class II (Acute) Atrial fibrillation (Acute) This is a 62-year-old male alcoholic admitted to the hospital with acute respiratory failure secondary to Legionella pneumonia. He Has gone through acute alcohol withdrawal. Atrial fibrillation with RVR has been controlled with amiodarone. Levophed discontinued on 08/23/2018 in the early a.m. Transition to Precedex on 08/22/2018 in preparation for weaning. Failed SBT today sp to agitation, tachycardia and hypoxic with increased RR. Patient was admitted in ICU and is being transferred to PCU on 08/25 1 Septic shock presumed secondary to Legionella pneumonia and possibly spontaneous bacterial peritonitis: ID on board. Patient still has. On IV Zosyn. Chest x-ray shows bilateral infiltrates-currently on p.o. Levaquin. Last dose will be tomorrow. Paracentesis fluid analysis shows total WBC 299, polymorphs 14%, mononuclear 86%. Fluid total protein 2.8, glucose 139. Peritoneal fluid analysis including total protein does not support SBP. 2. Acute combined respiratory failure and required intubation: Patient extubated on 08/24. Currently on weaning trial of Precedex drip. Fentanyl was discontinued. 3. Acute encephalopathy probably metabolic/toxic/infectious suggestive of multifactorial: Patient has history of alcohol withdrawal, sepsis, elevated ammonia and cannabis use. Patient is confused and disoriented. Needs more orientation cues. 4. Chronic alcohol use, moderate ascites, hypoalbuminemia splenomegaly and thrombocytopenia suggestive of decompensated cirrhosis: CT scan liver reported normal normal but it has moderate ascites, moderate to splenomegaly but normal pancreas. 5. PAF with RVR - currently rate controlled. On Coreg 3.125 mg twice daily, amiodarone 200 mg twice daily and Eliquis 2.5 mg twice daily. Amiodarone drip is being discontinued. 6. Troponin elevation-likely secondary to demand ischemia related to septic shock and acute respiratory failure with hypoxemia 7. Acute nonoliguric renal failure-suspect secondary to ATN, creat is improving 8. Diabetes mellitus type 2 - glucose are well controlled 9. Biventricular systolic heart failure: Echo 08/19 moderately dilated LV, EF 40 to 45% moderate global hypokinesis. Severely dilated RV. Right atrium severely enlarged. Moderate 2+ TR, RVSP 30 mmHg mild aortic stenosis a small right pleural effusion. 10. Multiple comorbidities including chronic alcohol abuse, cannabis use, chronic thrombocytopenia most probably secondary to alcoholic cirrhosis, chronic back pain with narcotic dependence, Will likely need SNF at [place]. accounting advisory services manager PT and OT consult. Microbiology Past 72 Hours 08/23/18 13:54 Urine Catheter - Bass Urine Culture - Final Culture exhibits no growth. 08/23/18 14:08 Blood Culture (Wb) - Anticubital Right Blood Culture - Preliminary No growth in 48 hours. 08/23/18 14:00 Blood Culture (Wb) - No Site/Description Given Blood Culture - Preliminary No growth in 48 hours. 08/23/18 15:00 Sputum, Induced/Lukens Gram Stain - Final 08/23/18 15:00 Sputum, Induced/Lukens Respiratory Culture - Final Presumptive C albicans 08/22/18 10:25 Fluid - Paracentesis (Abd) Gram Stain - Final 08/22/18 10:25 Fluid - Paracentesis (Abd) Body Fluid Culture - Final Culture exhibits no growth. 08/19/18 09:00 Blood Culture (Wb) - Central Line Blood Culture - Final No growth in 5 days. 08/18/18 14:51 Blood Culture (Wb) - Anticubital Right Blood Culture - Final No growth in 5 days. 08/18/18 14:22 Blood Culture (Wb) - Anticubital Left Blood Culture - Final No growth in 5 days. Laboratory Results 08/26/18 05:37: WBC 2.6 L, RBC 3.64 L, Hgb 11.5 L, Hct 34.8 L, MCV 95.6 H, MCH 3 1.6, MCHC 33.0, RDW 17.7 H, RDW Differential 61.5 H, Plt Count 85 L, MPV 8.8, Immature Gran % (Auto) 1.200 H, Neut % (Auto) 58.8, Lymph % (Auto) 27.2, [place] % (Auto) 9.7, Eos % (Auto) 2.7, Baso % (Auto) 0.4, Absolute Neuts (auto) 1.5 L, Absolute Lymphs (auto) 0.70 L, Total Counted Not Reportable 08/26/18 05:37: Sodium 148 H, Potassium 3.6, Chloride 114 H, Carbon Dioxide 27.0, Anion Gap 7, BUN 22 H, Creatinine 0.69 L, Estim Creat Clear Calc 123.40, Est GFR (MDRD) Af Amer 150, Est GFR (MDRD) Non-Af 124, BUN/Creatinine Ratio 31.9 H, Glucose 115 H, Calcium 8.6, Total Bilirubin 1.70 H, AST 110 H, ALT 47, Alkaline Phosphatase 102, Total Protein 6.7, Albumin 2.4 L, Globulin 4.3 H, Albumin/Globulin Ratio 0.6 L 08/24/18 06:05: Diff Path Review Reviewed 08/25/18 04:10: WBC 3.3 L, RBC 3.58 L, Hgb 11.2 L, Hct 33.8 L, MCV 94.4 H, MCH 31.3, MCHC 33.1, RDW 18.1 H, RDW Differential 59.0 H, Plt Count 98 L, MPV 7.8, Immature Gran % (Auto) COMMUNICATIONS CONSULTANT, Neut % (Auto) COMMUNICATIONS CONSULTANT, Lymph % (Auto) COMMUNICATIONS CONSULTANT, [place] % (Auto) COMMUNICATIONS CONSULTANT, Eos % (Auto) COMMUNICATIONS CONSULTANT, Baso % (Auto) COMMUNICATIONS CONSULTANT, Absolute Neuts (auto) 2.4, Absolute Lymphs (auto) 0.63 L, Total Counted 100, Neutrophils % (Manual) 71 H, Lymphocytes % (Manual) 19, Monocytes % (Manual) 8, Eosinophils % (Manual) 1, Plasma Cell % (Manual) 1, Diff Path Review Reviewed, Platelet Estimate SLT DEC, RBC Morphology NORM C+C 08/25/18 04:10: Sodium 149 H, Potassium 3.6, Chloride 114 H, Carbon Dioxide 28.0, Anion Gap 7, BUN 23 H, Creatinine 0.77, Estim Creat Clear Calc 110.58, Est GFR (MDRD) Af Amer 132, Est GFR (MDRD) Non-Af 109, BUN/Creatinine Ratio 29.9 H, Glucose 137 H, Calcium 8.4 L, Phosphorus 2.7, Magnesium 2.4 Active Medications Albuterol Sulfate (Ventolin Aerosols) 2.5 mg INHALATION Q2H PRN PRN PRN Reason: dyspnea, wheezing Last Admin: 08/22/18 18:50 Dose: 2.5 mg Documented by: Albuterol/Ipratropium (Duoneb) 3 ml INHALATION Q6HWA.RT [facility] Last Admin: 08/26/18 13:43 Dose: 3 ml Documented by: Amiodarone HCl (Cordarone) 200 mg PO BID [facility] Last Admin: 08/26/18 09:26 Dose: 200 mg Documented by: Apixaban (Eliquis) 2.5 mg PO BID [facility] Last Admin: 08/26/18 09:25 Dose: 2.5 mg Documented by: Aspirin (Aspirin, Baby) 81 mg PO DAILY@0800 [facility] Carvedilol (Coreg) 3.125 mg PO BID [facility] Last Admin: 08/26/18 09:25 Dose: 3.125 mg Documented by: Chlorhexidine Gluconate () 1 each TOPICAL DAILY [facility] Last Admin: 08/26/18 09:20 Dose: Not Given Documented by: Dextrose (D50w Syringe) 0 gm IV X1 PRN; Protocol PRN Reason: Hypoglycemia Glucagon () 1 mg IM .X1 PRN PRN Reason: Hypoglycemia Hydralazine HCl (Apresoline Iv) 10 mg IV Q4H PRN PRN PRN Reason: SBP > 160 Lactulose (Chronulac, Cephulac) 10 gm PO BID [facility] Last Admin: 08/26/18 12:46 Dose: 10 gm Documented by: Levofloxacin (Levaquin Tablet) 750 mg PO DAILY@0600 [facility] Stop: 08/27/18 08:00 Last Admin: 08/26/18 06:13 Dose: 750 mg Documented by: Ondansetron HCl (Zofran) 4 mg IV Q8H PRN PRN PRN Reason: NAUSEA/VOMITING Quetiapine Fumarate (Seroquel) 50 mg PO BID [facility] Last Admin: 08/26/18 09:25 Dose: 50 mg Documented by: Rifaximin (Xifaxan) 200 mg PO TID [facility] Last Admin: 08/26/18 15:43 Dose: 200 mg Documented by: Sodium Chloride () 5 - 15 ml IV UD PRN PRN Reason: SALINE FLUSH Last Admin: 08/25/18 09:53 Dose: 15 ml Documented by: Tamsulosin HCl (Flomax) 0.4 mg PO DAILY@1730 [facility] Last Admin: 08/26/18 15:43 Dose: 0.4 mg Documented by: Code Visit Inpatient E&M: 44266 Subs Hosp L3
[2018-08-26] MEDS: rifAXIMin 550 MG Tablet PO (22:47)
[2018-08-27] VITALS (10 sets, daily range): BP systolic 108–117; BP diastolic 66–83; PULSE 91–121; RESP 14–17; TEMP 36.6–36.9; O2SAT 91–97
[2018-08-27] MEDS: Lactulose 20 GM/30 ML UDC 10 GM PO (05:52)
[2018-08-27] MEDS: levoFLOXacin 750 MG Tablet PO (05:53)
[2018-08-27] MEDS: Ipratropium/Albuterol Sulfate 3 ML AMPUL.NEB INHALATION (06:49)
[2018-08-27 07:10] LABS: Absolute Lymphocyte Count 1.15 X10^3/ul (0.83-4.51); Absolute Neutrophil Count 2.6 X10^3/uL (2.0-7.7); Basophil# 0.01 X10^3/uL; Basophil% 0.2 % (0-1); Eosinophil# 0.09 X10^3/uL; Eosinophils% 2.1 % (0-5); Hematocrit 36.5 % (40-54); Hemoglobin 12.1 g/dl (13.0-16.5); Lymphocyte # 1.15 X10^3/ul (4.0); Lymphocyte % 27.3 % (19-41); Mean Corp Hgb Conc 33.2 g/gl (32-36); Mean Corpuscular Volume 93.6 fL (80-94); Mean Platelet Vol. 8.8 fl (6.2-12.0); Monocyte# 0.31 X10^3/uL; Monocyte% 7.3 % (0-10); Neutrophil # 2.62 X10^3/uL (2.7-7.7); Neutrophil % 62.2 % (47-70); Platelet Count 94 K/mm3 (150-450); RBC Distribution Width CV 17.3 % (11.6-14.6); RBC Distribution Width SD 58.7 fl (35.1-43.9); White Blood Count 4.2 K/mm3 (4.4-11.0)
[2018-08-27 07:12] LABS: POSITIVE COUNT NO; POSITIVE DIFFERENTIAL NO; POSITIVE MORPHOLOGY NO
[2018-08-27 07:27] LABS: Anion Gap 9 (5-15); BUN 20 mg/dL (7-18); Calcium,Total 8.6 mg/dL (8.5-10.1); Chloride 106 mmol/L (98-107); Creatinine, Serum 0.87 mg/dL (0.70-1.30); EST Glomerular Filtration Rate 95 mL/min (>60); Est Glom Filt Rate - Afr Amer 115 mL/min (>60); Estimated Creatinine Clearance 97.87 ml/min; Glucose 91 mg/dL (74-106); Potassium 3.7 mmol/L (3.5-5.1); Sodium Level 140 mmol/L (136-145)
[2018-08-27] MEDS: Aspirin 81 MG TAB.CHEW PO (07:45)
[2018-08-27] MEDS: Carvedilol 3.125 MG TABLET PO (09:25)
[2018-08-27] MEDS: Amiodarone 200 MG Tablet PO (09:25)
[2018-08-27] MEDS: APIXABAN 2.5 MG TABLET PO (09:26)
[2018-08-27] MEDS: QUEtiapine 25 MG Tablet 50 MG PO (09:26)
[2018-08-27] MEDS: rifAXIMin 550 MG Tablet PO (09:27)
--- NOTE | 2018-08-27 11:21 | TREXTCAR_ITS ---
- Diet 08/26/18 10:41 Diet: Carbohydrate Controlled Food consistency:: Puree Liquid Consistency:: Regular/Thin Is pt able to select menu?: No Diet Comments: Direct supervison w/ TOTAL feed PRN; straws; meds crushed; seated upright - Routine Orders/Code Status Suppository Type: Dulcolax 10mg Suppository Frequency: Daily PRN Routine Lab Work: CBC, BMP - weekly starting on 08/30/18 for Cr monitoring for 2-3 weeks - Wound(s) b/l upper extremities Wound Type: scabs rt lower abd Wound Type: Puncture - Therapies Weight Bearing: Full weight bearing Extremity Affected:: Bilateral Lower Physical Therapy: Eval and Treat Occupational Therapy: Eval and Treat Speech Therapy: Eval and Treat - Allergies/Procedures Done in Hospital Allergies/Adverse Reactions: Allergies No Known Allergies Allergy (Verified 08/18/18 14:17) - Type of Care/Length of Stay Estimated LOS: Convalescent Care Less Than 30 days Type of Care Needed: Skilled Rehab Potential: Good Prognosis: Good - Additional Orders/Day of Discharge Additional Orders: Call construction secretary Dr. Tubbs's office on 08/29/2018 to clarify order on amiodarone, Cardizem CD and Irebesartan Day of Discharge: 08/27/18 - Dietary and Speech Recommendations Dietitian Recommendations/Changes: Continue CHO controlled, cardiac diet as tolerated w/ fluid restriction if indicated. - Follow Up Care Primary Care Physician: Tk Fofana MD [Primary Care Provider] - Please follow up with your Primary Care Physician in: in 2 weeks Please Follow Up With: Alberto Tubbs MD When: IN 3-4 WEEKS Please Follow Up With: Jose Gentile MD When: Jazmin Olson in 2 wks, GIOVANNI, COPD
--- NOTE | 2018-08-27 11:25 | PCM.DC.SUM ---
Discharge Date and Diagnosis Date of Admission: 08/18/18 Date of Discharge: 08/27/18 - Primary Discharge Diagnosis Active and Suspected Problems Hyponatremia (Acute) Decompensated hepatic cirrhosis (Acute) CAP (community acquired pneumonia) (Acute) Sepsis (Acute) - Secondary Discharge Diagnosis Chronic Problems HLD (hyperlipidemia) (Chronic) Thrombocytopenia (Chronic) Anemia (Chronic) Pancytopenia (Chronic) Alcohol abuse (Chronic) Diabetes type 2, controlled (Chronic) Hypertension (Chronic) Hospital Course and Treatment Summary of Care Provided: [] This is a 62-year-old male alcoholic admitted to the hospital with acute respiratory failure secondary to Legionella pneumonia. He Has gone through acute alcohol withdrawal. Atrial fibrillation with RVR has been controlled with amiodarone. Levophed discontinued on 08/23/2018 in the early a.m. Transition to Precedex on 08/22/2018 in preparation for weaning. Failed SBT today sp to agitation, tachycardia and hypoxic with increased RR. Patient was admitted in ICU and is being transferred to PCU on 08/25. 1 Septic shock presumed secondary to Legionella pneumonia and possibly spontaneous bacterial peritonitis: ID on board. Patient still has. On IV Zosyn. Chest x-ray shows bilateral infiltrates-currently on p.o. Levaquin. Patient completed Levaquin today. Paracentesis fluid analysis shows total WBC 299, polymorphs 14%, mononuclear 86%. Fluid total protein 2.8, glucose 139. Peritoneal fluid analysis including total protein does not support SBP. 2. Acute combined respiratory failure and required intubation: Patient extubated on 08/24. Currently on weaning trial of Precedex drip. Fentanyl was discontinued. Resolved. Patient pulse ox 96% on room air. No tachypnea. Patient walked good on room air around the nursing station. 3. Acute encephalopathy probably metabolic/toxic/infectious suggestive of multifactorial: Patient has history of alcohol withdrawal, sepsis, elevated ammonia and cannabis use. Resolved. Patient is awake alert, oriented x3. 4. Chronic alcohol use, moderate ascites, hypoalbuminemia splenomegaly and thrombocytopenia suggestive of decompensated cirrhosis: CT scan liver reported normal normal but it has moderate ascites, moderate to splenomegaly but normal pancreas. 5. PAF with RVR - currently rate controlled. On Coreg 3.125 mg twice daily, amiodarone 200 mg twice daily and Eliquis 2.5 mg twice daily. Amiodarone drip is being discontinued. Discussed with Dr. Starks as he is covering Dr. Tubbs. Dr. Tubbs notes he is amiodarone 200 mg twice daily for 5 days, from 08/25, therefore last date will be 08/29/2018. Cardizem CD 120 mg daily continued. Coreg continued on discharge meds. 6. Troponin elevation-likely secondary to demand ischemia related to septic shock and acute respiratory failure with hypoxemia 7. Acute nonoliguric renal failure-most probably prerenal/ATN from septic shock. Resolved. Patient on Avapro 150 mg daily before admission which was held because of acute kidney injury. Patient creatinine have been normal for last for 5 days therefore Avapro resumed at lower dose 75 mg daily. Advised check BMP after 3 days and every week to monitor creatinine on Avapro. 8. Diabetes mellitus type 2 - glucose are well controlled 9. Biventricular systolic heart failure: Echo 08/19 moderately dilated LV, EF 40 to 45% moderate global hypokinesis. Severely dilated RV. Right atrium severely enlarged. Moderate 2+ TR, RVSP 30 mmHg mild aortic stenosis a small right pleural effusion. 10. Multiple comorbidities including chronic alcohol abuse, cannabis use, chronic thrombocytopenia most probably secondary to alcoholic cirrhosis, chronic back pain with narcotic dependence, Patient is being discharged to SNF TCU. Nursing staff was called to follow-up with Dr. Tubbs's office on Wednesday, August 29, 2018 to review on cardiac medications including amiodarone, Coreg, Avapro/irbesartan and Cardizem. Lidocaine and opioid medication discontinued. Discharged on lactulose and Xifaxan 550 mg twice daily for alcoholic cirrhosis Discharge medication reconciliation done. Discharge follow-up instructions completed. Discharge process discussed with the patient and all questions were answered to patient's satisfaction.. Will likely need SNF at [place]. flight control manager PT and OT consult. Subjective: Seen and examined. Patient is more awake alert and verbal. Patient is participating with physical therapy and walked around the nursing station under physical therapist supervision Objective: General: Alert, awake and oriented x3. Patient is verbal. HEENT: Atraumatic, PERRLA, EOMI, Normocephalic Neck: Supple, No JVD, Negative Carotid Bruits Lungs: Diminished, air entry diminished in bilateral lung bases. Chronic rhonchi Cardiovascular: Normal S1, Normal S2, No murmurs, Irregular Rate Abdomen: Bowel Sounds Present, Soft, Non Tender, Non-Distended Skin: No rashes, No breakdown Musculoskeletal: Arthritic Changes. Mild muscle atrophy, chronic Lymphatic: No Cervical, Supraclavicular, or Inguinal Adenopathy Neurological: Cranial nerves II-XII grossly intact, Deep Tendon Reflexes 2+/4 and Symmetrical, Neuro grossly intact, - Psych/Mental Status: Normal affect. - Physical Exam Vital Signs Temp Pulse Resp BP Pulse Ox 97.8 F 100 16 117/83 H 95 08/27/18 09:30 08/27/18 09:49 08/27/18 09:49 08/27/18 09:30 08/27/18 09:49 Oxygen Flow Rate (L/min) 2 Oxygen Delivery Method Room Air Weight: 246 lb 7.629 oz Body Mass Index (BMI) 34.3 Finger Stick Blood Glucose 126 Intake and Output for Last 24 Hours 08/25/18 08/26/18 08/27/18 23:59 23:59 23:59 Intake Total 961.4 / 1021.4 660 / 660 240 / 240 Output Total 1325 / 1325 1025 / 1025 Balance -363.6 / -303.6 -365 / -365 240 / 240 Microbiology Past 72 Hours 08/22/18 10:25 Gram Stain - Final Fluid - Paracentesis (Abd) Body Fluid Culture - Final Culture exhibits no growth. Anaerobic Culture - Final No growth in 5 days. 08/23/18 13:54 Urine Culture - Final Urine Catheter - Bass Culture exhibits no growth. 08/23/18 14:08 Blood Culture - Preliminary Blood Culture (Wb) - Anticubital Right No growth in 48 hours. 08/23/18 14:00 Blood Culture - Preliminary Blood Culture (Wb) - No Site/Description Given No growth in 48 hours. 08/23/18 15:00 Gram Stain - Final Sputum, Induced/Lukens Respiratory Culture - Final Presumptive C albicans 08/19/18 09:00 Blood Culture - Final Blood Culture (Wb) - Central Line No growth in 5 days. Laboratory Tests Past 24 Hrs 08/27/18 08/27/18 06:32 06:32 WBC 4.2 L RBC 3.90 L Hgb 12.1 L Hct 36.5 L MCV 93.6 MCH 31.0 MCHC 33.2 RDW 17.3 H RDW Differential 58.7 H Plt Count 94 L MPV 8.8 Immature Gran % (Auto) 0.900 Neut % (Auto) 62.2 Lymph % (Auto) 27.3 [place] % (Auto) 7.3 Eos % (Auto) 2.1 Baso % (Auto) 0.2 Absolute Neuts (auto) 2.6 Absolute Lymphs (auto) 1.15 Total Counted Not Reportable Sodium 140 Potassium 3.7 Chloride 106 Carbon Dioxide 25.0 Anion Gap 9 BUN 20 H Creatinine 0.87 Estim Creat Clear Calc 97.87 Est GFR (MDRD) Af Amer 115 Est GFR (MDRD) Non-Af 95 BUN/Creatinine Ratio 23.0 H Glucose 91 Calcium 8.6 Home Medications: Medications to take at Discharge Diltiazem CD [Cardizem CD] 120 mg PO DAILY 10/19/16 Docusate Sodium [Dok] 100 mg PO BID 07/07/17 Citalopram [Celexa] 40 mg PO DAILY 08/18/18 Ferrous Sulfate 325 mg PO DAILY 08/18/18 Multivitamin with Minerals [Multiple Vitamin] 1 ea PO DAILY 08/18/18 [place]-3 Fatty Acids/Fish Oil [[place] 3 1,000 mg Softgel] 3,000 mg PO DAILY 08/18/18 Potassium Chloride [Klor-Con M20] 20 meq PO DAILY 08/18/18 Ubidecarenone [Co Q-10] 100 mg PO DAILY 08/18/18 busPIRone [Buspar] 15 mg PO BID 08/18/18 metFORMIN (XR) [Glucophage Xr] 1,000 mg PO DAILY 08/18/18 Albuterol Aerosols [Ventolin Aerosols] 2.5 mg INHALATION Q2H PRN PRN vial.neb. 08/27/18 Amiodarone HCl [Cordarone] 200 mg PO BID 08/27/18 Apixaban [Eliquis] 2.5 mg PO BID 08/27/18 Aspirin [Aspirin, Baby] 81 mg PO DAILY@0800 08/27/18 Carvedilol [Coreg (Beta Taco)] 3.125 mg PO BID 08/27/18 Furosemide [Lasix] 20 mg PO DAILY PRN PRN #0 08/27/18 Ipratropium/Albuterol Sulfate [Duoneb] 3 ml INHALATION Q6HWA.RT 08/27/18 Irbesartan [Avapro] 75 mg PO DAILY #0 08/27/18 Lactulose [Chronulac] 10 gm PO TID 08/27/18 Peg 400/Hypromellose/Glycerin [Artificial Tears] 2 drp EACH EYE Q1H PRN bottle 08/27/18 Quetiapine Fumarate [Seroquel] 50 mg PO BID 08/27/18 Rifaximin [Xifaxan] 550 mg PO BID 08/27/18 Tamsulosin HCl [Flomax] 0.4 mg PO DAILY@1730 08/27/18 Primary Care Physician: Tk Fofana MD [Primary Care Provider] - Please follow up with your Primary Care Physician in: in 2 weeks Please Follow Up With: Alberto Tubbs MD When: IN 3-4 WEEKS Please Follow Up With: Jose Gentile MD When: Jazmin Olson in 2 wks, GIOVANNI, COPD Medical Necessity - Tobacco Use Smoking Status: Current every day smoker Tobacco Use: Cigarettes Meaningful Use Info Meaningful Use Diagnoses (Choose all that apply): None applicable Code Visit Inpatient E&M: 94230 Disch Hosp
--- NOTE | 2018-08-27 12:19 | PCA ---
Faxed discharge papers to TCU at 1130, after nurse called report attempted to get ahold of patients brother Anish at [phone]. Didn't get ahold of him left a voicemail to call back.
== END 2018-08-27 12:57 | DRG 870 ==
LOC: ED 14:50 → PCU 16:29 → ICU 17:19 → PCU 08-19 10:19 → ICU 08-25 10:44 → PCU 08-25 12:49
PROVIDERS: Hospitalist; Internal Medicine; Internal Medicine Critical Care Medicine; Internal Medicine Infectious Disease; Admitting Provider Family Medicine; Emergency Provider Emergency Medicine; Family Provider Family Medicine; PCP Family Medicine; Referring Provider Family Medicine; Visit Provider Internal Medicine
DX: A41.59 Other Gram-negative sepsis (principal); R65.21 Severe sepsis with septic shock; N17.0 Acute kidney failure with tubular necrosis; A48.1 Legionnaires' disease; G93.41 Metabolic encephalopathy; J96.01 Acute respiratory failure with hypoxia; E87.1 Hypo-osmolality and hyponatremia; F10.239 Alcohol dependence with withdrawal, unspecified; I24.8 Other forms of acute ischemic heart disease; F11.20 Opioid dependence, uncomplicated; I50.20 Unspecified systolic (congestive) heart failure; I48.0 Paroxysmal atrial fibrillation; K70.31 Alcoholic cirrhosis of liver with ascites; E11.9 Type 2 diabetes mellitus without complications; I35.0 Nonrheumatic aortic (valve) stenosis; D69.59 Other secondary thrombocytopenia; M54.5 Low back pain; I11.0 Hypertensive heart disease with heart failure; G89.29 Other chronic pain; F12.20 Cannabis dependence, uncomplicated; F17.210 Nicotine dependence, cigarettes, uncomplicated; Z79.84 Long term (current) use of oral hypoglycemic drugs; Z79.01 Long term (current) use of anticoagulants
CPT/HCPCS: 31500; 31720; 36415; 36600; 49083; 51702; 70450; 71045; 74018; 74176; 76705; 80048; 80053; 80074; 80076; 80307; 80320; 81001; 82140; 82550; 82607; 82728; 82746; 82803; 82945; 82962; 83036; 83540; 83550; 83605; 83615; 83735; 83880; 84100; 84157; 84443; 84478; 84484; 85025; 85610; 85730; 86703; 87040; 87070; 87075; 87086; 87205; 87449; 87641; 88108; 88305; 88313; 89050; 92526; 92610; 93005; 93306; 94002; 94003; 94640; 94660; 94667; 95831; 97162; 97166; 97530; 97535; 97803; 99251; 99285; J7030; J7040; J7050; Q9957; A4216; C1751; C8929; G0463; G0480; J0330; J1940; J3490

== ENCOUNTER 2018-08-27 13:30 | Inpatient (IN) | payer MEDICARE, SELFPAY ==
[2015-09-13 11:13] VITALS: BMI 36.2
[2018-08-18 16:43] VITALS: BMI 34.3
[2018-08-27 14:00] VITALS: BP 125/55; PULSE 106; RESP 18; TEMP 36.8; O2SAT 95; BMI 35.2
--- NOTE | 2018-08-27 14:02 | NURSING ---
Patient admitted to room 21 from PCU via wheelchair. Patient oriented to room and call light system explained.
[2018-08-27 16:07] VITALS: BP 108/68; PULSE 98; RESP 20; TEMP 36.8; O2SAT 92
[2018-08-27 17:21] LABS: Bedside Glucose 95 mg/dL (70-110)
[2018-08-27] MEDS: Docusate Sodium 100 MG Capsule PO (17:59)
[2018-08-27] MEDS: busPIRone 15 MG TABLET PO (17:59)
[2018-08-27] MEDS: Amiodarone 200 MG Tablet PO (17:59)
[2018-08-27] MEDS: Carvedilol 3.125 MG TABLET PO (17:59)
[2018-08-27] MEDS: rifAXIMin 550 MG Tablet PO (17:59)
[2018-08-27] MEDS: QUEtiapine 25 MG Tablet 50 MG PO (17:59)
[2018-08-27] MEDS: APIXABAN 2.5 MG TABLET PO (17:59)
[2018-08-27] MEDS: Tamsulosin HCl 0.4 MG Capsule PO (17:59)
[2018-08-27 18:47] VITALS: PULSE 92; RESP 16; O2SAT 94
[2018-08-27] MEDS: Ipratropium/Albuterol Sulfate 3 ML AMPUL.NEB INHALATION (18:47)
[2018-08-27] MEDS: Lactulose 20 GM/30 ML UDC 10 GM PO (20:12)
[2018-08-27 20:47] VITALS: PULSE 94; RESP 17; O2SAT 93
[2018-08-27 21:11] LABS: Bedside Glucose 142 mg/dL (70-110)
[2018-08-27 22:17] VITALS: PULSE 89; RESP 21; O2SAT 94
[2018-08-28] MEDS: Lactulose 20 GM/30 ML UDC 10 GM PO ×3 (04:57→22:33)
[2018-08-28] MEDS: dilTIAZem CD 120 MG Capsule PO (04:58)
[2018-08-28] MEDS: Citalopram 40 MG TABLET PO (04:58)
[2018-08-28] MEDS: QUEtiapine 25 MG Tablet 50 MG PO ×2 (04:58→22:33)
[2018-08-28] MEDS: busPIRone 15 MG TABLET PO ×2 (04:58→17:36)
[2018-08-28] MEDS: Losartan Potassium 25 MG Tablet PO (04:58)
[2018-08-28] MEDS: Docusate Sodium 100 MG Capsule PO ×2 (04:58→17:36)
[2018-08-28] MEDS: Carvedilol 3.125 MG TABLET PO ×2 (04:58→17:36)
[2018-08-28] MEDS: rifAXIMin 550 MG Tablet PO ×2 (04:58→17:36)
[2018-08-28] MEDS: Amiodarone 200 MG Tablet PO ×2 (04:58→17:36)
[2018-08-28] MEDS: APIXABAN 2.5 MG TABLET PO ×2 (04:59→17:36)
[2018-08-28 06:21] LABS: Bedside Glucose 126 mg/dL (70-110)
[2018-08-28 06:57] LABS: Absolute Lymphocyte Count 1.08 X10^3/ul (0.83-4.51); Absolute Neutrophil Count 3.1 X10^3/uL (2.0-7.7); Basophil# 0.01 X10^3/uL; Basophil% 0.2 % (0-1); Eosinophil# 0.09 X10^3/uL; Eosinophils% 1.9 % (0-5); Hematocrit 35.9 % (40-54); Hemoglobin 12.3 g/dl (13.0-16.5); Lymphocyte # 1.08 X10^3/ul (4.0); Lymphocyte % 23.1 % (19-41); Mean Corp Hgb Conc 34.3 g/gl (32-36); Mean Corpuscular Hgb 31.5 pg (27.0-32.0); Mean Corpuscular Volume 92.1 fL (80-94); Mean Platelet Vol. 8.5 fl (6.2-12.0); Monocyte# 0.32 X10^3/uL; Monocyte% 6.9 % (0-10); Neutrophil # 3.14 X10^3/uL (2.7-7.7); Neutrophil % 67.3 % (47-70); Platelet Count 82 K/mm3 (150-450); RBC Distribution Width CV 16.7 % (11.6-14.6); RBC Distribution Width SD 55.5 fl (35.1-43.9); White Blood Count 4.7 K/mm3 (4.4-11.0)
[2018-08-28 07:01] LABS: POSITIVE COUNT NO; POSITIVE DIFFERENTIAL NO; POSITIVE MORPHOLOGY NO
[2018-08-28 07:02] LABS: Anion Gap 4 (5-15); BUN 15 mg/dL (7-18); BUN/Creat Ratio 17.2 RATIO (10-20); Calcium,Total 8.8 mg/dL (8.5-10.1); Chloride 107 mmol/L (98-107); Creatinine, Serum 0.87 mg/dL (0.70-1.30); EST Glomerular Filtration Rate 94 mL/min (>60); Est Glom Filt Rate - Afr Amer 114 mL/min (>60); Estimated Creatinine Clearance 94.97 ml/min; Glucose 124 mg/dL (74-106); Potassium 3.8 mmol/L (3.5-5.1); Sodium Level 136 mmol/L (136-145)
[2018-08-28] MEDS: metFORMIN (XR) 500 MG Tablet 1000 MG PO (08:26)
[2018-08-28] MEDS: Ferrous Sulfate 325 MG Tablet PO (08:26)
[2018-08-28] MEDS: Multivitamins,Therapeutic Tablet 1 TABLET PO (08:26)
[2018-08-28] MEDS: Aspirin 81 MG TAB.CHEW PO (08:26)
--- NOTE | 2018-08-28 09:26 | NURSING ---
Patient up most of night per machinist 2nd shift staff, patient reports having difficulty sleeping at home. Dr. Nath notified, new order for Doxepin 50mg PO qHS.
--- NOTE | 2018-08-28 10:21 | NURSING ---
Per speech therapy, change patient to mechanical soft diet, continue with supervision.
[2018-08-28] MEDS: Tuberculin,Purif.prot.deriv. 50 TU/ML Vial 5 ML ID (11:02)
[2018-08-28 11:25] LABS: Bedside Glucose 138 mg/dL (70-110)
[2018-08-28 13:20] VITALS: PULSE 88; RESP 20
[2018-08-28] MEDS: Ipratropium/Albuterol Sulfate 3 ML AMPUL.NEB INHALATION ×2 (13:20→18:35)
--- NOTE | 2018-08-28 13:21 | HP.PCM_ITS ---
Problem List (1) Debility Status: Acute (2) Acute respiratory failure Status: Acute (3) Legionella pneumonia Status: Acute (4) Liver cirrhosis Status: Chronic (5) Acute on chronic systolic heart failure Status: Chronic (6) Diabetes mellitus Status: Chronic (7) Tobacco abuse Status: Chronic (8) Cannabis abuse Status: Chronic (9) Opioid dependence Status: Chronic (10) HLD (hyperlipidemia) Status: Chronic Qualifiers: (11) Thrombocytopenia Status: Chronic (12) Anemia Status: Chronic Qualifiers: (13) Hyponatremia Status: Chronic (14) Atrial fibrillation with RVR Status: Acute (15) Alcohol abuse Status: Chronic (16) Hypertension Status: Chronic Qualifiers: History of Present Illness Date of Admission: 08/27/18 Chief Complaint: Here for rehabilitation, strengthening, prior to discharge home with spouse. The patient is a 62 year old Male with below past medical history presented to [facility] Emergency Department 08/18/2018 with weakness, abdominal pain, confusion, urine and bowel incontinence. 08/18/2018 CT head old left sided stroke. 08/18/2018 CT abdomen/pelvis ascites, moderate splenomegaly, bibasilar infiltrates. 08/18/2018 EKG atrial fibrillation, low voltage QRS, septal infarct. Unable to move, short of breath. Fever > 100, Heart rate 148. Lactic acid negative, Troponin negative. Zosyn, Vancomycin, IV fluids given. 08/18/2018 Admit to Hospital. Urine antigen positive for legionella, treated with Levaquin. IV diureses for acute on chronic systolic heart failure. IV cardizem for rate control of atrial fibrillation with rapid ventricular response. [facility] protocol for alcohol abuse. 08/19/2018 Right upper quadrant ultrasound showed significant ascites. 08/19/2018 Dr. Han recommended continuing Zosyn, Levaquin for legionella pneumonia. Check Hepatitis panel, check HIV. 08/19/2018 Echo Moderately dilated left ventricle. EF 40 to 45%. Severely dilated right ventricle. Mild aortic stenosis. 08/22/2018 Chest X-ray left pleural effusion. 08/22/2018 KUB negative. 08/22/2018 ultrasound guided paracentesis removed 3.4 liters fluid. Atrial fibrillation with rapid ventricular response controlled with amiodarone. 08/23/2018 Levophed stopped. Finished course of Levaquin for legionella pneumonia. SBP ruled out. Encephalopathy resolved. Elevated troponin secondary to demand ischemia. Acute kidney injury resolved. 08/28/2018 Admit to TCU with debility, here for rehabilitation, strengthening, prior to discharge home with spouse. Past Medical History Past Medical History (Chronic Problems): Chronic Problems HLD (hyperlipidemia) (Chronic) Thrombocytopenia (Chronic) Anemia (Chronic) Hyponatremia (Chronic) Liver cirrhosis (Chronic) Acute on chronic systolic heart failure (Chronic) Diabetes mellitus (Chronic) Tobacco abuse (Chronic) Cannabis abuse (Chronic) Opioid dependence (Chronic) Pancytopenia (Chronic) Alcohol abuse (Chronic) Diabetes type 2, controlled (Chronic) Hypertension (Chronic) Allergies No Known Allergies Allergy (Verified 08/18/18 14:17) Home Medications: Ambulatory Orders Medication Instructions Recorded Diltiazem CD [Cardizem CD] 120 mg PO DAILY 10/19/16 Docusate Sodium [Dok] 100 mg PO BID 07/07/17 Citalopram [Celexa] 40 mg PO DAILY 08/18/18 Ferrous Sulfate 325 mg PO DAILY 08/18/18 Multivitamin with Minerals 1 ea PO DAILY 08/18/18 [Multiple Vitamin] [place]-3 Fatty Acids/Fish Oil 3,000 mg PO DAILY 08/18/18 [[place] 3 1,000 mg Softgel] Potassium Chloride [Klor-Con M20] 20 meq PO DAILY 08/18/18 Ubidecarenone [Co Q-10] 100 mg PO DAILY 08/18/18 busPIRone [Buspar] 15 mg PO BID 08/18/18 metFORMIN (XR) [Glucophage Xr] 1,000 mg PO DAILY 08/18/18 Albuterol Aerosols [Ventolin 2.5 mg INHALATION Q2H PRN PRN 08/27/18 Aerosols] vial.neb. Amiodarone HCl [Cordarone] 200 mg PO BID 08/27/18 Apixaban [Eliquis] 2.5 mg PO BID 08/27/18 Aspirin [Aspirin, Baby] 81 mg PO DAILY@0800 08/27/18 Carvedilol [Coreg (Beta Taco)] 3.125 mg PO BID 08/27/18 Furosemide [Lasix] 20 mg PO DAILY PRN PRN #0 08/27/18 Ipratropium/Albuterol Sulfate 3 ml INHALATION Q6HWA.RT 08/27/18 [Duoneb] Irbesartan [Avapro] 75 mg PO DAILY #0 08/27/18 Lactulose [Chronulac] 10 gm PO TID 08/27/18 Peg 400/Hypromellose/Glycerin 2 drp EACH EYE Q1H PRN bottle 08/27/18 [Artificial Tears] Quetiapine Fumarate [Seroquel] 50 mg PO BID 08/27/18 Rifaximin [Xifaxan] 550 mg PO BID 08/27/18 Tamsulosin HCl [Flomax] 0.4 mg PO DAILY@1730 08/27/18 Surgical History: tonsillectomy, - - Chest tube placement from prior trauma, right shoulder surgery. Psychiatric History: Anxiety, Depression Lives: Spouse/ Significant Other Smoking Status: Current every day smoker Tobacco Use: Cigarettes Alcohol: Heavy Drugs: - - cannabis - *Family History Sibling History Items: Cancer - Sister with a history of cancer, unclear type., - - Brot her with a history of multiple sclerosis. Maternal History Items: - - Patient notes his mother was healthy, no history of heart disease, diabetes or cancer. Paternal History Items: - - Patient does not know any of his father's history, left when he was young. VTE Information - Inpt Only VTE Present on Admission: No VTE Mechan Device Prophylaxis: Knee High CINDI Hose VTE Pharm Prophylaxis ordered?: No Reason prophylaxis not ordered:: Treatment Not Indicated Patient Problems: Active and Suspected Problems Debility (Acute) Acute respiratory failure (Acute) Legionella pneumonia (Acute) - Physical Exam Vital Signs Temp Pulse Resp BP Pulse Ox 98.2 F 89 21 H 108/68 94 08/27/18 16:07 08/27/18 22:17 08/27/18 22:17 08/27/18 16:07 08/27/18 22:17 Oxygen Delivery Method Room Air Weight: 114.022 kg Body Mass Index (BMI) 35.2 Finger Stick Blood Glucose 126 Intake and Output for Last 24 Hours 08/26/18 08/27/18 08/28/18 23:59 23:59 23:59 Intake Total 120 / 120 680 / 680 Balance 120 / 120 680 / 680 Laboratory Tests Past 24 Hrs 08/28/18 08/28/18 06:36 06:36 WBC 4.7 RBC 3.90 L Hgb 12.3 L Hct 35.9 L MCV 92.1 MCH 31.5 MCHC 34.3 RDW 16.7 H RDW Differential 55.5 H Plt Count 82 L MPV 8.5 Immature Gran % (Auto) 0.600 Neut % (Auto) 67.3 Lymph % (Auto) 23.1 [place] % (Auto) 6.9 Eos % (Auto) 1.9 Baso % (Auto) 0.2 Absolute Neuts (auto) 3.1 Absolute Lymphs (auto) 1.08 Total Counted Not Reportable Sodium 136 Potassium 3.8 Chloride 107 Carbon Dioxide 25.0 Anion Gap 4 L BUN 15 Creatinine 0.87 Estim Creat Clear Calc 94.97 Est GFR (MDRD) Af Amer 114 Est GFR (MDRD) Non-Af 94 BUN/Creatinine Ratio 17.2 Glucose 124 H Calcium 8.8 POC Glucose 08/28/18 08/28/18 08/27/18 11:21 06:13 21:04 POC Glucose 138 H 126 H 142 H 08/27/18 17:13 POC Glucose 95 Assessment/Plan All Active Problems Decompensated hepatic cirrhosis (Acute) CAP (community acquired pneumonia) (Acute) Sepsis (Acute) Debility (Acute) Acute respiratory failure (Acute) Legionella pneumonia (Acute) Leukocytoclastic vasculitis (Acute) Atrial fibrillation with RVR (Acute) Heart failure with preserved ejection fraction, borderline, class II (Acute) Atrial fibrillation (Acute) 62 year old male with below past medical history hospitalized for acute respiratory failure secondary to legionella pneumonia, complicated by alcohol withdrawal, encephalopathy, acute on chronic systolic heart failure, atrial fibrillation with rapid ventricular response, elevated troponin secondary to demand ischemia, acute kidney injury, admitted to TCU with debility, here for rehabilitation, strengthening, prior to discharge home with spouse. * Debility - PT/OT. * Dysarthria - ST. * Pain - Tylenol 650MG Q6H PRN mild pain. * Bowel - Colace 100MG twice daily, Dulcolax 10MG daily PRN. * Pneumonia vaccination - Administer Prevnar 13 and/or Pneumovax 23 as necessary. * DVT prophylaxis - Not necessary, already on Eliquis. * Shortness of breath - Duoneb 3ML Q6HWA, Albuterol 2.5MG Q2H PRN. * Atrial Fibrillation - Coreg 3.125MG BID, Diltiazem 120MG daily, Amiodarone 200MG BID thru 08/29/2018, then stop, Eliquis 2.5MG BID. * Anxiety - Buspar 15MG twice daily. * Depression - Citalopram 40MG daily. * Insomnia - Doxepin 50MG QHS. * Iron deficiency anemia - Ferrex 150MG daily. * Acute on chronic systolic heart failure - Coreg 3.125G BID, Losartan 25MG daily, Lasix 20MG daily. * Liver cirrhosis/hepatic encephalopathy - Xifaxan 550MG BID, Lactulose 10GM TID. * Diabetes Mellitus II - Metformin XR 1000MG daily. * Nutrition - MVI daily. * Dry Eyes - Artificial Tears 2GTT OU Q1H PRN. * Hypokalemia - K-Dur 20MEQ daily. * Encephalopathy, Taper Seroquel to 50MG QHS x 5 days, then 25MG QHS x 5 days, then stop. * BPH/urinary retention - Tamsulosin 0.4MG daily.
[2018-08-28 14:27] VITALS: BP 101/53; PULSE 98; RESP 18; TEMP 36.9; O2SAT 92
[2018-08-28] MEDS: Tamsulosin HCl 0.4 MG Capsule PO (17:36)
[2018-08-28 18:35] VITALS: PULSE 87; RESP 20; O2SAT 92
[2018-08-28 22:14] VITALS: PULSE 89; RESP 17; O2SAT 92
[2018-08-28] MEDS: DOXEPIN HCL 50 MG CAPSULE PO (22:33)
[2018-08-29] MEDS: dilTIAZem CD 120 MG Capsule PO (04:56)
[2018-08-29] MEDS: Carvedilol 3.125 MG TABLET PO ×2 (04:56→16:38)
[2018-08-29] MEDS: busPIRone 15 MG TABLET PO (04:56)
[2018-08-29] MEDS: Amiodarone 200 MG Tablet PO ×2 (04:56→16:39)
[2018-08-29] MEDS: Citalopram 40 MG TABLET PO (04:56)
[2018-08-29] MEDS: rifAXIMin 550 MG Tablet PO ×2 (04:56→16:39)
[2018-08-29] MEDS: Docusate Sodium 100 MG Capsule PO ×2 (04:56→16:39)
[2018-08-29] MEDS: Furosemide 20 MG Tablet PO (04:56)
[2018-08-29] MEDS: Losartan Potassium 25 MG Tablet PO (04:56)
[2018-08-29] MEDS: Lactulose 20 GM/30 ML UDC 10 GM PO ×3 (04:56→21:44)
[2018-08-29] MEDS: APIXABAN 2.5 MG TABLET PO ×2 (04:57→16:39)
[2018-08-29 06:26] LABS: Bedside Glucose 103 mg/dL (70-110)
[2018-08-29 06:57] VITALS: PULSE 72; RESP 21; O2SAT 91
[2018-08-29] MEDS: Ipratropium/Albuterol Sulfate 3 ML AMPUL.NEB INHALATION ×2 (06:57→19:55)
--- NOTE | 2018-08-29 08:01 | PCM.PN.RX ---
<Quan Aguirre D - Last Filed: 08/29/18 08:01> Progress Note - Pharmacy Subjective: TCU Admission Objective: Allergies No Known Allergies Allergy (Verified 08/18/18 14:17) Current Medications Generic Name Dose Route Start Last Admin Trade Name Freq PRN Reason Stop Dose Admin Albuterol Sulfate 2.5 mg 08/27/18 14:15 Ventolin Aerosols INHALATION Q2H PRN PRN dyspnea, wheezing Albuterol/Ipratropium 3 ml 08/27/18 14:30 08/28/18 18:35 Duoneb INHALATION 3 ml Q6HWA.RT RONAN Administration Amiodarone HCl 200 mg 08/27/18 18:00 08/29/18 04:56 Cordarone PO 08/29/18 20:00 200 mg BID RONAN Administration Apixaban 2.5 mg 08/27/18 18:00 08/29/18 04:57 Eliquis PO 2.5 mg BID RONAN Administration Bisacodyl 10 mg 08/27/18 14:27 Dulcolax PO DAILY PRN Constipation Buspirone HCl 15 mg 08/27/18 18:00 08/29/18 04:56 Buspar PO 15 mg BID RONAN Administration Carvedilol 3.125 mg 08/27/18 18:00 08/29/18 04:56 Coreg PO 3.125 mg BID RONAN Administration Citalopram Hydrobromide 40 mg 08/28/18 06:00 08/29/18 04:56 Celexa PO 40 mg DAILY RONAN Administration Diltiazem HCl 120 mg 08/28/18 06:00 08/29/18 04:56 Cardizem Cd PO 120 mg DAILY RONAN Administration Docusate Sodium 100 mg 08/27/18 18:00 08/29/18 04:56 Colace PO 100 mg BID RONAN Administration Doxepin HCl 50 mg 08/28/18 22:00 08/28/18 22:33 Doxepin Hcl PO 50 mg QHS RONAN Administration Furosemide 20 mg 08/29/18 06:00 08/29/18 04:56 Lasix PO 20 mg DAILY RONAN Administration Lactulose 10 gm 08/27/18 22:00 08/29/18 04:56 Chronulac, Cephulac PO 10 gm TID RONAN Administration Losartan Potassium 25 mg 08/28/18 06:00 08/29/18 04:56 Cozaar PO 25 mg DAILY RONAN Administration Metformin HCl 1,000 mg 08/28/18 08:00 08/28/18 08:26 Glucophage Xr PO 1,000 mg DAILYCM [facility] Administration Multivitamins 1 tablet 08/28/18 08:00 08/28/18 08:26 Multivitamin PO 1 tablet DAILY@0800 RONAN Administration Polysaccharide Iron Complex 150 mg 08/29/18 08:00 Ferrex 150 PO DAILYCM [facility] Potassium Chloride 20 meq 08/28/18 06:00 08/29/18 04:56 K-Dur PO 20 meq DAILY RONAN Administration Quetiapine Fumarate 50 mg 08/28/18 22:00 08/28/18 22:33 Seroquel PO 09/02/18 22:01 50 mg QHS [facility] Administration Quetiapine Fumarate 25 mg 09/03/18 22:00 Seroquel PO 09/08/18 22:01 QHS [facility] Rifaximin 550 mg 08/27/18 18:00 08/29/18 04:56 Xifaxan PO 550 mg BID RONAN Administration Tamsulosin HCl 0.4 mg 08/27/18 17:30 08/28/18 17:36 Flomax PO 0.4 mg DAILY@1730 [facility] Administration Tuberculin PPD 5 tu 09/04/18 10:00 Tubersol, Aplisol, Ppd ID 09/04/18 10:01 X1 ONE Problem List Debility (Acute) Acute respiratory failure (Acute) Legionella pneumonia (Acute) Liver cirrhosis (Chronic) Acute on chronic systolic heart failure (Chronic) Diabetes mellitus (Chronic) Tobacco abuse (Chronic) Cannabis abuse (Chronic) Opioid dependence (Chronic) Vital Signs Temp Pulse Resp BP Pulse Ox 98.5 F 89 17 101/53 L 92 08/28/18 14:27 08/28/18 22:14 08/28/18 22:14 08/28/18 14:27 08/28/18 22:14 Oxygen Delivery Method Room Air Weight: 114.022 kg Body Mass Index (BMI) 35.2 Finger Stick Blood Glucose 126 Sodium 136 mmol/L (136-145) 08/28/18 06:36 Potassium 3.8 mmol/L (3.5-5.1) 08/28/18 06:36 Chloride 107 mmol/L (98-107) 08/28/18 06:36 Carbon Dioxide 25.0 mmol/L (21.0-32.0) 08/28/18 06:36 4 (5-15) L 08/28/18 06:36 BUN 15 mg/dL (7-18) 08/28/18 06:36 0.87 mg/dL (0.70-1.30) 08/28/18 06:36 Est GFR (MDRD) Af Amer 114 mL/min (>60) 08/28/18 06:36 Est GFR (MDRD) Non-Af 94 mL/min (>60) 08/28/18 06:36 17.2 RATIO (10-20) 08/28/18 06:36 Glucose 124 mg/dL (74-106) H 08/28/18 06:36 Assessment/Plan: * 1) AFib/Heart Failure Amiodarone thru 08/29, apixaban, carvedilol, diltiazem, losartan, furosemide/KCL. Continue to monitor BP/HR, renal function, electrolytes, for bleeding/clot, swelling. * Patient has not had any diltiazem since the infusion was stopped on 08/19, furosemide since the IV was stopped 08/18, and did not receive losartan at all during the acute admission. Please clarify that the three medications should be re-started at this time. 2) Pulm Duoneb aerosols, albuterol prn. Continue to monitor prn medication use, for shortness of breath. * 3) DM2 Metformin. Continue to monitor renal function, BGT. * Patient did not receive metformin during acute admission. Please verify that it is ok to continue. 4) Tamsulosin. Continue to monitor for symptoms. 5) Nutrition Fe, multivitamin. Continue to monitor clinically. Psychotropic Medications: * 6) Depression/Anxiety/Insomnia Buspirone, citalopram, doxepin at HS, tapering off of quetiapine. Continue to monitor s/s depression/anxiety. With use of multiple serotonergics continue to monitor s/s serotonin syndrome. * Buspirone and citalopram were stopped 08/18 and not re-started prior to 08/27 discharge. Please verify buspirone was to be re-started. Unnecessary Medications: None Bowel Regimen: 7) Docusate, lactulose, rifaximin, prn bisacodyl. Continue to monitor prn medication use, for constipation/diarrhea. Date of Note:: 08/29/18 - Provider Comments Provider responsibility: Provider responsible to enter orders to implement recommendations <Guille Nath Chi - Last Filed: 08/29/18 08:36> Progress Note - Pharmacy Subjective: [] Objective: Allergies No Known Allergies Allergy (Verified 08/18/18 14:17) Current Medications Generic Name Dose Route Start Last Admin Trade Name Freq PRN Reason Stop Dose Admin Albuterol Sulfate 2.5 mg 08/27/18 14:15 Ventolin Aerosols INHALATION Q2H PRN PRN dyspnea, wheezing Albuterol/Ipratropium 3 ml 08/27/18 14:30 08/29/18 06:57 Duoneb INHALATION 3 ml Q6HWA.RT RONAN Administration Amiodarone HCl 200 mg 08/27/18 18:00 08/29/18 04:56 Cordarone PO 08/29/18 20:00 200 mg BID RONAN Administration Apixaban 2.5 mg 08/27/18 18:00 08/29/18 04:57 Eliquis PO 2.5 mg BID RONAN Administration Bisacodyl 10 mg 08/27/18 14:27 Dulcolax PO DAILY PRN Constipation Buspirone HCl 15 mg 08/27/18 18:00 08/29/18 04:56 Buspar PO 15 mg BID RONAN Administration Carvedilol 3.125 mg 08/27/18 18:00 08/29/18 04:56 Coreg PO 3.125 mg BID RONAN Administration Citalopram Hydrobromide 40 mg 08/28/18 06:00 08/29/18 04:56 Celexa PO 40 mg DAILY RONAN Administration Diltiazem HCl 120 mg 08/28/18 06:00 08/29/18 04:56 Cardizem Cd PO 120 mg DAILY RONAN Administration Docusate Sodium 100 mg 08/27/18 18:00 08/29/18 04:56 Colace PO 100 mg BID RONAN Administration Doxepin HCl 50 mg 08/28/18 22:00 08/28/18 22:33 Doxepin Hcl PO 50 mg QHS RONAN Administration Furosemide 20 mg 08/29/18 06:00 08/29/18 04:56 Lasix PO 20 mg DAILY RONAN Administration Lactulose 10 gm 08/27/18 22:00 08/29/18 04:56 Chronulac, Cephulac PO 10 gm TID RONAN Administration Losartan Potassium 25 mg 08/28/18 06:00 08/29/18 04:56 Cozaar PO 25 mg DAILY RONAN Administration Metformin HCl 1,000 mg 08/28/18 08:00 08/29/18 08:07 Glucophage Xr PO 1,000 mg DAILYCM RONAN Administration Multivitamins 1 tablet 08/28/18 08:00 08/29/18 08:07 Multivitamin PO 1 tablet DAILY@0800 RONAN Administration Polysaccharide Iron Complex 150 mg 08/29/18 08:00 08/29/18 08:08 Ferrex 150 PO 150 mg DAILYCM [facility] Administration Potassium Chloride 20 meq 08/28/18 06:00 08/29/18 04:56 K-Dur PO 20 meq DAILY RONAN Administration Quetiapine Fumarate 50 mg 08/28/18 22:00 08/28/18 22:33 Seroquel PO 09/02/18 22:01 50 mg QHS RONAN Administration Quetiapine Fumarate 25 mg 09/03/18 22:00 Seroquel PO 09/08/18 22:01 QHS RONAN Rifaximin 550 mg 08/27/18 18:00 08/29/18 04:56 Xifaxan PO 550 mg BID RONAN Administration Tamsulosin HCl 0.4 mg 08/27/18 17:30 08/28/18 17:36 Flomax PO 0.4 mg DAILY@1730 RONAN Administration Tuberculin PPD 5 tu 09/04/18 10:00 Tubersol, Aplisol, Ppd ID 09/04/18 10:01 X1 ONE Problem List Debility (Acute) Acute respiratory failure (Acute) Legionella pneumonia (Acute) Liver cirrhosis (Chronic) Acute on chronic systolic heart failure (Chronic) Diabetes mellitus (Chronic) Tobacco abuse (Chronic) Cannabis abuse (Chronic) Opioid dependence (Chronic) Vital Signs Temp Pulse Resp BP Pulse Ox 98.5 F 72 21 H 101/53 L 91 08/28/18 14:27 08/29/18 06:57 08/29/18 06:57 08/28/18 14:27 08/29/18 06:57 Oxygen Delivery Method Room Air Weight: 114.022 kg Body Mass Index (BMI) 35.2 Finger Stick Blood Glucose 126 Sodium 136 mmol/L (136-145) 08/28/18 06:36 Potassium 3.8 mmol/L (3.5-5.1) 08/28/18 06:36 Chloride 107 mmol/L (98-107) 08/28/18 06:36 Carbon Dioxide 25.0 mmol/L (21.0-32.0) 08/28/18 06:36 4 (5-15) L 08/28/18 06:36 BUN 15 mg/dL (7-18) 08/28/18 06:36 0.87 mg/dL (0.70-1.30) 08/28/18 06:36 Est GFR (MDRD) Af Amer 114 mL/min (>60) 08/28/18 06:36 Est GFR (MDRD) Non-Af 94 mL/min (>60) 08/28/18 06:36 17.2 RATIO (10-20) 08/28/18 06:36 Glucose 124 mg/dL (74-106) H 08/28/18 06:36 Assessment/Plan: Psychotropic Medications: Unnecessary Medications: Bowel Regimen: - Provider Comments Provider responsibility: Provider responsible to enter orders to implement recommendations Provider Comments to Recommendations by Pharmacy: Agree
[2018-08-29] MEDS: Multivitamins,Therapeutic Tablet 1 TABLET PO (08:07)
[2018-08-29] MEDS: metFORMIN (XR) 500 MG Tablet 1000 MG PO (08:07)
[2018-08-29] MEDS: Iron Polysaccharide Complex 150 MG CAPSULE PO (08:08)
--- NOTE | 2018-08-29 13:18 | NURSING ---
Pt took 3 bites of cake that daughter brought in.
[2018-08-29 15:02] VITALS: BP 120/79; PULSE 98; RESP 18; TEMP 36.2; O2SAT 95
[2018-08-29] MEDS: Tamsulosin HCl 0.4 MG Capsule PO (16:39)
[2018-08-29 19:55] VITALS: PULSE 70; RESP 20
[2018-08-29] MEDS: QUEtiapine 25 MG Tablet 50 MG PO (21:44)
[2018-08-29] MEDS: DOXEPIN HCL 50 MG CAPSULE PO (21:45)
[2018-08-30 00:15] VITALS: PULSE 88; RESP 18; O2SAT 93
[2018-08-30] MEDS: Docusate Sodium 100 MG Capsule PO ×2 (05:57→17:38)
[2018-08-30] MEDS: Carvedilol 3.125 MG TABLET PO ×2 (05:57→17:38)
[2018-08-30] MEDS: rifAXIMin 550 MG Tablet PO ×2 (05:57→17:38)
[2018-08-30] MEDS: Lactulose 20 GM/30 ML UDC 10 GM PO ×3 (05:57→21:07)
[2018-08-30] MEDS: APIXABAN 2.5 MG TABLET PO ×2 (05:58→17:38)
[2018-08-30 06:50] LABS: Bedside Glucose 110 mg/dL (70-110)
[2018-08-30] MEDS: Multivitamins,Therapeutic Tablet 1 TABLET PO (07:40)
[2018-08-30] MEDS: Iron Polysaccharide Complex 150 MG CAPSULE PO (07:40)
[2018-08-30 15:43] VITALS: BP 139/83; PULSE 80; RESP 18; TEMP 36.6; O2SAT 93
--- NOTE | 2018-08-30 16:14 | CHAPLAIN ---
patient is sleeping; left a calling card
[2018-08-30] MEDS: Tamsulosin HCl 0.4 MG Capsule PO (17:38)
[2018-08-30 19:55] VITALS: PULSE 72; RESP 20
[2018-08-30] MEDS: QUEtiapine 25 MG Tablet 50 MG PO (21:07)
[2018-08-30] MEDS: DOXEPIN HCL 50 MG CAPSULE PO (21:07)
[2018-08-31] MEDS: Lactulose 20 GM/30 ML UDC 10 GM PO ×3 (06:29→21:41)
[2018-08-31] MEDS: Docusate Sodium 100 MG Capsule PO ×2 (06:29→16:55)
[2018-08-31] MEDS: rifAXIMin 550 MG Tablet PO ×2 (06:29→16:55)
[2018-08-31] MEDS: Carvedilol 3.125 MG TABLET PO ×2 (06:29→16:55)
[2018-08-31] MEDS: APIXABAN 2.5 MG TABLET PO ×2 (06:30→16:55)
[2018-08-31 07:06] LABS: Bedside Glucose 80 mg/dL (70-110)
[2018-08-31 07:20] VITALS: PULSE 100; RESP 18; O2SAT 94
[2018-08-31] MEDS: Ipratropium/Albuterol Sulfate 3 ML AMPUL.NEB INHALATION (07:20)
[2018-08-31] MEDS: Iron Polysaccharide Complex 150 MG CAPSULE PO (08:06)
[2018-08-31] MEDS: Multivitamins,Therapeutic Tablet 1 TABLET PO (08:06)
--- NOTE | 2018-08-31 08:39 | NURSING ---
Per Dr. Tubbs's note on acute side of hospital, amiodarone was only for 5 days, was to be stopped on August 29 per order
--- NOTE | 2018-08-31 09:02 | NURSING ---
Called to Arley's office to clarify all cardiac and bp meds per transfer summary, awaiting response
--- NOTE | 2018-08-31 09:31 | NURSING ---
recieved call back from Dr. Tubbs's office, see orders
--- NOTE | 2018-08-31 10:52 | CASEMGMT ---
Social Work IDT met with patient and brother for care plan meeting. Discussed progressing well with therapy. Still working on improvements and possible diet upgrade. Pt reports having poor appetite, but declines appetite stimulant - weight loss is desired. Goal is to return home with S.O. Will continue to follow for discharge planning. KENYA SchraderW
[2018-08-31] MEDS: Amiodarone 200 MG Tablet PO (10:58)
[2018-08-31 10:59] VITALS: BP 96/64; PULSE 86
--- NOTE | 2018-08-31 13:58 | MDS.RN ---
Pain interview for sean 09/03/18 completed.
[2018-08-31 15:11] VITALS: BP 115/74; PULSE 78; RESP 20; TEMP 36.8; O2SAT 92
[2018-08-31] MEDS: Tamsulosin HCl 0.4 MG Capsule PO (16:55)
[2018-08-31] MEDS: QUEtiapine 25 MG Tablet 50 MG PO (21:43)
[2018-08-31] MEDS: DOXEPIN HCL 50 MG CAPSULE PO (21:44)
[2018-08-31 22:10] VITALS: PULSE 95; RESP 18; O2SAT 92
[2018-08-31] MEDS: Albuterol 2.5 MG/3 ML VIAL.NEB. INHALATION (22:10)
[2018-09-01 01:07] VITALS: PULSE 97; RESP 15; O2SAT 93
[2018-09-01 04:18] VITALS: PULSE 96; RESP 14; O2SAT 93
[2018-09-01] MEDS: Lactulose 20 GM/30 ML UDC 10 GM PO ×3 (05:55→19:56)
[2018-09-01] MEDS: rifAXIMin 550 MG Tablet PO ×2 (05:56→17:43)
[2018-09-01] MEDS: Carvedilol 3.125 MG TABLET PO ×2 (05:56→17:42)
[2018-09-01] MEDS: Docusate Sodium 100 MG Capsule PO ×2 (05:56→17:42)
[2018-09-01] MEDS: Amiodarone 200 MG Tablet PO (05:56)
[2018-09-01] MEDS: Losartan Potassium 25 MG Tablet PO (05:56)
[2018-09-01] MEDS: dilTIAZem CD 120 MG Capsule PO (05:57)
[2018-09-01] MEDS: APIXABAN 2.5 MG TABLET PO ×2 (05:58→17:42)
[2018-09-01 06:46] LABS: Bedside Glucose 85 mg/dL (70-110)
[2018-09-01] MEDS: Iron Polysaccharide Complex 150 MG CAPSULE PO (09:18)
[2018-09-01] MEDS: Multivitamins,Therapeutic Tablet 1 TABLET PO (09:18)
[2018-09-01 14:03] VITALS: BP 118/76; PULSE 78; RESP 18; TEMP 36.3; O2SAT 94
[2018-09-01] MEDS: Tamsulosin HCl 0.4 MG Capsule PO (17:42)
[2018-09-01] MEDS: DOXEPIN HCL 50 MG CAPSULE PO (20:57)
[2018-09-01] MEDS: QUEtiapine 25 MG Tablet 50 MG PO (20:57)
[2018-09-01] MEDS: Nystatin Powder 15gm Bottle 1 APPLIC TOPICAL (20:57)
[2018-09-01 22:43] VITALS: PULSE 78; RESP 16
[2018-09-01] MEDS: Albuterol 2.5 MG/3 ML VIAL.NEB. INHALATION (22:43)
[2018-09-01 22:55] VITALS: PULSE 77; RESP 16; O2SAT 96
[2018-09-02 02:08] VITALS: PULSE 80; RESP 16; O2SAT 94
[2018-09-02 05:00] VITALS: PULSE 82; RESP 12; O2SAT 93
[2018-09-02] MEDS: Lactulose 20 GM/30 ML UDC 10 GM PO ×3 (05:52→20:57)
[2018-09-02] MEDS: APIXABAN 2.5 MG TABLET PO ×2 (05:53→17:19)
[2018-09-02] MEDS: Docusate Sodium 100 MG Capsule PO ×2 (05:53→17:19)
[2018-09-02] MEDS: rifAXIMin 550 MG Tablet PO ×2 (05:53→17:20)
[2018-09-02] MEDS: Carvedilol 3.125 MG TABLET PO ×2 (05:53→17:19)
[2018-09-02] MEDS: Amiodarone 200 MG Tablet PO (05:53)
[2018-09-02] MEDS: Nystatin Powder 15gm Bottle 1 APPLIC TOPICAL ×2 (05:53→20:57)
[2018-09-02] MEDS: dilTIAZem CD 120 MG Capsule PO (05:53)
[2018-09-02] MEDS: Losartan Potassium 25 MG Tablet PO (05:53)
[2018-09-02] MEDS: Bisacodyl 5 MG Tablet 10 MG PO (05:59)
[2018-09-02 06:26] LABS: Bedside Glucose 82 mg/dL (70-110)
[2018-09-02] MEDS: Multivitamins,Therapeutic Tablet 1 TABLET PO (09:47)
[2018-09-02] MEDS: Iron Polysaccharide Complex 150 MG CAPSULE PO (09:48)
--- NOTE | 2018-09-02 09:51 | NURSING ---
Pt requesting something for pain and c/o right shoulder pain on a scale 6/10. No PRN pain medication currently on APR. Reported to Laury PELLETIER.
--- NOTE | 2018-09-02 10:37 | CASEMGMT ---
Social Work BIMS and PHQ-9 completed for MDS assessment. Slime Sykes, CAP MAKER RETAIL ADMINISTRATIVE ASSISTANT
[2018-09-02 15:32] VITALS: BP 106/78; PULSE 84; RESP 17; TEMP 36.7; O2SAT 93
[2018-09-02] MEDS: Tamsulosin HCl 0.4 MG Capsule PO (17:20)
[2018-09-02] MEDS: QUEtiapine 25 MG Tablet 50 MG PO (20:56)
[2018-09-02] MEDS: Acetaminophen 500 MG Tablet 1000 MG PO (20:56)
[2018-09-02] MEDS: DOXEPIN HCL 50 MG CAPSULE PO (20:57)
[2018-09-02 21:30] VITALS: PULSE 79; RESP 20
[2018-09-02] MEDS: Albuterol 2.5 MG/3 ML VIAL.NEB. INHALATION (21:30)
[2018-09-02 22:45] VITALS: PULSE 76; RESP 14; O2SAT 95
[2018-09-03 02:00] VITALS: PULSE 73; RESP 15; O2SAT 95
[2018-09-03 05:20] VITALS: PULSE 71; RESP 14; O2SAT 95
[2018-09-03] MEDS: Docusate Sodium 100 MG Capsule PO ×2 (05:51→16:48)
[2018-09-03] MEDS: dilTIAZem CD 120 MG Capsule PO (05:51)
[2018-09-03] MEDS: Nystatin Powder 15gm Bottle 1 APPLIC TOPICAL ×2 (05:51→21:12)
[2018-09-03] MEDS: Carvedilol 3.125 MG TABLET PO ×2 (05:51→16:49)
[2018-09-03] MEDS: Amiodarone 200 MG Tablet PO (05:51)
[2018-09-03] MEDS: APIXABAN 2.5 MG TABLET PO ×2 (05:51→16:50)
[2018-09-03] MEDS: Losartan Potassium 25 MG Tablet PO (05:51)
[2018-09-03] MEDS: Lactulose 20 GM/30 ML UDC 10 GM PO ×3 (05:51→21:11)
[2018-09-03] MEDS: rifAXIMin 550 MG Tablet PO ×2 (05:52→16:49)
[2018-09-03 06:01] LABS: Bedside Glucose 85 mg/dL (70-110)
[2018-09-03] MEDS: Multivitamins,Therapeutic Tablet 1 TABLET PO (08:25)
[2018-09-03] MEDS: Iron Polysaccharide Complex 150 MG CAPSULE PO (08:25)
[2018-09-03 15:03] VITALS: BP 128/74; PULSE 79; RESP 18; TEMP 36.6; O2SAT 97
[2018-09-03] MEDS: Tamsulosin HCl 0.4 MG Capsule PO (16:49)
--- NOTE | 2018-09-03 19:35 | NURSING ---
Patient c/o some reflux. Given soda crackers and diet abraham floyd. Seem to helping some. Will cont to monitor. Nurse PRABHU Galvin aware.
[2018-09-03] MEDS: DOXEPIN HCL 50 MG CAPSULE PO (21:12)
[2018-09-03] MEDS: Acetaminophen 500 MG Tablet 1000 MG PO (21:18)
[2018-09-03] MEDS: Albuterol 2.5 MG/3 ML VIAL.NEB. INHALATION (21:35)
[2018-09-03 21:36] VITALS: PULSE 82; RESP 18
[2018-09-03 21:51] VITALS: PULSE 79; RESP 14; O2SAT 99
[2018-09-04] VITALS: PULSE 75; RESP 13; O2SAT 97
[2018-09-04 03:08] VITALS: PULSE 75; RESP 12; O2SAT 98
[2018-09-04] MEDS: Lactulose 20 GM/30 ML UDC 10 GM PO ×3 (05:33→20:53)
[2018-09-04] MEDS: Losartan Potassium 25 MG Tablet PO (05:33)
[2018-09-04] MEDS: rifAXIMin 550 MG Tablet PO ×2 (05:33→16:40)
[2018-09-04] MEDS: APIXABAN 2.5 MG TABLET PO ×2 (05:33→16:41)
[2018-09-04] MEDS: dilTIAZem CD 120 MG Capsule PO (05:34)
[2018-09-04] MEDS: Amiodarone 200 MG Tablet PO (05:34)
[2018-09-04] MEDS: Docusate Sodium 100 MG Capsule PO ×2 (05:34→16:41)
[2018-09-04] MEDS: Carvedilol 3.125 MG TABLET PO ×2 (05:34→16:41)
[2018-09-04] MEDS: Nystatin Powder 15gm Bottle 1 APPLIC TOPICAL ×2 (05:34→20:54)
[2018-09-04 06:51] LABS: Bedside Glucose 114 mg/dL (70-110)
[2018-09-04 07:23] LABS: Absolute Lymphocyte Count 1.43 X10^3/ul (0.83-4.51); Absolute Neutrophil Count 2.3 X10^3/uL (2.0-7.7); Basophil# 0.01 X10^3/uL; Basophil% 0.2 % (0-1); Eosinophil# 0.09 X10^3/uL; Eosinophils% 2.1 % (0-5); Hemoglobin 12.5 g/dl (13.0-16.5); Lymphocyte # 1.43 X10^3/ul (4.0); Lymphocyte % 32.9 % (19-41); Mean Corp Hgb Conc 33.8 g/gl (32-36); Mean Corpuscular Volume 91.8 fL (80-94); Mean Platelet Vol. 8.5 fl (6.2-12.0); Monocyte# 0.54 X10^3/uL; Monocyte% 12.4 % (0-10); Neutrophil # 2.26 X10^3/uL (2.7-7.7); Neutrophil % 52.2 % (47-70); Platelet Count 118 K/mm3 (150-450); RBC Distribution Width CV 16.2 % (11.6-14.6); RBC Distribution Width SD 53.6 fl (35.1-43.9); Red Blood Count 4.03 M/mm3 (4.6-6.2); White Blood Count 4.3 K/mm3 (4.4-11.0)
[2018-09-04 07:24] LABS: POSITIVE COUNT NO; POSITIVE DIFFERENTIAL NO; POSITIVE MORPHOLOGY NO
[2018-09-04 07:40] LABS: Anion Gap 5 (5-15); BUN 10 mg/dL (7-18); BUN/Creat Ratio 11.9 RATIO (10-20); Calcium,Total 8.7 mg/dL (8.5-10.1); Chloride 104 mmol/L (98-107); Creatinine, Serum 0.84 mg/dL (0.70-1.30); EST Glomerular Filtration Rate 99 mL/min (>60); Est Glom Filt Rate - Afr Amer 120 mL/min (>60); Estimated Creatinine Clearance 98.36 ml/min; Glucose 100 mg/dL (74-106); Potassium 3.7 mmol/L (3.5-5.1); Sodium Level 134 mmol/L (136-145)
[2018-09-04] MEDS: Iron Polysaccharide Complex 150 MG CAPSULE PO (08:39)
[2018-09-04] MEDS: Multivitamins,Therapeutic Tablet 1 TABLET PO (08:39)
[2018-09-04] MEDS: Tuberculin,Purif.prot.deriv. 50 TU/ML Vial 5 ML ID (13:58)
[2018-09-04 15:50] VITALS: BP 109/77; PULSE 76; RESP 17; TEMP 36.2; O2SAT 97
[2018-09-04] MEDS: Tamsulosin HCl 0.4 MG Capsule PO (16:41)
[2018-09-04] MEDS: DOXEPIN HCL 50 MG CAPSULE PO (20:53)
[2018-09-04] MEDS: Albuterol 2.5 MG/3 ML VIAL.NEB. INHALATION (21:32)
[2018-09-04 21:33] VITALS: PULSE 76; RESP 16; O2SAT 98
[2018-09-04 23:20] VITALS: PULSE 75; RESP 16; O2SAT 97
[2018-09-05 02:18] VITALS: PULSE 74; RESP 16; O2SAT 97
[2018-09-05] MEDS: rifAXIMin 550 MG Tablet PO ×2 (06:03→16:51)
[2018-09-05] MEDS: dilTIAZem CD 120 MG Capsule PO (06:03)
[2018-09-05] MEDS: APIXABAN 2.5 MG TABLET PO ×2 (06:03→16:51)
[2018-09-05] MEDS: Amiodarone 200 MG Tablet PO (06:03)
[2018-09-05] MEDS: Carvedilol 3.125 MG TABLET PO ×2 (06:03→16:51)
[2018-09-05] MEDS: Lactulose 20 GM/30 ML UDC 10 GM PO ×3 (06:03→21:21)
[2018-09-05] MEDS: Losartan Potassium 25 MG Tablet PO (06:03)
[2018-09-05] MEDS: Docusate Sodium 100 MG Capsule PO ×2 (06:03→16:51)
[2018-09-05] MEDS: Nystatin Powder 15gm Bottle 1 APPLIC TOPICAL ×2 (06:04→21:22)
[2018-09-05] MEDS: Bisacodyl 5 MG Tablet 10 MG PO (06:15)
[2018-09-05 06:41] LABS: Bedside Glucose 93 mg/dL (70-110)
--- NOTE | 2018-09-05 06:58 | NURSING ---
Pt requesting accu checks be D/C'd. Will update Dr Nath.
[2018-09-05 07:00] VITALS: O2SAT 96
[2018-09-05] MEDS: Iron Polysaccharide Complex 150 MG CAPSULE PO (07:50)
[2018-09-05] MEDS: Multivitamins,Therapeutic Tablet 1 TABLET PO (07:50)
[2018-09-05 16:00] VITALS: BP 113/67; PULSE 77; RESP 16; TEMP 36.5; O2SAT 96
[2018-09-05] MEDS: Tamsulosin HCl 0.4 MG Capsule PO (16:51)
[2018-09-05] MEDS: DOXEPIN HCL 50 MG CAPSULE 100 MG PO (21:21)
[2018-09-05 21:50] VITALS: PULSE 79; RESP 17; O2SAT 98
[2018-09-06 00:10] VITALS: PULSE 71; RESP 14; O2SAT 97
[2018-09-06 03:05] VITALS: PULSE 71; RESP 14; O2SAT 97
[2018-09-06] MEDS: Carvedilol 3.125 MG TABLET PO ×2 (05:35→16:24)
[2018-09-06] MEDS: Docusate Sodium 100 MG Capsule PO ×2 (05:35→16:25)
[2018-09-06] MEDS: APIXABAN 2.5 MG TABLET PO ×2 (05:35→16:25)
[2018-09-06] MEDS: Nystatin Powder 15gm Bottle 1 APPLIC TOPICAL ×2 (05:35→21:11)
[2018-09-06] MEDS: Amiodarone 200 MG Tablet PO (05:35)
[2018-09-06] MEDS: dilTIAZem CD 120 MG Capsule PO (05:35)
[2018-09-06] MEDS: rifAXIMin 550 MG Tablet PO ×2 (05:35→16:25)
[2018-09-06] MEDS: Lactulose 20 GM/30 ML UDC 10 GM PO ×3 (05:35→21:10)
[2018-09-06] MEDS: Losartan Potassium 25 MG Tablet PO (05:35)
[2018-09-06 06:00] VITALS: O2SAT 97
[2018-09-06 06:36] LABS: Bedside Glucose 103 mg/dL (70-110)
[2018-09-06] MEDS: Iron Polysaccharide Complex 150 MG CAPSULE PO (09:39)
[2018-09-06] MEDS: Multivitamins,Therapeutic Tablet 1 TABLET PO (09:39)
--- NOTE | 2018-09-06 09:43 | MDS.RN ---
Information for the mds was obtained from review of the clinical record, interview of resident, staff, and direct observation of residents care.
--- NOTE | 2018-09-06 13:16 | CASEMGMT ---
Social Work Patient requesting to discharge home with S.O. 09/08. No DME needed. Therapy recommending [facility]. Referred to [facility]. Slime Sykes MSW DATA TRANSCRIBER
--- NOTE | 2018-09-06 14:56 | CHAPLAIN ---
Type of Pastoral Visit _x__ Initial Visit ___ Follow-up Visit ___ On-call Visit ___ General Patient Visit ___ Spiritual Assessment ___ Family Conference ___ Bereavement ___ Rapid Response ___ Code Blue ___ Other (describe below) Pastoral Care Referral From _x__ Patient ___ Family ___ Nurse ___ Physician ___ Television Installer ___ Financial Services Rep ___ Other (describe below) Sacrament/Intervention _x__ Active listening ___ Anointing ___ Alevism ___ Bereavement ___ Communion _x__ Ana exploration ___ ___ Life review ___ Prayer ___ Reconciliation ___ Sacrament of Sick _x__ Supportive presence ___ Wedding ___ Other (describe below) Pastoral Comments
[2018-09-06 15:44] VITALS: BP 94/47; PULSE 74; RESP 18; TEMP 36.8; O2SAT 96
[2018-09-06] MEDS: Tamsulosin HCl 0.4 MG Capsule PO (16:24)
[2018-09-06] MEDS: DOXEPIN HCL 50 MG CAPSULE 100 MG PO (21:10)
--- NOTE | 2018-09-06 22:34 | DCINST_ITS ---
- Discharge Diagnoses Current Active Problems: Current Active and Chronic Problems Debility (Acute) Acute respiratory failure (Acute) Legionella pneumonia (Acute) Liver cirrhosis (Chronic) Acute on chronic systolic heart failure (Chronic) Diabetes mellitus (Chronic) Tobacco abuse (Chronic) Cannabis abuse (Chronic) Opioid dependence (Chronic) You will use the following diet at home:: No restrictions, Regular Your food should be the consistency of: Regular Your liquids should be the consistency of: Regular/Thin Discharge Activity: Return to Normal Activity, May Shower, Use Walker Weight Bearing Status: Weight bearing as tolerated Call your doctor if you observe: Fever of 101 or Higher, Inability to urinate, Inability to have a bowel movement, Shortness of breath, Chest pain, Uncontroll ed pain Allergies/Adverse Reactions: Allergies No Known Allergies Allergy (Verified 08/18/18 14:17) Medications to take at Discharge Diltiazem CD [Cardizem CD] 120 mg PO DAILY 10/19/16 Docusate Sodium [Dok] 100 mg PO BID 07/07/17 Multivitamin with Minerals [Multiple Vitamin] 1 ea PO DAILY 08/18/18 Potassium Chloride [Klor-Con M20] 20 meq PO DAILY 08/18/18 Irbesartan [Avapro] 75 mg PO DAILY #0 08/27/18 Peg 400/Hypromellose/Glycerin [Artificial Tears] 2 drp EACH EYE Q1H PRN bottle 08/27/18 amiodarone 200 mg tablet 200 mg PO DAILY 08/31/18 Acetaminophen [Tylenol] 1,000 mg PO Q6H PRN PRN tablet 09/06/18 Amiodarone HCl [Cordarone] 200 mg PO DAILY #30 tab 09/06/18 Apixaban [Eliquis] 2.5 mg PO BID #60 tab 09/06/18 Carvedilol [Coreg (Beta Taco)] 3.125 mg PO BID #60 tab 09/06/18 Diltiazem CD [Cardizem CD] 120 mg PO DAILY capsule 09/06/18 Doxepin HCl 100 mg PO QHS #60 cap 09/06/18 Iron Polysaccharide Complex [Ferrex 150] 150 mg PO DAILYCM #30 cap 09/06/18 Lactulose [Chronulac] 10 gm PO TID #1350 udc 09/06/18 Mineral Oil/Petrolatum,White [Eucerin] 1 applic TOPICAL 0600,2200 jar 09/06/18 Nystatin Powder [Mycostatin Powder] 1 applic TOPICAL 0600,2200 bottle 09/06/18 Rifaximin [Xifaxan] 550 mg PO BID #60 tab 09/06/18 Tamsulosin HCl [Flomax] 0.4 mg PO DAILY@1730 #30 cap 09/06/18 The following prescriptions were given: Lactulose [Chronulac] 10 gm PO TID #1350 udc Transmission Status: Pending to [facility] #30 Amiodarone HCl [Cordarone] 200 mg PO DAILY #30 tab Transmission Status: Pending to [facility] #30 Carvedilol [Coreg (Beta Taco)] 3.125 mg PO BID #60 tab Transmission Status: Pending to [facility] #30 Doxepin HCl 100 mg PO QHS #60 cap Transmission Status: Pending to [facility] #30 Apixaban [Eliquis] 2.5 mg PO BID #60 tab Transmission Status: Pending to [facility] #30 Iron Polysaccharide Complex [Ferrex 150] 150 mg PO DAILYCM #30 cap Transmission Status: Pending to [facility] #30 Tamsulosin HCl [Flomax] 0.4 mg PO DAILY@1730 #30 cap Transmission Status: Pending to [facility] #30 Rifaximin [Xifaxan] 550 mg PO BID #60 tab Transmission Status: Pending to [facility] #30 Primary Care Physician: Tk Fofana MD [Primary Care Provider] - Please follow up with your Primary Care Physician in: 1 week. Test Results: Test results from this visit will be discussed in further detail at your follow- up appointment, if applicable. Please Follow Up With: Dr Tubbs - [facility] When: 2 weeks. Please Follow Up With: Dr. Gentile When: 2 weeks. Proposed Discharge Date: 09/08/18
--- NOTE | 2018-09-06 22:35 | DS.PCM_ITS ---
Discharge Date and Diagnosis - Problem List Patient Problems: Active and Suspected Problems Debility (Acute) Acute respiratory failure (Acute) Legionella pneumonia (Acute) Date of Admission: 08/27/18 Date of Discharge: 09/08/18 - Primary Discharge Diagnosis Active and Suspected Problems Debility (Acute) Acute respiratory failure (Acute) Legionella pneumonia (Acute) - Secondary Discharge Diagnosis Chronic Problems HLD (hyperlipidemia) (Chronic) Thrombocytopenia (Chronic) Anemia (Chronic) Hyponatremia (Chronic) Liver cirrhosis (Chronic) Acute on chronic systolic heart failure (Chronic) Diabetes mellitus (Chronic) Tobacco abuse (Chronic) Cannabis abuse (Chronic) Opioid dependence (Chronic) Pancytopenia (Chronic) Alcohol abuse (Chronic) Diabetes type 2, controlled (Chronic) Hypertension (Chronic) Hospital Course and Treatment Imaging Results: 08/27/18 14:26 Diet: Carbohydrate Controlled Food consistency:: Regular Liquid Consistency:: Regular/Thin Type of Dietary Supplement:: Ensure Complete Is pt able to select menu?: Yes Diet Comments: small bites/sips, seated upright for intake Labs (Last 48 Hours) 09/05/18 09/06/18 06:31 06:14 POC Glucose 93 103 Operations: None Procedures: None Summary of Care Provided: The patient is a 62 year old Male with below past medical history hospitalized for acute respiratory failure secondary to legionella pneumonia, complicated by alcohol withdrawal, encephalopathy, acute on chronic systolic heart failure, atrial fibrillation with rapid ventricular response, elevated troponin secondary to demand ischemia, acute kidney injury, admitted to TCU with debility, here for rehabilitation, strengthening, prior to discharge home with spouse. I told Jules if he continues drinking > 12 beers per day, he will shortly. Discharge home with significant other, Home Health Care for PT. Patient Problems: Active and Suspected Problems Debility (Acute) Acute respiratory failure (Acute) Legionella pneumonia (Acute) - Physical Exam Vital Signs Temp Pulse Resp BP Pulse Ox 98.3 F 74 18 94/47 L 96 09/06/18 15:44 09/06/18 15:44 09/06/18 15:44 09/06/18 15:44 09/06/18 15:44 Oxygen Delivery Method Room Air Weight: 112.491 kg Body Mass Index (BMI) 35.2 Finger Stick Blood Glucose 126 Intake and Output for Last 24 Hours 09/04/18 09/05/18 09/06/18 23:59 23:59 23:59 Intake Total 1570 / 1570 1200 / 1200 840 / 840 Output Total 700 / 700 Balance 870 / 870 1200 / 1200 840 / 840 POC Glucose 09/06/18 06:14 POC Glucose 103 Discharge Diet: No Restrictions Discharge Activity: Return to Normal Activity, May Shower, Use Walker Weight Bearing Status: Weight bearing as tolerated Call your doctor if you observe: Fever of 101 or Higher, Inability to urinate, Inability to have a bowel movement, Shortness of breath, Chest pain, Uncontrolled pain Home Medications: Medications to take at Discharge Diltiazem CD [Cardizem CD] 120 mg PO DAILY 10/19/16 Docusate Sodium [Dok] 100 mg PO BID 07/07/17 Multivitamin with Minerals [Multiple Vitamin] 1 ea PO DAILY 08/18/18 Potassium Chloride [Klor-Con M20] 20 meq PO DAILY 08/18/18 Irbesartan [Avapro] 75 mg PO DAILY #0 08/27/18 Peg 400/Hypromellose/Glycerin [Artificial Tears] 2 drp EACH EYE Q1H PRN bottle 08/27/18 amiodarone 200 mg tablet 200 mg PO DAILY 08/31/18 Acetaminophen [Tylenol] 1,000 mg PO Q6H PRN PRN tablet 09/06/18 Amiodarone HCl [Cordarone] 200 mg PO DAILY #30 tab 09/06/18 Apixaban [Eliquis] 2.5 mg PO BID #60 tab 09/06/18 Carvedilol [Coreg (Beta Taco)] 3.125 mg PO BID #60 tab 09/06/18 Diltiazem CD [Cardizem CD] 120 mg PO DAILY capsule 09/06/18 Doxepin HCl 100 mg PO QHS #60 cap 09/06/18 Iron Polysaccharide Complex [Ferrex 150] 150 mg PO DAILYCM #30 cap 09/06/18 Lactulose [Chronulac] 10 gm PO TID #1350 udc 09/06/18 Mineral Oil/Petrolatum,White [Eucerin] 1 applic TOPICAL 0600,2200 jar 09/06/18 Nystatin Powder [Mycostatin Powder] 1 applic TOPICAL 0600,2200 bottle 09/06/18 Rifaximin [Xifaxan] 550 mg PO BID #60 tab 09/06/18 Tamsulosin HCl [Flomax] 0.4 mg PO DAILY@1730 #30 cap 09/06/18 Following Prescrptions Were Given to Patient: Lactulose [Chronulac] 10 gm PO TID #1350 udc Transmission Status: Pending to [facility] #30 Amiodarone HCl [Cordarone] 200 mg PO DAILY #30 tab Transmission Status: Pending to [facility] #30 Carvedilol [Coreg (Beta Taco)] 3.125 mg PO BID #60 tab Transmission Status: Pending to [facility] #30 Doxepin HCl 100 mg PO QHS #60 cap Transmission Status: Pending to [facility] #30 Apixaban [Eliquis] 2.5 mg PO BID #60 tab Transmission Status: Pending to [facility] #30 Iron Polysaccharide Complex [Ferrex 150] 150 mg PO DAILYCM #30 cap Transmission Status: Pending to [facility] #30 Tamsulosin HCl [Flomax] 0.4 mg PO DAILY@1730 #30 cap Transmission Status: Pending to [facility] #30 Rifaximin [Xifaxan] 550 mg PO BID #60 tab Transmission Status: Pending to [facility] #30 Primary Care Physician: Tk Fofana MD [Primary Care Provider] - Please follow up with your Primary Care Physician in: 1 week. Please Follow Up With: Dr Tubbs - [facility] When: 2 weeks. Please Follow Up With: Dr. Gentile When: 2 weeks. Disposition: Home with Home Health Minutes spent on discharge:: 35 Patient Condition:: Stable Medical Necessity - Tobacco Use Smoking Status: Current every day smoker Tobacco Use: Cigarettes Meaningful Use Info Meaningful Use Diagnoses (Choose all that apply): None applicable
--- NOTE | 2018-09-06 22:38 | PCM.PN.HH ---
Home Health Note - Plan Overview of reason of hospitalization: The patient is a 62 year old Male with below past medical history hospitalized for acute respiratory failure secondary to legionella pneumonia, complicated by alcohol withdrawal, encephalopathy, acute on chronic systolic heart failure, atrial fibrillation with rapid ventricular response, elevated troponin secondary to demand ischemia, acute kidney injury, admitted to TCU with debility, here for rehabilitation, strengthening, prior to discharge home with spouse. I told Jules if he continues drinking > 12 beers per day, he will shortly. Discharge home with significant other, Home Health Care for PT. Problems: Patient was seen for Debility (Acute) Acute respiratory failure (Acute) Legionella pneumonia (Acute) Liver cirrhosis (Chronic) Acute on chronic systolic heart failure (Chronic) Diabetes mellitus (Chronic) Tobacco abuse (Chronic) Cannabis abuse (Chronic) Opioid dependence (Chronic) Complete List of Medical Problems HLD (hyperlipidemia) (Chronic) Thrombocytopenia (Chronic) Anemia (Chronic) Hyponatremia (Chronic) Decompensated hepatic cirrhosis (Acute) CAP (community acquired pneumonia) (Acute) Sepsis (Acute) Debility (Acute) Acute respiratory failure (Acute) Legionella pneumonia (Acute) Liver cirrhosis (Chronic) Acute on chronic systolic heart failure (Chronic) Diabetes mellitus (Chronic) Tobacco abuse (Chronic) Cannabis abuse (Chronic) Opioid dependence (Chronic) Pancytopenia (Chronic) Leukocytoclastic vasculitis (Acute) Atrial fibrillation with RVR (Acute) Heart failure with preserved ejection fraction, borderline, class II (Acute) Alcohol abuse (Chronic) Atrial fibrillation (Acute) Diabetes type 2, controlled (Chronic) Hypertension (Chronic) - Requirements and Reasons Disciplines Needed/Ordered: Physical Therapy Reason for Disciplines: Disease Specific Monitoring/education, Gait Training, Stair Training, Fall Prevention, Home Safety/Equipment Instruction, Balance and/or Posture Training, Transfer Training Related To: Change in Medical Treatment Plan, Limited/Poor Endurance, Shortness of Breath with Activity, Physical Impairments, Unsteady Gait/Balance, Fall Risk Patient is unable to leave the home: Without Aid of Supportive Devices (crutches, cane, wheelchair, walker), Without the assistance of another person
[2018-09-06 22:55] VITALS: PULSE 74; RESP 16; O2SAT 96
--- NOTE | 2018-09-06 22:56 | CPS ---
PATIENT REQUESTED PRN TREATMENT AT TIME OF VISIT.
[2018-09-07 01:24] VITALS: PULSE 68; RESP 17; O2SAT 95
[2018-09-07] MEDS: rifAXIMin 550 MG Tablet PO ×2 (06:25→16:42)
[2018-09-07] MEDS: Docusate Sodium 100 MG Capsule PO ×2 (06:26→16:42)
[2018-09-07] MEDS: Carvedilol 3.125 MG TABLET PO ×2 (06:26→16:42)
[2018-09-07] MEDS: APIXABAN 2.5 MG TABLET PO ×2 (06:26→16:43)
[2018-09-07] MEDS: Amiodarone 200 MG Tablet PO (06:26)
[2018-09-07] MEDS: Lactulose 20 GM/30 ML UDC 10 GM PO ×3 (06:26→20:54)
[2018-09-07] MEDS: dilTIAZem CD 120 MG Capsule PO (06:26)
[2018-09-07] MEDS: Losartan Potassium 25 MG Tablet PO (06:27)
[2018-09-07] MEDS: Nystatin Powder 15gm Bottle 1 APPLIC TOPICAL ×2 (06:27→20:55)
[2018-09-07 06:30] LABS: Bedside Glucose 80 mg/dL (70-110)
[2018-09-07] MEDS: Multivitamins,Therapeutic Tablet 1 TABLET PO (08:46)
[2018-09-07] MEDS: Iron Polysaccharide Complex 150 MG CAPSULE PO (08:46)
[2018-09-07 15:49] VITALS: BP 99/63; PULSE 76; RESP 18; TEMP 36.7; O2SAT 98
[2018-09-07] MEDS: Tamsulosin HCl 0.4 MG Capsule PO (16:42)
[2018-09-07] MEDS: DOXEPIN HCL 50 MG CAPSULE 100 MG PO (20:54)
[2018-09-07 21:24] VITALS: PULSE 70; RESP 17; O2SAT 96
[2018-09-07] MEDS: Albuterol 2.5 MG/3 ML VIAL.NEB. INHALATION (21:24)
[2018-09-08] MEDS: Lactulose 20 GM/30 ML UDC 10 GM PO (06:19)
[2018-09-08] MEDS: dilTIAZem CD 120 MG Capsule PO (06:19)
[2018-09-08] MEDS: APIXABAN 2.5 MG TABLET PO (06:20)
[2018-09-08] MEDS: Docusate Sodium 100 MG Capsule PO (06:20)
[2018-09-08] MEDS: rifAXIMin 550 MG Tablet PO (06:20)
[2018-09-08] MEDS: Losartan Potassium 25 MG Tablet PO (06:20)
[2018-09-08] MEDS: Amiodarone 200 MG Tablet PO (06:20)
[2018-09-08] MEDS: Carvedilol 3.125 MG TABLET PO (06:20)
[2018-09-08] MEDS: Nystatin Powder 15gm Bottle 1 APPLIC TOPICAL (06:21)
[2018-09-08 06:45] LABS: Bedside Glucose 95 mg/dL (70-110)
[2018-09-08 07:00] VITALS: O2SAT 96
[2018-09-08] MEDS: Iron Polysaccharide Complex 150 MG CAPSULE PO (09:03)
[2018-09-08] MEDS: Multivitamins,Therapeutic Tablet 1 TABLET PO (09:03)
[2018-09-08 11:05] VITALS: BP 105/68; PULSE 81; RESP 18; TEMP 36.5; O2SAT 96
== END 2018-09-08 11:10 | disposition home health service (06) | DRG 948 ==
PROVIDERS: Admitting Provider Family Medicine Geriatric Medicine; Family Provider Family Medicine; PCP Family Medicine; Visit Provider Family Medicine Geriatric Medicine
DX: R53.81 Other malaise (principal); I50.22 Chronic systolic (congestive) heart failure; F11.20 Opioid dependence, uncomplicated; E11.9 Type 2 diabetes mellitus without complications; F41.9 Anxiety disorder, unspecified; F32.9 Major depressive disorder, single episode, unspecified; I48.91 Unspecified atrial fibrillation; I11.0 Hypertensive heart disease with heart failure; E78.5 Hyperlipidemia, unspecified; F17.210 Nicotine dependence, cigarettes, uncomplicated; R33.9 Retention of urine, unspecified; N40.1 Benign prostatic hyperplasia with lower urinary tract symptoms; K74.60 Unspecified cirrhosis of liver; K72.90 Hepatic failure, unspecified without coma; E87.6 Hypokalemia; D50.9 Iron deficiency anemia, unspecified; Z86.73 Personal history of transient ischemic attack (TIA), and cerebral infarction without residual deficits; Z87.01 Personal history of pneumonia (recurrent)
CPT/HCPCS: 36415; 80048; 82962; 85025; 92507; 92526; 92610; 94003; 94640; 97110; 97116; 97162; 97165; 97530; 97535; 97802